=== PATIENT | male | born 1950 | race Caucasian/White ===

== ENCOUNTER 2023-03-29 08:34 | Outpatient (OUT) | payer MEDICARE, SELFPAY ==
--- NOTE | 2023-03-29 08:50 | PM.CN ---
Consult Note: HPI Data of Consult Patient: known to practice within the last 3 years Consult date: 03/29/23 Requesting Physician: KRISTINA DYKES NP Primary Care Provider: ALAINA Bolaños Narrative Narrative: Patient is here for f/u of low back pain and neck neck pain . No new sensorimotor sx or bowel or bladder issues. Medication regimen is controlling pain and assisting patient with ability to perform ADLs. MRI reviewed and questions answered. Pain is bilat lower backk pain and neck pain. We discussed getting neurosurgical consult, he declined. Also discussed ASIYA or RFA procedures. He states these have not helped him in the past and he would like to stay with medication management. He is also doing acupuncture currently. cc:: CC: KRISTINA DYKES NP Review of Systems ROS Status of ROS 10 or more systems reviewed and unremarkable except as noted in history and below Musculoskeletal Reports: back pain and neck pain Exam Constitutional Documenting provider has reviewed patient's vital signs: yes Common normals: no apparent distress, average body habitus, oriented x3, healthy appearing, alert and well nourished Orientation/consciousness: Yes awake, Yes oriented to person, Yes oriented to place and Yes oriented to time [facility] Common normals: normocephalic, external ears normal and moist oral mucous membranes Neck & C-Spine Common normals: no meningeal signs General: normal visual inspection Cervical spine: pain with cervical ROM, paracervical muscle tenderness and paracervical muscle spasm Respiratory Common normals: normal respiratory effort, no retractions and no use of accessory muscles Effort & inspection: able to speak in complete sentences and symmetric chest movement Back & Pelvis Lumbar spine/lower back: normal to inspection, pain with ROM and straight leg raise negative bilaterally Other: positive facet loading bilat muscle strength 5/5 bilat Assessment and Plan Assessment and Plan (1) Lumbar spondylosis: (2) Lumbar stenosis: (3) Muscle spasm: Plan f/u in 3 months
== END 2023-03-29 08:35 | disposition home or self-care (01) ==
PROVIDERS: PCP Family Medicine; Visit Provider Nurse Practitioner
DX: M47.816 Spondylosis without myelopathy or radiculopathy, lumbar region (principal); M48.061 Spinal stenosis, lumbar region without neurogenic claudication; M62.838 Other muscle spasm
CPT/HCPCS: G0463

== ENCOUNTER 2023-06-21 09:27 | Outpatient (OUT) | payer MEDICARE, SELFPAY ==
--- NOTE | 2023-06-21 10:09 | PM.CN ---
Consult Note: HPI Data of Consult Patient: known to practice within the last 3 years Requesting Physician: Kristina Baltazar NP Primary Care Provider: ALAINA ARREOLA Consult Narrative Reason for consult: f/u Narrative: Eh Aguilar a pleasant 72 year old male presents for evaluation of chronic low back and neck pain. Today rating pain 4-5/10 in low back. Patient has been on percocet QHS PRN and is no longer finding this medication beneficial, admits to using a friends medical marijuana recently due to an increase in his pain. Patient expressed numerous times his frustration with our policy against THC use and not prescribing narcotics with THC use, as patient previously quit marijuana and CBD creams/oils to stop percocet. Patient would like to disucss additional medication managament at this time, would like to follow up with a physician at a future appointment higher level of skillset . cc:: CC: Kristina Baltazar NP Review of Systems ROS Status of ROS 10 or more systems reviewed and unremarkable except as noted in history and below Musculoskeletal Reports: back pain, neck pain and joint pain Meds Home Medications and Allergies Home Medications Medication Instructions Recorded Confirmed Type oxycodone-acetaminophen 5 mg-325 1 tab PO BID PRN pain #60 tabs 05/17/23 Rx mg tablet (Percocet) Exam Constitutional Documenting provider has reviewed patient's vital signs: yes Common normals: no apparent distress, oriented x3, healthy appearing, alert and well nourished General appearance: cooperative HENMT Common normals: normocephalic, hearing grossly normal bilaterally and moist oral mucous membranes Head and scalp: normocephalic Eye Common normals: PERRL Pupil: PERRL Neck & C-Spine Common normals: full ROM General: normal visual inspection Cervical spine: pain with cervical ROM Other: intermittent radiculopathy bilateral arms/hands. Patient finds his symptoms are worse at night Chest Common normals: inspection of chest normal Respiratory Common normals: normal respiratory effort, no retractions and no use of accessory muscles Back & Pelvis Lumbar spine/lower back: ROM limited, pain with ROM and straight leg raise negative bilaterally Sacroiliac joints: SI joints normal Other: positive facet loading bilaterally intermittent radiculopathy to LLE no numbness tingling weakness or altered sensation to BLE Extremity Common normals: normal to inspection and full ROM Neuro Common normals: oriented x3, CN's II-XII intact bilaterally, moves all extremities, no focal motor deficits, no sensory deficits noted and deep tendon reflexes 2+ bilaterally Sensorium/orientation: alert Motor exam: strength 5/5 throughout and no movement abnormalities noted Psych Common normals: mental status grossly normal, thought process normal, cooperative, affect normal, speech normal and activity/motor behavior normal Speech: normal speech Thought process: normal thought process Results Additional Findings Additional findings: I have checked an OARRS report on this patient today and there are no aberrancies noted in the prescribing history.?? A drug screen was completed and reviewed within the last year, and if there has not been a drug screen completed we ordered one today to monitor higher risk, state monitored pain medication use. As part of providing excellent, safe, comprehensive care, the following was completed at our patient's visit: 1. A medication reconciliation and review to ensure accurate knowledge of current/active medications, including asking our patients to inform us about any nywk-lxp-amcitec medications or herbal remedies/nutritional supplements/alternative remedies. 2. A review to specifically ensure our patients have had annual screening for: elevated body mass index (BMI), tobacco use, screening for depression, and screening for unhealthy alcohol use. When screening is concerning, patients are provided with education and the specific recommendation to discuss the concerning health issue and treatment options with their primary care provider. Assessment and Plan Assessment and Plan (1) Chronic, continuous use of opioids: Assessment and Plan: stop percocet at this time, recently used a friends medical marijuana because the percocet was not helping will plan on an opioid holiday and random UDS encouraged patient to talk with PCP about medical marijuana referral (2) Lumbar spondylosis: Assessment and Plan: chronic low back pack unresponsive to injection therapy (3) Lumbar stenosis: Assessment and Plan: intermittent left sided radiculopathy (4) Muscle spasm: (5) Cervical radiculopathy: (6) Degenerative disc disease: (7) Marijuana use: Assessment and Plan: reports using a friends medical marijuana one time recently Plan stop marijuana use stop percocet due to marijuana use and it no longer being effective, will not increase dose or strength or rotate opioids due to marijuana use as admitted by patient declined duloxetine, gabapentin/lyrica. declind PT declined topical cream start meloxicam 7.5mg BID update cervical x-rays to further discuss injection therapy as patient has pain and radiculopathy, hx of DDD f/u [address] Mistry as patient would prefer to see a physician
== END 2023-06-21 09:28 | disposition home or self-care (01) ==
PROVIDERS: PCP Family Medicine; Visit Provider Nurse Practitioner
DX: M47.816 Spondylosis without myelopathy or radiculopathy, lumbar region (principal); M62.838 Other muscle spasm; Z79.891 Long term (current) use of opiate analgesic; M48.061 Spinal stenosis, lumbar region without neurogenic claudication; M54.12 Radiculopathy, cervical region
CPT/HCPCS: G0463

== ENCOUNTER 2023-07-17 14:24 | Outpatient (OUT) | payer MEDICARE, SELFPAY ==
--- NOTE | 2023-07-17 | CONS_ITS ---
CONSULTATION DATE: ??07/17/2023 TO:? Dr. Harry CHIEF COMPLAINT:? Includes severe neck pain, worse on the right side. HISTORY:? He was seen today complaining of 3-7/10 pain in his neck, worse on the right side, described as sharp pain, increased with activities such lifting maneuvers, pushing/pulling maneuvers.? He feels most comfortable in the semi- recumbent position.? Denies any change in bowel and bladder habits or new sensorimotor changes in the upper extremities. EXAMINATION:? Notable for patient having no clinical signs consistent with cervical radiculopathy or myelopathy.? Patient did have severe pain with cervical facet loading maneuvers on the right side at C5-6, C6-7 with associated myofascial spasm of the cervical paravertebral muscles.? IMPRESSION:? Patient has chronic pain secondary to cervical spondylosis with facet loading pain clinically on the right sided C5-6, possibly C6-7.? It is possible he may have C4-5 involvement as well.? I have placed a skin marker over the most painful area.? RECOMMENDATIONS:? We will obtain cervical spine films.? We will evaluate the imaging studies and proceed with a diagnostic medial branch block at the corresponding level.? It will be a two level medial branch block procedure.? ?Prior to that, we will have the patient initiate physical therapy.? I have also placed him on baclofen 10 mg pills, half a pill to one pill b.i.d. and we will re-evaluate him in four weeks? time.? If he continues to have similar findings, we will proceed with a diagnostic medial branch block this area.? As part of providing excellent, safe, comprehensive care, the following was completed at our patient's visit: 1. A medication reconciliation and review to ensure accurate knowledge of current/active medications, including asking our patients to inform us about any otyt-epp-crsqkjl medications or herbal remedies/nutritional supplements/alternative remedies. 2. A review to specifically ensure our patients have had annual screening for: elevated body mass index (BMI, see intake chart for exact total), tobacco use, screening for depression, and screening for unhealthy alcohol use.? When screening is concerning, patients are provided with education and the specific recommendation to discuss the concerning health issue and treatment options with their primary care provider. NEERU
== END 2023-07-17 14:25 | disposition home or self-care (01) ==
PROVIDERS: PCP Family Medicine; Visit Provider Anesthesiology Pain Medicine
DX: M47.812 Spondylosis without myelopathy or radiculopathy, cervical region (principal); G89.29 Other chronic pain; M54.2 Cervicalgia
CPT/HCPCS: 72050; G0463

== ENCOUNTER 2023-07-17 15:16 | Outpatient (OUT) | payer MEDICARE, SELFPAY ==
--- NOTE | 2023-07-17 15:22 | XR_ITS ---
The [address] [address] Patient Name: FAITH FLORES MRN: [id number] date: 1950 Sex: M Assigned Patient Location: [facility] Current Patient Location: [facility] Accession/Order Number: [id number] Exam Date: 07/17/2023 15:35 Report Date: 07/17/2023 16:54 At the request of: ELISA BRICENO Procedure: XR cervical spine 5V XR cervical spine 5V, 07/17/2023 3:35 PM EDT, OH001 INDICATION: Neck Pain COMPARISON: MRI of the cervical spine from 03/08/2012. TECHNIQUE: Five images are submitted, including bilateral oblique views. FINDINGS: There is now slight retrolisthesis of C2 on C3 and C4 on C5. There is grade 1 anterolisthesis of C7 on T1 which appears increased compared to prior study. No acute fracture or subluxation is identified. Disc space narrowing is seen from C3 to C4 through C6-C7. The oblique views demonstrate multilevel foraminal narrowing, right greater than left. The visualized soft tissues appear unremarkable. The odontoid appears intact. XR/XR cervical spine 5V IMPRESSION: Degenerative changes. No acute fracture or subluxation is seen. Electronically authenticated by: ADAMARIS HACKETT Date: 07/17/2023 16:54
== END 2023-07-17 15:17 | disposition home or self-care (01) ==
PROVIDERS: PCP Family Medicine; Visit Provider Anesthesiology Pain Medicine
DX: M54.2 Cervicalgia (principal)
CPT/HCPCS: 72050

== ENCOUNTER 2023-08-16 09:40 | Outpatient (OUT) | payer MEDICARE, SELFPAY ==
--- NOTE | 2023-08-16 09:53 | XR_ITS ---
[address] [address] Patient Name: FAITH FLORES MRN: [id number] date: 1950 Sex: M Assigned Patient Location: RAD Current Patient Location: [facility] Accession/Order Number: [id number] Exam Date: 08/16/2023 10:00 Report Date: 08/16/2023 10:10 At the request of: PAULA GARCIA Procedure: XR foreign body eye EXAMINATION: XR foreign body eye HISTORY: Foreign Body Eye COMPARISON: No relevant comparison available. FINDINGS: ORBITS: Negative for a metallic foreign body. OTHER: Opacification of the right maxillary sinus. XR/XR foreign body eye IMPRESSION: No metallic foreign body in the orbits Electronically authenticated by: ALAINA DUTTA Date: 08/16/2023 10:10
--- NOTE | 2023-08-16 09:54 | MR_ITS ---
The [address] [address] Patient Name: FAITH FLORES MRN: [id number] date: 1950 Sex: M Assigned Patient Location: [facility] Current Patient Location: [facility] Accession/Order Number: [id number] Exam Date: 08/16/2023 10:10 Report Date: 08/16/2023 11:35 At the request of: PAULA GARCIA Procedure: MR head/brain wo/w con EXAM: MR head/brain wo/w con CLINICAL INDICATION: Alteration Of [id number] COMPARISON: None TECHNIQUE/PROTOCOL: Standard pre and postcontrast protocol brain MRI performed (Sagittal T1 with axial T1, T2, GRE, FLAIR, and diffusion-weighted imaging). CONTRAST: 18 mL of Dotarem. FINDINGS: No restricted diffusion, extra-axial fluid collection, hydrocephalus, midline shift, or other mass effect. Intracranial flow voids are maintained. Multiple scattered hyperintense T2/FLAIR periventricular and subcortical foci are likely on the basis of chronic microvascular angiopathic changes. Mild symmetric global volume loss without lobar predominance. Mild commensurate ventricular system caliber enlargement. No abnormal parenchymal, leptomeningeal, or dural enhancement. Normal marrow signal. No soft tissue abnormalities. Mild scattered paranasal sinus mucosal thickening with near total opacification of the left maxillary sinus. Mastoid air cells are well-aerated. MR/MR head/brain wo/w con IMPRESSION: No acute intracranial process, recent infarction, or abnormal enhancement. Electronically authenticated by: KATERYNA JAEGER Date: 08/16/2023 11:35
== END 2023-08-16 09:41 | disposition home or self-care (01) ==
LOC: RAD 09:41
PROVIDERS: PCP Family Medicine; Visit Provider Psychiatry & Neurology Neurology
DX: R41.9 Unspecified symptoms and signs involving cognitive functions and awareness (principal); Z86.73 Personal history of transient ischemic attack (TIA), and cerebral infarction without residual deficits
CPT/HCPCS: 70030; 70553; A9575

== ENCOUNTER 2023-08-21 14:09 | Outpatient (OUT) | payer MEDICARE, SELFPAY ==
--- NOTE | 2023-09-20 | CONS_ITS ---
CONSULTATION DATE: 09/20/2023 TO: Sukumar Harry M.D. CHIEF COMPLAINT: Includes neck pain, shoulder pain occurring bilaterally. HISTORY: This patient presents today complaining of 2-3/10 pain involving the above areas, described as sharp pain, which seems to occur with activities such as lifting maneuvers, pushing/pulling maneuvers. Patient feels most comfortable in the semi-recumbent position. Denies any change in bowel and bladder habits or new sensorimotor changes in the upper extremities. CURRENT MEDICATION LIST: Includes baclofen 10 mg pills, half a pill to one pill b.i.d. and he uses THC gummies. He no longer uses opioid medication. EXAMINATION: Notable for patient having no clinical radiculopathy or myelopathy involving the upper extremities. Patient had pain with cervical facet loading maneuvers occurring bilaterally. Again, this is mild to moderate at best, with associated myofascial spasm of the cervical paraspinal muscles. IMPRESSION: Patient appears to have chronic pain secondary to cervical spondylosis and myofascial dysfunction. RECOMMENDATIONS: I have discontinued baclofen secondary to ineffectiveness. Will trial the patient on Zanaflex 4 mg pills, half a pill to one pill at h.s. We will see the patient back in the office in 3-6 months time or sooner if needed. Follow up with us via telephone in one week?s time to update us on response to his change in medication. As part of providing excellent, safe, comprehensive care, the following was completed at our patient's visit: 1. A medication reconciliation and review to ensure accurate knowledge of current/active medications, including asking our patients to inform us about any duyp-vxk-[id number] medications or herbal remedies/nutritional supplements/alternative remedies. 2. A review to specifically ensure our patients have had annual screening for: elevated body mass index (BMI, see intake chart for exact total), tobacco use, screening for depression, and screening for unhealthy alcohol use. When screening is concerning, patients are provided with education and the specific recommendation to discuss the concerning health issue and treatment options with their primary care provider. NEERU
== END 2023-08-21 14:10 | disposition home or self-care (01) ==
PROVIDERS: PCP Family Medicine; Visit Provider Anesthesiology Pain Medicine
DX: M47.812 Spondylosis without myelopathy or radiculopathy, cervical region (principal); G89.29 Other chronic pain
CPT/HCPCS: G0463

== ENCOUNTER 2023-11-28 09:38 | Outpatient (OUT) | payer MEDICARE, SELFPAY ==
--- NOTE | 2023-11-28 09:53 | P.CN_ITS ---
Consult Note: HPI Data of Consult Patient: known to practice within the last 3 years Requesting Physician: Kristina Baltazar NP Primary Care Provider: ALANIA ARREOLA Consult Narrative Reason for consult: f/u Narrative: hE Aguilar a pleasant 72 year old male presents for evaluation of chronic low back and neck pain. Today pain 1/10 in neck and upper back, increases to 8/10 at its worst. Patient continue to have sharp aching pain, no radiculopathy. Pain increased in the evenings and with sleep. Patient continues to utilize marijuana, CBD, and THC gummies. Has not started tizanidine as previously ordered. Patient would like to discuss additional options for treating his chronic pain. cc:: CC: Kristina Baltazar NP Review of Systems ROS Status of ROS 10 or more systems reviewed and unremark able except as noted in history and below Musculoskeletal Reports: back pain and neck pain Meds Home Medications and Allergies Home Medications Medication Instructions Recorded Confirmed Type cholecalciferol (vitamin D3) 10 10 mcg PO DAILY 06/21/23 11/28/23 History mcg (400 unit) capsule (Vitamin D3) magnesium glycinate mg PO 06/21/23 History mecobalamin (vitamin B12) 1,000 1,000 mcg PO DAILY 06/21/23 11/28/23 History mcg chewable tablet (B12 Active) melatonin 10 mg capsule 10 mg PO DAILY 06/21/23 11/28/23 History pramipexole 0.25 mg tablet 0.25 mg PO DAILY 06/21/23 11/28/23 History ([employer]) meloxicam 7.5 mg tablet 7.5 mg PO DAILY 11/28/23 11/28/23 History tizanidine 4 mg capsule 4 mg PO DAILY 11/28/23 11/28/23 History Allergies Allergy/AdvReac Type Severity Reaction Status Date / Time celecoxib [From Celebrex] Allergy Unknown Verified 06/21/23 11:29 adhesive AdvReac Verified 06/21/23 11:29 metoprolol [From Toprol XL] AdvReac Verified 06/21/23 11:29 Exam Constitutional Documenting provider has reviewed patient's vital signs: yes Common normals: no apparent distress, oriented x3, healthy appearing, alert and well nourished General appearance: cooperative HENMT Common normals: normocephalic, hearing grossly normal bilaterally and moist oral mucous membranes Head and scalp: normocephalic Eye Common normals: PERRL Pupil: PERRL Neck & C-Spine Common normals: full ROM General: normal visual inspection Cervical spine: pain with cervical ROM Other: negative spurlings postive facet loading pain increased over bilateral c5/6 6/7, dweyer facet diagram reviewed Chest Common normals: inspection of chest normal Respiratory Common normals: normal respiratory effort, no retractions and no use of accessory muscles Back & Pelvis Lumbar spine/lower back: ROM limited, pain with ROM and straight leg raise negative bilaterally Sacroiliac joints: SI joints normal Extremity Common normals: normal to inspection and full ROM Neuro Common normals: oriented x3, CN's II-XII intact bilaterally, moves all extremities, no focal motor deficits, no sensory deficits noted and deep tendon reflexes 2+ bilaterally Sensorium/orientation: alert Motor exam: strength 5/5 throughout and no movement abnormalities noted Psych Common normals: mental status grossly normal, thought process normal, cooperative, affect normal, speech normal and activity/motor behavior normal Speech: normal speech Thought process: normal thought process Results Additional Findings Additional findings: I have checked an [place]AR[place] report on this patient today and there are no aberrancies noted in the prescribing history.?? A drug screen was completed and reviewed within the last year, and if there has not been a drug screen completed we ordered one today to monitor higher risk, state monitored pain medication use. As part of providing excellent, safe, comprehensive care, the following was completed at our patient's visit: 1. A medication reconciliation and review to ensure accurate knowledge of current/active medications, including asking our patients to inform us about any [id number] medications or herbal remedies/nutritional supplements/alternative remedies. 2. A review to specifically ensure our patients have had annual screening for: elevated body mass index (BMI), tobacco use, screening for depression, and screening for unhealthy alcohol use. When screening is concerning, patients are provided with education and the specific recommendation to discuss the concerning health issue and treatment options with their primary care provider. Assessment and Plan Assessment and Plan (1) Cervical spondylosis: Assessment and Plan: The patient has had over 3 months of moderate to severe neck pain with functional impairment and inadequate response to conservative care including NSAIDS (unless there are contraindication such as concurrent blood thinners), multiple oral or topical pain medications, and home exercise program/physical therapy.? Patient has completed >6 weeks of guided home exercise program and/or formal physical therapy program without relief of their symptoms.? I have reviewed the imaging of the cervical spine and no red flags were identified.? The imaging reveals radiographic findings consistent with cervical spondylosis The Oswestry Disability Index was completed, and the patient scored a 47%.? The patient noted the following:?? moderate pain, pain impacting sleep, pain impacting ADLs We discussed the risks and benefits of the procedure with the patient, and we are NOT planning on using sedation as outlined in the guidelines from Medicare unless there is a documented reason that sedation would be strongly recommended.?? The procedure will be completed with fluoroscopic guidance.? (2) Marijuana use: (3) Degenerative disc disease: Plan restart mobic 7.5mg BID PRN start tizanidine 4mg HS PRN as previously ordered bilateral C5-6 C6-7 mbb x2 working towards RFA, with Dr Arevalo f/u 1 week after injection
--- OUTSIDE RECORDS SUMMARY | 2023-11-28 09:53 | XMS_ITS | CCD ---
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 for pain control.PAIN EVALUATION No data found.Pain Radiation: down the left thigh, below the left knee and to the leftfoot/feet, from the left shoulder(s), left elbow(s), left wrist(s) andleft finger(s)Aggravating Factors: Lying supineAlleviating Factors: Standing, WalkingPain Ratio: Pain in the neck is greater than in the armDERMATOMAL DISTRIBUTION:Left: unknownAMBULATORY STATUS: Impaired Community DistancesPREVIOUS CONSERVATIVE TREATMENTS:OTC NSAIDS for 3 Months or Greater (Ibuprofen)Oral SteroidsPREVIOUS SPINAL SURGERY: NoneThere is no problem list on file for this patient.PAST MEDICAL HISTORYDiagnosis Date- A-fib ([facility])- Asthma- Other specified cardiac dysrhythmias(427.89)- Stroke ([facility])PAST SURGICAL HISTORYProcedure Laterality Date- ABLATION cardiac for AFib- HERNIA REPAIR HX- KNEE ARTHROSCOPY Left- OTHER rigth leg vein stripping- OTHER Left CTR- WRIST SURGERY HXNo family history on file.Social History Marital status: Single Spouse name: Years of education: Number of children:Social History Main Topics Smoking status: Never Smoker Smokeless status: Never UsedALLERGIESAllergen Reactions- Intolerance To Topr*MEDICATIONS:oxyCODONE -acetaminophen (PERCOCET 10) 10-325 mg tabletpolyethylene glycol 3350 (MIRALAX ORAL) Take by mouth.COMPOUNDED PRESCRIPTION PATIENT STOPPED ALL RX OF 03/04CARDIZEM CD 120MG CAP SA Take one(1) capsule daily.NEXIUM 40MG CAPSULE Take one(1) tablet daily.MOTRIN 800MG TABLET as necessaryNEURONTIN 300MG CAPSULE Take one(1) capsule three(3) times daily.COMPOUNDED PRESCRIPTION TYLENOL #3 PRNREVIEW OF SYSTEMS:GENERAL: No weight loss or malaiseMUSCULOSKELETAL: Negative for joint pain, swelling or muscle painNEURO: No history of headaches, syncope, paralysis, seizures or tremorsOBJECTIVE:PHYSICAL EXAMBP 143/69 Pulse (!) 59 Resp 17 Ht 172.7 cm (5' 8 ) Wt 97.1 kg (214lb) BMI 32.54 kg/x6EDSUGEJ APPEARANCE: Well nourished, well developed, and no apparentdistress.NEURO PSYCH: Patient oriented to person, place, and time. Mood pleasant.Benign affect.MUSCULOSKELETAL VISUAL INSPECTION CERVICAL: WNL THORACIC: Scoliosis LUMBAR: ScoliosisMOTOR: 5/5 in all muscle groups.SENSORY: Normal sensory examGAIT: Normal. Unable to tandem walk.Numbness inPositive left HoffmanNEURO TESTS:NoneDATA REVIEWImaging and outside records reviewedMRI lumbar*??Severe convex left scoliosis of the lumbar spine with moderate severitymultilevel degenerative disc disease/spondylosis worse on the concave sideof the scoliotic curve on the right.*??At L1-2 there is mild right neural foraminal narrowing.*??At L2-3 there is mild right neural foraminal narrowing and mild leftneural foraminal narrowing.*??At L3-4 there is moderate left neural foraminal narrowing and moderateright neural foraminal narrowing as well as mild vertebral canal stenosis.*??At L4-5 there is moderate left neural foraminal narrowing and mildright neural foraminal narrowing.??There is an 8 mm synovial cystsuspected anterior to the left posterior facets effacing the left lateralthecal sac mildly compressing nearby nerve roots.??There is moderatelysevere vertebralcanal stenosis.*??At L5-S1 there is moderately severe left neural foraminal narrowing.MRI cervical?*??Moderately severe multilevel degenerative discdisease/spondylosis.?? Overall this is progressive from 03/08/2012.*??The worse level is C3-4 where there is redemonstration of a posteriorright subarticular disc/osteophyte herniation/protrusion with severe rightneural foraminal narrowing, moderately severe vertebral canal stenosiswith narrowing of the right lateral recess.??There is also moderate leftneuralforaminal narrowing.??This was evident on prior study as well and appearssimilar to perhaps slightly worse with regards to the severity of stenosison today's study.*??At C4-5 there is mild vertebral canal stenosis and mild to moderatebilateral neural foraminal narrowing.*??At C5-C6 there is mild bilateral neural foraminal narrowing.*??At C6-7 there is mild bilateral neural foraminal narrowing worse on theright than the left.?ASSESSMENT/PLANIMPRE SSION:(M41.9) Scoliosis of lumbar spine, unspecified scoliosis type (primaryencounter diagnosis)(M54.16) Radiculopathy, lumbar region(M48.02) Spinal stenosis in cervical region(M47.12) Cervical spondylosis with myelopathy(M79.602) Left arm painStepchuyita Flores has 2 issues. Chronic lower back pain and most recentlyleft leg pain. He has significant thoraco-lumbar scoliosis and L4-5 leftforaminal stenosis. At this time, he is not interested in any big lumbarsurgeries and would prefer to do conservative treatment for his lumbarspine. Provided referral to PT. for his cervical spine, he has significant cervical stenosis at C3-4,worse on the right. Recommend patient obtain EMG of the left arm to ruleout ulnar issues vs cervical radiculopathy. He will also obtain cervicalxrays. Will have patient schedule with spine surgeon after EMG is obtainedfor surgical evaluation.I have also advised patient that it is very important for him to see aneurologist for his fogginess, tremor, concentration issues.1. Imaging: Cervical X-Ray and EMG/NCS2. Consults: Physical Therapy3. Follow up: PRNThe majority of the visit was spent counseling and/or coordinating carefor the patient. The patient was counseled regarding imaging results.Total face to face time was 45 minutes.SIGNATURE: Kasey Leigh PA-C PATIENT NAME: Eh FloresDATE: January 21, 2018 : 10:47 PM PAGER: P[facility] CNOVon 01-21-2018 CNOV Office Visit (SPNSMN) RENE FLORES ([id number]) 1950 MDate Time Provider Department01/21/18 11:00 AM KASEY LEIGH (PA) SPNSMN During your visit today, we recorded the following information about you: Pulse Respiration Blood pressure Weight 59/minute 17/minute 143/69 97.1 kg Height 1.727 Shona Leigh PA-C 01/21/2018 11:18 PM SignedSPINE SURGERY NEW PATIENTPCP: ALIZA Villa PROVIDER: selfSUBJECTIVEHISTORY OF PRESENT ILLNESS:Eh Flores is a 67 year old male presenting sister.CHIEF COMPLAINT: neck pain and left arm painPRECIPITATING EVENT: NoneDURATION OF SYMPTOMS: Greater Than 1 YearSpresley Flores reports that he has been having a chronic neck and lower backissue.He has had lower back pain for many years. He also has RLS. In the last month,he noted pain down the lateral left leg to the calf, which is not as bad as thelower back pain. He has not tried any conservative treatment for his lumbarspine. Except for taking Percocet 10/325 mg 1-2 tabs at night.He also reports of chronic neck pain for many years. Pain into the shouldersand pain that goes into the left arm. He feels that sometimes it seems tooriginate in the left elbow and down the forearm and into the hand and allfingers and up the arm. Neck pain is worse laying supine, or sitting. Betterwith standing and walking, but that makes the lower back pain worse.She feels that his balance has been off since his stroke in 2010. Not sure ifit has gotten worse or not. 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 He also reports of fogginess andconcentration issues. His new PCP is working this up, and was discussing aboutsending him to Neurology, as per patient.He has not tried any conservative treatment for his cervical spine, except fortaking Percocet. Patient does use marijuana regularly for pain control.PAIN EVALUATION No data found.Pain Radiation: down the left thigh, below the left knee and to the leftfoot/feet, from the left shoulder(s), left elbow(s), left wrist(s) and leftfinger(s)Aggravating Factors: Lying supineAlleviating Factors: Standing, WalkingPain Ratio: Pain in the neck is greater than in the armDERMATOMAL DISTRIBUTION:Left: unknownAMBULATORY STATUS: Impaired Community DistancesPREVIOUS CONSERVATIVE TREATMENTS:OTC NSAIDS for 3 Months or Greater (Ibuprofen)Oral SteroidsPREVIOUS SPINAL SURGERY: NoneThere is no problem list on file for this patient.PAST MEDICAL HISTORYDiagnosis Date- A-fib ([facility])- Asthma- Other specified cardiac dysrhythmias(427.89)- Stroke ([facility])PAST SURGICAL HISTORYProcedure Laterality Date- ABLATION cardiac for AFib- HERNIA REPAIR HX- KNEE ARTHROSCOPY Left- OTHER rigth leg vein stripping- OTHER Left CTR- WRIST SURGERY HXNo family history on file.Social History Marital status: Single Spouse name: Years of education: Number of children:Social History Main Topics Smoking status: Never Smoker Smokeless status: Never UsedALLERGIESAllergen Reactions- Intolerance To Topr*MEDICATIONS:oxyCODONE -acetaminophen (PERCOCET 10) 10-325 mg tabletpolyethylene glycol 3350 (MIRALAX ORAL) Take by mouth.COMPOUNDED PRESCRIPTION PATIENT STOPPED ALL RX OF 03/04CARDIZEM CD 120MG CAP SA Take one(1) capsule daily.NEXIUM 40MG CAPSULE Take one(1) tablet daily.MOTRIN 800MG TABLET as necessaryNEURONTIN 300MG CAPSULE Take one(1) capsule three(3) times daily.COMPOUNDED PRESCRIPTION TYLENOL #3 PRNREVIEW OF SYSTEMS:GENERAL: No weight loss or malaiseMUSCULOSKELETAL: Negative for joint pain, swelling or muscle painNEURO: No history of headaches, syncope, paralysis, seizures or tremorsOBJECTIVE:PHYSICAL EXAMBP 143/69 Pulse (!) 59 Resp 17 Ht 172.7 cm (5' 8ANDquot;) Wt 97.1 kg (214lb) BMI 32.54 kg/k6FBEYASY APPEARANCE: Well nourished, well developed, and no apparent distress.NEURO PSYCH: Patient oriented to person, place, and time. Mood pleasant. Benignaffect.MUSCULOSKELET AL VISUAL INSPECTION CERVICAL: WNL THORACIC: Scoliosis LUMBAR: ScoliosisMOTOR: 5/5 in all muscle groups.SENSORY: Normal sensory examGAIT: Normal. Unable to tandem walk.Numbness inPositive left HoffmanNEURO TESTS:NoneDATA REVIEWImaging and outside records reviewedMRI lumbar*??Severe convex left scoliosis of the lumbar spine with moderate severitymultilevel degenerative disc disease/spondylosis worse on the concave side ofthe scoliotic curve on the right.*??At L1-2 there is mild right neural foraminal narrowing.*??At L2-3 there is mild right neural foraminal narrowing and mild left neuralforaminal narrowing.*??At L3-4 there is moderate left neural foraminal narrowing and moderate rightneural foraminal narrowing as well as mild vertebral canal stenosis.*??At L4-5 there is moderate left neural foraminal narrowing and mild rightneural foraminal narrowing.??There is an 8 mm synovial cyst suspected anteriorto the left posterior facets effacing the left lateral thecal sac mildlycompressing nearby nerve roots.??There is moderately severe vertebralcanal stenosis.*??At L5-S1 there is moderately severe left neural foraminal narrowing.MRI cervical?*??Moderately severe multilevel degenerative discdisease/spondylosis.?? Overall this is progressive from 03/08/2012.*??The worse level is C3-4 where there is redemonstration of a posterior rightsubarticular disc/osteophyte herniation/protrusion with severe right neuralforaminal narrowing, moderately severe vertebral canal stenosis with narrowingof the right lateral recess.??There is also moderate left neuralforaminal narrowing.??This was evident on prior study as well and appearssimilar to perhaps slightly worse with regards to the severity of stenosis ontoday's study.*??At C4-5 there is mild vertebral canal stenosis and mild to moderatebilateral neural foraminal narrowing.*??At C5-C6 there is mild bilateral neural foraminal narrowing.*??At C6-7 there is mild bilateral neural foraminal narrowing worse on theright than the left.?ASSESSMENT/PLANIMPRE SSION:(M41.9) Scoliosis of lumbar spine, unspecified scoliosis type (primaryencounter diagnosis)(M54.16) Radiculopathy, lumbar region(M48.02) Spinal stenosis in cervical region(M47.12) Cervical spondylosis with myelopathy(M79.602) Left arm painStepchuyita Flores has 2 issues. Chronic lower back pain and most recently leftleg pain. He has significant thoraco-lumbar scoliosis and L4-5 left foraminalstenosis. At this time, he is not interested in any big lumbar surgeries andwould prefer to do conservative treatment for his lumbar spine. Providedreferral to PT. for his cervical spine, he has significant cervical stenosis at C3-4, worseon the right. Recommend patient obtain EMG of the left arm to rule out ulnarissues vs cervical radiculopathy. He will also obtain cervical xrays. Will havepatient schedule with spine surgeon after EMG is obtained for surgicalevaluation.I have also advised patient that it is very important for him to see aneurologist for his fogginess, tremor, concentration issues.1. Imaging: Cervical X-Ray and EMG/NCS2. Consults: Physical Therapy3. Follow up: PRNThe majority of the visit was spent counseling and/or coordinating care for thepatient. The patient was counseled regarding imaging results. Total face toface time was 45 minutes.SIGNATURE: Kasey Leigh PA-C PATIENT NAME: Eh FloresDATE: January 21, 2018 : 10:47 PM PAGER:Referring Provider: SELF [[id number]]Allergies As of Date: 01/21/2018 Noted Allergy ReactionIntolerance To Toprol And Celebre*06/19/2003Date Reviewed: 01/21/2018Reviewed by: Chapo Jose Ma - Fully AssessedReason for Visit: New Patient [172]Primary Visit Diagnosis:Scoliosis of lumbar spine, unspecified scoliosis type [M41.9] Other Visit Diagnoses:Radiculopathy, lumbar region [M54.16] Spinal stenosis in cervical region [M48.02] Cervical spondylosis with myelopathy [M47.12] Left arm pain [M79.602]Order(s):XR CERV OTHER 4V AP/LAT/FLX/EXT [0061607] Order #: [id number] FUTURE EMG(NEURO/NI) [20101230] Order #: [id number]: 1 FUTURE CONSULT TO PHYSICAL THERAPY [9032] Order #: [id number]: 1Prescriptions as of 01/21/2018 Sig: OXYCODONE-ACETAMINOPHEN 10 MG* MIRALAX ORAL Take by mouth. COMPOUNDED PRESCRIPTION PATIENT STOPPED ALL RX OF * Patient not taking: Reported on 01/21/2018 CARDIZEM CD 120 MG CAPSULE,EX* Take one(1) capsule daily. Patient not taking: Reported on 01/21/2018 NEXIUM 40 MG CAPSULE,DELAYED * Take one(1) tablet daily. Patient not taking: Reported on 01/21/2018 MOTRIN 800 MG TABLET as necessary Patient not taking: Reported on 01/21/2018 NEURONTIN 300 MG CAPSULE Take one(1) capsule three(3) * Patient not taking: Reported on 01/21/2018 COMPOUNDED PRESCRIPTION TYLENOL #3 PRN Patient not taking: Reported on 01/21/2018Medication notes this encounter OXYCODONE-ACETAMINOPHEN 10 MG-325 MG TABLET >> Chapo Jose Ma 01/21/2018 11:08 AM >> CHAPO JOSE MA SunJan 21, 2018 11:08 AM Received from: External PharmacyProblem List As Of Date: 01/21/2018(None)Follow-up and Disposition History RecordedEncounter Number: [id number] Status:Closed by KASEY LEIGH on 01/21/18 [facility] PROGRESSon 01-21-2018 PROGRESS HNO ID: [id number] thor: Jodie Biswas (Rt): RadiologyAuthor Type: TechnicianType: Progress NotesFiled: 01/21/2018 1:18 PMNote Text: Radiology Service Progress NotePATIENT NAME: Eh FloresMRN: [id number] OF SERVICE: January 21, 2018TIME: 1:18 PMPATIENT IDENTITY VERIFICATION COMPLETED USING TWO (2) METHODS: Patientconfirmed name verbally and Date of .PATIENT GENDER DATA: MalePATIENT RELEVANT IMPLANT DATA REVIEWED: Not ApplicableRADIOLOGY DEPARTMENT: General X-ray: Exam(s) Completed: Spine X-Ray(s):Cervical AP / LAT / FLEX-EXTPERIPHERAL IV DATA: Not applicableSIGNED BY: Jessica Biswas 2017 1:18 PM Normal [facility] XR CERVICAL 4V AP/LAT/FLX/EX Ton 01-21-2018 XR CERVICAL 4V AP/LAT/FLX/EXT * * *Final Report* * *DATE OF EXAM: Jan 21 2018 12:56PM RANDY [id number] - XR CERVICAL 4V AP/LAT/FLX/EXT / REASON: multiple diagnoses * * * * Physician Interpretation * * * * HISTORY: Scoliosis, unspecified Radiculopathy, lumbar region Spinal stenosis, cervical region Other spondylosis with myelopathy, cervical regionTECHNOLOGIST PROVIDED HISTORY (if applicable): PAIN IN C SPINETECHNIQUE: XR CERVICAL 4V AP/LAT/FLX/EXTRESULT: Cervical spine 4 views. Counting reference: Craniocervical junction.Curvature is preserved. The atlantoaxial interval is normal. Advanced disc space narrowing at C3-4. Similar changes at C4-5 with minimal retrolisthesis. Moderate disc space narrowing and productive change C5-6 and C6-7. Facet arthropathy at the cervicothoracic junction.Nuchal ligament ossification at the C6 level.Between flexion and extension there is no abnormal angulation or translation to suggest instability.IMPRESSION: MULTILEVEL DEGENERATIVE CHANGES WITHOUT RADIOGRAPHIC DEMONSTRATION OF INSTABILITY.Transcriptioni st: PSCB Transcribe Date/Time: Jan 21 2018 4:15PDictated by : EH MICHELLE MDThis examination was interpreted and the report reviewed and electronically signed by: EH MICHELLE MD on Jan 21 2018 4:17PM [id number] Normal [facility] CNCOon 01-10-2018 CNCO Letter TextDear Shimon Flores:How to activate your [facility] [employer] Account 1. Visit the [employer] Signup page at [email or web address] 2. Identify yourself using your one-time use activation code: [email or web address]: 02/09/2018 1:35 PMThis activation code was e-mailed to 3. Follow the on-screen prompts to choose your own secure username andpasswordThe following information will be necessary to access your account for thefirst time:Information needed for sign-up:Your custom activation code used one-time only for the initial accountset-up.Your date of birthThe last 4 digits of your social security numberWhat to do next:Fill in the requested information on the Identify Yourself Form [email or web address] , click Next.Create your login and password, choose a [employer] ID and password that will beeasy for you to use, but impossible for anyone else to guess.Pick a security question that will assist you in the event you forget yourpassword the next time you log-on.If you have difficulty activating your account, please call our [employer] at [phone] or toll free at .We hope you enjoy using [employer]!Kindest Regards,[facility] [employer] Team Normal [facility] MR-MR CERVICAL SPINE WO CONT IMPORTon 01-03-2018 MR-MR CERVICAL SPINE WO CONT IMPORT Images were obtained outside of [facility] [id number] Normal [facility] MR-MR LUMBAR SPINE WO CONT I MPORTon 01-03-2018 MR-MR LUMBAR SPINE WO CONT IMPORT Images were obtained outside of [facility] [id number] Normal [facility] Vital Signs Date Time Vital Sign Value Performing Clinician Lencho kincaid 11-02-2023 11:02-0500 Body mass index (BMI) [Ratio] 31.32 kg/m2 Jaqui Flynn APRN-HOTEL CUSTODIAN Work Phone: [facility] 11-02-2023 11:02-0500 Body weight 93.44 kg Jaqui Flynn APRN-HOTEL CUSTODIAN Work Phone: [facility] 11-02-2023 11:02-0500 Diastolic blood pressure 60 mm[Hg] Jaqui Flynn APRN-HOTEL CUSTODIAN Work Phone: [facility] 11-02-2023 11:02-0500 Heart rate 78 /min Jaqui Flynn APRN-HOTEL CUSTODIAN Work Phone: [facility] 11-02-2023 11:02-0500 Respiratory rate 18 /min [facility] NEWS VIDEOTAPE EDITOR-HOTEL CUSTODIAN Work Phone: [facility] 11-02-2023 11:02-0500 SaO2% (BldA) [Mass fraction] 97 % [facility] NEWS VIDEOTAPE EDITOR-HOTEL CUSTODIAN Work Phone: [facility] 11-02-2023 11:02-0500 Systolic blood pressure 112 mm[Hg] [facility] NEWS VIDEOTAPE EDITOR-HOTEL CUSTODIAN Work Phone: [facility] Encounters Encounter Date Encounter Type Care Provider Facility Start: 11-02-2023 End: 11-02-2023 ambulatory [facility] Start: 11-02-2023 End: 11-02-2023 [facility]OR-HOTEL CUSTODIAN Work Phone: [facility] Comment on above: Seizure-like activit y ([facility]) (Primary Dx); Syncope, unspecified syncope type; Cervical disc disease; Radiculopathy, lumbosacral region Start: 09-14-2023 End: 09-14-2023 amb[facility] Start: 01-09-2023 End: 01-10-2023 ambulatory NARENDRANATH LAKSHMIPATHY . Facility:[facility] Start: 11-30-2022 End: 12-01-2022 ambulatory NARENDRANATH LAKSHMIPATHY . Facility:[facility] Start: 08-31-2022 End: 09-01-2022 ambulatory SID SCHULER . Facility:[facility] Start: 08-08-2022 End: 08-08-[address] KOFI PASCAL . Facility:[facility] Start: 08-04-[address] ALAINA Figueredo ity:[facility] Start: 08-01-2022 End: 08-01-[address] KOFI PASCAL . Facility:[facility] Start: 07-30-2022 Encounter for preprocedural cardiovascular examination DR KOFI PASCAL . [facility] Start: 07-30-2022 Encounter for preprocedural laboratory examination DR KOFI PASCAL . [facility] Start: 07-28-2022 End: 07-29-[address] KOFI PASCAL . Facility:[facility] Start: 07-28-2022 End: 07-29-2022 Encounter for preprocedural cardiovascular examination DR KOFI PASCAL . Facility:[facility] Start: 07-13-2022 End: 07-14-2022 ambulatory SID SCHULER . Facility:[facility] Start: 06-27-2022 End: 06-27-[address] KOFI PASCAL . Facility:[facility] Start: 05-25-2022 End: 05-26-2022 ambulatory SID SCHULER . Facility:[facility] Start: 05-02-2022 End: 05-02-[address] KOFI PASCAL . Facility:[facility] Start: 04-13-2022 End: 04-14-2022 ambulatory SID SCHULER . Facility:[facility] Start: 03-28-2022 End: 03-28-[address] KOFI PASCAL . Facility:[facility] Start: 02-23-2022 End: 02-24-[address] ALAINA ARREOLA Facility:[facility] Start: 03-06-2018 End: 03-08-2018 Ambulatory JO CAMPBELL [facility] Start: 02-12-2018 End: 02-15-2018 Ambulatory ALEJANDRO MONTANEZ [facility] Start: 02-05-2018 End: 02-05-2018 [facility] Start: 02-05-2018 End: 02-06-2018 [facility] Start: 01-21-2018 End: 01-22-2018 Ambulatory KASEY LEIGH (PA) [facility] Procedures Date Procedure Procedure Detail Performing Clinician Start: 11-02-2023 Follow-up visit Follow-up JAQUI FLYNN Start: 06-01-2023 Adult depression scr eening assessment Jaqui Flynn NEWS VIDEOTAPE EDITOR[facility] Work Phone: Start: 09-13-2020 Colonoscopy Jaqui velez NEWS VIDEOTAPE EDITOR[facility] Work Phone: Plan of Treatment Date Care Activity Detail Author Start: 10-08-2031 DTaP,Tdap and Td Vaccines (2 - Td or Tdap) DTaP,Tdap and Td Vaccines (2 - Td or Tdap) [facility] Start: 09-13-2025 Screening for malignant neoplasm of colon Colonoscopy [facility] Start: 11-02-2024 Adult BMI Screening Adult BMI Screening [facility] Start: 09-19-2024 Tobacco Screening Tobacco Screening [facility] Start: 07-25-2024 Adult BMI Follow Up Plan Adult BMI Follow Up Plan [facility] Start: 06-01-2024 Depression Screening Depression Screening [facility] Start: 06-01-2024 Fall Risk Screening Fall Risk Screening [facility] Start: 05-07-2024 End: 05-07-2024 Patient encounter procedure 05/07/2024 11:00 AM EDT Office Visit [facility] [address] [place] [address] Jaqui Flynn NEWS VIDEOTAPE EDITOR-HOTEL CUSTODIAN [address], [place] [id number] [facility] Start: 05-04-2024 Medicare Annual Wellness Visit Medicare Annual Wellness Visit [facility] Start: 06-01-2023 COVID-19 Vaccine ( season) COVID-19 Vaccine ( season) [facility] Start: 06-01-2023 Influenza vaccination Influenza Vaccine [facility] Start: 03-28-2013 Administration of varicella zoster vaccine Zoster (Shingles) Vaccine (2 of 3) [facility] Immunizations Immunization Date Immunization Notes Care Provider Fa cility 10-08-2021 tetanus toxoid, reduced diphtheria toxoid, and acellular pertussis vaccine, adsorbed Jaqui Flynn NEWS VIDEOTAPE EDITOR-HOTEL CUSTODIAN Work Phone: [facility] Work Phone: 12-30-2020 COVID-19, mRNA, LNP- S, PF, 30mcg/0.3mL Dose Jaqui Flynn NEWS VIDEOTAPE EDITOR-HOTEL CUSTODIAN Work Phone: [facility] 07-28-2020 Influenza, injectabl e, Madin Khushboo Canine Kidney, preservative free, quadrivalent Jaqui Flynn NEWS VIDEOTAPE EDITOR-HOTEL CUSTODIAN Work Phone: [facility] 07-28-2020 influenza virus vaccine, unspecified formulation Jaqui Flynn NEWS VIDEOTAPE EDITOR-HOTEL CUSTODIAN [facility] 04-23-2017 pneumococcal conjuga te vaccine, 13 valent Jaqui Flynn NEWS VIDEOTAPE EDITOR-HOTEL CUSTODIAN [facility] 01-31-2013 zoster vaccine, live Jaqui Flynn NEWS VIDEOTAPE EDITOR-HOTEL CUSTODIAN Work Phone: [facility] 01-31-2013 zoster vaccine, unspecified formulation Jaqui Flynn NEWS VIDEOTAPE EDITOR-HOTEL CUSTODIAN [facility] Payers Date Payer Category Payer Medicare ANTHEM MEDICARE ANTHEM MEDICARE ADVANTAGE [id number] 2020-[facility] [phone] [address] [place] [address] [id number] 1959 Unknown [id number] 1950 Unknown [id number] 2..[id number] 1950 Unknown [id number] 2.840.1.288443.3.579.2.593 1950 Unknown [id number] 2..840.1.952293.3.579.2.593 1950 Unknown [id number] 2.16.840.1.833731.3.579.2.593 1950 Unknown [id number] 2.16.840.1.259606.3.579.2.593 1950 Unknown [id number] 2.16.840.1.906919.3.579.2.593 1950 Unknown [id number] 2.16.840.1.874508.3.579.2.593 1950 Unknown [id number] 2.16.840.1.553323.3.579.2.593 1950 Unknown [id number] 2.16.840.1.934051.3.579.2.593 1950 Unknown [id number] 2.16.840.1.732049.3.579.2.593 1950 Unknown [id number] 2.16.840.1.610068.3.579.2.593 1950 Unknown [id number] 2.16.840.1.929838.3.579.2.593 1950 Unknown [id number] 2.16.840.1.477010.3.579.2.593 1950 Unknown [id number] 2.16.840.1.000792.3.579.2.593 1950 Unknown [id number] 2.16.840.1.230954.3.579.2.128 6 1950 Unknown [id number] 2.16.840.1.236279.3.579.2.128 6 1950 Unknown [id number] 2.16.840.1.991589.3.579.2.128 6 1950 Unknown [id number] 2.16.840.1.974464.3.579.2.128 6 Social History Date Type Detail Facility Start: 07-18-2022 Tobacco smoking stat [facility] Never smoked tobacco [facility] Start: 07-18-2022 Tobacco use and exposure Smokeless tobacco non-user [facility] Start: 09-19-2023 Alcohol intake Current drinke r of alcohol (finding) [facility] Start: 11-11-2020 End: 09-19-2023 Alcohol intake [facility] Start: 11-11-2020 End: 09-19-2023 Tobacco use panel [facility] Adolescent depressio n screening assessment 0 [facility] Start: 1950 Sex Assigned At Not on file P [facility] Clinical Notes 02-23-2022 to 11-02-2023 Jaqui Flynn, NEWS VIDEOTAPE EDITOR-HOTEL CUSTODIAN - 11/02/2023 11:00 AM EST Note Date & Type Note Facility 11-02-2023 History of Present illness Narrative Images from the original note were not included. [id number] [facility] [id number] SUBJECTIVE: Patient ID: Eh Flores is a 72 y.o. male. Patient presents to the office for routine check up. He had negative exam by neurology for seizures. Cardiac work up was negative as well. He has not had another episode. He is seeing pain management for neck and back concerns. He has not been sleeping well due to neck pain. Follow-up Associated symptoms include arthralgias and neck pain. Pertinent negatives include no abdominal pain, chest pain, congestion, coughing, fatigue, fever, joint swelling, nausea, numbness, rash, sore throat, vomiting or weakness. The following portions of the patient's history were reviewed and updated as appropriate: allergies, current medications, past family history, past medical history, past social history, past surgical history and problem list. REVIEW OF SYSTEMS: Review of Systems Constitutional: Negative for fatigue, fever and unexpected weight change. HENT: Negative for congestion, ear pain, sinus pressure, sinus pain and sore throat. Eyes: Negative for photophobia, pain, discharge and visual disturbance. Respiratory: Negative for cough and shortness of breath. Cardiovascular: Negative for chest pain, palpitations and leg swelling. Gastrointestinal: Negative for abdominal pain, diarrhea, nausea and vomiting. Endocrine: Negative for polydipsia, polyphagia and polyuria. Genitourinary: Negative for difficulty urinating, frequency, hematuria and urgency. Musculoskeletal: Positive for arthralgias, back pain and neck pain. Negative for gait problem and joint swelling. Skin: Negative for pallor and rash. Neurological: Negative for dizziness, weakness, light-headedness and numbness. Psychiatric/Behavioral: Negative for sleep disturbance. The patient is not nervous/anxious. PHYSICAL EXAMINATION: Vitals: 11/02/23 1102 BP: 112/60 Pulse: 78 Resp: 18 SpO2: 97% Weight: 93.4 kg (206 lb) Physical Exam Constitutional: Appearance: He is well-developed. HENT: Head: Normocephalic and atraumatic. Right Ear: External ear normal. Left Ear: External ear normal. Eyes: Conjunctiva/sclera: Conjunctivae normal. Pupils: Pupils are equal, round, and reactive to light. Cardiovascular: Rate and Rhythm: Normal rate and regular rhythm. Heart sounds: Normal heart sounds. Pulmonary: Effort: Pulmonary effort is normal. Breath sounds: Normal breath sounds. Musculoskeletal: Cervical back: Normal range of motion. Skin: General: Skin is warm and dry. Neurological: Mental Status: He is alert and oriented to person, place, and time. Psychiatric: Mood and Affect: Mood normal. ASSESSMENT/PLAN: Christiano was seen today for follow-up. Diagnoses and all orders for this visit: Seizure-like activity (CMS-HCC) Syncope, unspecified syncope type Cervical disc disease Radiculopathy, lumbosacral region Follow-up: He is thinking about doing cupping on neck Declines any issues today. Follow up for routine wellness or as needed Patient noted to have elevated BMI and the following intervention(s) were applied: encouragement to exercise. SANDRINE Hernandez 11/02/23 1112 documented in this encounter [facility] 01-09-2023 Note CONSULTATION CONSULTATION DATE: 01/09/2023 TO: Alaina Arreola M.D. CHIEF COMPLAINT: Includes severe bilateral lower back pain, leg pain. HISTORY: He reports having 5-7/10 pain, sharp in character, increased with activities such as standing, walking and performing transitioning maneuvers. Denies any change in bowel and bladder habits or new sensorimotor changes in the lower extremities. EXAM: Notable for patient having no clinical radiculopathy or myelopathy involving his lower extremities. Patient did have signs consistent with peripheral neuropathy. He has had hypoesthesia approximately from the ankles on down distally bilaterally. He did have a fair amount of myofascial spasm over the lumbar paravertebral muscles, point tenderness overlying the L4-5 interspace with increasing pain symptoms with lumbar axial loading maneuvers and myofascial dysfunction involving the lumbar paravertebral muscle as stated above, which appear to be most severe at the L4 level bilaterally. He had nothing to suggest facet joint related pain clinically. IMPRESSION: 1. Patient has chronic pain secondary to lumbago, secondary to discogenic pain. 2. Peripheral neuropathy. 3. Myofascial dysfunction of the lumbar paravertebral muscles. RECOMMENDATIONS: Will obtain urine toxicology screen at today's visit. Patient will have lumbosacral spine films, flexion/extension views, as well as lumbosacral MRI without contrast. I have placed the patient on baclofen 10 mg pills, half a pill to one pill t.i.d. as tolerated. We will see him back in the office in approximately four weeks' time. As part of providing excellent, safe, comprehensive care, the following was completed at our patient's visit: 1. A medication reconciliation and review to ensure accurate knowledge of current/active medications, including asking our patients to inform us about any [id number] medications or herbal remedies/nutritional supplements/alternative remedies. 2. A review to specifically ensure our patients have had annual screening for: elevated body mass index (BMI, see intake chart for exact total), tobacco use, screening for depression, and screening for unhealthy alcohol use. When screening is concerning, patients are provided with education and the specific recommendation to discuss the concerning health issue and treatment options with their primary care provider. [facility] 11-30-2022 Note CONSULTATION CONSULTATION DATE: 11/30/2022 HISTORY: This is a 72-year-old man who returns to the clinic for a three month follow up for his chronic lower back pain. The patient had lumbar radiofrequency ablations in August of 2022 and most recently had lumbar trigger point injections at his last appointment on 08/31/2022. He was experiencing some spasms and he did get relief from those trigger point injections for two weeks. He is having episodic radiating pain down the posterior aspect of his right leg with occasionally radiating to his foot. It is mostly while in the sitting position. He rates his pain 1/10 today at rest. It will increase to 4-5/10 with activity. Housework, lifting, bending, and pushing and pulling aggravate his pain. Current medications include Percocet 5/325 b.i.d., Mirapex 0.75 mg daily. Patient's REVIEW OF SYSTEMS / PAST MEDICAL HISTORY / ALLERGIES and IMAGES have been reviewed and noted on the chart. PHYSICAL EXAM: VITAL SIGNS: Blood pressure is 168/72. Heart rate is 64. Temperature is 96.8. He is 5'8 and weighs 94 kg. GENERAL IMPRESSION: Pleasant, appropriate, in no acute distress. FOCUSED EXAM - BACK: Range of motion is functional in lateral rotation and flexion/extension. Paravertebral muscles are taut but non-spasmodic. No reproduction of spinal axial pain to compression along his lower facets. Maurice's point non-tender bilaterally. Negative FABERs and compression test. MUSCULOSKELETAL: Motor is intact, 4/5 bilaterally. Patient walks unassisted. Musculature of the lower extremities with slight atrophy bilaterally. No vasomotor weakness noted. NEUROLOGICALLY: Patchy hypoesthesia noted along the S1 distribution to the right buttock, down below his knee to the right lower extremity. +1 bilateral patellar reflexes. DIAGNOSIS: Lumbar radiculitis, chronic lower back pain, lumbar spondylosis. PLAN: We will discontinue the Mirapex and start the patient on Lyrica 50 mg b.i.d. We will continue with his Percocet 5/325 b.i.d. He will be brought back to the clinic in six weeks' time for re-evaluation of the efficacy of the Lyrica and to meet the new physician. Patient agrees with this plan and all questions answered. [facility] 08-31-2022 Note CONSULTATION CONSULTATION DATE: 08/31/2022 This is a 71-year-old gent returning to the clinic status post bilateral RFAs of L2, L3 and L4, L5, last completed on 08/08/2022. At this point the patient feels approximately 30% relief. He does have lumbar scoliosis and he feels he is having some muscle tightness in his upper lumbar area. It is aggravated by any movement activity including bending and lifting. He does work daily in his woodworking shop. He currently does not use heat or ice. Occasionally he will use a Velcro back support which feels is beneficial. Medications include Mirapex 0.75 mg q. day per his PCP for restless legs and Percocet 5/325 b.i.d. from our clinic. He does have bilateral peripheral neuropathy to his lower extremities REVIEW OF SYSTEMS, PAST MEDICAL HISTORY, ALLERGIES AND IMAGES: Have been reviewed and noted in the chart. PHYSICAL EXAM: VITAL SIGNS: Blood pressure 152/80, heart rate is 64, temperature is 97.5. Height is 5'8 , weighs 93.4 kg. GENERAL APPEARANCE: Pleasant and appropriate, no acute distress. FOCUSED EXAM: BACK: Range of motion is functional in lateral rotation, flexion and extension. The patient does have scoliotic curve to the lumbar and thoracic spine. Paravertebral muscles are taut but spasmodic to bilateral lumbar trigger points along L3, L4 region. Compression of these areas create a jump response indicative of the patient's pain symptomatology. There is no spinoaxial pain reproduction along the lumbar facets, indicative of successful RFA. Maurice's point nontender bilaterally. MUSCULOSKELETAL: Motor is intact 4 out of 5 bilaterally. The patient walks steadily and unassisted. Muscle tone is good. NEUROLOGICAL: Diffuse neuropathy bilateral lower extremities to the feet and toes. The patient is cognitively intact, bilateral patella are +1. DIAGNOSIS: Bilateral lumbar erector spinae spasms, lumbar spondylosis, lumbar degenerative disk disease, lumbar neuritis and lumbar scoliosis. PLAN: The patient will receive bilateral trigger point injections in the office today, which he does consent to. Education was given regarding recovery period from these RFAs and I feel he will continue to improve over the next 3-4 weeks. He is to continue with stretches and I recommended heat, which he currently does not use. The patient is in agreement with this and will return to the clinic in three months' time unless otherwise indicated. [facility] 08-31-2022 Note CONSULTATION PROCEDURE DATE: 08/31/2022 PRE AND POSTOPERATIVE DIAGNOSIS: Bilateral lumbar paravertebral spasms. PROCEDURE: Bilateral lumbar spinal erector trigger point injections. Subsequent to obtaining informed consent, the patient was placed in the upright forward flexion position. Alcohol prep was used to sterilize the skin. 25-gauge needle with 0.125% Marcaine and 40 mg of Kenalog was divided into two locations. The needle came to rest inside the trigger zone, negative heme. Medication was injected in each location in a fan-like pattern and the patient tolerated the procedure well. The patient tolerated the procedure well and will be followed up in the clinic. [facility] 07-13-2022 Note CONSULTATION CONSULTATION DATE: 07/13/2022 HISTORY OF PRESENT ILLNESS: This is a 71-year-old gentleman returning to the clinic status post #2 bilateral MBB of L2, L3 and L4, L5 completed on 06/27/2022. The patient stated it afforded him 90% relief for one day. The following day, the pain returned near his baseline. During the time of most relief, he was able to do woodworking in his wood shop and be more active outside. He does have patchy hypoesthesia to right lower extremity to the posterior aspect of his legs that will, on occasion, radiate to his feet. Activities such as twisting, pushing, pulling, standing, walking, evening hours and lifting aggravate his pain. He currently does not use heat or ice. Medications include Percocet 5/325 b.i.d., Mirapex 0.75 mg q.h.s., multivitamin. The patient does CBD vapes. Patient's REVIEW OF SYSTEMS / PAST MEDICAL HISTORY / ALLERGIES and IMAGES have been reviewed and they are noted on the chart. PHYSICAL EXAM: VITAL SIGNS: Blood pressure 117/70, heart rate is 59. Temperature is 97.1. He is 5'8 and weighs 92.4 kg. GENERAL IMPRESSION: Pleasant, appropriate, no acute distress. FOCUSED EXAM - BACK: Range of motion is guarded in lateral rotation and flexion/extension. Paravertebral muscles are taut but non-spasmodic. Reproduction of patient's spinal axial pain noted to direct compression along the lower aspects of the lumbar facets of L2, L3 and L4, L5 bilaterally. Fullness palpated at the facets indicative of facet arthropathy, lumbar spondylosis. Maurice's point mildly tender to the left. Negative FABERs and compression test. MUSCULOSKELETAL: Motor is intact, 4/5 bilaterally. Slight muscle atrophy noted to anterior tibialis. NEUROLOGICAL: Patchy hypoesthesia noted along S1-L5 dermatome to the right and on occasion will go below the knee. +1 bilateral patellar reflexes. DIAGNOSIS: Lumbar spondylosis, lumbar degenerative disc disease, lumbar neuritis and spinal axial lower back pain. PLAN: We will proceed to authorize for radiofrequency ablation starting on the right and subsequently move to the left of L2, L3 and L4, L5. A U-Tox performed in the clinic today. I encouraged the patient to start magnesium glycinate 400 mg daily as well. Patient agrees to move forward with the procedure and be followed up in the clinic thereafter. [facility] 05-25-2022 Note CONSULTATION CONSULTATION DATE: 05/25/2022 HISTORY OF PRESENT ILLNESS: This is a 71-year-old gentleman returning to the clinic status post #1 bilateral MBB of T11, T12 and L1, L2. This was completed on 05/02/2022, which afforded him 25% relief during that day only. This was the second level that was done. Patient reported significant relief with the first levels of L2, L3 and L4, L5. That level of medial branch blocks afforded him 90% relief for one day. The patient has inquired about returning to that level to complete the rhizotomy series. Today, his pain is 1/10 at rest. The pain goes up to a 6/10 with physical activity, walking, bending, twisting, turning and lifting. He does have radiating pain to the posterior aspects of his right lower extremity that does not go below the knee. Medications include Percocet 5/325 b.i.d., Mirapex 0.75 mg daily and ibuprofen p.r.n. He denies any new vasomotor changes. Patient's REVIEW OF SYSTEMS / PAST MEDICAL HISTORY / ALLERGIES and IMAGES have been reviewed and they are noted on the chart. PHYSICAL EXAM: VITAL SIGNS: Blood pressure is 140/71. Heart rate is 68. Temperature is 98. He is 5'8 and weighs 94.8 kg. GENERAL APPEARANCE: Pleasant, appropriate, no acute distress but uncomfortable sitting quiet in the chair. FOCUSED EXAM - BACK: Range of motion is guarded in lateral rotation and flexion/extension. Reproduction of spinal axial pain upon compression of the posterior elements of the lumbar facets. Fullness palpated along L2, L3 and L4, L5, indicative of facet arthropathy, lumbar spondylosis. Right is greater than left. Paravertebral muscles are taut but non-spasmodic. Maurice's point negative bilaterally with negative FABERs. MUSCULOSKELETAL: Motor is intact to bilateral lower extremities, 4/5. Patient does not use an assistive device to ambulate. Muscle tone is good. NEUROLOGICAL: Radicular sensory is intact. Patchy hypoesthesia noted along S1 to the right lower extremity to the level of his knee. +1 bilateral patellar and Achilles reflexes. IMPRESSION: Lumbar degenerative disc disease, lumbar spondylosis, spinal axial lower back pain and lumbar neuritis. PLAN: We will go back to the original levels for a #2 bilateral MBB of L2, L3 and L4, L5. A refill for his Percocet 5/325 b.i.d. will be sent to the pharmacy today. Stretches for his right piriformis were discussed and demonstrated in the office today. Vitamin importance and encouragement to use heat daily were discussed. Patient will follow up in the office and agrees to this plan of care. [facility] 05-02-2022 Note CONSULTATION CONSULTATION DATE: 05/02/2022 ADDENDUM TO PREOPERATIVE DIAGNOSIS: The patient also has lumbar spondylosis. [facility] 04-13-2022 Note CONSULTATION CONSULTATION DATE: 04/13/2022 This is a 71-year-old very active gentleman returning to the clinic status post #1 bilateral MBB of L2, L3 and L4, L5 completed on 03/28/2022. The patient states he received 90% relief for one day. He is actively working on a house addition and with activities like prolonged standing, housework, sitting and physical activity his pain will go above a 6. He does have significant left mid-back spasming which the patient has noticed since his increased activity. He does participate in acupuncture which he feels to be somewhat beneficial. Medications include Mirapex 0.75 and Percocet5/325 b.i.d. in addition to a multivitamin. He denies any new radicular pain. He has chronic hypesthesia to bilateral toes and feet. REVIEW OF SYSTEMS, PAST MEDICAL HISTORY, ALLERGIES AND IMAGES: Have been reviewed and noted in the chart. PHYSICAL EXAM: VITAL SIGNS: Blood pressure 130/60, heart rate is 82, temperature is 97.3. Height is 5'8 , weighs 95/1 kg. GENERAL APPEARANCE: Pleasant and appropriate, no acute distress. FOCUSED EXAM: BACK: Range of motion is guarded in lateral rotation and flexion/extension. Paravertebral muscles are spasmodic to the left anterior lumbar region. Compression of those muscles reproduces some of the patient's pain symptomatology. Reproduction of spinoaxial pain noted to direct compression along the lower facets of T11, T12 and L1, L2 with radiation to lateral aspects of the buttocks. MUSCULOSKELETAL: Motor is intact, 4 out of 5 bilaterally. The patient does not an assistive device. He does walk with a steady gait NEUROLOGICAL: Patchy hypesthesia noted along L4, L5 dermatome bilaterally to the dorsum of the foot. Plus 1 bilateral patellar reflexes. DIAGNOSIS: Lumbar degenerative disk disease, lumbar spondylosis, lumbar scoliosis and left lumbar spasm. PLAN: Per recommendation of Dr. Pascal we will move levels of the spine and re-start with the #1 bilateral MBB to T11, T12 and L1, L2. The patient is in agreement with this. The patient is to increase his magnesium from 250 mg a day to 400 to 800 mg q. day. I did discuss decreasing his Percocet to 2 a day p.r.n. which the patient will attempt. The patient agrees with the plan of care. Would like to move ahead and we will follow-up in the clinic post procedure. [facility] Signed and Approved by: SID SCHULER . 04/21/2022 14:14:00 [facility] 02-23-2022 Note CONSULTATION CONSULTATION DATE: 02/23/2022 HISTORY OF PRESENT ILLNESS: This is a 71-year-old gentleman returned to the clinic for a three month appointment for chronic low back pain. He had radiofrequency ablations of his lower lumbar facets in summer. His back pain has been chronic and ongoing. He had a lumbar medial branch block in August of 2021 which he reported no relief. Today, he states his pain is 1/10, but it is increasing as he is doing some home remodeling. He has anterior right lower extremity thigh burning sensation. His past imaging reveals he has lumbar degenerative disc and facet arthropathy. Activities such as standing, walking, housework, evening hours, ADLs and activity aggravate his pain. Lying down and sleeping decreases his pain. He currently does acupuncture through a chiropractor. Current medications include Percocet 5/325 b.i.d., multivitamin, magnesium and Mirapex 0.75 mg daily. Patient self-increased his magnesium to 3000 mg a day and he was re-directed to decrease that dose. He denies any radicular pain or vasomotor changes. He does have diffuse neuropathy to bilateral feet including all toes. He is not a diabetic. Patient's REVIEW OF SYSTEMS / PAST MEDICAL HISTORY / ALLERGIES and IMAGES have been reviewed and they are noted on the chart. PHYSICAL EXAM: VITALS: Blood pressure 141/73, heart rate is 63. Temperature is 97.8. He is 5'8 and weighs 98.7 kg. GENERAL APPEARANCE: Flat affect, no acute distress, appropriate. FOCUSED EXAM - BACK: Paravertebral muscles are non-spasmodic. Range of motion slightly guarded in lateral rotation and flexion/extension. Direct palpation to the posterior elements of the facets reproduces spinal axial pain to L2, L3 and L4, L5 bilaterally. Pain is reproduced to the lateral and posterior aspect of his right lower extremity. Maurice's point is non-tender. MUSCULOSKELETAL: Motor is intact, 4/5 bilaterally. Patient ambulates without an assistive device and with good muscle tone. NEUROLOGICALLY: Patchy hypoesthesia noted along the right lower extremity to L5, S1 that does not extend below the knee. IMPRESSION: Lumbar neuritis, lumbar spondylosis, lumbar degenerative disc, spinal axial lower back pain. PLAN: We will gain authorization to restart the rhizotomy series with a #1 bilateral MBB to L2, L3 and L4, L5. Patient is encouraged and instructed to decrease his magnesium from 3000 mg a day to 800-1000 mg a day. Patient will be followed up in the clinic post procedure and agrees to move forward. [facility] Signed and Approved by: SID SCHULER . 03/02/2022 16:01:00 [facility] Evaluation note Diagnosis Seizure-like activity ([facility] Primary Syncope, unspecified syncope type Cervical disc disease Radiculopathy, lumbosacral region Thoracic or lumbosacral neuritis or radiculitis, unspecified [facility] encounter [facility] Attachments The following attachments cannot be sent through Care Everywhere. * Cervical Myelopathy ([place]) [facility] Summary Purpose Family History No Family History Records FoundNo Family History Records FoundNo Family History Records FoundNo Family History Records Found Advance Directives No Advanced Directives Records FoundNo Advanced Directives Records FoundNo Advanced Directives Records FoundNo Advanced Directives Records Found Additional Source Comments (unrecognized sect ion and content) No Status Records FoundNo Status Records FoundNo Status Records FoundNo Status Records Found INFORMATION SOURCE (unrecogn ized section and content) DATE CREATED AUTHOR 03/19/2018 [facility] DATE CREATED AUTHOR AUTHOR'S ORGANIZ ATION 01/10/2023 [facility] DATE CREATED AUTHOR AUTHOR'S ORGANIZ ATION 09/30/2023 [facility] DATE CREATED AUTHOR AUTHOR'S ORGANIZ ATION [facility] Reason for Visit (unrecogniz ed section and content) Reason Comments Follow-up Care Teams (unrecognized sec tion and content) Statement Processor Relationship Specialty Start Date End Date Jaqui Flynn APRN-RAUL [address] [place] [address] PCP - General Family Medicine 07/24/23 FOR RECORDS PERTAINING TO PATIENTS WHO ARE OR HAVE BEEN ENROLLED IN A CHEMICAL DEPENDENCY/SUBSTANCEABUSE PROGRAM, SOME INFORMATION MAY BE OMITTED. This clinical summary was aggregated from multiple sources. Caution should be exercised in using it in the provision of clinical care. This summary normalizes information from multiple sources, and as a consequence, information in this document may materially change the coding, format and clinical context of patient data. In addition, data may be omitted in some cases. CLINICAL DECISIONS SHOULD BE BASED ON THE PRIMARY CLINICAL RECORDS. [employer] provides no warranty or guarantee of the accuracy or completeness of information in this document.
== END 2023-11-28 09:39 | disposition home or self-care (01) ==
LOC: PM 09:38
PROVIDERS: PCP Family Medicine; Visit Provider Nurse Practitioner
DX: M47.812 Spondylosis without myelopathy or radiculopathy, cervical region (principal); Z79.899 Other long term (current) drug therapy; M51.36 Other intervertebral disc degeneration, lumbar region
CPT/HCPCS: G0463

== ENCOUNTER 2023-12-17 10:09 | Day surgery (SDC) | payer MEDICARE, SELFPAY ==
--- OUTSIDE RECORDS SUMMARY | 2023-12-17 10:17 | XMS_ITS | CCD ---
Author Name Unknown Address [address] [place] [address] Organization [facility] Care Team Providers Care Residence Director Name Role Phone TUDICO, KASEY (PA) Unavailable Unavailable TUDICO, KASEY (PA) Unavailable Unavailable TUDICO, KASEY (PA) Unavailable Unavailable BENZEL EDWARD C Unavailable Unavailable TUDICO, KASEY (PA) Unavailable Unavailable BENZEL, EDWARD C Unavailable Unavailable ALEJANDRO MONTANEZ Unavailable Unavailable BENZEARL EDWARD C Unavailable Unavailable JO CAMPBELL (QUALITY ANALYST/TECHNICAL WRITER) Unavailable Unavailabl e GREGORIO VELAZQUEZWARD C Unavailable Unavailable TYRANCE, DR FOLEY Primary Care Unavailable [...] Unavailable TYRANCE, DR FOLEY Primary Care Unavailable PASACL ., DR KOFI Agrawal Attending Unavailable PASCAL ., DR KOFI Agrawal Admitting Unavailable GANGA .SID Consulting Unavailable DEFRANCE, DR FOLEY Primary Care Unavailable PASCAL ., DR KOFI Agrawal Attending Unavailable PASCAL ., DR KOFI Agrawal Admitting Unavailable PASCAL ., DR KOFI Agrawal Consulting Unavailable TYRANCE, DR FOLEY Primary Care Unavailable PASCAL ., DR KOFI Agrawal Attending Unavailable PASCAL ., DR OKFI Agrawal Admitting Unavailable BRYAN VILLEDA Consulting Unava ilable SCHULER ., SID Consulting Unavailable TYRANCE, DR FOLEY [...] DR FOLEY Primary Care Unavailable SCHULER ., SDI Consulting Unavailable DEFRANCE, DR FOLEY Primary Care Unavailable PASCAL ., DR KOFI Agrawal Attending Unavailable PASCAL ., DR KOFI Agrawal Admitting Unavailable ADUSUMILLI, NESS K Attending Unavailable ADUSUMILLI, NESS K Referring Unavailable [facility] CAR[facility], JAQUI Primary Care Unavailable ADUSUMILLI, NESS K Attending Unavailable ADUSUMILLI, NESS K Referring Unavailable SCHIACHTER, JAQUI Primary Care Unavailable ADUSUMILLI, NESS K Attending Unavailable ADUSUMILLI, NESS K Referring Unavailable [facility], JAQUI Primary Care Unavailable [facility] Provide r JAQUI FLYNN Attending Unavailable JAQUI FLYNN Referring Unavailable [facility] Primary Care Unavailable Allergies Allergy Classification Reported Allergen(s) Allergy Type Date of Onset Reaction(s) Facility (1 source) OTHER; Translations: [OTHER] Propensity to adverse reactions (disorder) 3 [facility] Repository (1 source) Adhesive bandage Drug allergy (disorder) [facility] Repository (1 source) celecoxib Drug Allergy [facility] Repository (1 source) Pyridoxal Drug Allergy [facility] Repository (3 sources) Adhesive agent; Translations: [ADHESIVE] [...] Drug Class(es) Dates Sig (Normalized) Sig (Original) [id number] 200 actuat albuterol 0.09 mg/actuat metered dose [...] in the morning. 0 Active magnesium oxide/magnesium (VN-QZJU-WHZEAKZ ORAL) (1 source) take 1 tablet by mouth once daily magnesium oxide/magnesium (TJ-IGHQ-MFHMHTZ ORAL) Magnesium (oxide/AA chelate) takes 1 tablet [...] spec) Not detected Normal NOT DETECTED [facility] Comment on above: Result Comment: This test is not yet sidra roved or cleared by the [place] FDA. When there are no FDA-approved or cleared tests available, and other criteria are met, FDA can make tests available under an emergency access mechanism called an Emergency Use Authorization (EUA). The EUA for this test is supported by the [place] [employer] of Health and Human Service's (HHS's) declaration [...] consistent with SARS-CoV-2. Performed By: #### C [facility] #### [facility] [address] [place] [address] Dr. 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 Jesus Velazquez and Dr. Montanez. Thisconsultation was shared with the referral source via the [facility] medical record.The patients understanding of the the [...] intervention for the low back and left [id number]. Finally will ask him to see Jo [...] thinking of having this done closer to [place]. He is otherwisescheduled for CPRP in 03/2018.02/05/18 [...] on SSI. Friend is working some from [facility].REVIEW OF SYSTEMS:PAIN ASSESSMENT: See HPI.GENERAL: Denies fever, [...] reared 1st of 4 by both parents [place], [place]. Nurture was poor. Mother would never [...] had a relationship sincethe 70's. 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 He was providedwith brochure and number to the admission coordinator.Substance use interview is indicated. Chemical education program is indicated.Patient is aware of the following policies and guidelines set forth by [facility]:1. no illicit substance use (including marijuana, medical or otherwise) ispermitted and any patient with a positive urine drug screen on day one will bedischarged though invited to return after substance use evaluations and anegative repeat urine drug screen can be demonstrated.2. All opioids and benzodiazepines will be collected and destroyed on day oneof [facility], and the patient will be weaned [...] policies/guidelines.Goals for treatment include pain reduction, functional denominational, moodnormalization and improved coping.Prognosis is fair.90 minutes total visit with preponderance of time spent on counseling,medication management, education and review. All patients questions regardingabove conditions and coordination of care were addressed.Jo Campbell CNPReferring Provider: JESUS VELAZQUEZ [[id number]]Allergies As of Date: 03/06/2018 Noted Allergy ReactionADHESIVE [...] to improve.Follow-up and Disposition History RecordedEncounter Number: [id number] Status:Closed by JO CAMPBELL CNP on 03/06/18 Normal [facility] PROGRESSon 03-06-2018 PROGRESS HNO ID: [id number] thor: Jo (Raul) PattersonService: (none)Author Type: Nurse PractitionerType: Progress NotesFiled: 03/06/2018 2:36 PMNote Text:THE [facility] Pain Rehabilitation EvaluationJune 2017Shimonchuyita Flores [facility] number: [id number] 67 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 Jesus Velazquez and Dr. Montanez. Thisconsultation was shared with the referral source via the [facility] medical record.The patients understanding of the the [...] thinking of having this done closer to [place].He is otherwise scheduled for CPRP in 03/2018.02/05/18 [...] 1st of 4 by both parents [place], [place]. Nurture was poor. Mother would never stop [...] had a relationship since the 70s. 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 He wasprovided with brochure and number to the admission coordinator.Substance use interview is indicated. Chemical education program isindicated.Patient is aware of the following policies and guidelines set forth by [facility]:1. no illicit [...] policies/guidelines.Goals for treatment include pain reduction, functional denominational, moodnormalization and improved coping.Prognosis is fair.90 minutes total visit with preponderance of time spent on counseling,medication management, education and review. All patients questionsregarding above conditions and coordination of care were addressed.Jo Campbell CNP Normal [facility] CNOVon 02-12-2018 CNOV Office Visit (PAMPOLLO) RENE FLORES ([id number]) 1950 MDate Time Provider Department02/12/18 9:10 AM [...] left elbow andradiates upward and downward arm.Losing field mechanic/site lead in fingersRLS since he was a 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 Configuration Analyst: NoPassive conservative therapy lasting 6 weeks in [...] for left arm pain (Rx FMD in [place])uses THC - eases pain but afterwards he feels he has concentration issues brain fog also:- neg Cancer ( other than Hx basal cell)- ETOH - scotch nightly- THC smoking qd- no Hx of DM- Hx of CVAPLAN:Above findings and options discussed..He can have a TFESI @ LEFT L 5-S1 on diagnostic / therapeutic basis.He is thinking of having this done closer to [place].He is otherwise scheduled for CPRP in 03/2018.We can see him prn.Alejandro Montanez, MDReferring Provider: JESUS VLEAZQUEZ [[id number]]Allergies As of Date: 02/12/2018 Noted Allergy ReactionIntolerance [...] INVALID FOR*Follow-up and Disposition History RecordedEncounter Number: [id number] Status:Closed by ALEJANDRO MONTANEZ MD on 02/14/18 [facility] PROGRESSon 02-12-2018 PROGRESS HNO ID: [id number] thor: Alejandro Ellisice: (none)Author Type: PhysicianType: Progress [...] elbow and radiates upward and downward arm.Losing field mechanic/site lead in fingersRLS since he was a 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 Configuration Analyst: NoPassive conservative therapy lasting 6 weeks in [...] for left arm pain (Rx FMD in [place])uses THC - eases pain but afterwards he feels he has concentration issues brain fog also:- neg Cancer ( other than Hx basal cell)- ETOH - scotch nightly- THC smoking qd- no Hx of DM- Hx of CVAPLAN:Above findings and options discussed..He can have a TFESI @ LEFT L 5-S1 on diagnostic / therapeutic basis.He is thinking of having this done closer to [place].He is otherwise scheduled for CPRP in 03/2018.We can see him prn.Alejandro Montanez MD [facility] CNOVon 02-05-2018 CNOV Office Visit (SPNSMN) RENE FLORES ([id number]) 1950 MDate Time Provider Department02/05/18 3:20 PM JESUS VELAZQUEZ SPNSMN During your visit today, we recorded the following information about you: Pulse Respiration Blood pressure Weight 56/minute 18/minute 142/66 97.1 kg Height 1.727 Jesus Quick 02/05/2018 4:07 PM SignedSPBANNER G[facility]WAY [facility] SURGERY ESTABLISHEDDATE OF SERVICE: 02/05/2018DATE OF LAST [...] history of back pain.1. Follow up: Not requiredOjedaspringfield Medicine FellowPGY-5SIGNATURE: Jesus Velazquez MD PATIENT NAME: [...] read. WIll pursue with xrays andmedical spine ysoajcmqgzp61/7 pain, non-restorative sleep, MUSC, fatigue - CPSWill have seen by Jo Campbell.I will see on an as needed basis. No indication for surgery in my opinionCounseled extensivelyShould Mr. Flores or referring or consulting physicians have any questionsor concerns, they should feel free to contact my office.Mr. Flores has been instructed to followup as documentedEdetelvina Velazquez, [facility]: PMDDr HerringReferring Provider: KASEY LEIGH (BALBINA) [[id number]]Allergies As of Date: 02/05/2018 Noted Allergy ReactionIntolerance To Toprol And Celebre*06/19/2003Date Reviewed: 02/05/2018Reviewed by: Edson Sheppard (Ritesh) - Fully AssessedReason for Visit: Established Patient [175]Primary Visit Diagnosis:Other idiopathic scoliosis, lumbar region [M41.26] Other Visit Diagnosis:Cervical spondylosis without myelopathy [M47.812]Order(s):CONSULT TO SPINE CENTER [430083] Order #: [id number]: 1 XR SCOLIOSIS PA STAND/LAT 2V [[id number]] Order #: [id number] FUTURE XR LUMBAR LIMITED 2V FLEX/EXT [[id number]] Order #: [id number] FUTURE CONSULT TO CHRONIC PAIN REHABILITATION (NON-PAIN ANESTHESIA) [[id number]] Order #: [id number]: 1Prescriptions as of 02/05/2018 Sig: OXYCODONE-ACETAMINOPHEN 10 [...] by JESUS VELAZQUEZ MD on 02/05/18 [facility] PROGRESSon 02-05-2018 PROGRESS HNO ID: [id number] thor: Jesus Velazquez CService: (none)Author Type: PhysicianType: [...] of backpain.1. Follow up: Not requiredEdson Sheppard [facility] Medicine FellowPGY-5SIGNATURE: Jesus Velazquez MD PATIENT NAME: [...] read. WIll pursue with xraysand medical spine xhhztgpsner21/7 pain, non-restorative sleep, MUSC, fatigue - CPSWill have seen by Jo Campbell.I will see on an as needed basis. No indication for surgery in my opinionCounseled extensivelyShould Mr. Flores or referring or consulting physicians have anyquestions or concerns, they should feel free to contact my office.Mr. Flores has been instructed to followup as documentedJesus Velazquez, [facility]: PMDDr Russo Normal [facility] XR LUMBAR 2V FLEX/EXTon XR [...] abnormal motion flexion or extension.IMPRESSION:Multi level degenerative changes.Behavioral Scientist: АННА Transcribe Date/Time: Feb 05 2018 5:13PDictated by : BETH MULLEN MDThis examination was interpreted and the report reviewed and electronically signed by: BETH MULLEN MD on Feb 05 2018 5:15PM [id number] Normal [facility] XR SCOLIOSIS 2V PA STAND/LAT [...] maintained.IMPRESSION:Mode rate to severe scoliosis and degenerative changes.Behavioral Scientist: PSCB Transcribe Date/Time: Feb 05 2018 5:10PDictated by : BETH MULLEN MDThis examination was interpreted and the report reviewed and electronically signed by: BETH MULLEN MD on Feb 05 2018 5:12PM [id number] Normal [facility] PROGRESSon 01-22-2018 PROGRESS HNO ID: [id number] thor: Kasey (Balbina) Breanna: (none)Author Type: Physician [...] for this patient.PAST MEDICAL HISTORYDiagnosis Date- A-fib ([facility])- Asthma- Other specified cardiac dysrhythmias(427.89)- Stroke ([facility])PAST SURGICAL HISTORYProcedure Laterality Date- ABLATION cardiac for [...] ) Wt 97.1 kg (214lb) BMI 32.54 kg/l2FYQEXVT APPEARANCE: Well nourished, well developed, and no [...] 21, 2018 : 10:47 PM PAGER: Ping [facility] CNOVon 01-21-2018 CNOV Office Visit (SPNSMN) RENE FLORES ([id number]) 1950 MDate Time Provider Department01/21/18 11:00 AM [...] 8ANDquot;) Wt 97.1 kg (214lb) BMI 32.54 kg/p4PVVDEHM APPEARANCE: Well nourished, well developed, and no [...] arm pain [M79.602]Order(s):XR CERV OTHER 4V AP/LAT/FLX/EXT [[id number]] Order #: [id number] FUTURE EMG(NEURO/NI) [[id number]] Order #: [id number]: 1 FUTURE CONSULT TO PHYSICAL THERAPY [9032] Order #: [id number]: 1Prescriptions as of 01/21/2018 Sig: OXYCODONE-ACETAMINOPHEN 10 [...] Date: 01/21/2018(None)Follow-up and Disposition History RecordedEncounter Number: [id number] Status:Closed by KASEY LEIGH on 01/21/18 [facility] PROGRESSon 01-21-2018 PROGRESS HNO ID: [id number] thor: Jodie Biswas (Rt): RadiologyAuthor Type: TechnicianType: Progress NotesFiled: 01/21/2018 1:18 PMNote Text: Radiology Service Progress NotePATIENT NAME: Eh FloresMRN: [id number] OF SERVICE: January 21, 2018TIME: 1:18 PMPATIENT IDENTITY VERIFICATION COMPLETED USING TWO (2) METHODS: Patientconfirmed name verbally and Date of .PATIENT GENDER DATA: MalePATIENT RELEVANT IMPLANT DATA REVIEWED: Not ApplicableRADIOLOGY DEPARTMENT: General X-ray: Exam(s) Completed: Spine X-Ray(s):Cervical AP / LAT / FLEX-EXTPERIPHERAL IV DATA: Not applicableSIGNED BY: Jessica Biswas 2017 1:18 PM Normal [facility] XR CERVICAL 4V AP/LAT/FLX/EX Ton [...] MICHELLE MD on Jan 21 2018 4:17PM [id number] Normal [facility] CNCOon 01-10-2018 CNCO Letter TextDear Shimon Flores:How to activate your [facility] [employer]On Account 1. Visit the ThriveOn Signup page at [email or web address] 2. Identify yourself using your one-time use activation code: [email or web address]: 02/09/2018 1:35 PMThis activation code was e-mailed to [email or web address] 3. Follow the on-screen prompts to choose your own secure username andpasswordThe following information will be necessary to access your account for thefirst time:Information needed for sign-up:Your custom activation code used one-time only for the initial accountset-up.Your date of birthThe last 4 digits of your social security numberWhat to do next:Fill in the requested information on the Identify Yourself Form [email or web address] , click Next.Create your login and password, choose a ThriveOn ID and password that will beeasy for you to use, but impossible for anyone else to guess.Pick a security question that will assist you in the event you forget yourpassword the next time you log-on.If you have difficulty activating your account, please call our MarkMonitor at [phone] or toll free at .We hope you enjoy using [employer]On!Kindest Regards,[facility] [employer]On Team Normal [facility] MR-MR CERVICAL SPINE WO CONT IMPORTon 01-03-2018 MR-MR CERVICAL SPINE WO CONT IMPORT Images were obtained outside of [facility] [id number] Normal [facility] MR-MR LUMBAR SPINE WO CONT I MPORTon 01-03-2018 MR-MR LUMBAR SPINE WO CONT IMPORT Images were obtained outside of [facility] [id number] Normal [facility] Vital Signs Date Time Vital Sign Value Performing Clinician Lencho kincaid 11-02-2023 11:02-0500 Body mass index (BMI) [Ratio] 31.32 kg/m2 Jaqui Flynn APRN-QUALITY ANALYST/TECHNICAL WRITER Work Phone: [facility] 11-02-2023 11:02-0500 Body weight 93.44 kg Jaqui Flynn APRN-QUALITY ANALYST/TECHNICAL WRITER Work Phone: [facility] 11-02-2023 11:02-0500 Diastolic blood pressure 60 mm[Hg] Jaqui Flynn APRN-QUALITY ANALYST/TECHNICAL WRITER Work Phone: [facility] 11-02-2023 11:02-0500 Heart rate 78 /min Jaqui Flynn APRN-QUALITY ANALYST/TECHNICAL WRITER Work Phone: [facility] 11-02-2023 11:02-0500 Respiratory rate 18 /min [facility] CRITICAL CARE TRANSPORT NURSE-QUALITY ANALYST/TECHNICAL WRITER Work Phone: [facility] 11-02-2023 11:02-0500 SaO2% (BldA) [Mass fraction] 97 % [facility] CRITICAL CARE TRANSPORT NURSE-QUALITY ANALYST/TECHNICAL WRITER Work Phone: [facility] 11-02-2023 11:02-0500 Systolic blood pressure 112 mm[Hg] [facility] CRITICAL CARE TRANSPORT NURSE-QUALITY ANALYST/TECHNICAL WRITER Work Phone: [facility] Encounters Encounter Date Encounter Type Care Provider Facility Start: 11-02-2023 End: 11-02-2023 ambulatory [facility] Start: 11-02-2023 End: 11-02-2023 Office outpatient [facility]IT[facility] CARE TRANSPORT NURSE-QUALITY ANALYST/TECHNICAL WRITER Work Phone: [facility] Comment on above: Seizure-like activit y ([facility]) (Primary Dx); Syncope, unspecified syncope type; Cervical disc disease; Radiculopathy, lumbosacral region Start: 09-14-2023 End: 09-14-2023 [facility] Start: 01-09-2023 End: 01-10-2023 ambulatory NARENDRANATH [...] cardiovascular examination DR KOFI PASCAL . [facility] Start: 07-30-2022 Encounter for preprocedural laboratory examination DR KOFI PASCAL . [facility] Start: 07-28-2022 End: 07-29-[address] KOFI [...] Start: 03-06-2018 End: 03-08-2018 Ambulatory JO CAMPBELL [facility] Start: 02-12-2018 End: 02-15-2018 Ambulatory ALEJANDRO MONTANEZ [facility] Start: 02-05-2018 End: 02-05-2018 Ambulatory JESUS Perez [facility] [place] Start: 02-05-2018 End: 02-06-2018 Ambulatory JESUS Perez [facility] [place] [facility] Start: 01-21-2018 End: 01-22-2018 Ambulatory KASEY LEIGH (PA) [facility] Procedures Date Procedure Procedure Detail Performing Clinician Start: 11-02-2023 Follow-up visit Follow-up JAQUI FLYNN Start: 06-01-2023 Adult depression scr eening assessment Jaqui Flynn CRITICAL CARE TRANSPORT NURSE-[facility] Work Phone: Start: 09-13-2020 Colonoscopy Jaqui velez CRITICAL CARE TRANSPORT NURSE-[facility] Work Phone: Plan of Treatment Date Care Activity Detail Author Start: 10-08-2031 DTaP,Tdap and Td Vaccines (2 - Td or Tdap) DTaP,Tdap and Td Vaccines (2 - Td or Tdap) [facility] Start: 09-13-2025 Screening for malignant neoplasm of colon Colonoscopy [facility] Start: 11-02-2024 Adult BMI Screening Adult BMI Screening [facility] Start: 09-19-2024 Tobacco Screening Tobacco Screening [facility] Start: 07-25-2024 Adult BMI Follow Up Plan Adult BMI Follow Up Plan [facility] Start: 06-01-2024 Depression Screening Depression Screening [facility] Start: 06-01-2024 Fall Risk Screening Fall Risk Screening [facility] Start: 05-07-2024 End: 05-07-2024 Patient encounter procedure 05/07/2024 11:00 AM EDT Office Visit [facility] [address] [place] [address] Jaqui Flynn CRITICAL CARE TRANSPORT NURSE-QUALITY ANALYST/TECHNICAL WRITER [address], [place] [id number] [facility] Start: 05-04-2024 Medicare Annual Wellness Visit Medicare Annual Wellness Visit [facility] Start: 06-01-2023 COVID-19 Vaccine ( season) COVID-19 Vaccine ( season) [facility] Start: 06-01-2023 Influenza vaccination Influenza Vaccine [facility] Start: 03-28-2013 Administration of varicella zoster vaccine Zoster (Shingles) Vaccine (2 of 3) [facility] Immunizations Immunization Date Immunization Notes Care Provider Fa cility 10-08-2021 tetanus toxoid, reduced diphtheria toxoid, and acellular pertussis vaccine, adsorbed Jaqui Flynn CRITICAL CARE TRANSPORT NURSE-QUALITY ANALYST/TECHNICAL WRITER Work Phone: [facility] Work Phone: 12-30-2020 COVID-19, mRNA, LNP- S, PF, 30mcg/0.3mL Dose Jaqui Flynn CRITICAL CARE TRANSPORT NURSE-QUALITY ANALYST/TECHNICAL WRITER Work Phone: [facility] 07-28-2020 Influenza, injectabl e, Madin Khushboo Canine Kidney, preservative free, quadrivalent Jaqui Flynn CRITICAL CARE TRANSPORT NURSE-QUALITY ANALYST/TECHNICAL WRITER Work Phone: [facility] 07-28-2020 influenza virus vaccine, unspecified formulation Jaqui Flynn CRITICAL CARE TRANSPORT NURSE-QUALITY ANALYST/TECHNICAL WRITER [facility]: [facility] 04-23-2017 pneumococcal conjuga te vaccine, 13 valent Jaqui Flynn CRITICAL CARE TRANSPORT NURSE-QUALITY ANALYST/TECHNICAL WRITER Work Phone: [facility] 01-31-2013 zoster vaccine, live Jaqui Flynn CRITICAL CARE TRANSPORT NURSE-QUALITY ANALYST/TECHNICAL WRITER Work Phone: [facility]u 01-31-2013 zoster vaccine, unspecified formulation Jaqui Flynn CRITICAL CARE TRANSPORT NURSE-QUALITY ANALYST/TECHNICAL WRITER Work Phone: [facility] Payers Date Payer Category Payer Medicare ANTHEM MEDICARE ANTHEM MEDICARE ADVANTAGE [id number] 2020-[facility] [phone] [address] [place] [address] [id number] 1959 Unknown [id number] 1950 Unknown [id number] 2..840.1.993926.3.579.2.593 1950 Unknown [id number] 2.840.1.777011.3.579.2.593 1950 Unknown [id number] 2..840.1.782597.3.579.2.593 1950 Unknown [id number] 2.16.840.1.716875.3.579.2.593 1950 Unknown [id number] 2.16.840.1.427886.3.579.2.593 1950 Unknown [id number] 2.16.840.1.082039.3.579.2.593 1950 Unknown [id number] 2.16.840.1.713378.3.579.2.593 1950 Unknown [id number] 2.16.840.1.400636.3.579.2.593 1950 Unknown [id number] 2.16.840.1.710628.3.579.2.593 1950 Unknown [id number] 2.16.840.1.032805.3.579.2.593 1950 Unknown [id number] 2.16.840.1.104762.3.579.2.593 1950 Unknown [id number] 2.16.840.1.364732.3.579.2.593 1950 Unknown [id number] 2.16.840.1.172712.3.579.2.593 1950 Unknown [id number] 2.16.840.1.579942.3.579.2.593 1950 Unknown [id number] 2.16.840.1.654582.3.579.2.128 6 1950 Unknown [id number] 2.16.840.1.262878.3.579.2.128 6 1950 Unknown [id number] 2.16.840.1.403587.3.579.2.128 6 1950 Unknown [id number] 2.16.840.1.655190.3.579.2.128 6 Social History Date Type Detail Facility Start: 07-18-2022 Tobacco smoking stat [facility] Never smoked tobacco [facility] Start: 07-18-2022 Tobacco use and exposure Smokeless tobacco non-user [facility] Start: 09-19-2023 Alcohol intake Current drinke r of alcohol (finding) [facility] Start: 11-11-2020 End: 09-19-2023 Alcohol intake [facility] Start: 11-11-2020 End: 09-19-2023 Tobacco use panel [facility] Adolescent depressio n screening assessment 0 [facility] Start: 1950 Sex Assigned At Not on file P [facility] Clinical Notes 02-23-2022 to 11-02-2023 Jaqui Flynn, CRITICAL CARE TRANSPORT NURSE-QUALITY ANALYST/TECHNICAL WRITER - 11/02/2023 11:00 AM EST Note Date & Type Note Facility 11-02-2023 History of Present illness Narrative Images from the original note were not included. [address] [facility] [address] SUBJECTIVE: Patient ID: Eh Flores [...] Hernandez 11/02/23 1112 documented in this encounter [facility] [employer] [facility] 01-09-2023 Note CONSULTATION CONSULTATION DATE: 01/09/2023 [...] our patients to inform us about any zqno-tak-xlcecbk medications or herbal remedies/nutritional supplements/alternative remedies. 2. [...] options with their primary care provider. [facility] 11-30-2022 Note CONSULTATION CONSULTATION DATE: 11/30/2022 HISTORY: [...] this plan and all questions answered. [facility] 08-31-2022 Note CONSULTATION CONSULTATION DATE: 08/31/2022 This [...] three months' time unless otherwise indicated. [facility] 08-31-2022 Note CONSULTATION PROCEDURE DATE: 08/31/2022 PRE [...] be followed up in the clinic. [facility] 07-13-2022 Note CONSULTATION CONSULTATION DATE: 07/13/2022 HISTORY [...] followed up in the clinic thereafter. [facility] 05-25-2022 Note CONSULTATION CONSULTATION DATE: 05/25/2022 HISTORY [...] agrees to this plan of care. [facility] 05-02-2022 Note CONSULTATION CONSULTATION DATE: 05/02/2022 ADDENDUM TO PREOPERATIVE DIAGNOSIS: The patient also has lumbar spondylosis. [facility] 04-13-2022 Note CONSULTATION CONSULTATION DATE: 04/13/2022 This [...] will follow-up in the clinic post procedure. [facility] Signed and Approved by: SID SCHULER . 04/21/2022 14:14:00 [facility] 02-23-2022 Note CONSULTATION CONSULTATION DATE: 02/23/2022 HISTORY [...] post procedure and agrees to move forward. [facility] Signed and Approved by: SID SCHULER . 03/02/2022 16:01:00 [facility] Evaluation note Diagnosis Seizure-like activity ([facility])- Primary Syncope, unspecified syncope type Cervical disc disease Radiculopathy, lumbosacral region Thoracic or lumbosacral neuritis or radiculitis, unspecified [facility] Attachments The following attachments cannot be sent through Care Everywhere. * Cervical Myelopathy ([place]) [facility] Purpose Family History No [...] section and content) DATE CREATED AUTHOR 03/19/2018 [facility] DATE CREATED AUTHOR AUTHOR'S ORGANIZ ATION 01/10/[address] [facility] DATE CREATED AUTHOR AUTHOR'S ORGANIZ ATION 09/30/2023 [facility] DATE CREATED AUTHOR AUTHOR'S ORGANIZ ATION [facility]04[facility]20[facility] Reason for Visit (unrecogniz ed section and content) Reason Comments Follow-up Care Teams (unrecognized sec tion and content) Residence Director Relationship Specialty Start Date End Date Jaqui Flynn APRN-RAUL [address] [place] [address] PCP - General Family Medicine 07/24/23 FOR [...] BE BASED ON THE PRIMARY CLINICAL RECORDS. [employer] provides no warranty or guarantee of the accuracy or completeness of information in this document.
[2023-12-17 11:06] VITALS: BP 139/65; PULSE 54; RESP 16; TEMP 36.3; O2SAT 95
[2023-12-17 11:26] VITALS: BP 124/68; PULSE 54; RESP 18; O2SAT 97
[2023-12-17 11:29] VITALS: BP 117/75; PULSE 49; RESP 18; O2SAT 96
[2023-12-17] MEDS: BUPIVACAINE HCL 0.25% PF 25 MG/10 ML VIAL 7 ML INJ (11:31)
[2023-12-17] MEDS: LIDOCAINE HCL 2% PF 100 MG/5 ML VIAL 2 ML INJ (11:31)
--- NOTE | 2023-12-17 11:32 | W.PM.PROCNOT ---
Date of procedure: 12/17/23 Pre-op diagnosis: Cervical spondylosis Post-op diagnosis: same as pre-op Procedure: Procedure: Bilateral C5-6, 6-7 medial branch block Medications: Bupivacaine 0.25% 6cc The patient was seen and examined in the preoperative holding area.? The informed consent was obtained and placed on the chart.? The patient was brought to the medical procedure unit and placed in the prone position.? A timeout was completed verifying correct patient, procedure site, positioning, plan, and special equipment.? Using aseptic technique, the needle was placed at left C5.? Under direct fluoroscopic visualization, a Quincke tip needle was advanced to the midpoint of the waist of the articular pillar at the respective medial branch segment. The above-mentioned injectate was placed in a 1 mL aliquot proceeded by negative aspiration.? The needle was removed.? The procedure was completed at all left C6, 7. The same procedure, at the same levels, was then completed on the right side. Insertion site was covered.? Patient was taken to the postprocedural recovery area and monitored for an appropriate length of time before found suitable for discharge in the accompaniment of a responsible adult. Surgeon: Pedro Arevalo Pathology: none sent Condition: stable Disposition: no change
== END 2023-12-17 11:33 | disposition home or self-care (01) ==
PROVIDERS: PCP Family Medicine; Visit Provider Anesthesiology
DX: M47.812 Spondylosis without myelopathy or radiculopathy, cervical region (principal)
CPT/HCPCS: 64490; 64491

== ENCOUNTER 2023-12-26 10:51 | Outpatient (OUT) | payer MEDICARE, SELFPAY ==
--- NOTE | 2023-12-26 11:06 | PM.CN ---
Consult Note: HPI Data of Consult Patient: known to practice within the last 3 years Requesting Physician: Kristina Baltazar NP Primary Care Provider: ALAINA ARREOLA Consult Narrative Reason for consult: f/u Narrative: Eh Aguilar a pleasant 72 year old male presents for evaluation of chronic low back and neck pain. Today pain 1/10 in neck and upper back, increases to 8/10 at its worst. Patient continue to have sharp aching pain, no radiculopathy. Pain increased in the evenings and with sleep. Patient continues to utilize marijuana, CBD, and THC gummiess, tizanidine mild benefit. did not start mobic with potential side effects. Pt recently underwent Bilateral C5-6, 6-7 medial branch block #1 with 100% improvement in pain and symptoms for a few hours following the procedure. cc:: CC: Kristina Baltazar NP Review of Systems ROS Status of ROS 10 or more systems reviewed and unremarkable except as noted in history and below Musculoskeletal Reports: back pain and neck pain [facility] Medical History (Updated 12/06/23 @ 14:29 by Caroline Rich) Hiatal hernia ?K44.9 - Diaphragmatic hernia without obstruction or gangrene (ICD-10) Low back pain ?M54.50 - Low back pain, unspecified (ICD-10) Asthma ?J45.909 - Unspecified asthma, uncomplicated (ICD-10) Sleep apnea ?G47.30 - Sleep apnea, unspecified (ICD-10) Irregular heartbeat ?I49.9 - Cardiac arrhythmia, unspecified (ICD-10) Surgical History H/O carpal tunnel repair ?Z98.890 - Other specified postprocedural states (ICD-10) History of left knee surgery ?Z98.890 - Other specified postprocedural states (ICD-10) H/O cardiac radiofrequency ablation ?Z98.890 - Other specified postprocedural states (ICD-10) H/O vein stripping ?Z98.890 - Other specified postprocedural states (ICD-10) Hx of tonsillectomy ?Z90.89 - Acquired absence of other organs (ICD-10) Meds Home Medications and Allergies Home Medications ?Medication ?Instructions ?Recorded ?Confirmed ?Type cholecalciferol (vitamin D3) 10 10 mcg PO DAILY 09/21/23 03/18/24 History mcg (400 unit) capsule (Vitamin D3) magnesium glycinate mg PO 06/21/23 History mecobalamin (vitamin B12) 1,000 1,000 mcg PO DAILY 06/21/23 12/17/23 History mcg chewable tablet (B12 Active) melatonin 10 mg capsule 10 mg PO DAILY 06/21/23 12/17/23 History pramipexole 0.25 mg tablet 0.25 mg PO DAILY 06/21/23 12/17/23 History (Mirape[employer]) meloxicam 7.5 mg tablet 7.5 mg PO DAILY 11/28/23 12/17/23 History tizanidine 4 mg capsule 4 mg PO DAILY 11/28/23 12/17/23 History Allergies Allergy/AdvReac Type Severity Reaction Status Date / Time celecoxib [From Celebrex] Allergy Unknown Verified 12/17/23 11:04 adhesive AdvReac Verified 12/17/23 11:04 metoprolol [From Toprol XL] AdvReac Verified 12/17/23 11:04 Exam Constitutional Documenting provider has reviewed patient's vital signs: yes Common normals: no apparent distress, oriented x3, healthy appearing, alert and well nourished General appearance: cooperative HENMT Common normals: normocephalic, hearing grossly normal bilaterally and moist oral mucous membranes Head and scalp: normocephalic Eye Common normals: PERRL Pupil: PERRL Neck & C-Spine Common normals: full ROM General: normal visual inspection Cervical spine: pain with cervical ROM Other: negative spurlings postive facet loading pain increased over bilateral c5/6 6/7, dweyer facet diagram reviewed Chest Common normals: inspection of chest normal Respiratory Common normals: normal respiratory effort, no retractions and no use of accessory muscles Back & Pelvis Lumbar spine/lower back: ROM limited, pain with ROM and straight leg raise negative bilaterally Sacroiliac joints: SI joints normal Extremity Common normals: normal to inspection and full ROM Neuro Common normals: oriented x3, CN's II-XII intact bilaterally, moves all extremities, no focal motor deficits, no sensory deficits noted and deep tendon reflexes 2+ bilaterally Sensorium/orientation: alert Motor exam: strength 5/5 throughout and no movement abnormalities noted Psych Common normals: mental status grossly normal, thought process normal, cooperative, affect normal, speech normal and activity/motor behavior normal Speech: normal speech Thought process: normal thought process Results Additional Findings Additional findings: If on a controlled substance or opioids, I have checked an [place] report on this patient and there are no aberrancies noted in the prescribing history.??If on a controlled substance or opioid a drug screen was completed and reviewed within the last year, and if there has not been a drug screen completed we ordered one today to monitor higher risk, state monitored pain medication use. As part of providing excellent, safe, comprehensive care, the following was completed at our patient's visit: 1. A medication reconciliation and review to ensure accurate knowledge of current/active medications, including asking our patients to inform us about any [id number] medications or herbal remedies/nutritional supplements/alternative remedies. 2. A review to specifically ensure our patients have had annual screening for screening for depression, screening for tobacco use, and screening for unhealthy alcohol use. For concerning screenings had a discussion with the patient, provided patient education, and recommended follow-up with primary care provider when appropriate. If patient noted with a risk of falling, they received education on strength, gait, and balance training to prevent future risk of falling. Assessment and Plan Assessment and Plan (1) Cervical spondylosis: Assessment and Plan: The patient has had over 3 months of moderate to severe neck pain with functional impairment and inadequate response to conservative care including NSAIDS (unless there are contraindication such as concurrent blood thinners), multiple oral or topical pain medications, and home exercise program/physical therapy.? Patient has completed >6 weeks of guided home exercise program and/or formal physical therapy program without relief of their symptoms.? I have reviewed the imaging of the cervical spine and no red flags were identified.? The imaging reveals radiographic findings consistent with cervical spondylosis The Oswestry Disability Index was completed, and the patient scored a 47%.? The patient noted the following:?? moderate pain, pain impacting sleep, pain impacting ADLs We discussed the risks and benefits of the procedure with the patient, and we are NOT planning on using sedation as outlined in the guidelines from Medicare unless there is a documented reason that sedation would be strongly recommended.?? The procedure will be completed with fluoroscopic guidance.? (2) Marijuana use: (3) Degenerative disc disease: Plan bilateral C4-5 C5-6 facet medial branch block #2 working towards RFA continue tizanidine 4mg daily bilateral C5-6 C6-7 mbb x2 working towards RFA, with Dr Arevalo f/u 1 week after injection
--- OUTSIDE RECORDS SUMMARY | 2023-12-26 11:11 | XMS_ITS | CCD ---
Author Organization [facility] Care Team Providers Care Foley Artist Name Role Phone TUDICO, KASEY (PA) Unavailable Unavailable TUDICO, KASEY (PA) Unavailable Unavailable TUDICO, KASEY (PA) Unavailable Unavailable BENZEL, EDWARD C Unavailable Unavailable TUDICO, KASEY (PA) Unavailable Unavailable BENZEL, EDWARD C Unavailable Unavailable ALEJANDRO MONTANEZ Unavailable Unavailable BENZEL, EDWARD C Unavailable Unavailable JO CAMPBELL (SANDWICH HAND) Unavailable Unavailabl e MARCUS EDWARD C Unavailable Unavailable TYRANCE, DR FOLEY Primary [...] ., DR KOFI Agrawal Admitting Unavailable SCHULER .SID Consulting Unavailable DEFRANCE, DR FOLEY Primary Care Unavailable PASCAL ., DR KOFI Agrawal Attending Unavailable PASCAL ., DR KOFI Agrawal Admitting Unavailable PASCAL ., DR KOFI Agrawal Consulting Unavailable DEFRANCE, DR FOLEY Primary Care Unavailable PASCAL ., DR KOFI Agrawal Attending Unavailable PASCAL ., DR KOFI Agrawal Admitting Unavailable BRYAN VILLEDA Consulting Unava ilable GANGA ., SID Consulting [...] SCHULER ., SID Consulting Unavailable LAKSHMIPATHY ., NARJOLEEN Consulting Rosemary vailable DEFRANCE, DR FOLEY Primary Care Unavailable LAKSHMIPATHY ., NARENDRANATH Attending Rosemary vailable LAKSHMIPATHY ., NARENDRANATH Admitting Rosemary vailable LAKSHMIPATHY ., NARENDRANATH Attending Rosemary vailable LAKSHMIPATHY ., NARENDRANATH Admitting Rosemary vailable SCHULER ., SID Consulting Unavailable DEFRANCE, DR FOLEY Primary Care Unavailable SCHULER ., SID Consulting Unavailable DEFRANCE, DR FOLEY Primary Care Unavailable PASCAL ., DR KOFI Agrawal Attending Unavailable PASCAL ., DR KOFI Agrawal Admitting Unavailable ADUSUMILLI, NESS K Attending Unavailable ADUSERLINDA, NESS K Referring Unavailable [facility], JAQUI Primary Care Unavailable ADUSUMILLI, NESS K Attending Unavailable ADUSUMILLI, NESS K Referring Unavailable [facility], JAQUI Primary Care Unavailable ADUSUMILLI, NESS K Attending Unavailable ADUSUMILLI, NESS K Referring Unavailable [facility], [facility] Primary Care Unavailable Schlachter LONG DISTANCE OPERATOR-[facility], [facility] Provide r JAQUI FLYNN Attending Unavailable JAQUI FLYNN Referring Unavailable [facility] Primary Care Unavailable Pedro Arevalo MD Attending Unavailable Allergies Allergy Classification Reported Allergen(s) Allergy Type Date of Onset Reaction(s) Facility (1 source) OTHER; Translations: [OTHER] Propensity to adverse reactions (disorder) 3 [facility] Repository (1 source) Adhesive bandage Drug allergy (disorder) [facility] Repository (1 source) celecoxib Drug Allergy [facility] Repository (1 source) Pyridoxal Drug Allergy [facility] Repository (3 sources) Adhesive agent; Translations: [ADHESIVE] [...] Drug Class(es) Dates Sig (Normalized) Sig (Original) [id number] 200 actuat albuterol 0.09 mg/actuat metered dose [...] in the morning. 0 Active magnesium oxide/magnesium (XZ-LCAL-BGHNHYC ORAL) (1 source) take 1 tablet by mouth once daily magnesium oxide/magnesium (LH-ONUE-ZIKEVYA ORAL) Magnesium (oxide/AA chelate) takes 1 tablet [...] spec) Not detected Normal NOT DETECTED [facility] Comment on above: Result Comment: This test is not yet sidra roved or cleared by the [place] FDA. When there are no FDA-approved or cleared tests available, and other criteria are met, FDA can make tests available under an emergency access mechanism called an Emergency Use Authorization (EUA). The EUA for this test is supported by the Pupil Personnel Worker of Health and Human Service's (HHS's) declaration [...] consistent with SARS-CoV-2. Performed By: #### [facility] #### [facility] [address] [place] [address] Dr. 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 Jesus Velazquez and Dr. Montanez. Thisconsultation was shared with the referral source via the [facility] medical record.The patients understanding of the [...] intervention for the low back and left [id number]. Finally will ask him to see Jo [...] concerns, [facility] feel [facility]02/12/18 Dr. Montanez noted - IMPRESSION: (M54.10) Radicular [...] thinking of having this done closer to [place]. He is otherwisescheduled for CPRP in 03/2018.02/05/18 [...] on SSI. Friend is working some from [facility].REVIEW OF SYSTEMS:PAIN ASSESSMENT: See HPI.GENERAL: Denies [...] and off and on as an adult. Cassidy reports that he was diagnosed in his [...] reared 1st of 4 by both parents [place], [place]. Nurture was poor. Mother would never [...] had a relationship sincethe 70's. 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 He was providedwith brochure and number to the admission coordinator.Substance use interview is indicated. Chemical education program is indicated.Patient is aware of the following policies and guidelines set forth [facility]:1. no illicit substance use (including marijuana, medical or otherwise) ispermitted and any patient with a positive urine drug screen on day one will bedischarged though invited to return after substance use evaluations and anegative repeat urine drug screen can be demonstrated.2. All opioids and benzodiazepines will be collected and destroyed on day oneof [facility], and the patient will be weaned [...] policies/guidelines.Goals for treatment include pain reduction, functional episcopal, moodnormalization and improved coping.Prognosis is fair.90 minutes total visit with preponderance of time spent on counseling,medication management, education and review. All patients questions regardingabove conditions and coordination of care were addressed.Jo Campbell CNPReferring Provider: JESUS VELAZQUEZ [[id number]]Allergies As of Date: 03/06/2018 Noted Allergy ReactionADHESIVE TAPE (ROSINS) 03/06/2018 2 - Rash 14 - Other: See Comments Comments: BlisteringIntolerance To Toprol And Celebre*06/19/2003Date Reviewed: 03/06/2018Reviewed by: Jo (Assistant Prosecuting Attorney) Karson - Fully AssessedReason for Visit: New [...] to improve.Follow-up and Disposition History RecordedEncounter Number: [id number] Status:Closed by JO CAMPBELL CNP on 03/06/18 [facility] PROGRESSon 03-06-2018 PROGRESS HNO ID: [id number] thor: Jo (Raul) PattersonService: (none)Author Type: Nurse PractitionerType: Progress NotesFiled: 03/06/2018 2:36 PMNote Text:THE [facility] Pain Rehabilitation EvaluationJune 2017Shimonchuyita Rickettsadam [facility] number: [id number] 67 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 Jesus Velazquez and Dr. Montanez. Thisconsultation was shared with the referral source via the [facility] medical record.The patients understanding of the [...] thinking of having this done closer to [place].He is otherwise scheduled for CPRP in 03/2018.02/05/18 [...] 1st of 4 by both parents [place], [place]. Nurture was poor. Mother would never stop [...] has not had a relationship since the 70's. 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 He wasprovided with brochure and number to the admission coordinator.Substance use interview is indicated. Chemical education program isindicated.Patient is aware of the following policies and guidelines set forth by [facility]:1. no illicit substance [...] policies/guidelines.Goals for treatment include pain reduction, functional episcopal, moodnormalization and improved coping.Prognosis is fair.90 minutes total visit with preponderance of time spent on counseling,medication management, education and review. All patients questionsregarding above conditions and coordination of care were addressed.Jo Campbell CNP [facility] CNOVon 02-12-2018 CNOV Office Visit (PAMAVN) RENE FLORES ([id number]) 1950 MDate Time Provider Department02/12/18 9:10 AM ALEJANDRO MONTANEZ During your visit today, we recorded the following information about you: Pulse Blood pressure Weight Height 60/minute 129/70 97.1 kg 1.727 mPhilitri Montanez MD 02/14/2018 11:25 AM SignedSUBJECTIVE:Mr. 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 It Sales Representative: NoPassive conservative therapy lasting 6 weeks in [...] for left arm pain (Rx FMD in [place])uses THC - eases pain but afterwards he feels he has concentration issues brain fog also:- neg Cancer ( other than Hx basal cell)- ETOH - scotch nightly- THC smoking qd- no Hx of DM- Hx of CVAPLAN:Above findings and options discussed..He can have a TFESI @ LEFT L 5-S1 on diagnostic / therapeutic basis.He is thinking of having this done closer to [place].He is otherwise scheduled for CPRP in 03/2018.We can see him prn.Alejandro Montanez, MDReferring Provider: JESUS VELAZQUEZ [[id number]]Allergies As of Date: 02/12/2018 Noted Allergy ReactionIntolerance [...] INVALID FOR*Follow-up and Disposition History RecordedEncounter Number: [id number] Status:Closed by ALEJANDRO MONTANEZ MD on 02/14/18 [facility] PROGRESSon 02-12-2018 PROGRESS HNO ID: [id number] thor: Alejandro Makervice: (none)Author Type: PhysicianType: Progress NotesFiled: 02/14/2018 11:25 [...] elbow and radiates upward and downward arm.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 It Sales Representative: NoPassive conservative therapy lasting 6 weeks in [...] for left arm pain (Rx FMD in [place])uses THC - eases pain but afterwards he feels he has concentration issues brain fog also:- neg Cancer ( other than Hx basal cell)- ETOH - scotch nightly- THC smoking qd- no Hx of DM- Hx of CVAPLAN:Above findings and options discussed..He can have a TFESI @ LEFT L 5-S1 on diagnostic / therapeutic basis.He is thinking of having this done closer to [place].He is otherwise scheduled for CPRP in 03/2018.We can see him prn.Alejandro Montanez MD [facility] CNOVon 02-05-2018 CNOV Office Visit (SPNSMN) RENE FLORES ([id number]) 1950 MDate Time Provider Department02/05/18 3:20 PM JESUS VELAZQUEZ NSMN During your visit today, we recorded the following information about you: Pulse Respiration Blood pressure Weight 56/minute 18/minute 142/66 97.1 kg Height 1.727 Jesus Quick 02/05/2018 4:07 PM SignedSPHAVASU [facility] SURGERY ESTABLISHEDDATE OF SERVICE: 02/05/2018DATE [...] history of back pain.1. Follow up: Not requiredEdson Sheppard [facility] Medicine FellowPGY-5SIGNATURE: Jesus Velazquez MD PATIENT NAME: [...] read. WIll pursue with xrays andmedical spine ibaqitrfrqm77/7 pain, non-restorative sleep, MUSC, fatigue - CPSWill have seen by Jo Campbell.I will see on an as needed basis. No indication for surgery in my opinionCounseled extensivelyShould Mr. Flores or referring or consulting physicians have any questionsor concerns, they should feel free to contact my office.Mr. Flores has been instructed to followup as documentedEdward Apollo Velazquez, [facility]: PMDDr HerringReferring Provider: KASEY LEIGH) [[id number]]Allergies As of Date: 02/05/2018 Noted Allergy ReactionIntolerance To Toprol And Celebre*06/19/2003Date Reviewed: 02/05/2018Reviewed by: Edson Sheppard (Ritesh) - Fully AssessedReason for Visit: Established Patient [175]Primary Visit Diagnosis:Other idiopathic scoliosis, lumbar region [M41.26] Other Visit Diagnosis:Cervical spondylosis without myelopathy [M47.812]Order(s):CONSULT TO SPINE CENTER [[id number]] Order #: [id number]: 1 XR SCOLIOSIS PA STAND/LAT 2V [[id number]] Order #: [id number] FUTURE XR LUMBAR LIMITED 2V FLEX/EXT [[id number]] Order #: [id number] FUTURE CONSULT TO CHRONIC PAIN REHABILITATION (NON-PAIN ANESTHESIA) [[id number]] Order #: [id number]: 1Prescriptions as of 02/05/2018 Sig: OXYCODONE-ACETAMINOPHEN 10 [...] by JESUS VELAZQUEZ MD on 02/05/18 [facility] PROGR[facility]on 02-05-2018 PROGRESS HNO ID: [id number] thor: Jesus Velazquez CService: (none)Author Type: PhysicianType: [...] of backpain.1. Follow up: Not requiredEdson Sheppard [facility] Medicine FellowPGY-5SIGNATURE: Jesus Velazquez MD PATIENT NAME: [...] read. WIll pursue with xraysand medical spine totvxppawbw35/7 pain, non-restorative sleep, MUSC, fatigue - CPSWill have seen by Jo Campbell.I will see on an as needed basis. No indication for surgery in my opinionCounseled extensivelyShould Mr. Flores or referring or consulting physicians have anyquestions or concerns, they should feel free to contact my office.Mr. Flores has been instructed to followup as documentedJesus Velazquez, [facility]: PMDDr Karan [facility] XR LUMBAR 2V FLEX/EXTon XR LUMBAR 2V [...] abnormal motion flexion or extension.IMPRESSION:Multi level degenerative changes.Senior Research Engineer: АННА Transcribe Date/Time: Feb 05 2018 5:13PDictated by : BETH MULLEN MDThitesha examination was interpreted and the report reviewed and electronically signed by: BETH MULLEN MD on Feb 05 2018 5:15PM [id number] [facility] XR SCOLIOSIS 2V PA STAND/LAT on 02-05-2018 [...] maintained.IMPRESSION:Mode rate to severe scoliosis and degenerative changes.Senior Research Engineer: PSCB Transcribe Date/Time: Feb 05 2018 5:10PDictated by : BETH MULLEN MDThis examination was interpreted and the report reviewed and electronically signed by: BETH MULLEN MD on Feb 05 2018 5:12PM [id number] [facility] PROGRESSon 01-22-2018 PROGRESS HNO ID: [id number] thor: Kasey (Syed) Breanna: (none)Author Type: Physician AssistantType: Progress NotesFiled: 01/21/2018 11:18 PMNote Text:SPINE SURGERY NEW PATIENTPCP: ALIZA Villa PROVIDER: selfSUBJECTIVEHISTORY OF PRESENT ILLNESS:Eh Flores is a 67 year old male presenting sister.CHIEF COMPLAINT: neck pain and left arm painPRECIPITATING EVENT: NoneDURATION OF SYMPTOMS: Greater Than 1 YearStepchuyita Flores reports that he has been having [...] (HCC)- Asthma- Other specified cardiac dysrhythmias(427.89)- Stroke ([facility])PAST SURGICAL HISTORYProcedure Laterality Date- ABLATION cardiac for [...] ) Wt 97.1 kg (214lb) BMI 32.54 kg/q6KWMXKXR APPEARANCE: Well nourished, well developed, and no [...] 21, 2018 : 10:47 PM PAGER: Ping [facility] CNOVon 01-21-2018 CNOV Office Visit (SPNSMN) RENE FLORES ([id number]) 1950 MDate Time Provider Department01/21/18 11:00 AM [...] (HCC)- Asthma- Other specified cardiac dysrhythmias(427.89)- Stroke ([facility])PAST SURGICAL HISTORYProcedure Laterality Date- ABLATION cardiac for [...] 8ANDquot;) Wt 97.1 kg (214lb) BMI 32.54 kg/m8XJJKEMO APPEARANCE: Well nourished, well developed, and no [...] arm pain [M79.602]Order(s):XR CERV OTHER 4V AP/LAT/FLX/EXT [[id number]] Order #: [id number] FUTURE EMG(NEURO/NI) [[id number]] Order #: [id number]: 1 FUTURE CONSULT TO PHYSICAL THERAPY [9032] Order #: [id number]: 1Prescriptions as of 01/21/2018 Sig: OXYCODONE-ACETAMINOPHEN 10 [...] Date: 01/21/2018(None)Follow-up and Disposition History RecordedEncounter Number: [id number] Status:Closed by KASEY LEIGH on 01/21/18 [facility] PROGRESSon 01-21-2018 PROGRESS HNO ID: [id number] thor: Majo Biswas (Rt)e: RadiologyAuthor Type: TechnicianType: Progress NotesFiled: 01/21/2018 1:18 PMNote Text: Radiology Service Progress NotePATIENT NAME: Eh FloresMRN: [id number] OF SERVICE: January 21, 2018TIME: 1:18 PMPATIENT IDENTITY VERIFICATION COMPLETED USING TWO (2) METHODS: Patientconfirmed name verbally and Date of .PATIENT GENDER DATA: MalePATIENT RELEVANT IMPLANT DATA REVIEWED: Not ApplicableRADIOLOGY DEPARTMENT: General X-ray: Exam(s) Completed: Spine X-Ray(s):Cervical AP / LAT / FLEX-EXTPERIPHERAL IV DATA: Not applicableSIGNED BY: Jessica Biswas 2017 1:18 PM [facility] XR CERVICAL 4V AP/LAT/FLX/EX Ton 01-21-2018 XR [...] MICHELLE MD on Jan 21 2018 4:17PM [id number] [facility] CNCOon 01-10-2018 CNCO Letter TextDear Shimon Flores:How to activate your [facility] [employer] Account 1. Visit the [employer] Signup page at [email or web address] 2. Identify yourself using your one-time use activation code: [email or web address]: 02/09/2018 1:35 PMThis activation code was e-mailed to [email or web address] 3. Follow the on-screen prompts to choose your own secure username andpasswordThe following information will be necessary to access your account for thefirst time:Information needed for sign-up:Your custom activation code used one-time only for the initial accountset-up.Your date of birthThe last 4 digits of your social security numberWhat to do next:Fill in the requested information on the Identify Yourself Form [email or web address] , click Next.Create your login and password, choose a [employer] ID and password that will beeasy for you to use, but impossible for anyone else to guess.Pick a security question that will assist you in the event you forget yourpassword the next time you log-on.If you have difficulty activating your account, please call our [employer] at [phone] or toll free at .We hope you enjoy using [employer]!Kindest Regards,[facility] [employer] Team [facility] MR-MR CERVICAL SPINE WO CONT IMPORTon 01-03-2018 MR-MR CERVICAL SPINE WO CONT IMPORT Images were obtained outside of [facility] [id number] [facility] MR-MR LUMBAR SPINE WO CONT I MPORTon 01-03-2018 MR-MR LUMBAR SPINE WO CONT IMPORT Images were obtained outside of [facility] [id number] [facility] Vital Signs Date Time Vital Sign Value Performing Clinician Lencho kincaid 11-02-2023 11:02-0500 Body mass index (BMI) [Ratio] 31.32 kg/m2 Jaqui Flynn APRN-SANDWICH HAND [facility] Phone: [facility] 11-02-2023 11:02-0500 Body weight 93.44 kg Jaqui Flynn APRN-SANDWICH HAND Work Phone: [facility] 11-02-2023 11:02-0500 Diastolic blood pressure 60 mm[Hg] Jaqui Flynn APRN-SANDWICH HAND Work Phone: [facility] 11-02-2023 11:02-0500 Heart rate 78 /min Jaqui Flynn APRN-SANDWICH HAND Work Phone: [facility] 11-02-2023 11:02-0500 Respiratory rate 18 /min Jaqui Flynn APRN-SANDWICH HAND Work Phone: [facility] 11-02-2023 11:02-0500 SaO2% (BldA) [Mass fraction] 97 % Jaqui Flynn APRN-SANDWICH HAND Work Phone: [facility] 11-02-2023 11:02-0500 Systolic blood pressure 112 mm[Hg] [facility] LONG DISTANCE OPERATOR-SANDWICH HAND Work Phone: [facility] Encounters Encounter Date Encounter Type Care Provider Facility Start: 12-17-2023 End: 12-18-2023 ambulatory Pedro Arevalo MD Facility:[facility] Start: 11-02-2023 End: 11-02-2023 ambulatory [facility] Start: 11-02-2023 End: 11-02-2023 Office outpatient visit 15 minutes [facility] LONG DISTANCE OPERATOR-SANDWICH HAND Work Phone: [facility] Comment on above: Seizure-like activit y (CMS-HCC) (Primary Dx); Syncope, unspecified syncope type; Cervical disc disease; Radiculopathy, lumbosacral region Start: 09-14-2023 End: 09-14-2023 ambulatory [facility] Start: 01-09-2023 End: 01-10-2023 ambulatory NARENDRANATH [...] cardiovascular examination DR KOFI PASCAL . [facility] Start: 07-30-2022 Encounter for preprocedural laboratory examination DR KOFI PASCAL . [facility] Start: 07-28-2022 End: 07-29-[address] KOFI [...] Start: 03-06-2018 End: 03-08-2018 Ambulatory JO CAMPBELL [facility] Start: 02-12-2018 End: 02-15-2018 Ambulatory ALEJANDRO MONTANEZ [facility] Start: 02-05-2018 End: 02-05-2018 Ambulatory JESUS VELAZQUEZ [facility] Start: 02-05-2018 End: 02-06-2018 Ambulatory JESUS VELAZQUEZ [facility] Start: 01-21-2018 End: 01-22-2018 Ambulatory KASEY BARRAGAN) LU [facility] Procedures Date Procedure Procedure Detail Performing Clinician Start: 11-02-2023 Follow-up visit Follow-up JAQUI FLYNN Start: 06-01-2023 Adult depression scr eening assessment Jaqui Flynn LONG DISTANCE OPERATOR-SANDWICH HAND Work Phone: Start: 09-13-2020 Colonoscopy Jaqui delarosa LONG DISTANCE OPERATOR-SANDWICH HAND Work Phone: Plan of Treatment Date Care Activity Detail Author Start: 10-08-2031 DTaP,Tdap and Td Vaccines (2 - Td or Tdap) DTaP,Tdap and Td Vaccines (2 - Td or Tdap) [facility] Start: 09-13-2025 Screening for malignant neoplasm of colon Colonoscopy [facility] Start: 11-02-2024 Adult BMI Screening Adult BMI Screening [facility] Start: 09-19-2024 Tobacco Screening Tobacco Screening [facility] Start: 07-25-2024 Adult BMI Follow Up Plan Adult BMI Follow Up Plan [facility] Start: 06-01-2024 Depression Screening Depression Screening [facility] Start: 06-01-2024 Fall Risk Screening Fall Risk Screening [facility] Start: 05-07-2024 End: 05-07-2024 Patient encounter procedure 05/07/2024 11:00 AM EDT Office Visit [facility] [address] [place] [id number] Jaqui Flynn, LONG DISTANCE OPERATOR-SANDWICH HAND [address] [place], [place] [id number] [facility] Start: 05-04-2024 Medicare Annual Wellness Visit Medicare Annual Wellness Visit [facility] Start: 06-01-2023 COVID-19 Vaccine ( season) COVID-19 Vaccine ( season) [facility] Start: 06-01-2023 Influenza vaccination Influenza Vaccine [facility] Start: 03-28-2013 Administration of varicella zoster vaccine Zoster (Shingles) Vaccine (2 of 3) [facility] Immunizations Immunization Date Immunization Notes Care Provider Fa cility 10-08-2021 tetanus toxoid, reduced diphtheria toxoid, and acellular pertussis vaccine, adsorbed Jaqui Flynn LONG DISTANCE OPERATOR-SANDWICH HAND Work Phone: [facility] Work Phone: 12-30-2020 COVID-19, mRNA, LNP- S, PF, 30mcg/0.3mL Dose Jaqui Flynn LONG DISTANCE OPERATOR-SANDWICH HAND Work Phone: [facility] 07-28-2020 Influenza, injectabl e, [place] Canine Kidney, preservative free, quadrivalent Jaqui Gee LONG DISTANCE OPERATOR-SANDWICH HAND Work Phone: [facility] 07-28-2020 influenza virus vaccine, unspecified formulation Jaqui Manniechter LONG DISTANCE OPERATOR-SANDWICH HAND [facility] 04-23-2017 pneumococcal conjuga te vaccine, 13 valent Jaqui Schlachter LONG DISTANCE OPERATOR-SANDWICH HAND Work Phone: [facility] [employer] [facility] 01-31-2013 zoster vaccine, live Jaqui Gee LONG DISTANCE OPERATOR-SANDWICH HAND Work Phone[facility] 01-31-2013 zoster vaccine, unspecified formulation Jaqui Gee LONG DISTANCE OPERATOR-SANDWICH HAND Work Phone: [facility] [employer] [facility] Payers Date Payer Category Payer Unknown 2020 Medicare ANTHEM MEDICARE ANTHEM MEDICARE ADVANTAGE [id number] 2020-Present [phone] [address] [place] [address] [id number] 1959 Unknown [id number] 1950 Unknown [id number] 2..840.1.972387.3.579.2.593 1950 Unknown [id number] ..840.1.696448.3.579.2.593 1950 Unknown [id number] 2.16.840.1.059093.3.579.2.593 1950 Unknown [id number] 2.16.840.1.988089.3.579.2.593 1950 Unknown [id number] 2.16.840.1.536677.3.579.2.593 1950 Unknown [id number] 2.16.840.1.191853.3.579.2.593 1950 Unknown [id number] 2.16.840.1.673708.3.579.2.593 1950 Unknown [id number] 2.16.840.1.530388.3.579.2.593 1950 Unknown [id number] 2.16.840.1.234026.3.579.2.593 1950 Unknown [id number] 2.16.840.1.326988.3.579.2.593 1950 Unknown [id number] 2.16.840.1.111010.3.579.2.593 1950 Unknown [id number] 2.16.840.1.209272.3.579.2.593 1950 Unknown [id number] 2.16.840.1.475727.3.579.2.593 1950 Unknown [id number] 2.16.840.1.470004.3.579.2.593 1950 Unknown [id number] 2.16.840.1.070078.3.579.2.128 6 1950 Unknown [id number] 2.16.840.1.594581.3.579.2.128 6 1950 Unknown [id number] 2.16.840.1.152917.3.579.2.128 6 1950 Unknown [id number] 2.16.840.1.246626.3.579.2.128 6 1950 Unknown [id number] 2.16.840.1.472460.3.579.2.196 Social History Date Type Detail Facility Start: 07-18-2022 Tobacco smoking stat [facility] Never smoked tobacco [facility] Start: 07-18-2022 Tobacco use and exposure Smokeless tobacco non-user [facility] Start: 09-19-2023 Alcohol intake Current drinke r of alcohol (finding) [facility] Start: 11-11-2020 End: 09-19-2023 Alcohol intake [facility] Start: 11-11-2020 End: 09-19-2023 Tobacco use panel [facility] Adolescent depressio n screening assessment 0 [facility] Start: 1950 Sex Assigned At Not on file P [facility] Clinical Notes 02-23-2022 to 11-02-2023 Jaqui Flynn, LONG DISTANCE OPERATOR-SANDWICH HAND - 11/02/2023 11:00 AM EST Note Date & Type Note Facility 11-02-2023 History of Present illness Narrative Images from the original note were not included. [id number] [facility] [id number] SUBJECTIVE: Patient ID: [id number] [...] all orders for this visit: Seizure-like activity ([facility]) Syncope, unspecified syncope type Cervical disc disease Radiculopathy, lumbosacral region Follow-up: He is thinking about doing cupping on neck Declines any issues today. Follow up for routine wellness or as needed Patient noted to have elevated BMI and the following intervention(s) were applied: encouragement to exercise. SANDRINE Hernandez 11/02/23 1112 documented in this encounter [facility] 01-09-2023 Note CONSULTATION CONSULTATION DATE: 01/09/2023 TO: [...] our patients to inform us about any [id number]-[id number] medications or herbal remedies/nutritional supplements/alternative remedies. 2. [...] options with their primary care provider. [facility] 11-30-2022 Note CONSULTATION CONSULTATION DATE: 11/30/2022 HISTORY: [...] this plan and all questions answered. [facility] 08-31-2022 Note CONSULTATION CONSULTATION DATE: 08/31/2022 This [...] three months' time unless otherwise indicated. [facility] 08-31-2022 Note CONSULTATION PROCEDURE DATE: 08/31/2022 PRE [...] be followed up in the clinic. [facility] 07-13-2022 Note CONSULTATION CONSULTATION DATE: 07/13/2022 HISTORY [...] followed up in the clinic thereafter. [facility] 05-25-2022 Note CONSULTATION CONSULTATION DATE: 05/25/2022 HISTORY [...] agrees to this plan of care. [facility] 05-02-2022 Note CONSULTATION CONSULTATION DATE: 05/02/2022 ADDENDUM TO PREOPERATIVE DIAGNOSIS: The patient also has lumbar spondylosis. [facility] 04-13-2022 Note CONSULTATION CONSULTATION DATE: 04/13/2022 This [...] will follow-up in the clinic post procedure. [facility] Signed and Approved by: SID SCHULER . 04/21/2022 14:14:[address] [facility] 02-23-2022 Note CONSULTATION CONSULTATION DATE: 02/23/2022 [...] post procedure and agrees to move forward. [facility] Signed and Approved by: SID SCHULER . 03/02/2022 16:01:[address] [facility] Evaluation note Diagnosis Seizure-like activity ([facility])- Primary Syncope, unspecified syncope type Cervical disc disease Radiculopathy, lumbosacral region Thoracic or lumbosacral neuritis or radiculitis, unspecified documented in this encounter [facility] SystemInstructions* Attachments The following attachments cannot be sent through Care Everywhere. * Cervical Myelopathy (Malagasy) [facility] Summary Purpose Family History No [...] section and content) DATE CREATED AUTHOR 03/19/2018 [facility] DATE CREATED AUTHOR AUTHOR'S ORGANIZ ATION [facility]2023 [facility] DATE CREATED AUTHOR AUTHOR'S ORGANIZ ATION 09/30/2023 [facility] DATE CREATED AUTHOR AUTHOR'S ORGANIZ ATION 11/04/2023 [facility] DATE CREATED AUTHOR AUTHOR'S ORGANIZ ATION 12/22/2023 [facility] Reason for Visit (unrecogniz ed section and content) Reason Comments Follow-up Care Teams (unrecognized sec tion and content) 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 [employer] [facility]. provides no warranty or guarantee of the accuracy or completeness of information in this document.
== END 2023-12-26 10:52 | disposition home or self-care (01) ==
LOC: PM 10:51
PROVIDERS: PCP Family Medicine; Visit Provider Nurse Practitioner
DX: M47.812 Spondylosis without myelopathy or radiculopathy, cervical region (principal); Z79.899 Other long term (current) drug therapy; M50.30 Other cervical disc degeneration, unspecified cervical region
CPT/HCPCS: G0463

== ENCOUNTER 2024-01-15 06:41 | Day surgery (SDC) | payer MEDICARE, SELFPAY ==
--- OUTSIDE RECORDS SUMMARY | 2024-01-15 06:44 | XMS_ITS | CCD ---
Author Organization [facility] Care Team Providers Care Cloth Measurer Name Role Phone TUDICO, KASEY (PA) Unavailable Unavailable TUDICO, KASEY (PA) Unavailable Unavailable TUDICO, KASEY (PA) Unavailable Unavailable BENZEL EDWARD C Unavailable Unavailable TUDICO, KASEY (PA) Unavailable Unavailable BENZEARL EDWARD C Unavailable Unavailable ALEJANDRO MONTANEZ Unavailable Unavailable BENZEL EDWARD C Unavailable Unavailable JO CAMPBELL (HELP DESK ANALYST) Unavailable Unavailabl e JESUS VELAZQUEZ C Unavailable Unavailable TYRANCE, DR FOLEY Primary [...] Attending Unavailable ADUSERLINDA, NESS K Referring Unavailable [facility] Primary Care Unavailable ADUSUMILLI, NSES K Attending Unavailable ADUSUMILLI, NESS K Referring Unavailable SCHLACHTER, JAQUI Primary Care Unavailable ADUSUMILLI, NESS K Attending Unavailable ADUSUMILLI, NESS K Referring Unavailable [facility], JAQUI Primary Care Unavailable [facility], [facility] Provide r JAQUI FLYNN Attending Unavailable JAQUI FLYNN Referring Unavailable [facility] JAQU[facility] Primary Care Unavailable Mickey NANCE, Pedro Marquez Attending Unavailable Allergies Allergy Classification Reported Allergen(s) Allergy Type Date of Onset Reaction(s) Facility (1 source) OTHER; Translations: [OTHER] Propensity to adverse reactions (disorder) 3 [facility] Repository (1 source) Adhesive bandage Drug allergy (disorder) [facility] Repository (1 source) celecoxib Drug Allergy [facility] Repository (1 source) Pyridoxal Drug Allergy [facility] Repository (3 sources) Adhesive agent; Translations: [ADHESIVE] [...] Drug Class(es) Dates Sig (Normalized) Sig (Original) [id number] 200 actuat albuterol 0.09 mg/actuat metered dose [...] in the morning. 0 Active magnesium oxide/magnesium (RX-ALTN-LHDGUOU ORAL) (1 source) take 1 tablet by mouth once daily magnesium oxide/magnesium (YK-WNIZ-WUFEQMO ORAL) Magnesium (oxide/AA chelate) takes 1 tablet [...] spec) Not detected Normal NOT DETECTED [facility] Comment on above: Result Comment: This test is not yet sidra roved or cleared by the [place] FDA. When there are no FDA-approved or cleared tests available, and other criteria are met, FDA can make tests available under an emergency access mechanism called an Emergency Use Authorization (EUA). The EUA for this test is supported by the Television Agent of Health and Human Service's (HHS's) declaration [...] consistent with SARS-CoV-2. Performed By: #### [facility] #### [facility] [address] [place] [address] Dr. 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 Jesus Velazquez and Dr. Montanez. Thisconsultation was shared with the referral source via the [facility] medical record.The patients understanding of the the [...] intervention for the low back and left U5knyopkvk. Finally will ask him to see Jo [...] concerns, they should feel free to contact [facility]02/12/18 Dr. Montanez noted - IMPRESSION: (M54.10) Radicular [...] thinking of having this done closer to [place]. He is otherwisescheduled for CPRP in 03/2018.02/05/18 [...] on SSI. Friend is working some from [employer].REVIEW OF SYSTEMS:PAIN ASSESSMENT: See HPI.GENERAL: Denies fever, [...] reared 1st of 4 by both parents [place], [place]. Nurture was poor. Mother would never [...] had a relationship sincethe 70's. 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 He was providedwith brochure and number to the admission coordinator.Substance use interview is indicated. Chemical education program is indicated.Patient is aware of the following policies and guidelines [facility]:1. no illicit substance use (including marijuana, medical or otherwise) ispermitted and any patient with a positive urine drug screen on day one will bedischarged though invited to return after substance use evaluations and anegative repeat urine drug screen can be demonstrated.2. All opioids and benzodiazepines will be collected and destroyed on day oneof CPRP treatment, and the patient will be [...] policies/guidelines.Goals for treatment include pain reduction, functional caodaism, moodnormalization and improved coping.Prognosis is fair.90 minutes total visit with preponderance of time spent on counseling,medication management, education and review. All patients questions regardingabove conditions and coordination of care were addressed.Jo Campbell CNPReferring Provider: JESUS VELAZQUEZ [[id number]]Allergies As of Date: 03/06/2018 Noted Allergy ReactionADHESIVE TAPE (ROSINS) 03/06/2018 2 - Rash 14 - Other: See Comments Comments: BlisteringIntolerance To Toprol And Celebre*06/19/2003Date Reviewed: 03/06/2018Reviewed by: Jo ([facility]) Karson - Fully AssessedReason for Visit: New [...] to improve.Follow-up and Disposition History RecordedEncounter Number: [id number] Status:Closed by JO CAMPBELL CNP on 03/06/18 Normal [facility] PROGRESSon 03-06-2018 PROGRESS HNO ID: [id number] thor: Jo (Raul) PattersonService: (none)Author Type: Nurse PractitionerType: Progress NotesFiled: 03/06/2018 2:36 PMNote Text:THE [facility] Pain Rehabilitation EvaluationJune 2017Shimonchuyita Flores [facility] number: [id number] 67 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 Jesus Velazquez and Dr. Montanez. Thisconsultation was shared with the referral source via the [facility] medical record.The patients understanding of the the [...] thinking of having this done closer to [place].He is otherwise scheduled for CPRP in 03/2018.02/05/18 [...] reared 1st of 4 by both parents [place], [place]. Nurture was poor. Mother would never [...] had a relationship since the 70's. Work history:[employer] and retired from this job.Mental status:The patient [...] upper and lower extremities.DTR were 1+ and symmetric.Impressions:Saute Chef xander pain syndromeSevere lumbar scoliosisCervicalgia - cervical DDDHistory of depressionHistory of alcohol abuseTHC abuseDisposition:Offered treatment in the Chronic Pain Rehabilitation Program. He wasprovided with brochure and number to the admission coordinator.Substance use interview is indicated. Chemical education program isindicated.Patient is aware of the following policies and guidelines set [facility]:1. no illicit substance use [...] policies/guidelines.Goals for treatment include pain reduction, functional caodaism, moodnormalization and improved coping.Prognosis is fair.90 minutes total visit with preponderance of time spent on counseling,medication management, education and review. All patients questionsregarding above conditions and coordination of care were addressed.Jo Campbell CNP Normal [facility] CNOVon 02-12-2018 CNOV Office Visit (PAMAVN) RENE FLORES ([id number]) 1950 MDate Time Provider Department5/15/18 9:10 AM ALEJANDRO MONTANEZ During your visit [...] left elbow andradiates upward and downward arm.Losing typer in fingersRLS since he was a 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 Unit Operator: NoPassive conservative therapy lasting 6 weeks in [...] for left arm pain (Rx FMD in [place])uses THC - eases pain but afterwards he feels he has concentration issues brain fog also:- neg Cancer ( other than Hx basal cell)- ETOH - scotch nightly- THC smoking qd- no Hx of DM- Hx of CVAPLAN:Above findings and options discussed..He can have a TFESI @ LEFT L 5-S1 on diagnostic / therapeutic basis.He is thinking of having this done closer to [place].He is otherwise scheduled for CPRP in 03/2018.We can see him prn.Alejandro Montanez, MDReferring Provider: JESUS VELAZQUEZ [[id number]]Allergies As of Date: 02/12/2018 Noted Allergy ReactionIntolerance [...] INVALID FOR*Follow-up and Disposition History RecordedEncounter Number: [id number] Status:Closed by ALEJANDRO MONTANEZ MD on 02/14/18 Normal [facility] PROGRESSon 02-12-2018 PROGRESS HNO ID: [id number] thor: Alejandro Makervice: (none)Author Type: PhysicianType: Progress [...] elbow and radiates upward and downward arm.Losing typer in fingersRLS since he was a 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 Unit Operator: NoPassive conservative therapy lasting 6 weeks in [...] polyuria, polydipsia andgoiterPAST MEDICAL HISTORYDiagnosis Date- A-fib ([facility])- Asthma- Other specified cardiac dysrhythmias(427.89)- Stroke (HCC)PAST [...] for left arm pain (Rx FMD in [place])uses THC - eases pain but afterwards he feels he has concentration issues brain fog also:- neg Cancer ( other than Hx basal cell)- ETOH - scotch nightly- THC smoking qd- no Hx of DM- Hx of CVAPLAN:Above findings and options discussed..He can have a TFESI @ LEFT L 5-S1 on diagnostic / therapeutic basis.He is thinking of having this done closer to [place].He is otherwise scheduled for CPRP in 03/2018.We can see him prn.Alejandro Montanez MD [facility] CNOVon 02-05-2018 CNOV Office Visit (SPNSMN) RENE FLORES ([id number]) 1950 MDate Time Provider Department02/05/18 3:20 PM JESUS VELAZQUEZ SPNSMN During your visit today, we recorded the following information about you: Pulse Respiration Blood pressure Weight 56/minute 18/minute 142/66 97.1 kg Height 1.727 Jesus Quick 02/05/2018 4:07 PM SignedSPYU[facility] SURGERY ESTABLISHEDDATE OF SERVICE: [...] back pain.1. Follow up: Not requiredEdson Sheppard [facility] Medicine FellowPGY-5SIGNATURE: Jesus Velazquez MD PATIENT [...] read. WIll pursue with xrays andmedical spine xgtetwaydjx08/7 pain, non-restorative sleep, MUSC, fatigue - CPSWill have seen by Jo Campbell.I will see on an as needed basis. No indication for surgery in my opinionCounseled extensivelyShould Mr. Flores or referring or consulting physicians have any questionsor concerns, they should feel free to contact my office.Mr. Flores has been instructed to followup as documentedEdward Apollo Velazquez, [facility]: PMDDr HerringReferring Provider: KASEY LEIGH) [[id number]]Allergies As of Date: 02/05/2018 Noted Allergy ReactionIntolerance To Toprol And Celebre*06/19/2003Date Reviewed: 02/05/2018Reviewed by: Edson Sheppard (Ritesh) - Fully AssessedReason for Visit: Established Patient [175]Primary Visit Diagnosis:Other idiopathic scoliosis, lumbar region [M41.26] Other Visit Diagnosis:Cervical spondylosis without myelopathy [M47.812]Order(s):CONSULT TO SPINE CENTER [553904] Order #: [id number]: 1 XR SCOLIOSIS PA STAND/LAT 2V [[id number]] Order #: [id number] FUTURE XR LUMBAR LIMITED 2V FLEX/EXT [[id number]] Order #: [id number] FUTURE CONSULT TO CHRONIC PAIN REHABILITATION (NON-PAIN ANESTHESIA) [[id number]] Order #: [id number]: 1Prescriptions as of 02/05/2018 Sig: OXYCODONE-ACETAMINOPHEN 10 [...] by JESUS VELAZQUEZ MD on 02/05/18 [facility] PROGRESSon 02-05-2018 PROGRESS HNO ID: [id number] thor: Jesus Velazquez CService: (none)Author Type: PhysicianType: [...] of backpain.1. Follow up: Not requiredEdson Sheppard [facility] Medicine FellowPGY-5SIGNATURE: Jesus Velazquez MD PATIENT [...] read. WIll pursue with xraysand medical spine eqlqyfkkggc96/7 pain, non-restorative sleep, MUSC, fatigue - CPSWill have seen by Jo Campbell.I will see on an as needed basis. No indication for surgery in my opinionCounseled extensivelyShould Mr. Flores or referring or consulting physicians have anyquestions or concerns, they should feel free to contact my office.Mr. Flores has been instructed to followup as documentedJesus Velazquez, [facility]: PMDDr Karan Normal [facility] XR LUMBAR 2V FLEX/EXTon XR [...] abnormal motion flexion or extension.IMPRESSION:Multi level degenerative changes.Practice Coordinator: АННА Transcribe Date/Time: Feb 05 2018 5:13PDictated by : BETH MULLEN MDThis examination was interpreted and the report reviewed and electronically signed by: BETH MULLEN MD on Feb 05 2018 5:15PM [id number] Normal [facility] XR SCOLIOSIS 2V PA STAND/LAT [...] maintained.IMPRESSION:Mode rate to severe scoliosis and degenerative changes.Practice Coordinator: PSCB Transcribe Date/Time: Feb 05 2018 5:10PDictated by : BETH MULLEN MDThitesha examination was interpreted and the report reviewed and electronically signed by: BETH MULLEN MD on Feb 05 2018 5:12PM [id number] Normal [facility] PROGRESSon 01-22-2018 PROGRESS HNO ID: [id number] thor: Kasey (Syed) Breanna: (none)Author Type: Physician [...] (HCC)- Asthma- Other specified cardiac dysrhythmias(427.89)- Stroke ([facility])PAST SURGICAL HISTORYProcedure Laterality Date- ABLATION cardiac for [...] ) Wt 97.1 kg (214lb) BMI 32.54 kg/a5YZBPXTV APPEARANCE: Well nourished, well developed, and no [...] 21, 2018 : 10:47 PM PAGER: Ping [facility] CNOVon 01-21-2018 CNOV Office Visit (SPNSMN) RENE FLORES ([id number]) 1950 MDate Time Provider Department01/21/18 11:00 AM [...] 8ANDquot;) Wt 97.1 kg (214lb) BMI 32.54 kg/d0VBXXJWV APPEARANCE: Well nourished, well developed, and no [...] arm pain [M79.602]Order(s):XR CERV OTHER 4V AP/LAT/FLX/EXT [[id number]] Order #: [id number] FUTURE EMG(NEURO/NI) [[id number]] Order #: [id number]: 1 FUTURE CONSULT TO PHYSICAL THERAPY [9032] Order #: [id number]: 1Prescriptions as of 01/21/2018 Sig: OXYCODONE-ACETAMINOPHEN 10 [...] Date: 01/21/2018(None)Follow-up and Disposition History RecordedEncounter Number: [id number] Status:Closed by KASEY LEIGH on 01/21/18 [facility] PROGRESSon 01-21-2018 PROGRESS HNO ID: [id number] thor: Kavita Biswas (Rt)vice: RadiologyAuthor Type: TechnicianType: Progress NotesFiled: 01/21/2018 1:18 PMNote Text: Radiology Service Progress NotePATIENT NAME: Eh FloresMRN: [id number] OF SERVICE: January 21, 2018TIME: 1:18 PMPATIENT IDENTITY VERIFICATION COMPLETED USING TWO (2) METHODS: Patientconfirmed name verbally and Date of .PATIENT GENDER DATA: MalePATIENT RELEVANT IMPLANT DATA REVIEWED: Not ApplicableRADIOLOGY DEPARTMENT: General X-ray: Exam(s) Completed: Spine X-Ray(s):Cervical AP / LAT / FLEX-EXTPERIPHERAL IV DATA: Not applicableSIGNED BY: Jessica Biswas 2017 1:18 PM Normal [facility] XR CERVICAL 4V AP/LAT/FLX/EX Ton [...] MICHELLE MD on Jan 21 2018 4:17PM [id number] Normal [facility] CNCOon 01-10-2018 CNCO Letter TextDear Shimon Flores:How to activate your [facility] Picodeon Account 1. Visit the [employer] Signup page at [email or web address] 2. Identify yourself using your one-time use activation code: [email or web address]: 02/09/2018 1:35 PMThis activation code was e-mailed to [email or web address] 3. Follow the on-screen prompts to choose your own secure username andpasswordThe following information will be necessary to access your account for thefirst time:Information needed for sign-up:Your custom activation code used one-time only for the initial accountset-up.Your date of birthThe last 4 digits of your social security numberWhat to do next:Fill in the requested information on the Identify Yourself Form [email or web address] , click Next.Create your login and password, choose a Picodeon ID and password that will beeasy for you to use, but impossible for anyone else to guess.Pick a security question that will assist you in the event you forget yourpassword the next time you log-on.If you have difficulty activating your account, please call our [employer] at [phone] or toll free at .We hope you enjoy using [employer]!Kindest Regards,[facility] Picodeon Team Normal [facility] MR-MR CERVICAL SPINE WO CONT IMPORTon 01-03-2018 MR-MR CERVICAL SPINE WO CONT IMPORT Images were obtained outside of [facility] [id number] Normal [facility] MR-MR LUMBAR SPINE WO CONT I MPORTon 01-03-2018 MR-MR LUMBAR SPINE WO CONT IMPORT Images were obtained outside of [facility] [id number] Normal [facility] Vital Signs Date Time Vital Sign Value Performing Clinician Lencho kincaid 11-02-2023 11:02-0500 Body mass index (BMI) [Ratio] 31.32 kg/m2 Jaqui Flynn APRN-HELP DESK ANALYST [facility] 11-02-2023 11:02-0500 Body weight 93.44 kg Jaqui Flynn APRN-HELP DESK ANALYST [facility] 11-02-2023 11:02-0500 Diastolic blood pressure 60 mm[Hg] Jaqui Flynn APRN-HELP DESK ANALYST [facility] 11-02-2023 11:02-0500 Heart rate 78 /min Jaqui Flynn APRN-HELP DESK ANALYST [facility] 11-02-2023 11:02-0500 Respiratory rate 18 /min Jaqui Flynn APRN-HELP DESK ANALYST Work Phone: [facility] 11-02-2023 11:02-0500 SaO2% (BldA) [Mass fraction] 97 % Jaqui Flynn APRN-HELP DESK ANALYST Work Phone: [facility] 11-02-2023 11:02-0500 Systolic blood pressure 112 mm[Hg] JaquiFormerly named [facility] FILM PRINTER-HELP DESK ANALYST Work Phone: [facility] Encounters Encounter Date Encounter Type Care Provider Facility Start: 12-17-2023 End: 12-18-2023 ambulatory Pedro Arevalo MD Facility:[facility] Start: 11-02-2023 End: 11-02-2023 ambulatory [facility] Start: 11-02-2023 End: 11-02-2023 Office outpatient visit 15 minutes Ja[facility] FILM PRINTER-HELP DESK ANALYST Work Phone: [facility] Comment on above: Seizure-like activit y ([facility]) (Primary Dx); Syncope, unspecified syncope type; Cervical disc disease; Radiculopathy, lumbosacral region Start: 09-14-2023 End: 09-14-2023 ambulatory NESS [facility]ST[facility] Start: 01-09-2023 End: 01-10-2023 ambulatory NARENDRANATH LAKSHMIPATHY [...] cardiovascular examination DR KOFI PASCAL . [facility] Start: 07-30-2022 Encounter for preprocedural laboratory examination DR KOFI PASCAL . [facility] Start: 07-28-2022 End: 07-29-[address] KOFI [...] Start: 03-06-2018 End: 03-08-2018 Ambulatory JO CAMPBELL [facility] Start: 02-12-2018 End: 02-15-2018 Ambulatory ALEJANDRO MONTANEZ [facility] Start: 02-05-2018 End: 02-05-2018 Ambulatory JESUS VELAZQUEZ [facility] Start: 02-05-2018 End: 02-06-2018 Ambulatory JESUS VELAZQUEZ [facility] Start: 01-21-2018 End: 01-22-2018 Ambulatory KASEY BARRAGAN) LU [facility] Procedures Date Procedure Procedure Detail Performing Clinician Start: 11-02-2023 Follow-up visit Follow-up JAQUI FLYNN Start: 06-01-2023 Adult depression scr eening assessment Jaqui Flynn FILM PRINTER-HELP DESK ANALYST Work Phone: Start: 09-13-2020 Colonoscopy Jaqui delarosa FILM PRINTER-HELP DESK ANALYST Work Phone: Plan of Treatment Date Care Activity Detail Author Start: 10-08-2031 DTaP,Tdap and Td Vaccines (2 - Td or Tdap) DTaP,Tdap and Td Vaccines (2 - Td or Tdap) [facility] Start: 09-13-2025 Screening for malignant neoplasm of colon Colonoscopy [facility] Start: 11-02-2024 Adult BMI Screening Adult BMI Screening [facility] Start: 09-19-2024 Tobacco Screening Tobacco Screening [facility] Start: 07-25-2024 Adult BMI Follow Up Plan Adult BMI Follow Up Plan [facility] Start: 06-01-2024 Depression Screening Depression Screening [facility] Start: 06-01-2024 Fall Risk Screening Fall Risk Screening [facility] Start: 05-07-2024 End: 05-07-2024 Patient encounter procedure 05/07/2024 11:00 AM EDT Office Visit [facility] [address] [place] [id number] Jaqui Flynn, FILM PRINTER-HELP DESK ANALYST [address] [place], [place] [id number] [facility] Start: 05-04-2024 Medicare Annual Wellness Visit Medicare Annual Wellness Visit [facility] Start: 06-01-2023 COVID-19 Vaccine ( season) COVID-19 Vaccine ( season) [facility] Start: 06-01-2023 Influenza vaccination Influenza Vaccine [facility] Start: 03-28-2013 Administration of varicella zoster vaccine Zoster (Shingles) Vaccine (2 of 3) [facility] Immunizations Immunization Date Immunization Notes Care Provider Fa cility 10-08-2021 tetanus toxoid, reduced diphtheria toxoid, and acellular pertussis vaccine, adsorbed Jaqui Flynn FILM PRINTER-HELP DESK ANALYST Work Phone: [facility] Work Phone: 12-30-2020 COVID-19, mRNA, LNP- S, PF, 30mcg/0.3mL Dose Jaqui Flynn FILM PRINTER-HELP DESK ANALYST Work Phone: [facility] 07-28-2020 Influenza, injectabl e, Madin Sterling Canine Kidney, preservative free, quadrivalent Jaqui Gee FILM PRINTER-HELP DESK ANALYST Work Phone: [facility] 07-28-2020 influenza virus vaccine, unspecified formulation Jaqui Chandchter FILM PRINTER-HELP DESK ANALYST Work Phone: [employer] 04-23-2017 pneumococcal conjuga te vaccine, 13 valent Jaqui Asiyalachter FILM PRINTER-HELP DESK ANALYST [facility] 01-31-2013 zoster vaccine, live Jaqui Gee FILM PRINTER-HELP DESK ANALYST Work Phone: [employer] 01-31-2013 zoster vaccine, unspecified formulation Jaqui Flynn FILM PRINTER-HELP DESK ANALYST Work Phone: [employer] Payers Date Payer Category Payer Unknown 2020 Medicare ANTHEM MEDICARE ANTHEM MEDICARE ADVANTAGE [id number] 2020[facility] [phone] [address] [place] [address] [id number] 1959 Unknown [id number] 1950 Unknown [id number] 2..[id number] 1950 Unknown [id number] .[id number] 1950 Unknown [id number] 2.16.840.1.790838.3.579.2.593 1950 Unknown [id number] 2.16.840.1.600926.3.579.2.593 1950 Unknown [id number] 2.16.840.1.981196.3.579.2.593 1950 Unknown [id number] 2.16.840.1.855889.3.579.2.593 1950 Unknown [id number] 2.16.840.1.585655.3.579.2.593 1950 Unknown [id number] 2.16.840.1.633876.3.579.2.593 1950 Unknown [id number] 2.16.840.1.893934.3.579.2.593 1950 Unknown [id number] 2.16.840.1.638398.3.579.2.593 1950 Unknown [id number] 2.16.840.1.964072.3.579.2.593 1950 Unknown [id number] 2.16.840.1.660706.3.579.2.593 1950 Unknown [id number] 1950 Unknown [id number] 1950 Unknown [id number] 6 1950 Unknown [id number] 6 1950 Unknown [id number] 6 1950 Unknown [id number] 6 1950 Unknown [id number] Social History Date Type Detail Facility Start: 07-18-2022 Tobacco smoking stat [facility] Never smoked tobacco [facility] Start: 07-18-2022 Tobacco use and exposure Smokeless tobacco non-user [facility] Start: 09-19-2023 Alcohol intake Current drinke r of alcohol (finding) [facility] Start: 11-11-2020 End: 09-19-2023 Alcohol intake [facility] Start: 11-11-2020 End: 09-19-2023 Tobacco use panel [facility] Adolescent depressio n screening assessment 0 [facility] Start: 1950 Sex Assigned At Not on file [facility] Clinical Notes 02-23-2022 to 11-02-2023 Jaqui Flynn, FILM PRINTER-HELP DESK ANALYST - 11/02/2023 11:00 AM EST Note Date & Type Note Facility 11-02-2023 History of Present illness Narrative Images from the original note were not included. [address] [facility] [id number] SUBJECTIVE: Patient ID: Eh Flores is [...] all orders for this visit: Seizure-like activity ([facility]) Syncope, unspecified syncope type Cervical disc disease Radiculopathy, lumbosacral region Follow-up: He is thinking about doing cupping on neck Declines any issues today. Follow up for routine wellness or as needed Patient noted to have elevated BMI and the following intervention(s) were applied: encouragement to exercise. SANDRINE Hernandez 11/02/23 1112 documented in this encounter [facility] 01-09-2023 Note CONSULTATION CONSULTATION DATE: 01/09/2023 TO: [...] our patients to inform us about any nqya-ydj-nvlfncp medications or herbal remedies/nutritional supplements/alternative remedies. 2. [...] options with their primary care provider. [facility] 11-30-2022 Note CONSULTATION CONSULTATION DATE: 11/30/2022 HISTORY: [...] this plan and all questions answered. [facility] 08-31-2022 Note CONSULTATION CONSULTATION DATE: 08/31/2022 This [...] three months' time unless otherwise indicated. [facility] 08-31-2022 Note CONSULTATION PROCEDURE DATE: 08/31/2022 PRE [...] be followed up in the clinic. [facility] 07-13-2022 Note CONSULTATION CONSULTATION DATE: 07/13/2022 HISTORY [...] followed up in the clinic thereafter. [facility] 05-25-2022 Note CONSULTATION CONSULTATION DATE: 05/25/2022 HISTORY [...] agrees to this plan of care. [facility] 05-02-2022 Note CONSULTATION CONSULTATION DATE: 05/02/2022 ADDENDUM TO PREOPERATIVE DIAGNOSIS: The patient also has lumbar spondylosis. [facility] 04-13-2022 Note CONSULTATION CONSULTATION DATE: 04/13/2022 This [...] will follow-up in the clinic post procedure. [facility] Signed and Approved by: SID SCHULER . 04/21/2022 14:14:00 [facility] 02-23-2022 Note CONSULTATION CONSULTATION DATE: 02/23/2022 HISTORY [...] post procedure and agrees to move forward. [facility] Signed and Approved by: SID SCHULER . 03/02/2022 16:01:00 [facility] Evaluation note Diagnosis Seizure-like activity ([facility])- Primary Syncope, unspecified syncope type Cervical disc disease Radiculopathy, lumbosacral region Thoracic or lumbosacral neuritis or radiculitis, unspecified documented [facility] this encounter [facility] Attachments The following attachments cannot be sent through Care Everywhere. * Cervical Myelopathy ([place]) [facility] Purpose Family History No Family [...] AUTHOR AUTHOR'S ORGANIZ ATION 01/10/2023 [facility] DATE CREATED AUTHOR AUTHOR'S ORGANIZ ATION 09/30/2023 [facility] DATE CREATED AUTHOR AUTHOR'S ORGANIZ ATION 11/04/2023 [facility] DATE CREATED AUTHOR AUTHOR'S ORGANIZ ATION 12/22/2023 [facility] Reason for Visit (unrecogniz ed section and content) Reason Comments Follow-up Care Teams (unrecognized sec tion and content) Cloth Measurer Relationship Specialty Start Date End Date Jaqui Flynn APRN-HELP DESK ANALYST [address] [place] [address] PCP - General Family Medicine 07/24/23 FOR [...] BE BASED ON THE PRIMARY CLINICAL RECORDS. [employer] provides no warranty or guarantee of the accuracy or completeness of information in this document.
[2024-01-15 07:03] VITALS: BP 136/75; PULSE 54; TEMP 36.5; O2SAT 97
[2024-01-15 07:36] VITALS: BP 139/67; BP 148/72; PULSE 52; PULSE 54; O2SAT 99
[2024-01-15] MEDS: BUPIVACAINE HCL 0.25% PF 25 MG/10 ML VIAL 8 ML INJ (07:37)
--- NOTE | 2024-01-15 08:26 | W.PM.PROCNOT ---
Date of procedure: 01/15/24 Pre-op diagnosis: Cervical spondylosis Post-op diagnosis: same as pre-op Procedure: Bilateral Cervical 5/6, 6/7 medial branch block Under fluoroscopic guidance Solution injected: 2millilitersMarcaine 0.25% Anesthesia :none Immediate complications none Time out process compliant After informed consent obtained from the patient placed in the Prone proposition . area was prepped and draped in a sterile fashion using Cloraprep .25 gauge spinal needle inserted over each of the above mentioned target areas . Whiting were directed towards the target under fluoroscopic guidance . after encountering each of the targets , no indication of intravascular intraneuronal or intrathecal needle tip placement. Then 0 .5 to 1 Milliliter was injected at each level. Whiting removed postoperatively. patient transferred to recovery in stable condition to be discharged home after meeting criteria Anesthesia: Local Surgeon: Eduarda Mistry Condition: stable
== END 2024-01-15 07:43 | disposition home or self-care (01) ==
PROVIDERS: PCP Family Medicine; Visit Provider Anesthesiology Pain Medicine
DX: M47.812 Spondylosis without myelopathy or radiculopathy, cervical region (principal)
CPT/HCPCS: 64490; 64491

== ENCOUNTER 2024-01-23 10:50 | Outpatient (OUT) | payer MEDICARE, SELFPAY ==
--- NOTE | 2024-01-23 11:12 | P.CN_ITS ---
Consult Note: HPI Data of Consult Patient: known to practice within the last 3 years Requesting Physician: Kristina Baltazar NP Primary Care Provider: ALAINA ARREOLA Consult Narrative Reason for consult: f/u Narrative: Eh Aguilar a pleasant 72 year old male presents for evaluation of chronic low back and neck pain. Today pain 1/10 in neck and upper back, increases to 8/10 at its worst. Patient continue to have sharp aching pain, no radiculopathy. Pain increased in the evenings and with sleep. Patient continues to utilize marijuana, CBD, and THC gummies, tizanidine mild benefit. did not start mobic with potential side effects. Pt recently underwent Bilateral C5-6, 6-7 medial branch block #1 and #2 with 100% improvement in pain and symptoms for a few hours following the procedure. cc:: CC: Kristina Baltazar NP Review of Systems ROS Status of ROS 10 or more systems reviewed and unremark able except as noted in history and below Musculoskeletal Reports: neck pain PFSH PFSH Medical History (Updated 12/06/23 @ 14:29 by Caroline Rich) Hiatal hernia ?K44.9 - Diaphragmatic hernia without obstruction or gangrene (ICD-10) Low back pain ?M54.50 - Low back pain, unspecified (ICD-10) Asthma ?J45.909 - Unspecified asthma, uncomplicated (ICD-10) Sleep apnea ?G47.30 - Sleep apnea, unspecified (ICD-10) Irregular heartbeat ?I49.9 - Cardiac arrhythmia, unspecified (ICD-10) Surgical History H/O carpal tunnel repair ?Z98.890 - Other specified postprocedural states (ICD-10) History of left knee surgery ?Z98.890 - Other specified postprocedural states (ICD-10) H/O cardiac radiofrequency ablation ?Z98.890 - Other specified postprocedural states (ICD-10) H/O vein stripping ?Z98.890 - Other specified postprocedural states (ICD-10) Hx of tonsillectomy ?Z90.89 - Acquired absence of other organs (ICD-10) Meds Home Medications and Allergies Home Medications ?Medication ?Instructions ?Recorded ?Confirmed ?Type cholecalciferol (vitamin D3) 10 10 mcg PO DAILY 06/21/23 01/15/24 History mcg (400 unit) capsule (Vitamin D3) magnesium glycinate mg PO 06/21/23 History mecobalamin (vitamin B12) 1,000 1,000 mcg PO DAILY 06/21/23 01/15/24 History mcg chewable tablet (B12 Active) melatonin 10 mg capsule 10 mg PO DAILY 06/21/23 01/15/24 History pramipexole 0.25 mg tablet 0.25 mg PO DAILY 06/21/23 01/15/24 History (Mirapex) tizanidine 4 mg capsule 4 mg PO DAILY 11/28/23 01/15/24 History aspirin 81 mg capsule 81 mg PO DAILY 01/15/24 01/15/24 History potassium 75 mg tablet mg PO 01/15/24 History Allergies Allergy/AdvReac Type Severity Reaction Status Date / Time celecoxib [From Celebrex] Allergy Unknown Verified 01/15/24 07:06 adhesive AdvReac Verified 01/15/24 07:06 metoprolol [From Toprol XL] AdvReac Verified 01/15/24 07:06 Exam Constitutional Documenting provider has reviewed patient's vital signs: yes Common normals: no apparent distress, oriented x3, healthy appearing, alert and well nourished General appearance: cooperative HENMT Common normals: normocephalic, hearing grossly normal bilaterally and moist oral mucous membranes Head and scalp: normocephalic Eye Common normals: PERRL Pupil: PERRL Neck & C-Spine Common normals: full ROM General: normal visual inspection Cervical spine: pain with cervical ROM Other: negative spurlings postive facet loading pain increased over bilateral c5/6 6/7, dweyer facet diagram reviewed Chest Common normals: inspection of chest normal Respiratory Common normals: normal respiratory effort, no retractions and no use of accessory muscles Back & Pelvis Lumbar spine/lower back: ROM limited, pain with ROM and straight leg raise negative bilaterally Sacroiliac joints: SI joints normal Extremity Common normals: normal to inspection and full ROM Neuro Common normals: oriented x3, CN's II-XII intact bilaterally, moves all extremities, no focal motor deficits, no sensory deficits noted and deep tendon reflexes 2+ bilaterally Sensorium/orientation: alert Motor exam: strength 5/5 throughout and no movement abnormalities noted Psych Common normals: mental status grossly normal, thought process normal, cooperative, affect normal, speech normal and activity/motor behavior normal Speech: normal speech Thought process: normal thought process Results Additional Findings Additional findings: If on a controlled substance or opioids, I have checked an [place] report on this patient and there are no aberrancies noted in the prescribing history.??If on a controlled substance or opioid a drug screen was completed and reviewed within the last year, and if there has not been a drug screen completed we ordered one today to monitor higher risk, state monitored pain medication use. As part of providing excellent, safe, comprehensive care, the following was completed at our patient's visit: 1. A medication reconciliation and review to ensure accurate knowledge of current/active medications, including asking our patients to inform us about any usjf-kyw-fucwyew medications or herbal remedies/nutritional supplements/alternative remedies. 2. A review to specifically ensure our patients have had annual screening for s creening for depression, screening for tobacco use, and screening for unhealthy alcohol use. For concerning screenings had a discussion with the patient, provided patient education, and recommended follow-up with primary care provider when appropriate. If patient noted with a risk of falling, they received education on strength, gait, and balance training to prevent future risk of falling. Assessment and Plan Assessment and Plan (1) Cervical spondylosis: Assessment and Plan: The patient has had over 3 months of moderate to severe neck pain with functional impairment and inadequate response to conservative care including NSAIDS (unless there are contraindication such as concurrent blood thinners), multiple oral or topical pain medications, and home exercise program/physical therapy.? Patient has completed >6 weeks of guided home exercise program and/or formal physical therapy program without relief of their symptoms.? I have reviewed the imaging of the cervical spine and no red flags were identified.? The imaging reveals radiographic findings consistent with cervical spondylosis The Oswestry Disability Index was completed, and the patient scored a 47%.? The patient noted the following:?? moderate pain, pain impacting sleep, pain impacting ADLs We discussed the risks and benefits of the procedure with the patient, and we are NOT planning on using sedation as outlined in the guidelines from Medicare unless there is a documented reason that sedation would be strongly recommended.?? The procedure will be completed with fluoroscopic guidance.? (2) Marijuana use: (3) Degenerative disc disease: (4) Muscle spasm: Plan right and left C4-5 C5-6 facet medial branch RFA continue tizanidine 4mg daily f/u 1 month after procedure
== END 2024-01-23 10:51 | disposition home or self-care (01) ==
LOC: PM 10:50
PROVIDERS: PCP Family Medicine; Visit Provider Nurse Practitioner
DX: M47.812 Spondylosis without myelopathy or radiculopathy, cervical region (principal); Z79.899 Other long term (current) drug therapy; M51.36 Other intervertebral disc degeneration, lumbar region; M62.838 Other muscle spasm
CPT/HCPCS: G0463

== ENCOUNTER 2024-02-19 07:03 | Day surgery (SDC) | payer MEDICARE, SELFPAY ==
--- OUTSIDE RECORDS SUMMARY | 2024-02-19 07:06 | XMS_ITS | CCD ---
Author Organization [facility] Care Team Providers Care Attic Blower Name Role Phone TUDICO, KASEY (PA) Unavailable Unavailable TUDICO, KASEY (PA) Unavailable Unavailable TUDICO, KASEY (PA) Unavailable Unavailable BENZEL, EDWARD C Unavailable Unavailable TUDICO, KASEY (PA) Unavailable Unavailable BENZEL, EDWARD C Unavailable Unavailable ALEJANDRO MONTANEZ Unavailable Unavailable BENZEL, EDWARD C Unavailable Unavailable JO CAMPBELL (NURSE INFECTION CONTROL) Unavailable Unavailabl e BENZEL, EDWARD C Unavailable Unavailable TYRANCE, DR FOLEY [...] FOLEY Primary Care Unavailable PASCAL ., DR KFOI Agrawal Attending Unavailable PASCAL ., DR KOFI Agrawal Admitting Unavailable PASCAL ., DR KOFI Agrawal Consulting Unavailable DEFRANCE, DR FOLEY Primary Care Unavailable PASCAL ., DR KOFI Agrawal Attending Unavailable PASCAL ., DR KOFI Agrawal Admitting Unavailable BRYAN VILLEDA Consulting Unava ilable SCHULER ., SID Consulting Unavailable DEFRANCE, DR [...] SCHULER ., SID Consulting Unavailable LAKSHMIPATHY ., NARENDRANATH Consulting Rosemary vailable DEFRANCE, DR FOLEY Primary [...] Attending Unavailable ADUSUMILLI, NESS K Referring Unavailable [facility] Care Unavailable ADUSUMILLI, NESS K Attending Unavailable ADUSUMILLI, NESS K Referring Unavailable [facility], [facility] Primary Care Unavailable ADUSUMILLI, NESS K Attending Unavailable ADUSUMILLI, NESS K Referring Unavailable [facility], [facility] Primary Care Unavailable [facility] Provide r JAQUI FLYNN Attending Unavailable JAQUI FLYNN Referring Unavailable [facility] Primary Care Unavailable Pedro Arevalo MD Attending Unavailable DAVID SAXENA Attending Unavailable Allergies Allergy Classification Reported Allergen(s) Allergy Type Date of Onset Reaction(s) Facility (1 source) OTHER; Translations: [OTHER] Propensity to adverse reactions (disorder) 3 [facility] Repository (1 source) Adhesive bandage Drug allergy (disorder) The [facility] Repository (1 source) celecoxib Drug Allergy The [facility] Repository (1 source) Pyridoxal Drug Allergy The [facility] Repository (3 sources) Adhesive agent; [...] Drug Class(es) Dates Sig (Normalized) Sig (Original) [id number] 200 actuat albuterol 0.09 mg/actuat metered dose [...] in the morning. 0 Active magnesium oxide/magnesium (QT-LPVZ-CHTSXCW ORAL) (1 source) take 1 tablet by mouth once daily magnesium oxide/magnesium (YF-JIAC-AZGTIXE ORAL) Magnesium (oxide/AA chelate) takes 1 tablet [...] spec) Not detected Normal NOT DETECTED The [facility] Comment on above: Result Comment: This test is not yet sidra roved or cleared by the [place] FDA. When there are no FDA-approved or cleared tests available, and other criteria are met, FDA can make tests available under an emergency access mechanism called an Emergency Use Authorization (EUA). The EUA for this test is supported by the [employer] Worker of Health and Human Service's (HHS's) [...] SARS-CoV-2. Performed By: #### C [facility] #### [facility] Laboratory [address] [place] [address] Dr. 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 Jesus Velazquez and Dr. Montanez. Thisconsultation was shared with the referral source via the [facility] medical record.The patients understanding of the [...] by a prior posterior circulation CVA in 2011. Heunderwent an EMG of the LUE today [...] intervention for the low back and left L1yozjtqqn. Finally will ask him to see Jo [...] concerns, they should feel free to contact myoperiice.?02/12/18 Dr. Montanez noted - IMPRESSION: (M54.10) Radicular [...] thinking of having this done closer to [place]. He is otherwisescheduled for CPRP in 03/2018.02/05/18 [...] on SSI. Friend is working some from [facility].REVIEW OF SYSTEMS:PAIN ASSESSMENT: See HPI.GENERAL: Denies [...] and off and on as an adult. [facility] reports that he was diagnosed in his [...] reared 1st of 4 by both parents [place], [place]. Nurture was poor. Mother would never [...] had a relationship sincethe 70's. 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 He was providedwith brochure and number to the admission coordinator.Substance use interview is indicated. Chemical education program is indicated.Patient is aware of the following policies and guidelines [facility] forth [facility]:1. no illicit substance use [...] policies/guidelines.Goals for treatment include pain reduction, functional mu-ism, moodnormalization and improved coping.Prognosis is fair.90 minutes total visit with preponderance of time spent on counseling,medication management, education and review. All patients questions regardingabove conditions and coordination of care were addressed.Jo Campbell CNPReferring Provider: JESUS VELAZQUEZ [[id number]]Allergies As of Date: 03/06/2018 Noted Allergy ReactionADHESIVE TAPE (ROSINS) 03/06/2018 2 - Rash 14 - Other: See Comments Comments: BlisteringIntolerance To Toprol And Celebre*06/19/2003Date Reviewed: 03/06/2018Reviewed by: Jo (Fiberglass Grinder) Karson - Fully AssessedReason for Visit: New [...] to improve.Follow-up and Disposition History RecordedEncounter Number: [id number] Status:Closed by JO CAMPBELL CNP on 03/06/[address] 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 Jesus Velazquez and Dr. Montanez. Thisconsultation was shared with the referral source via the [facility] medical record.The patients understanding of the [...] thinking of having this done closer to [place].He is otherwise scheduled for CPRP in 03/2018.02/05/18 [...] but has had significant SI with intent. Jaycob in ~10 years.Substance use:The patient has not [...] [place] N[place] was poor. Mother would never [...] had a relationship since the 70s. Work history:[employer] and retired from this job.Mental status:The patient [...] upper and lower extremities.DTR were 1+ and symmetric.Impressions:Compass Operator xander pain syndromeSevere lumbar scoliosisCervicalgia - cervical DDDHistory of depressionHistory of alcohol abuseTHC abuseDisposition:Offered treatment in the Chronic Pain Rehabilitation Program. He wasprovided with brochure and number to the admission coordinator.Substance use interview is indicated. Chemical education program isindicated.Patient is aware of the following policies and guidelines set forth by [facility]:1. no illicit substance use (including marijuana, medical or otherwise) ispermitted and any patient with a positive urine drug screen on day onewill be discharged though invited to return after substance useevaluations and a negative repeat urine drug screen can be demonstrated.2. All opioids and benzodiazepines will be collected and destroyed on dayone of [facility] treatment, and the patient will be weaned [...] policies/guidelines.Goals for treatment include pain reduction, functional mu-ism, moodnormalization and improved coping.Prognosis is fair.90 minutes total visit with preponderance of time spent on counseling,medication management, education and review. All patients questionsregarding above conditions and coordination of care were addressed.Jo Campbell CNP Normal [facility] CNOVon 02-12-2018 CNOV Office Visit (SANIA) RENE FLORES ([id number]) 1950 MDate Time Provider Department02/12/18 9:10 AM [...] left elbow andradiates upward and downward arm.Losing striker off in fingersRLS since he was a 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 Research Engineer Marine Equipment: NoPassive conservative therapy lasting 6 weeks in [...] for left arm pain (Rx FMD in [place])uses THC - eases pain but afterwards he feels he has concentration issues brain fog also:- neg Cancer ( other than Hx basal cell)- ETOH - scotch nightly- THC smoking qd- no Hx of DM- Hx of CVAPLAN:Above findings and options discussed..He can have a TFESI @ LEFT L 5-S1 on diagnostic / therapeutic basis.He is thinking of having this done closer to [place].He is otherwise scheduled for CPRP in 03/2018.We can see him prn.Alejandro Montanez, MDReferring Provider: JESUS VELAZQUEZ [[id number]]Allergies As of Date: 02/12/2018 Noted Allergy ReactionIntolerance [...] INVALID FOR*Follow-up and Disposition History RecordedEncounter Number: [id number] Status:Closed by ALEJANDRO MONTANEZ MD on 02/14/[address] [facility] PROGRESSon 02-12-2018 PROGRESS HNO ID: [id number] thor: Alejandro MeyerengerService: (none)Author Type: PhysicianType: Progress NotesFiled: 02/14/2018 11:25 [...] elbow and radiates upward and downward arm.Losing striker off in fingersRLS since he was a 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 Research Engineer Marine Equipment: NoPassive conservative therapy lasting 6 weeks in [...] for left arm pain (Rx FMD in [place])uses THC - eases pain but afterwards he feels he has concentration issues brain fog also:- neg Cancer ( other than Hx basal cell)- ETOH - scotch nightly- THC smoking qd- no Hx of DM- Hx of CVAPLAN:Above findings and options discussed..He can have a TFESI @ LEFT L 5-S1 on diagnostic / therapeutic basis.He is thinking of having this done closer to [place].He is otherwise scheduled for CPRP in 03/2018.We can see him prn.[facility] Visit (SPNSMN) RENE FLORES ([id number]) 1950 MDate Time Provider Department02/05/18 3:20 PM JESUS VELAZQUEZ SPNSMN During your visit today, we recorded the following information about you: Pulse Respiration Blood pressure Weight 56/minute 18/minute 142/66 97.1 kg Height 1.727 Jesus Quick 02/05/2018 4:07 PM SignedSPINE SURGERY ESTABLISHEDDATE OF SERVICE: 02/05/2018DATE OF LAST [...] Follow up: Not requiredEdson Sheppard [facility] Medicine FellowPGY-5SIGNATURE: Jesus Velazquez MD [...] read. WIll pursue with xrays andmedical spine uuraddxsryv44/7 pain, non-restorative sleep, MUSC, fatigue - CPSWill have seen by Jo Campbell.I will see on an as needed basis. No indication for surgery in my opinionCounseled extensivelyShould Mr. Flores or referring or consulting physicians have any questionsor concerns, they should feel free to contact my office.Mr. Flores has been instructed to followup as documentedEdetelvina Velazquez, [facility]: PMDDr HerringReferring Provider: KASEY LEIGH (SYED) [[id number]]Allergies As of Date: 02/05/2018 Noted Allergy ReactionIntolerance To Toprol And Celebre*06/19/2003Date Reviewed: 02/05/2018Reviewed by: Edson Sheppard (Ritesh) - Fully AssessedReason for Visit: Established Patient [175]Primary Visit Diagnosis:Other idiopathic scoliosis, lumbar region [M41.26] Other Visit Diagnosis:Cervical spondylosis without myelopathy [M47.812]Order(s):CONSULT TO SPINE CENTER [[id number]] Order #: [id number]: 1 XR SCOLIOSIS PA STAND/LAT 2V [[id number]] Order #: [id number] FUTURE XR LUMBAR LIMITED 2V FLEX/EXT [5076089] Order #: [id number] FUTURE CONSULT TO CHRONIC PAIN REHABILITATION (NON-PAIN ANESTHESIA) [[id number]] Order #: [id number]: 1Prescriptions as of 02/05/2018 Sig: OXYCODONE-ACETAMINOPHEN 10 [...] by JESUS VELAZQUEZ MD on 02/05/[address] [facility] PROGRESSon 02-05-2018 PROGRESS HNO ID: [id number] thor: Jesus Velazquez CService: (none)Author Type: PhysicianType: [...] Follow up: Not requiredEdson Sheppard [facility] Medicine FellowPGY-5SIGNATURE: Jesus Velazquez MD [...] read. WIll pursue with xraysand medical spine /7 pain, non-restorative sleep, MUSC, fatigue - CPSWill have seen by Jo Campbell.I will see on an as needed basis. No indication for surgery in my opinionCounseled extensivelyShould Mr. Flores or referring or consulting physicians have anyquestions or concerns, they should feel free to contact my office.Mr. Flores has been instructed to followup as documentedEdetelvina Velazquez, [facility]: PMDDr Russo [facility] XR LUMBAR 2V FLEX/EXTon XR LUMBAR [...] abnormal motion flexion or extension.IMPRESSION:Multi level degenerative changes.Team Assembler: АННА Transcribe Date/Time: Feb 05 2018 5:13PDictated by : BETH MULLEN MDThis examination was interpreted and the report reviewed and electronically signed by: BETH MULLEN MD on Feb 05 2018 5:15PM [id number] [facility] XR SCOLIOSIS 2V PA STAND/LAT on [...] maintained.IMPRESSION:Mode rate to severe scoliosis and degenerative changes.Team Assembler: АННА Transcribe Date/Time: Feb 05 2018 5:10PDictated by : BETH MULLEN MDThitesha examination was interpreted and the report reviewed and electronically signed by: BETH MULLEN MD on Feb 05 2018 5:12PM [id number] [facility] PROGRESSon 01-22-2018 PROGRESS HNO ID: [id number] thor: Kasey (Syed) Breanna: (none)Author Type: Physician [...] for this patient.PAST MEDICAL HISTORYDiagnosis Date- A-fib ([facility])- Asthma- Other specified cardiac dysrhythmias(427.89)- Stroke ([facility])PAST SURGICAL HISTORYProcedure Laterality Date- ABLATION cardiac for [...] ) Wt 97.1 kg (214lb) BMI 32.54 kg/b3XIEARYW APPEARANCE: Well nourished, well developed, and no [...] 21, 2018 : 10:47 PM PAGER: Ping [facility] CNOVon 01-21-2018 CNOV Office Visit (SPNSMN) RENE FLORES ([id number]) 1950 MDate Time Provider Department01/21/18 11:00 AM [...] 8ANDquot;) Wt 97.1 kg (214lb) BMI 32.54 kg/z0ZFFOQTA APPEARANCE: Well nourished, well developed, and no [...] region(M47.12) Cervical spondylosis with myelopathy(M79.602) Left arm painStjuan jose Flores has 2 issues. Chronic lower back [...] To Toprol And Celebre*06/19/2003Date Reviewed: 01/21/2018Reviewed by: Betzaida Jose Ma - Fully AssessedReason for Visit: New Patient [172]Primary Visit Diagnosis:Scoliosis of lumbar spine, unspecified scoliosis type [M41.9] Other Visit Diagnoses:Radiculopathy, lumbar region [M54.16] Spinal stenosis in cervical region [M48.02] Cervical spondylosis with myelopathy [M47.12] Left arm pain [M79.602]Order(s):XR CERV OTHER 4V AP/LAT/FLX/EXT [[id number]] Order #: [id number] FUTURE EMG(NEURO/NI) [[id number]] Order #: [id number]: 1 FUTURE CONSULT TO PHYSICAL THERAPY [9032] Order #: [id number]: 1Prescriptions as of 01/21/2018 Sig: OXYCODONE-ACETAMINOPHEN 10 [...] encounter OXYCODONE-ACETAMINOPHEN 10 MG-325 MG TABLET >> Betzaida Jose Ma 01/21/2018 11:08 AM >> BETZAIDA JOSE MA SunJan 21, 2018 11:08 AM Received from: External PharmacyProblem List As Of Date: 01/21/2018(None)Follow-up and Disposition History RecordedEncounter Number: [id number] Status:Closed by KASEY LEIGH on 01/21/18 [facility] PROGRESSon 01-21-2018 PROGRESS HNO ID: [id number] thor: Lindsey Vo (RtJodie Lemos: RadiologyAuthor Type: TechnicianType: Progress NotesFiled: 01/21/2018 1:18 PMNote Text: Radiology Service Progress NotePATIENT NAME: Eh FloresMRN: [id number] OF SERVICE: January 21, 2018TIME: 1:18 PMPATIENT IDENTITY VERIFICATION COMPLETED USING TWO (2) METHODS: Patientconfirmed name verbally and Date of .PATIENT GENDER DATA: MalePATIENT RELEVANT IMPLANT DATA REVIEWED: Not ApplicableRADIOLOGY DEPARTMENT: General X-ray: Exam(s) Completed: Spine X-Ray(s):Cervical AP / LAT / FLEX-EXTPERIPHERAL IV DATA: Not applicableSIGNED BY: Jessica Biswas 2017 1:[address] [facility] XR CERVICAL 4V AP/LAT/FLX/EX Ton 01-21-2018 XR CERVICAL 4V AP/LAT/FLX/EXT * * *Final Report* * *DATE OF EXAM: Jan 21 2018 12:56PM [id number] - XR CERVICAL 4V AP/LAT/FLX/EXT / [...] 21 2018 4:15PDictated by : EH MICHELLE MDThitesha examination was interpreted and the report reviewed and electronically signed by: EH MICHELLE MD on Jan 21 2018 4:17PM [id number] [facility] CNCOon 01-10-2018 CNCO Letter TextDear Shimon Flores:How to activate your [facility] [employer] Account 1. Visit the [employer] Signup page at [email or web address] 2. Identify yourself using your one-time use activation code: [email or web address]: 02/09/2018 1:35 PMThis activation code was e-mailed to [email or web address] 3. Follow the on-screen prompts to choose your own secure username andpasswordThe following information will be necessary to access your account for thefirst time:Information needed for sign-up:Your custom activation code used one-time only for the initial accountset-up.Your date of birthThe last 4 digits of your social security numberWhat to do next:Fill in the requested information on the Identify Yourself Form [email or web address] , click Next.Create your login and password, choose a [employer] ID and password that will beeasy for you to use, but impossible for anyone else to guess.Pick a security question that will assist you in the event you forget yourpassword the next time you log-on.If you have difficulty activating your account, please call our [employer] at [phone] or toll free at .We hope you enjoy using [employer]!Kindest Regards,[facility] [employer] Team [facility] MR-MR CERVICAL SPINE WO CONT IMPORTon 01-03-2018 MR-MR CERVICAL SPINE WO CONT IMPORT Images were obtained outside of [facility] [id number] [facility] MR-MR LUMBAR SPINE WO CONT I MPORTon 01-03-2018 MR-MR LUMBAR SPINE WO CONT IMPORT Images were obtained outside of [facility] [id number] Normal [facility] Vital Signs Date Time Vital Sign Value Performing Clinician Lencho kincaid 11-02-2023 11:02-0500 Body mass index (BMI) [Ratio] 31.32 kg/m2 Jaqui Flynn APRN-NURSE INFECTION CONTROL Work Phone: [employer] 11-02-2023 11:02-0500 Body weight 93.44 kg Jaqui Flynn APRN-NURSE INFECTION CONTROL Work Phone: [employer] 11-02-2023 11:02-0500 Diastolic blood pressure 60 mm[Hg] Jaqui Flynn APRN-NURSE INFECTION CONTROL Work Phone: [employer] 11-02-2023 11:02-0500 Heart rate 78 /min Jaqui Flynn APRN-NURSE INFECTION CONTROL Work Phone: [employer] 11-02-2023 11:02-0500 Respiratory rate 18 /min [facility] STUDIO SALES ASSOCIATE-NURSE INFECTION CONTROL Work Phone: [facility] 11-02-2023 11:02-0500 SaO2% (BldA) [Mass fraction] 97 % [facility] STUDIO SALES ASSOCIATE-NURSE INFECTION CONTROL Work Phone: [facility] 11-02-2023 11:02-0500 Systolic blood pressure 112 mm[Hg] [facility] STUDIO SALES ASSOCIATE-NURSE INFECTION CONTROL Work Phone: [facility] Encounters Encounter Date Encounter Type Care Provider Facility Start: 01-21-2024 End: 01-21-2024 ambulatory DAVID SAXENA Not Available Start: 12-17-2023 End: 12-18-2023 ambulatory Pedro Aervalo MD Facility:[facility] Start: 11-02-2023 End: 11-02-2023 ambulatory [facility] Start: 11-02-2023 End: 11-02-2023 Office outpatient visit 15 minutes [facility] STUDIO SALES ASSOCIATE-NURSE INFECTION CONTROL Work Phone: [facility] Comment on above: Seizure-like activit y (CMS-HCC) (Primary Dx); Syncope, unspecified syncope type; Cervical disc disease; Radiculopathy, lumbosacral region Start: 09-14-2023 End: 09-14-2023 ambulatory NESS CHRISTINE [facility] Start: 01-09-2023 End: 01-10-2023 ambulatory NARENDRANATH [...] cardiovascular examination DR KOFI PASCAL . The [facility] Start: 07-30-2022 Encounter for preprocedural laboratory examination DR KOFI PASCAL . The [facility] Start: 07-28-2022 End: 07-29-2022 ambulatory [...] . Facility:[facility] Start: 04-13-2022 End: 04-14-2022 ambulatory ISD SCHULER . Facility:[facility] Start: 03-28-2022 End: 03-28-[address] KOFI PASCAL . Facility:[facility] Start: 02-23-2022 End: 02-24-[address] ALAINA ARREOLA Facility:[facility] Start: 03-06-2018 End: 03-08-2018 Ambulatory JO CAMPBELL [facility] Start: 02-12-2018 End: 02-15-2018 Ambulatory ALEJANDRO MONTANEZ [facility] Start: 02-05-2018 End: 02-05-2018 Ambulatory JESUS VELAZQUEZ [facility] Start: 02-05-2018 End: 02-06-2018 Ambulatory JESUS VELAZQUEZ [facility] Start: 01-21-2018 End: 01-22-2018 Ambulatory KASEY LEIGH (PA) [facility] Procedures Date Procedure Procedure Detail Performing Clinician Start: 11-02-2023 Follow-up visit Follow-up JAQUI FLYNN Start: 06-01-2023 Adult depression scr eening assessment Jaqui Flynn STUDIO SALES ASSOCIATE-NURSE INFECTION CONTROL Work Phone: Start: 09-13-2020 Colonoscopy Jaqui delarosa STUDIO SALES ASSOCIATE-NURSE INFECTION CONTROL Work Phone: Plan of Treatment Date Care Activity Detail Author Start: 10-08-2031 DTaP,Tdap and Td Vaccines (2 - Td or Tdap) DTaP,Tdap and Td Vaccines (2 - Td or Tdap) [facility] Start: 09-13-2025 Screening for malignant neoplasm of colon Colonoscopy [facility] Start: 11-02-2024 Adult BMI Screening Adult BMI Screening [facility] Start: 09-19-2024 Tobacco Screening Tobacco Screening [facility] Start: 07-25-2024 Adult BMI Follow Up Plan Adult BMI Follow Up Plan [facility] Start: 06-01-2024 Depression Screening Depression Screening [facility] Start: 06-01-2024 Fall Risk Screening Fall Risk Screening [facility] Start: 05-07-2024 End: 05-07-2024 Patient encounter procedure 05/07/2024 11:00 AM EDT Office Visit [facility] [address] [place] [id number] Jaqui Flynn, STUDIO SALES ASSOCIATE-NURSE INFECTION CONTROL [address] [place] [address] [facility] Start: 05-04-2024 Medicare Annual Wellness Visit Medicare Annual Wellness Visit [facility] Start: 06-01-2023 COVID-19 Vaccine ( season) COVID-19 Vaccine ( season) [facility] Start: 06-01-2023 Influenza vaccination Influenza Vaccine [facility] Start: 03-28-2013 Administration of varicella zoster vaccine Zoster (Shingles) Vaccine (2 of 3) [facility] Immunizations Immunization Date Immunization Notes Care Provider Fa cility 10-08-2021 tetanus toxoid, reduced diphtheria toxoid, and acellular pertussis vaccine, adsorbed Jaqui Flynn [employer]UDIO SALES ASSOCIATE-NURSE INFECTION CONTROL Work Phone: [facility] Work Phone: 12-30-2020 COVID-19, mRNA, LNP- S, PF, 30mcg/0.3mL Dose Jaqui Gee STUDIO SALES ASSOCIATE-NURSE INFECTION CONTROL [facility] 07-28-2020 Influenza, injectabl e, Madin Khushboo Canine Kidney, preservative free, quadrivalent Jaqui Schlachter STUDIO SALES ASSOCIATE-NURSE INFECTION CONTROL [facility]2020 influenza virus vaccine, unspecified formulation Jaqui Schlachter STUDIO SALES ASSOCIATE-NURSE INFECTION CONTROL [facility] 04-23-2017 pneumococcal conjuga te vaccine, 13 valent Jaqui Schlachter STUDIO SALES ASSOCIATE-NURSE INFECTION CONTROL [facility] 01[facility]31-2013 zoster vaccine, live Jaqui Gee STUDIO SALES ASSOCIATE-NURSE INFECTION CONTROL Work Phone: [employer] 01-31-2013 zoster vaccine, unspecified formulation Jaqui Asiyalachter STUDIO SALES ASSOCIATE-NURSE INFECTION CONTROL Work Phone: [facility] Payers Date Payer Category Payer Unknown 2020 Medicare ANTH MEDICARE ANTH MEDICARE ADVANTAGE [id number] 2020-[facility] [phone] [address] [place] [address] [id number] 1959 Unknown [id number] 1950 Unknown [id number] ..840.1.868458.3.579.2.593 1950 Unknown [id number] ..840.1.532096.3.579.2.593 1950 Unknown [id number] ..840.1.998722.3.579.2.593 1950 Unknown [id number] 2.16.840.1.315551.3.579.2.593 1950 Unknown [id number] 2.16.840.1.275296.3.579.2.593 1950 Unknown [id number] 2.16.840.1.846656.3.579.2.593 1950 Unknown [id number] 2.16.840.1.301022.3.579.2.593 1950 Unknown [id number] 2.16.840.1.251010.3.579.2.593 1950 Unknown [id number] 2.16.840.1.927496.3.579.2.593 1950 Unknown [id number] 2.16.840.1.868626.3.579.2.593 1950 Unknown [id number] 2.16.840.1.018717.3.579.2.593 1950 Unknown [id number] 2.16.840.1.068675.3.579.2.593 1950 Unknown [id number] 2.16.840.1.849701.3.579.2.593 1950 Unknown [id number] 2.16.840.1.108958.3.579.2.593 1950 Unknown [id number] 2.16.840.1.173285.3.579.2.128 6 1950 Unknown [id number] 2.16.840.1.322176.3.579.2.128 6 1950 Unknown [id number] 2.16.840.1.527073.3.579.2.128 6 1950 Unknown [id number] 2.16.840.1.541889.3.579.2.128 6 1950 Unknown [id number] 2.16.840.1.719695.3.579.2.196 1950 Unknown [id number] 2.16.840.1.957043.3.579.2.125 9 Social History Date Type Detail Facility Start: 07-18-2022 Tobacco smoking stat [facility] Never smoked tobacco [facility] Start: 07-18-2022 Tobacco use and exposure Smokeless tobacco non-user [facility] Start: 09-19-2023 Alcohol intake Current drinke r of alcohol (finding) [facility] Start: 11-11-2020 End: 09-19-2023 Alcohol intake [facility] Start: 11-11-2020 End: 09-19-2023 Tobacco use panel [facility] Adolescent depressio n screening assessment 0 [facility] Start: 1950 Sex Assigned At Not on file P [facility] Clinical Notes 02-23-2022 to 11-02-2023 Jaqui Flynn, SDAA-NURSE INFECTION CONTROL - 11/02/2023 11:00 AM EST Note Date & Type Note Facility 11-02-2023 History of Present illness Narrative Images from the original note were not included. [id number] [place] [id number] SUBJECTIVE: Patient ID: Eh Flores is [...] all orders for this visit: Seizure-like activity ([facility]) Syncope, unspecified syncope type Cervical disc disease Radiculopathy, lumbosacral region Follow-up: He is thinking about doing cupping on neck Declines any issues today. Follow up for routine wellness or as needed Patient noted to have elevated BMI and the following intervention(s) were applied: encouragement to exercise. SANDRINE Hernandez 11/02/23 1112 documented in this encounter [facility] 01-09-2023 Note CONSULTATION CONSULTATION DATE: 01/09/2023 TO: [...] our patients to inform us about any [id number] medications or herbal remedies/nutritional supplements/alternative remedies. 2. [...] options with their primary care provider. [facility] 11-30-2022 Note CONSULTATION CONSULTATION DATE: [...] this plan and all questions answered. [facility] 08-31-2022 Note CONSULTATION CONSULTATION DATE: [...] three months' time unless otherwise indicated. [facility] 08-31-2022 Note CONSULTATION PROCEDURE DATE: [...] be followed up in the clinic. [facility] 07-13-2022 Note CONSULTATION CONSULTATION DATE: [...] followed up in the clinic thereafter. [facility] 05-25-2022 Note CONSULTATION CONSULTATION DATE: [...] agrees to this plan of care. [facility] 05-02-2022 Note CONSULTATION CONSULTATION DATE: 05/02/2022 ADDENDUM TO PREOPERATIVE DIAGNOSIS: The patient also has lumbar spondylosis. [facility] 04-13-2022 Note CONSULTATION CONSULTATION DATE: [...] will follow-up in the clinic post procedure. [facility] Signed and Approved by: SID SCHULER . 04/21/2022 14:14:00 [facility] 02-23-2022 Note CONSULTATION CONSULTATION DATE: [...] post procedure and agrees to move forward. [facility] Signed and Approved by: SID SCHULER . 03/02/2022 16:01:00 [facility] Evaluation note Diagnosis Seizure-like activity ([facility])- Primary Syncope, unspecified syncope type Cervical disc disease Radiculopathy, lumbosacral region Thoracic or lumbosacral neuritis or radiculitis, unspecified [facility] Attachments The following attachments cannot be sent through Care Everywhere. * Cervical Myelopathy (Thai) [facility] Purpose Family History No Family [...] section and content) DATE CREATED AUTHOR 03/19/[address] [facility] DATE CREATED AUTHOR AUTHOR'S ORGANIZ ATION 01/10/2023 [facility] DATE CREATED AUTHOR AUTHOR'S ORGANIZ ATION 09/30/2023 [facility] DATE CREATED AUTHOR AUTHOR'S ORGANIZ ATION 11/04/2023 [facility] DATE CREATED AUTHOR AUTHOR'S ORGANIZ ATION 12/22/2023 [facility] DATE CREATED AUTHOR AUTHOR'S ORGANIZ ATION 01/21/2024 [facility] EPIC Reason for Visit (unrecogniz ed section and content) Reason Comments Follow-up Care Teams (unrecognized sec tion and content) Attic Blower Relationship Specialty Start Date End Date Jaqui Flynn, SADA-NURSE INFECTION CONTROL [address] [place] [address] PCP - General Family Medicine 07/24/23 FOR [...] BE BASED ON THE PRIMARY CLINICAL RECORDS. [employer] [facility]. provides no warranty or guarantee of the accuracy or completeness of information in this document.
[2024-02-19 07:23] VITALS: BP 121/65; PULSE 56; TEMP 36.4; O2SAT 98
[2024-02-19] MEDS: 0.9 % SODIUM CHLORIDE 500 ML IV (07:27)
[2024-02-19 08:34] VITALS: BP 118/62; PULSE 54; TEMP 36.9; O2SAT 94
[2024-02-19] MEDS: DEXAMETHASONE SOD PHOS 4 MG/ML VIAL INJ (08:34)
[2024-02-19] MEDS: BUPIVACAINE HCL 0.25% PF 25 MG/10 ML VIAL 4 ML INJ (08:35)
[2024-02-19] MEDS: LIDOCAINE HCL 2% 400 MG/20 ML MDV 5 ML INJ (08:35)
[2024-02-19 08:39] VITALS: BP 118/63; PULSE 52; O2SAT 94
--- NOTE | 2024-02-19 09:08 | W.PM.PROCNOT ---
Date of procedure: 02/19/24 Pre-op diagnosis: Cervical spondylosis Post-op diagnosis: same as pre-op Procedure: Right Cervical 5/6, 6/7 Radiofrequency ablation Under fluoroscopic guidance Rhizotomy was created using radio frequency ablation at 80?C for 90 seconds 1 to 2 lesions created at each site. Post lesioning injection of 2 mL each of 0.25% Marcaine and 2% lidocaine with Dexomethasone 4mg, 0.5 to 1 mL injected at each site IV in place yes If Intravenous fluids: NS at KVO Anesthesia local 2% lidocaine for Anesthesia Other: MAC Timeout process compliant After informed consent obtained.Patient brought to the procedure room placed in the prone position skin overlying the area was prepped and draped in a sterile fashion using betadine. 25 gauge needle was used to create a skin wheal over each of the targeted areas utilizing 2% lidocaine. A rhizotomy needle with a 10 mm active tip was inserted over each of the anesthetized areas and directed towards each of the medial branches accomplished under fluoroscopic guidance. after encountering the same we had positive sensory stimulation, negative motor stimulation was noted. lesions were then created. Post lesioning, steroid solution was injected needles removed. Patient was transferred to recovery room in stable condition to be discharged home after meeting criteria. Anesthesia: MAC Surgeon: Eduarda Mistry Condition: stable
== END 2024-02-19 09:00 | disposition home or self-care (01) ==
PROVIDERS: PCP Family Medicine; Visit Provider Anesthesiology Pain Medicine
DX: M47.812 Spondylosis without myelopathy or radiculopathy, cervical region (principal)
CPT/HCPCS: 64633; 64634; J1094; J2704

== ENCOUNTER 2024-03-04 07:57 | Day surgery (SDC) | payer MEDICARE, SELFPAY ==
[2024-03-04 08:04] VITALS: BP 144/73; PULSE 61; TEMP 36.5; O2SAT 98
--- OUTSIDE RECORDS SUMMARY | 2024-03-04 08:06 | XMS_ITS ---
Patient Summarization (C-CDA 2.1 CCD) Created on: March 04, 2024 EH FLORES : 1950 Sex: Male Author Organization Sample organization Care Team Providers Care [place] Utility Worker Name Role Phone TUDICO, KASEY (PA) Unavailable Unavailable TUDICO, KASEY (PA) Unavailable Unavailable TUDICO, KASEY (PA) Unavailable Unavailable BENZEL, EDWARD C Unavailable Unavailable TUDICO, KASEY (PA) Unavailable Unavailable BENZEL, EDWARD C Unavailable Unavailable ALEJANDRO MONTANEZ Unavailable Unavailable BENZEL, EDWARD C Unavailable Unavailable JO CAMPBELL (COMMUNITY MARKETING MANAGER) Unavailable Unavailabl e GREGORIO VELAZQUEZWARD C Unavailable [...] Attending Unavailable ADUSERLINDA, NESS K Referring Unavailable [facility] JAQUI Primary Care Unavailable ADUSUMILLI, NESS K Attending Unavailable ADUSUMILLI, NESS K Referring Unavailable [facility], JAQUI Primary Care Unavailable ADUSUMILLI, NESS K Attending Unavailable ADUSUMILLI, NESS K Referring Unavailable [facility], [facility] Primary Care Unavailable Schlachter ANIMAL TRAINER-[facility], [facility] Primary [facility] Provide r JAQUI FLYNN Attending Unavailable JAQUI FLYNN [facility] Care Unavailable Pedro Arevalo MD Attending Unavailable DAVID SAXENA Attending Unavailable Allergies Allergy Classification Reported Allergen(s) Allergy Type Date of Onset Reaction(s) Facility (1 source) OTHER; Translations: [OTHER] Propensity to adverse reactions (disorder) 3 [facility] Repository (1 source) Adhesive bandage Drug allergy (disorder) [facility] Repository (1 source) celecoxib Drug Allergy [facility] Repository (1 source) Pyridoxal Drug Allergy [facility] Repository (3 sources) Adhesive agent; Translations: [ADHESIVE] Propensity to adverse reactions to drug (disorder) 8 [facility] Repository (3 sources) celecoxib; Translations: [CELECOXIB] Drug Allergy 8 Palpitations [facility] Repository (3 sources) Metoprolol; Translations: [METOPROLOL SUCCINATE] Drug Allergy 8 Palpitations [facility] Repository (3 sources) Terazosin; Translations: [TERAZOSIN] Drug Allergy 4 Other (See Comments) [facility] Repository Encounters Encounter Date Encounter Type Care Provider Facility Start: 01-21-2024 End: 01-21-2024 ambulatory DAVID ODESSA Not Available Start: 12-17-2023 End: 12-18-2023 ambulatory Pedro Arevalo MD Facility:[facility] Start: 11-02-2023 End: 11-02-2023 ambulatory [facility] Start: 11-02-2023 End: 11-02-2023 Office outpatient visit 15 minutes [facility] SADA-COMMUNITY MARKETING MANAGER Work Phone: [facility] Comment on above: Seizure-like activit y (CMS-HCC) (Primary Dx); Syncope, unspecified syncope type; Cervical disc disease; Radiculopathy, lumbosacral region Start: 09-14-2023 End: 09-14-2023 ambulatory NESS CHRISTINE [facility] Start: 01-09-2023 End: 01-10-2023 ambulatory NARENDRANATH LAKSHMIPATHY . Facility: Start: 11-30-2022 End: 12-01-2022 ambulatory NARENDRANATH LAKSHMIPATHY . Facility: Start: 08-31-2022 End: 09-01-2022 ambulatory SID SCHULER . Facility:[facility] Start: 08-08-2022 End: 08-08-[address] KOFI PASCAL . Facility:[facility] Start: 08-04-[address] ALAINA ARREOLA Facil ity:[facility]1 Start: 08-01-2022 End: 08-01-[address] KOFI PASCAL . Facility:[facility] Start: 07-30-2022 Encounter for preprocedural cardiovascular examination DR KOFI PASCAL . [facility] Start: 07-30-2022 Encounter for preprocedural laboratory examination DR KOFI PASCAL . [facility] Start: 07-28-2022 End: 07-29-[address] KOFI PASCAL . Facility:[facility] Start: 07-28-2022 End: 07-29-2022 Encounter for preprocedural cardiovascular examination DR KOFI PASCAL . Facility:[facility] Start: 07-13-2022 End: 07-14-2022 ambulatory SID SCHULRE . Facility:[facility] Start: 06-27-2022 End: 06-27-2022 ambulatory [...] Facility:[facility] Start: 03-06-2018 End: 03-08-2018 Ambulatory JO RAUL CAMPBELL [facility] Start: 02-12-2018 End: 02-15-2018 Ambulatory ALEJANDRO MONTANEZ [facility] Start: 02-05-2018 End: 02-05-2018 Ambulatory JESUS VELAZQUEZ [facility] Start: 02-05-2018 End: 02-06-2018 Ambulatory JESUS VELAZQUEZ [facility] Start: 01-21-2018 End: 01-22-2018 Ambulatory KASEY LEIGH (PA) [facility] Immunizations Immunization Date Immunization Notes Care Provider [facility] 10-08-2021 tetanus toxoid, reduced diphtheria toxoid, and acellular pertussis vaccine, adsorbed Jaqui Schlachter ANIMAL TRAINER-COMMUNITY MARKETING MANAGER Work Phone: [facility] [employer] Work Phone: 12-30-2020 COVID-19, mRNA, LNP- S, PF, 30mcg/0.3mL Dose Jaqui Schlachter ANIMAL TRAINER-COMMUNITY MARKETING MANAGER Work Phone: [facility] 07-28-2020 Influenza, injectabl e, Madin [place] Canine Kidney, preservative free, quadrivalent Jaqui Schlachter ANIMAL TRAINER-COMMUNITY MARKETING MANAGER Work Phone: [facility] [employer] 07-28-2020 influenza virus vaccine, unspecified formulation Jaqui Schlachter ANIMAL TRAINER-COMMUNITY MARKETING MANAGER Work Phone: [facility] 04-23-2017 pneumococcal conjuga te vaccine, 13 valent Jaqui Asiyalachter ANIMAL TRAINER-COMMUNITY MARKETING MANAGER Work Phone: [facility] 01-31-2013 zoster vaccine, live Jaqui Asiyalaprice ANIMAL TRAINER-COMMUNITY MARKETING MANAGER Work Phone: [facility] 01-31-2013 zoster vaccine, unspecified formulation Jaqui Schla[employer].deer ANIMAL TRAINER-COMMUNITY MARKETING MANAGER Work Phone: [facility] Medications Current Medications Medication Drug Class(es) Dates Sig (Normalized) Sig (Original) [id number] 200 actuat albuterol 0.09 mg/actuat metered dose [...] in the morning. 0 Active magnesium oxide/magnesium (XC-BRLJ-DOVLUAV ORAL) (1 source) take 1 tablet by mouth once daily magnesium oxide/magnesium (GQ-JAAD-KPBWZRZ ORAL) Magnesium (oxide/AA chelate) takes 1 tablet [...] by mouth in the morning. 0 Active Payers Date Payer Category Payer Unknown 2020 Medicare ANTH MEDICARE ANTH MEDICARE ADVANTAGE [id number] 2020-Present [phone] [address] [place] [address] [id number] 1959 Unknown [id number] 1950 Unknown [id number] 2.16.840.1.738258.3.579.2.593 1950 Unknown [id number] 2.16.840.1.575173.3.579.2.593 1950 Unknown [id number] 2.16.840.1.854891.3.579.2.593 1950 Unknown [id number] 2.16.840.1.257913.3.579.2.593 1950 Unknown [id number] 2.16.840.1.180491.3.579.2.593 1950 Unknown [id number] 2.16.840.1.797938.3.579.2.593 1950 Unknown [id number] 2.16.840.1.883172.3.579.2.593 1950 Unknown [id number] 2.16.840.1.847618.3.579.2.593 1950 Unknown [id number] 2.16.840.1.223087.3.579.2.593 1950 Unknown [id number] 2.16.840.1.607373.3.579.2.593 1950 Unknown [id number] 2.16.840.1.339472.3.579.2.593 1950 Unknown [id number] 2.16.840.1.878615.3.579.2.593 1950 Unknown [id number] 2.16.840.1.344572.3.579.2.593 1950 Unknown [id number] 2.16.840.1.337773.3.579.2.593 1950 Unknown [id number] 2.16.840.1.241508.3.579.2.128 6 1950 Unknown [id number] 2.16.840.1.648561.3.579.2.128 6 1950 Unknown [id number] 2.16.840.1.116256.3.579.2.128 6 1950 Unknown [id number] 2.16.840.1.264453.3.579.2.128 6 1950 Unknown [id number] 2.16.840.1.293056.3.579.2.196 1950 Unknown [id number] 2.16.840.1.629748.3.579.2.125 9 Plan of Treatment Date Care Activity Detail Author Start: 10-08-2031 DTaP,Tdap and Td Vaccines (2 - Td or Tdap) DTaP,Tdap and Td Vaccines (2 - Td or Tdap) [facility] Start: 09-13-2025 Screening for malignant neoplasm of colon Colonoscopy [facility] Start: 11-02-2024 Adult BMI Screening Adult BMI Screening [facility] Start: 09-19-2024 Tobacco Screening Tobacco Screening [facility] Start: 07-25-2024 Adult BMI Follow Up Plan Adult BMI Follow Up Plan [facility] Start: 06-01-2024 Depression Screening Depression Screening [facility] Start: 06-01-2024 Fall Risk Screening Fall Risk Screening [facility] Start: 05-07-2024 End: 05-07-2024 Patient encounter procedure 05/07/2024 11:00 AM EDT Office Visit [facility] [address] [place] [address] Jaqui Flynn, ANIMAL TRAINER-[facility] [address] [place] [address] [facility] Start: 05-04-2024 Medicare Annual Wellness Visit Medicare Annual Wellness Visit [facility] Start: 06-01-2023 COVID-19 Vaccine ( season) COVID-19 Vaccine ( season) [facility] Start: 06-01-2023 Influenza vaccination Influenza Vaccine [facility] Start: 03-28-2013 Administration of varicella zoster vaccine Zoster (Shingles) Vaccine (2 of 3) [facility] Problems Active Problems Problem Classification Problem Date [...] bilateral lower extremities] Onset: 05-03-2021 05-03-2021 Episodic Procedures Date Procedure Procedure Detail Performing Clinician Start: 11-02-2023 Follow-up visit Follow-up JAQUI FLYNN Start: 06-01-2023 Adult depression scr eening assessment Jaqui Flynn ANIMAL TRAINER-[facility] Work Phone: Start: 09-13-2020 Colonoscopy Jaqui delarosa ANIMAL TRAINER-[facility] Work Phone: Results Test Name Value Interpretation Reference Range Facility Covid-19 PCR (CVDTBH)on 07-02 SARS-CoV-2 (COVID-19) RNA LADI+probe Ql (Unsp spec) Not detected Normal NOT DETECTED [facility] Comment on above: Result Comment: This test is not yet sidra roved or cleared by the [place] FDA. When there are no FDA-approved or cleared tests available, and other criteria are met, FDA can make tests available under an emergency access mechanism called an Emergency Use Authorization (EUA). The EUA for this test is supported by the Cath Laboratory Technician of Health and Human Service's (HHS's) [...] consistent with SARS-CoV-2. Performed By: #### [facility] #### [facility] [address] [place] [address] Dr. 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 Jesus Velazquez and Dr. Montanez. Thisconsultation was shared with the referral source via the [facility] medical record.The patients understanding of the [...] intervention for the low back and left T8elizkxdl. Finally will ask him to see Jo [...] concerns, they should feel free to contact [facility].?02/12/18 Dr. Montanez noted - IMPRESSION: (M54.10) Radicular [...] thinking of having this done closer to [place]. He is otherwisescheduled for CPRP in 03/2018.02/05/18 [...] on SSI. Friend is working some from [facility].REVIEW OF SYSTEMS:PAIN ASSESSMENT: See HPI.GENERAL: Denies fever, [...] and off and on as an adult. [facility] reports that he was diagnosed in his [...] tobacco abuseDevelopmental History: The patient was reared by both parents ROWDY Wilkerson. Nurture was poor. Mother would never stop [...] had a relationship sincethe 70's. 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 He was providedwith brochure and number to the admission coordinator.Substance use interview is indicated. Chemical education program is indicated.Patient is aware of the following policies and guidelines set forth [facility]:1. no illicit substance [...] policies/guidelines.Goals for treatment include pain reduction, functional advent, moodnormalization and improved coping.Prognosis is fair.90 minutes total visit with preponderance of time spent on counseling,medication management, education and review. All patients questions regardingabove conditions and coordination of care were addressed.Jo Campbell CNPReferring Provider: JESUS VELAZQUEZ [[id number]]Allergies As of Date: 03/06/2018 Noted Allergy ReactionADHESIVE TAPE (ROSINS) 03/06/2018 2 - Rash 14 - Other: See Comments Comments: BlisteringIntolerance To Toprol And Celebre*06/19/2003Date Reviewed: 03/06/2018Reviewed by: Jo Campbell - Fully AssessedReason for Visit: New Patient [...] to improve.Follow-up and Disposition History RecordedEncounter Number: [id number] Status:Closed by JO CAMPBELL CNP on 03/06/18 Normal [facility] PROGRESSon 03-06-2018 PROGRESS HNO ID: [id number] thor: Jo (Raul) PattersonService: (none)Author Type: Nurse PractitionerType: Progress NotesFiled: 03/06/2018 2:36 PMNote Text:THE [facility] Pain Rehabilitation EvaluationJune 2017Eh Flores [facility] number: [id number] 67 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 Jesus Velazquez and Dr. Montanez. Thisconsultation was shared with the referral source via the [facility] medical record.The patients understanding of the [...] thinking of having this done closer to [place].He is otherwise scheduled for CPRP in 03/2018.02/05/18 [...] reared 1st of 4 by both parents [place], [place]. Nurture was poor. Mother would never [...] had a relationship since the 70's. 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 He wasprovided with brochure and number to the admission coordinator.Substance use interview is indicated. Chemical education program isindicated.Patient is aware of the following policies and guidelines [facility]:1. no illicit substance use [...] policies/guidelines.Goals for treatment include pain reduction, functional advent, moodnormalization and improved coping.Prognosis is fair.90 minutes total visit with preponderance of time spent on counseling,medication management, education and review. All patients questionsregarding above conditions and coordination of care were addressed.Jo Campbell CNP [facility] CNOVon 02-12-2018 CNOV Office Visit (SANIA) RENE FLORES Keshav ([id number]) 1950 [facility] Time Provider Department02/12/18 9:10 AM ALEJANDRO MONTANEZ [...] left elbow andradiates upward and downward arm.Losing zigzag stitcher in fingersRLS since he was a 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 Lab Rn: NoPassive conservative therapy lasting 6 weeks in [...] for left arm pain (Rx FMD in [place])uses THC - eases pain but afterwards he feels he has concentration issues brain fog also:- neg Cancer ( other than Hx basal cell)- ETOH - scotch nightly- THC smoking qd- no Hx of DM- Hx of CVAPLAN:Above findings and options discussed..He can have a TFESI @ LEFT L 5-S1 on diagnostic / therapeutic basis.He is thinking of having this done closer to [place].He is otherwise scheduled for CPRP in 03/2018.We can see him prn.Alejandro Montanez, MDReferring Provider: JESUS VELAZQUEZ [[id number]]Allergies As of Date: 02/12/2018 Noted Allergy ReactionIntolerance [...] INVALID FOR*Follow-up and Disposition History RecordedEncounter Number: [id number] Status:Closed by ALEJANDRO MONTANEZ MD on 02/14/18 [facility] PROGRESSon 02-12-2018 PROGRESS HNO ID: [id number] thor: Alejandro Makervice: (none)Author Type: PhysicianType: Progress [...] elbow and radiates upward and downward arm.Losing zigzag stitcher in fingersRLS since he was a 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 Lab Rn: NoPassive conservative therapy lasting 6 weeks in [...] polyuria, polydipsia andgoiterPAST MEDICAL HISTORYDiagnosis Date- A-fib ([facility])- Asthma- Other specified cardiac dysrhythmias(427.89)- Stroke (HCC)PAST [...] for left arm pain (Rx FMD in [place])uses THC - eases pain but afterwards he feels he has concentration issues brain fog also:- neg Cancer ( other than Hx basal cell)- ETOH - scotch nightly- THC smoking qd- no Hx of DM- Hx of CVAPLAN:Above findings and options discussed..He can have a TFESI @ LEFT L 5-S1 on diagnostic / therapeutic basis.He is thinking of having this done closer to [place].He is otherwise scheduled for CPRP in 03/2018.We can see him prn.Alejandro Montanez MD [facility] CNOVon 02-05-2018 CNOV Office Visit (SPNSMN) RENE FLORES ([id number]) 1950 MDate Time Provider Department02/05/18 3:20 PM JESUS VELAZQUEZ SPNSMN During your visit today, we recorded the following information about you: Pulse Respiration Blood pressure Weight 56/minute 18/minute 142/66 97.1 kg Height 1.727 Jesus Quick 02/05/2018 4:07 PM SignedSPDIAMOND CHIL[facility] SURGERY ESTABLISHEDDATE OF SERVICE: 02/05/2018DATE [...] Campbell given 10+ year history of back pain.1. Follow up: Not requiredEdson Sheppard [facility] Medicine FellowPGY-5SIGNATURE: Jesus Velazquez MD PATIENT [...] read. WIll pursue with xrays andmedical spine wdpygzhyqem75/7 pain, non-restorative sleep, MUSC, fatigue - CPSWill have seen by Jo Campbell.I will see on an as needed basis. No indication for surgery in my opinionCounseled extensivelyShould Mr. Flores or referring or consulting physicians have any questionsor concerns, they should feel free to contact my office.Mr. Flores has been instructed to followup as documentedJesus Velazquez, [facility]: PMDDr HerringReferring Provider: KASEY LEIGH) [[id number]]Allergies As of Date: 02/05/2018 Noted Allergy ReactionIntolerance To Toprol And Celebre*06/19/2003Date Reviewed: 02/05/2018Reviewed by: Edson Sheppard (Ritesh) - Fully AssessedReason for Visit: Established Patient [175]Primary Visit Diagnosis:Other idiopathic scoliosis, lumbar region [M41.26] Other Visit Diagnosis:Cervical spondylosis without myelopathy [M47.812]Order(s):CONSULT TO SPINE CENTER [192781] Order #: [id number]: 1 XR SCOLIOSIS PA STAND/LAT 2V [[id number]] Order #: [id number] FUTURE XR LUMBAR LIMITED 2V FLEX/EXT [[id number]] Order #: [id number] FUTURE CONSULT TO CHRONIC PAIN REHABILITATION (NON-PAIN ANESTHESIA) [[id number]] Order #: [id number]: 1Prescriptions as of 02/05/2018 Sig: OXYCODONE-ACETAMINOPHEN 10 [...] by JESUS VELAZQUEZ MD on 02/05/18 Normal [facility] PROGRESSon 02-05-2018 PROGRESS HNO ID: [id number] thor: Jesus Velazquez CService: (none)Author Type: PhysicianType: [...] region (primary encounterdiagnosis)(M47.81 2) Cervical spondylosis without myelopathyEh Flores is not a candidate for surgery [...] of backpain.1. Follow up: Not requiredEdson Sheppard [facility] Medicine FellowPGY-5SIGNATURE: Jesus Velazquez MD PATIENT [...] read. WIll pursue with xraysand medical spine gdvcvodcpjr80/7 pain, non-restorative sleep, MUSC, fatigue - CPSWill have seen by Jo Campbell.I will see on an as needed basis. No indication for surgery in my opinionCounseled extensivelyShould Mr. Flores or referring or consulting physicians have anyquestions or concerns, they should feel free to contact my office.Mr. Flores has been instructed to followup as documentedEdetelvina Velazquez, [facility]: PMDDr Russo Normal [facility] XR LUMBAR 2V FLEX/EXTon XR LUMBAR [...] motion flexion or extension.IMPRESSION:Multi level degenerative changes.Senior Stack Engineer: АННА Transcribe Date/Time: Feb 05 2018 5:13PDictated by : BETH MULLEN MDThis examination was interpreted and the report reviewed and electronically signed by: BETH MULLEN MD on Feb 05 2018 5:15PM [id number] Normal [facility] XR SCOLIOSIS 2V PA STAND/LAT on [...] rate to severe scoliosis and degenerative changes.Senior Stack Engineer: АННА Transcribe Date/Time: Feb 05 2018 5:10PDictated by : BETH MULLEN MDThis examination was interpreted and the report reviewed and electronically signed by: BETH MULLEN MD on Feb 05 2018 5:12PM [id number] Normal [facility] PROGRESSon 01-22-2018 PROGRESS HNO ID: [id number] thor: Kasey (Syed) Breanna: (none)Author Type: Physician [...] ) Wt 97.1 kg (214lb) BMI 32.54 kg/o4LJOXFXW APPEARANCE: Well nourished, well developed, and no [...] 21, 2018 : 10:47 PM PAGER: Ping [facility] CNRichard 01-21-2018 CNOV Office Visit (SPNSMN) [facility]ERE[facility] ([id number]) 1950 [facility]01/21/18 11:00 AM KASEY LEIGH) DEREK During your visit today, we recorded the [...] file for this patient.PAST MEDICAL HISTORYDiagnosis Date- A- ([facility] Asthma- Other specified cardiac dysrhythmias(427.89)- Stroke (HCC)PAST [...] 8ANDquot;) Wt 97.1 kg (214lb) BMI 32.54 kg/t0WBBPQTO APPEARANCE: Well nourished, well developed, and no [...] arm pain [M79.602]Order(s):XR CERV OTHER 4V AP/LAT/FLX/EXT [[id number]] Order #: [id number] FUTURE EMG(NEURO/NI) [[id number]] Order #: [id number]: 1 FUTURE CONSULT TO PHYSICAL THERAPY [9032] Order #: [id number]: 1Prescriptions as of 01/21/2018 Sig: OXYCODONE-ACETAMINOPHEN 10 [...] 01/21/2018 11:08 AM >> CHAPO JOSE MA Jan 21, 2018 11:08 AM Received from: External PharmacyProblem List As Of Date: 01/21/2018(None)Follow-up and Disposition History RecordedEncounter Number: [id number] Status:Closed by KASEY LEIGH on 01/21/18 [facility] PROGRESSon 01-21-2018 PROGRESS HNO ID: [id number] thor: Lindsey Vo (Rt) Tangela QureshiService: RadiologyAuthor Type: TechnicianType: Progress NotesFiled: 01/21/2018 1:18 PMNote Text: Radiology Service Progress NotePATIENT NAME: Eh FloresMRN: [id number] OF SERVICE: January 21, 2018TIME: 1:18 PMPATIENT IDENTITY VERIFICATION COMPLETED USING TWO (2) METHODS: Patientconfirmed name verbally and Date of .PATIENT GENDER DATA: MalePATIENT RELEVANT IMPLANT DATA REVIEWED: Not ApplicableRADIOLOGY DEPARTMENT: General X-ray: Exam(s) Completed: Spine X-Ray(s):Cervical AP / LAT / FLEX-EXTPERIPHERAL IV DATA: Not applicableSIGNED BY: Jessica Biswas 2017 1:18 PM Normal [facility] XR CERVICAL 4V AP/LAT/FLX/EX Ton 01-21-2018 [...] MICHELLE MD on Jan 21 2018 4:17PM [id number] Normal [facility] CNCOon 01-10-2018 CNCO Letter TextDear Shimon Flores:How to activate your [facility] Wireless Generation Account 1. Visit the [employer] Generation Signup page at [email or web address] 2. Identify yourself using your one-time use activation code: [email or web address]: 02/09/2018 1:35 PMThis activation code was e-mailed to [email or web address] 3. Follow the on-screen prompts to choose your own secure username andpasswordThe following information will be necessary to access your account for thefirst time:Information needed for sign-up:Your custom activation code used one-time only for the initial accountset-up.Your date of birthThe last 4 digits of your social security numberWhat to do next:Fill in the requested information on the Identify Yourself Form [email or web address] , click Next.Create your login and password, choose a [employer] ID and password that will beeasy for you to use, but impossible for anyone else to guess.Pick a security question that will assist you in the event you forget yourpassword the next time you log-on.If you have difficulty activating your account, please call our Context appline at [phone] or toll free at .We hope you enjoy using [employer]!Kindest Regards,[facility] MyChart Team Normal [facility] MR-MR CERVICAL SPINE WO CONT IMPORTon 01-03-2018 MR-MR CERVICAL SPINE WO CONT IMPORT Images were obtained outside of [facility] [id number] Normal [facility] MR-MR LUMBAR SPINE WO CONT I MPORTon 01-03-2018 MR-MR LUMBAR SPINE WO CONT IMPORT Images were obtained outside of [facility] [id number] Normal [facility] Social History Date Type Detail Facility Start: 09-19-2023 Alcohol intake Current drinke r of alcohol (finding) [facility] Start: 11-11-2020 End: 09-19-2023 Alcohol intake [facility] Start: 11-11-2020 End: 09-19-2023 Tobacco use panel [facility] Start: 07-18-2022 Tobacco smoking stat [facility] Never smoked tobacco [facility] Start: 07-18-2022 Tobacco use and exposure Smokeless tobacco non-user [facility] Start: 1950 Sex Assigned At Not on file P [facility] Adolescent depressio n screening assessment 0 [facility] Vital Signs Date Time Vital Sign Value Performing Clinician Faci lity 11-02-2023 11:02-0500 Body mass index (BMI) [Ratio] 31.32 kg/m2 Jaqui Flynn APRN-COMMUNITY MARKETING MANAGER Work Phone: [facility] 11-02-2023 11:02-0500 Body weight 93.44 kg Jaqui Flynn APRN-COMMUNITY MARKETING MANAGER Work Phone: [facility] 11-02-2023 11:02-0500 Diastolic blood pressure 60 mm[Hg] Jaqui Flynn APRN-COMMUNITY MARKETING MANAGER Work Phone: [facility] 11-02-2023 11:02-0500 Heart rate 78 /min Jaqui Flynn APRN-COMMUNITY MARKETING MANAGER Work Phone: [facility] 11-02-2023 11:02-0500 Respiratory rate 18 /min Jaqui ALEXANDERCOMMUNITY MARKETING MANAGER Work Phone: [facility] 11-02-2023 11:02-0500 SaO2% (BldA) [Mass fraction] 97 % Jaqui Flynn APRNSavvifyCOMMUNITY MARKETING MANAGER Work Phone: [facility] 11-02-2023 11:02-0500 Systolic blood pressure 112 mm[Hg] Jaqui Flynn ANIMAL TRAINERSavvifyCOMMUNITY MARKETING MANAGER Work Phone: [facility] Clinical Notes 02-23-2022 to 11-02-2023 SANDRINE Hernandez - 11/02/2023 11:00 AM EST Note Date & Type Note Facility 11-02-2023 History of Present illness Narrative Images from the original note were not included. [id number] [facility] [id number] SUBJECTIVE: Patient ID: Eh [...] all orders for this visit: Seizure-like activity ([facility]) Syncope, unspecified syncope type Cervical disc disease Radiculopathy, lumbosacral region Follow-up: He is thinking about doing cupping on neck Declines any issues today. Follow up for routine wellness or as needed Patient noted to have elevated BMI and the following intervention(s) were applied: encouragement to exercise. SANDRINE Hernandez 11/02/23 1112 documented in this encounter [facility] 01-09-2023 Note CONSULTATION CONSULTATION DATE: 01/09/2023 TO: [...] our patients to inform us about any [id number] medications or herbal remedies/nutritional supplements/alternative remedies. 2. [...] options with their primary care provider. [facility] 11-30-2022 Note CONSULTATION CONSULTATION DATE: 11/30/2022 [...] this plan and all questions answered. [facility] 08-31-2022 Note CONSULTATION CONSULTATION DATE: 08/31/2022 [...] three months' time unless otherwise indicated. [facility] 08-31-2022 Note CONSULTATION PROCEDURE DATE: 08/31/2022 [...] be followed up in the clinic. [facility] 07-13-2022 Note CONSULTATION CONSULTATION DATE: 07/13/2022 [...] followed up in the clinic thereafter. [facility] 05-25-2022 Note CONSULTATION CONSULTATION DATE: 05/25/2022 [...] agrees to this plan of care. [facility] 05-02-2022 Note CONSULTATION CONSULTATION DATE: 05/02/2022 ADDENDUM TO PREOPERATIVE DIAGNOSIS: The patient also has lumbar spondylosis. [facility] 04-13-2022 Note CONSULTATION CONSULTATION DATE: 04/13/2022 [...] will follow-up in the clinic post procedure. [facility] Signed and Approved by: SID SCHULER . 04/21/2022 14:14:00 [facility] 02-23-2022 Note CONSULTATION CONSULTATION DATE: 02/23/2022 [...] post procedure and agrees to move forward. [facility] Signed and Approved by: SID SCHULER . 03/02/2022 16:01:00 [facility] Evaluation note Diagnosis Seizure-like activity ([facility])- Primary Syncope, unspecified syncope type Cervical disc disease Radiculopathy, lumbosacral region Thoracic or lumbosacral neuritis or radiculitis, unspecified [facility] this encounter [facility] Attachments The following attachments cannot be sent through Care Everywhere. * Cervical Myelopathy (Serbian) [facility] Summary Purpose Family History No [...] section and content) DATE CREATED AUTHOR 03/19/2018 [facility] DATE CREATED AUTHOR AUTHOR'S ORGANIZ ATION 01/10/2023 [facility] DATE CREATED AUTHOR AUTHOR'S ORGANIZ ATION 09/30/2023 [facility] DATE CREATED AUTHOR AUTHOR'S ORGANIZ ATION 11/04/2023 [facility] DATE CREATED AUTHOR AUTHOR'S ORGANIZ ATION 12/22/2023 [facility] DATE CREATED AUTHOR AUTHOR'S ORGANIZ ATION 01/21/2024 [facility] d[facility] Specialists EPIC Reason for Visit (unrecogniz ed section and content) Reason Comments Follow-up Care Teams (unrecognized sec tion and content) [employer] Utility Worker Relationship Specialty Start Date End Date Jaqui Flynn APRN-RAUL [address] [place] [address] PCP - General Family Medicine 07/24/23 FOR [...] BE BASED ON THE PRIMARY CLINICAL RECORDS. [employer] [facility]. provides no warranty or guarantee of the accuracy or completeness of information in this document.
[2024-03-04] MEDS: 0.9 % SODIUM CHLORIDE 500 ML IV (08:15)
[2024-03-04] MEDS: BUPIVACAINE HCL 0.25% PF 25 MG/10 ML VIAL 3 ML INJ (09:00)
[2024-03-04] MEDS: METHYLPREDNISOLONE ACETATE 40 MG/ML VIAL INJ (09:01)
[2024-03-04] MEDS: LIDOCAINE HCL 2% 400 MG/20 ML MDV 6 ML INJ (09:01)
[2024-03-04 09:12] VITALS: BP 120/55; PULSE 52; TEMP 36.7; O2SAT 98
[2024-03-04 09:16] VITALS: BP 137/67; PULSE 55; TEMP 36.7; O2SAT 94
--- NOTE | 2024-03-04 09:54 | W.PM.PROCNOT ---
Date of procedure: 03/04/24 Pre-op diagnosis: cervical spondylosis Post-op diagnosis: same as pre-op Procedure: Left cervical 5/6, 6/7 Radiofrequency ablation Under fluoroscopic guidance Rhizotomy was created using radio frequency ablation at 80?C for 90 seconds 1 to 2 lesions created at each site. Post lesioning injection of 2 mL each of 0.25% Marcaine and 2% lidocaine with Depo-Medrol 40mg. 0.5 to 1 mL injected at each site IV in place yes If Intravenous fluids: NS at KVO Anesthesia local 2% lidocaine for Anesthesia Other: MAC Timeout process compliant After informed consent obtained.Patient brought to the procedure room placed in the prone position skin overlying the area was prepped and draped in a sterile fashion using betadine. 25 gauge needle was used to create a skin wheal over each of the targeted areas utilizing 2% lidocaine. A rhizotomy needle with a 10 mm active tip was inserted over each of the anesthetized areas and directed towards each of the medial branches accomplished under fluoroscopic guidance. after encountering the same we had positive sensory stimulation, negative motor stimulation was noted. lesions were then created. Post lesioning, steroid solution was injected needles removed. Patient was transferred to recovery room in stable condition to be discharged home after meeting criteria. Anesthesia: MAC Surgeon: Eduarda Mistry Condition: stable Disposition: PACU
== END 2024-03-04 09:36 | disposition home or self-care (01) ==
PROVIDERS: PCP Family Medicine; Visit Provider Anesthesiology Pain Medicine
DX: M47.812 Spondylosis without myelopathy or radiculopathy, cervical region (principal)
CPT/HCPCS: 64633; 64634; J1010; J2704

== ENCOUNTER 2024-04-02 09:54 | Outpatient (OUT) | payer MEDICARE, SELFPAY ==
--- NOTE | 2024-04-02 11:04 | P.CN_ITS ---
Consult Note: HPI Data of Consult Patient: known to practice within the last 3 years Requesting Physician: Kristina Baltazar NP Primary Care Provider: ALAINA ARREOLA Consult Narrative Reason for consult: f/u Narrative: Eh Aguilar a pleasant 72 year old male presents for evaluation of chronic low back and neck pain. Today pain 1/10 in neck and upper back, increases to 8/10 at its worst. Patient continue to have sharp aching pain, no radiculopathy. Pain increased in the evenings and with sleep. Patient continues to utilize marijuana, CBD, and THC gummies, tizanidine mild benefit. did not start mobic with potential side effects. Pt recently underwent left and right C5-6, 6-7 facet RFA with moderate relief for 2-3 weeks, no significant ongoing improvement per pt. Continues to have moderate to severe pain at night and cannot sleep on right side. cc:: CC: Kristina Baltazar NP Review of Systems 2 ROS0 Status of ROS 10 or more systems reviewed and unremark able except as noted in history and below Musculoskeletal Reports: neck pain and extremity pain PFSH PFS Medical History (Updated 04/02/24 @ 12:31 by Kristina Baltazar NP) Hiatal hernia ?K44.9 - Diaphragmatic hernia without obstruction or gangrene (ICD-10) Low back pain ?M54.50 - Low back pain, unspecified (ICD-10) Asthma ?J45.909 - Unspecified asthma, uncomplicated (ICD-10) Sleep apnea ?G47.30 - Sleep apnea, unspecified (ICD-10) Irregular heartbeat ?I49.9 - Cardiac arrhythmia, unspecified (ICD-10) Surgical History H/O carpal tunnel repair ?Z98.890 - Other specified postprocedural states (ICD-10) History of left knee surgery ?Z98.890 - Other specified postprocedural states (ICD-10) H/O cardiac radiofrequency ablation ?Z98.890 - Other specified postprocedural states (ICD-10) H/O vein stripping ?Z98.890 - Other specified postprocedural states (ICD-10) Hx of tonsillectomy ?Z90.89 - Acquired absence of other organs (ICD-10) Meds Home Medications and Allergies Home Medications ?Medication ?Instructions ?Recorded ?Confirmed ?Type cholecalciferol (vitamin D3) 10 10 mcg PO DAILY 06/21/23 03/04/24 History mcg (400 unit) capsule (Vitamin D3) magnesium glycinate mg PO 06/21/23 History melatonin 10 mg capsule 10 mg PO DAILY 06/21/23 03/04/24 History pramipexole 0.25 mg tablet 0.25 mg PO DAILY 06/21/23 03/04/24 History (Mirapex) tizanidine 4 mg capsule 4 mg PO DAILY 11/28/23 03/04/24 History aspirin 81 mg capsule 81 mg PO DAILY 01/15/24 03/04/24 History potassium 75 mg tablet mg PO 01/15/24 History Allergies Allergy/AdvReac Type Severity Reaction Status Date / Time celecoxib [From Celebrex] Allergy Unknown Verified 03/04/24 08:08 adhesive AdvReac Verified 03/04/24 08:08 metoprolol [From Toprol XL] AdvReac Verified 03/04/24 08:08 Exam Constitutional Documenting provider has reviewed patient's vital signs: yes Common normals: no apparent distress, oriented x3, healthy appearing, alert and well nourished General appearance: cooperative HENOR Common normals: normocephalic, hearing grossly normal bilaterally and moist oral mucous membranes Head and scalp: normocephalic Eye Common normals: PERRL Pupil: PERRL Neck & C-Spine Common normals: full ROM General: normal visual inspection Cervical spine: pain with cervical ROM Other: negative spurlings negative facet loading no pain over cervical facets on exam Chest Common normals: inspection of chest normal Respiratory Common normals: normal respiratory effort, no retractions and no use of accessory muscles Back & Pelvis Lumbar spine/lower back: ROM limited, pain with ROM and straight leg raise negative bilaterally Sacroiliac joints: SI joints normal Extremity Common normals: normal to inspection and full ROM Right upper extremity: shoulder joint Left upper extremity: shoulder joint Other: bilateral shoulders increased pain with overhead movements right side increased pain and sensitivity over right suprascapular nerve, increased pain with palption. bilateral empty can test positive, posterior liftoff positive, crossbody adduction positive ROM intact but painful myofascial pain as noted below Extremity image (back): 2 1. Neuro Common normals: oriented x3, CN's II-XII intact bilaterally, moves all extremities, no focal motor deficits, no sensory deficits noted and deep tendon reflexes 2+ bilaterally Sensorium/orientation: alert Motor exam: strength 5/5 throughout and no movement abnormalities noted Psych Common normals: mental status grossly normal, thought process normal, cooperative, affect normal, speech normal and activity/motor behavior normal Speech: normal speech Thought process: normal thought process Results Additional Findings Additional findings: If on a controlled substance or opioids, I have checked an [place] report on this patient and there are no aberrancies noted in the prescribing history.??If on a controlled substance or opioid a drug screen was completed and reviewed within the last year, and if there has not been a drug screen completed we ordered one today to monitor higher risk, state monitored pain medication use. As part of providing excellent, safe, comprehensive care, the following was completed at our patient's visit: 1. A medication reconciliation and review to ensure accurate knowledge of current/active medications, including asking our patients to inform us about any kubf-giu-gscdcdi medications or herbal remedies/nutritional supplements/alternative remedies. 2. A review to specifically ensure our patients have had annual screening for screening for depression, screening for tobacco use, and screening for unhealthy alcohol use. For concerning screenings had a discussion with the patient, provided patient education, and recommended follow-up with primary care provider when appropriate. If patient noted with a risk of falling, they received education on strength, gait, and balance training to prevent future risk of falling. Assessment and Plan Assessment and Plan (1) Bilateral shoulder pain: (2) Cervical spondylosis: (3) Marijuana use: (4) Muscle spasm: (5) Trapezius muscle strain: Plan update bilateral shoulder xray PT for bilateral shoulder pain, right greater than left, hx of right shoulder injury without workup continue current medications f/u 1 month to assess imaging, response to PT, and effectiveness of cervical RFAs although negative facet pain on exam
== END 2024-04-02 09:55 | disposition home or self-care (01) ==
LOC: PM 09:54
PROVIDERS: PCP Family Medicine; Visit Provider Nurse Practitioner
DX: M25.512 Pain in left shoulder (principal); M25.511 Pain in right shoulder; M47.812 Spondylosis without myelopathy or radiculopathy, cervical region; Z79.899 Other long term (current) drug therapy; M62.838 Other muscle spasm; S46.811A Strain of other muscles, fascia and tendons at shoulder and upper arm level, right arm, initial encounter
CPT/HCPCS: 73030; G0463

== ENCOUNTER 2024-04-02 11:25 | Outpatient (OUT) | payer MEDICARE, SELFPAY ==
--- NOTE | 2024-04-02 11:31 | XR_ITS ---
The [address] [address] Patient Name: FAITH FLORES MRN: [id number] date: 1950 Sex: M Assigned Patient Location: [facility] Current Patient Location: Accession/Order Number: [id number] Exam Date: 04/02/2024 11:35 Report Date: 04/04/2024 09:48 At the request of: CHARLIE STEINBERG Procedure: XR shoulder ROBINA min 2V EXAMINATION: XR shoulder ROBINA min 2V HISTORY: Bilateral Shoulder Pain COMPARISON: No relevant comparison available. FINDINGS: RIGHT FINDINGS: BONES: No significant arthropathy or acute abnormality. SOFT TISSUES: No visible soft tissue swelling. OTHER: Negative. LEFT FINDINGS: BONES: No significant arthropathy or acute abnormality. SOFT TISSUES: No visible soft tissue swelling. OTHER: Negative. XR/XR shoulder ROBINA min 2V IMPRESSION: RIGHT CONCLUSION: No acute abnormality or significant degenerative joint disease. LEFT CONCLUSION: No acute abnormality or significant degenerative joint disease. Electronically authenticated by: SAIDA LEMA Date: 04/04/2024 09:48
--- OUTSIDE RECORDS SUMMARY | 2024-04-02 11:34 | XMS_ITS | CCD ---
Author Organization [facility] Care Team Providers Care Fitness/Wellness Director Name Role Phone TUDICO, KASEY (PA) Unavailable Unavailable TUDICO, KASEY (PA) Unavailable Unavailable TUDICO, KASEY (PA) Unavailable Unavailable BENZEL, EDWARD C Unavailable Unavailable TUDICO, KASEY (PA) Unavailable Unavailable BENZEL, EDWARD C Unavailable Unavailable ALEJANDRO MONTANEZ Unavailable Unavailable BENZEL, EDWARD C Unavailable Unavailable JO CAMPBELL (UNIVERSITY ADMINISTRATIVE ASSISTANT) Unavailable Unavailabl e BENZEL, EDWARD C Unavailable [...] Unavailable DEFRANCE, DR FOLEY Primary Care Unavailable PSACAL ., DR KOFI Agrawal Attending Unavailable PASCAL [...] Attending Unavailable ADUSUMILLI, NESS K Referring Unavailable [facility] Unavailable ADUSUMILLI, NESS K Attending Unavailable ADUSUMILLI, NESS K Referring Unavailable [facility] Primary Care Unavailable ADUSUMILLI, NESS K Attending Unavailable ADUSUMILLI, NESS K Referring Unavailable [facility] Primary Care Unavailable Schlachter MECHANICAL INTEGRITY SPECIAL[facility] Provide r JAQUI FLYNN Attending Unavailable JAQUI FLYNN Referring Unavailable [facility] Primary Care Unavailable Pedro Arevalo MD Attending Unavailable DAVID SAXENA Attending Unavailable Allergies Allergy Classification Reported Allergen(s) Allergy Type Date of Onset Reaction(s) Facility (1 source) OTHER; Translations: [OTHER] Propensity to adverse reactions (disorder) 3 [facility] Repository (1 source) Adhesive bandage Drug allergy (disorder) [facility] Repository (1 source) celecoxib Drug Allergy [facility] Repository (1 source) Pyridoxal Drug Allergy [facility] Repository (3 sources) Adhesive agent; Translations: [ADHESIVE] [...] Drug Class(es) Dates Sig (Normalized) Sig (Original) [id number] 200 actuat albuterol 0.09 mg/actuat metered dose [...] in the morning. 0 Active magnesium oxide/magnesium (VZ-IYKI-NUAMILC ORAL) (1 source) take 1 tablet by mouth once daily magnesium oxide/magnesium (YU-DXGV-WSENESJ ORAL) Magnesium (oxide/AA chelate) takes 1 tablet [...] spec) Not detected Normal NOT DETECTED [facility] Comment on above: Result Comment: This test is not yet sidra roved or cleared by the [place] FDA. When there are no FDA-approved or cleared tests available, and other criteria are met, FDA can make tests available under an emergency access mechanism called an Emergency Use Authorization (EUA). The EUA for this test is supported by the Artist'S Model of Health and Human Service's (HHS's) declaration [...] consistent with SARS-CoV-2. Performed By: #### C [facility] #### [facility] [address] [place] [address] Dr. Wan Meeks 03-06-2018 CNOV Office Visit (NEPMS70) GOYO FLORES ([id number]) 1950 MDate Time Provider Department03/06/18 12:40 PM JO CAMPBELL (SUDEEP) 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 Jesus Velazquez and Dr. Montanez. Thisconsultation was shared with the referral source via the [facility] medical record.The patients understanding of the the [...] intervention for the low back and left C0lqdtyabv. Finally will ask him to see Jo [...] thinking of having this done closer to [place]. He is otherwisescheduled for CPRP in 03/2018.02/05/18 [...] on SSI. Friend is working some from [facility].REVIEW OF SYSTEMS:PAIN ASSESSMENT: See HPI.GENERAL: Denies [...] and off and on as an adult. [facility] reports that he was diagnosed in his [...] reared 1st of 4 by both parents [place], [place]. Nurture was poor. Mother would never [...] had a relationship sincethe 70's. 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 He was providedwith brochure and number to the admission coordinator.Substance use interview is indicated. Chemical education program is indicated.Patient is aware of the following policies and guidelines [facility]:1. no illicit substance [...] policies/guidelines.Goals for treatment include pain reduction, functional alevism, moodnormalization and improved coping.Prognosis is fair.90 minutes total visit with preponderance of time spent on counseling,medication management, education and review. All patients questions regardingabove conditions and coordination of care were addressed.Jo Campbell CNPReferring Provider: JESUS VELAZQUEZ [[id number]]Allergies As of Date: 03/06/2018 Noted Allergy ReactionADHESIVE TAPE (ROSINS) 03/06/2018 2 - Rash 14 - Other: See Comments Comments: BlisteringIntolerance To Toprol And Celebre*06/19/2003Date Reviewed: 03/06/2018Reviewed by: Jo (Search Lead) Karson - Fully AssessedReason for Visit: New [...] to improve.Follow-up and Disposition History RecordedEncounter Number: [id number] Status:Closed by JO CAMPBELL CNP on 03/06/18 [facility] PROGRESSon 03-06-2018 PROGRESS HNO ID: [id number] thor: Jo (Sudeep) PattersonService: (none)Author Type: Nurse PractitionerType: Progress NotesFiled: 03/06/2018 2:36 PMNote Text:THE [facility] Pain Rehabilitation EvaluationJune 2017Eh Flores [facility] number: [id number] 67 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 Jesus Velazquez and Dr. Montanez. Thisconsultation was shared with the referral source via the [facility] medical record.The patients understanding of the the [...] thinking of having this done closer to Sun.He is otherwise scheduled for CPRP in 03/2018.02/05/18 [...] re[place] 1st [place] 4 [place] N[place] was poor. Mother would never [...] had a relationship since the 70s. 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 He wasprovided with brochure and number to the admission coordinator.Substance use interview is indicated. Chemical education program isindicated.Patient is aware of the following policies and guidelines set [facility]:1. no illicit substance use (including marijuana, medical or otherwise) ispermitted and any patient with a positive urine drug screen on day onewill be discharged though invited to return after substance useevaluations and a negative repeat urine drug screen can be demonstrated.2. All opioids and benzodiazepines will be collected and destroyed on dayone of [facility] treatment, and the patient will be weaned [...] policies/guidelines.Goals for treatment include pain reduction, functional alevism, moodnormalization and improved coping.Prognosis is fair.90 minutes total visit with preponderance of time spent on counseling,medication management, education and review. All patients questionsregarding above conditions and coordination of care were addressed.Jo Campbell CNP [facility] CNOVon 02-12-2018 CNOV Office Visit (SANIA) RENE FLORES ([id number]) 1950 MDate Time Provider Department02/12/18 9:10 AM [...] left elbow andradiates upward and downward arm.Losing dictionary editor in fingersRLS since he was a 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 Die Operator: NoPassive conservative therapy lasting 6 weeks [...] for left arm pain (Rx FMD in Sun)uses THC - eases pain but afterwards he feels he has concentration issues brain fog also:- neg Cancer ( other than Hx basal cell)- ETOH - scotch nightly- THC smoking qd- no Hx of DM- Hx of CVAPLAN:Above findings and options discussed..He can have a TFESI @ LEFT L 5-S1 on diagnostic / therapeutic basis.He is thinking of having this done closer to Sun.He is otherwise scheduled for CPRP in 03/2018.We can see him prn.Alejandro Montanez, MDReferring Provider: JESUS VELAZQUEZ [[id number]]Allergies As of Date: 02/12/2018 Noted Allergy ReactionIntolerance [...] INVALID FOR*Follow-up and Disposition History RecordedEncounter Number: [id number] Status:Closed by ALEJANDRO MONTANEZ MD on 02/14/18 [facility] PROGRESSon 02-12-2018 PROGRESS HNO ID: [id number] thor: Alejandro MeyerengerService: (none)Author Type: PhysicianType: Progress [...] elbow and radiates upward and downward arm.Losing dictionary editor in fingersRLS since he was a 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 Die Operator: NoPassive conservative therapy lasting 6 weeks [...] for left arm pain (Rx FMD in Sun)uses THC - eases pain but afterwards he feels he has concentration issues brain fog also:- neg Cancer ( other than Hx basal cell)- ETOH - scotch nightly- THC smoking qd- no Hx of DM- Hx of CVAPLAN:Above findings and options discussed..He can have a TFESI @ LEFT L 5-S1 on diagnostic / therapeutic basis.He is thinking of having this done closer to Sun.He is otherwise scheduled for CPRP in 03/2018.We can see him prn.Alejandro Montanez [facility] Office Visit (SPNSMN) RENE FLORES ([id number]) 1950 MDate Time Provider Department02/05/18 3:20 PM [...] back pain.1. Follow up: Not requiredEdson Sheppard [facility] FellowPGY-5SIGNATURE: Jesus Velazquez MD PATIENT NAME: [...] read. WIll pursue with xrays andmedical spine bsybhfkxctj93/7 pain, non-restorative sleep, MUSC, fatigue - CPSWill have seen by Jo Campbell.I will see on an as needed basis. No indication for surgery in my opinionCounseled extensivelyShould Mr. Flores or referring or consulting physicians have any questionsor concerns, they should feel free to contact my office.Mr. Flores has been instructed to followup as documentedEdetelvina Velazquez, [facility]: PMDDr HerringReferring Provider: KASEY LEIGH (SYED) [[id number]]Allergies As of Date: 02/05/2018 Noted Allergy ReactionIntolerance To Toprol And Celebre*06/19/2003Date Reviewed: 02/05/2018Reviewed by: Edson Sheppard (Ritesh) - Fully AssessedReason for Visit: Established Patient [175]Primary Visit Diagnosis:Other idiopathic scoliosis, lumbar region [M41.26] Other Visit Diagnosis:Cervical spondylosis without myelopathy [M47.812]Order(s):CONSULT TO SPINE CENTER [361629] Order #: [id number]: 1 XR SCOLIOSIS PA STAND/LAT 2V [[id number]] Order #: [id number] FUTURE XR LUMBAR LIMITED 2V FLEX/EXT [[id number]] Order #: [id number] FUTURE CONSULT TO CHRONIC PAIN REHABILITATION (NON-PAIN ANESTHESIA) [6469609] Order #: [id number]: 1Prescriptions as of 02/05/2018 Sig: OXYCODONE-ACETAMINOPHEN 10 [...] by JESUS VELAZQUEZ MD on 02/05/18 [facility] PROGRESSon 02-05-2018 PROGRESS HNO ID: [id number] thor: Jesus Velazquez CService: (none)Author Type: PhysicianType: [...] of backpain.1. Follow up: Not requiredEdson Sheppard [facility] FellowPGY-5SIGNATURE: Jesus Velazquez MD PATIENT NAME: [...] read. WIll pursue with xraysand medical spine rcrpmjyamgv76/7 pain, non-restorative sleep, MUSC, fatigue - CPSWill have seen by Jo Campbell.I will see on an as needed basis. No indication for surgery in my opinionCounseled extensivelyShould Mr. Flores or referring or consulting physicians have anyquestions or concerns, they should feel free to contact my office.Mr. Flores has been instructed to followup as documentedEdetelvina Velazquez, [facility]: PMDDr Russo [facility] XR LUMBAR 2V FLEX/EXTon XR LUMBAR 2V [...] abnormal motion flexion or extension.IMPRESSION:Multi level degenerative changes.Misdraw Hand: АННА Transcribe Date/Time: Feb 05 2018 5:13PDictated by : BETH MULLEN MDThis examination was interpreted and the report reviewed and electronically signed by: BETH MULLEN MD on Feb 05 2018 5:15PM [id number] [facility] XR SCOLIOSIS 2V PA STAND/LAT on 02-05-2018 [...] maintained.IMPRESSION:Mode rate to severe scoliosis and degenerative changes.Misdraw Hand: АННА Transcribe Date/Time: Feb 05 2018 5:10PDictated by : BETH MULLEN MDThitesha examination was interpreted and the report reviewed and electronically signed by: BETH MULLEN MD on Feb 05 2018 5:12PM [id number] [facility] PROGRESSon 01-22-2018 PROGRESS HNO ID: [id number] thor: Kasey (Syed) Breanna: (none)Author Type: Physician [...] for this patient.PAST MEDICAL HISTORYDiagnosis Date- A-fib ([facility])- Asthma- Other specified cardiac dysrhythmias(427.89)- Stroke ([facility])PAST SURGICAL HISTORYProcedure Laterality Date- ABLATION [...] ) Wt 97.1 kg (214lb) BMI 32.54 kg/q0IOFTUXG APPEARANCE: Well nourished, well developed, and no [...] 21, 2018 : 10:47 PM PAGER: Ping [facility] CNOVon 01-21-2018 CNOV Office Visit (SPNSMN) RENE FLORES ([id number]) 1950 MDate Time Provider Department01/21/18 11:00 AM [...] 8ANDquot;) Wt 97.1 kg (214lb) BMI 32.54 kg/h9ZLSKLCI APPEARANCE: Well nourished, well developed, and no [...] arm pain [M79.602]Order(s):XR CERV OTHER 4V AP/LAT/FLX/EXT [[id number]] Order #: [id number] FUTURE EMG(NEURO/NI) [[id number]] Order #: [id number]: 1 FUTURE CONSULT TO PHYSICAL THERAPY [9032] Order #: [id number]: 1Prescriptions as of 01/21/2018 Sig: OXYCODONE-ACETAMINOPHEN 10 [...] Date: 01/21/2018(None)Follow-up and Disposition History RecordedEncounter Number: [id number] Status:Closed by KASEY LEIGH on 01/21/18 [facility] PROGRESSon 01-21-2018 PROGRESS HNO ID: [id number] thor: Lindsey Vo (RtJodie Lemos: RadiologyAuthor Type: TechnicianType: Progress NotesFiled: 01/21/2018 1:18 PMNote Text: Radiology Service Progress NotePATIENT NAME: Eh FloresMRN: [id number] OF SERVICE: January 21, 2018TIME: 1:18 PMPATIENT IDENTITY VERIFICATION COMPLETED USING TWO (2) METHODS: Patientconfirmed name verbally and Date of .PATIENT GENDER DATA: MalePATIENT RELEVANT IMPLANT DATA REVIEWED: Not ApplicableRADIOLOGY DEPARTMENT: General X-ray: Exam(s) Completed: Spine X-Ray(s):Cervical AP / LAT / FLEX-EXTPERIPHERAL IV DATA: Not applicableSIGNED BY: Jessica Biswas 2017 1:18 PM [facility] XR CERVICAL 4V AP/LAT/FLX/EX Ton 01-21-2018 XR [...] MICHELLE MD on Jan 21 2018 4:17PM [id number] [facility] CNCOon 01-10-2018 CNCO Letter TextDear Shimon Flores:How to activate your [facility] MyActivityPal Account 1. Visit the MyActivityPal Signup page at [email or web address] 2. Identify yourself using your one-time use activation code: [email or web address]: 02/09/2018 1:35 PMThis activation code was e-mailed to [email or web address] 3. Follow the on-screen prompts to choose [...] Next.Create your login and password, choose a MyActivityPal ID and password that will beeasy for you to use, but impossible for anyone else to guess.Pick a security question that will assist you in the event you forget yourpassword the next time you log-on.If you have difficulty activating your account, please call our [employer] at [phone] or toll free at .We hope you enjoy using MyActivityPal!Kindest Regards,[facility] MyActivityPal Team [facility] MR-MR CERVICAL SPINE WO CONT IMPORTon 01-03-2018 MR-MR CERVICAL SPINE WO CONT IMPORT Images were obtained outside of [facility] [id number] [facility] MR-MR LUMBAR SPINE WO CONT I MPORTon 01-03-2018 MR-MR LUMBAR SPINE WO CONT IMPORT Images were obtained outside of [facility] [id number] [facility] Vital Signs Date Time Vital Sign Value Performing Clinician Lencho kincaid 11-02-2023 11:02-0500 Body mass index (BMI) [Ratio] 31.32 kg/m2 Jaqui Flynn APRN-UNIVERSITY ADMINISTRATIVE ASSISTANT Work Phone: [employer] 11-02-2023 11:02-0500 Body weight 93.44 kg Jaqui Flynn APRN-UNIVERSITY ADMINISTRATIVE ASSISTANT Work Phone: [employer] 11-02-2023 11:02-0500 Diastolic blood pressure 60 mm[Hg] Jaqui Flynn APRN-UNIVERSITY ADMINISTRATIVE ASSISTANT Work Phone: [employer] 11-02-2023 11:02-0500 Heart rate 78 /min Jaqui Flynn APRN-UNIVERSITY ADMINISTRATIVE ASSISTANT Work Phone: [employer] 11-02-2023 11:02-0500 Respiratory rate 18 /min [facility] MECHANICAL INTEGRITY SPECIALIST-UNIVERSITY ADMINISTRATIVE ASSISTANT Work Phone: [facility] 11-02-2023 11:02-0500 SaO2% (BldA) [Mass fraction] 97 % [facility] MECHANICAL INTEGRITY SPECIALIST-UNIVERSITY ADMINISTRATIVE ASSISTANT Work Phone: [facility] 11-02-2023 11:02-0500 Systolic blood pressure 112 mm[Hg] [facility] MECHANICAL INTEGRITY SPECIALIST-UNIVERSITY ADMINISTRATIVE ASSISTANT Work Phone: [facility] Encounters Encounter Date Encounter Type Care Provider Facility Start: 01-21-2024 End: 01-21-2024 ambulatory DAVID SAXENA Not Available Start: 12-17-2023 End: 12-18-2023 ambulatory Pedro Arevalo MD Facility:[facility] Start: 11-02-2023 End: 11-02-2023 ambulatory [facility] Start: 11-02-2023 End: 11-02-2023 Office outpatient visit 15 minutes [facility] MECHANICAL INTEGRITY SPECIALIST-UNIVERSITY ADMINISTRATIVE ASSISTANT Work Phone: [facility] Comment on above: Seizure-like activit y (CMS-HCC) (Primary Dx); Syncope, unspecified syncope type; Cervical disc disease; Radiculopathy, lumbosacral region Start: 09-14-2023 End: 09-14-2023 ambulatory [facility] Start: 01-09-2023 End: 01-10-2023 ambulatory NARENDRANATH [...] cardiovascular examination DR KOFI PASCAL . [facility] Start: 07-30-2022 Encounter for preprocedural laboratory examination DR KOFI PASCAL . [facility] Start: 07-28-2022 End: 07-29-[address] KOFI [...] Start: 03-06-2018 End: 03-08-2018 Ambulatory JO CAMPBELL [facility] Start: 02-12-2018 End: 02-15-2018 Ambulatory ALEJANDRO MONTANEZ [facility] Start: 02-05-2018 End: 02-05-2018 Ambulatory JESUS VELAZQUEZ [facility] Start: 02-05-2018 End: 02-06-2018 Ambulatory JESUS VELAZQUEZ [facility] Start: 01-21-2018 End: 01-22-2018 Ambulatory KASEY LEIGH (PA) [facility] Procedures Date Procedure Procedure Detail Performing Clinician Start: 11-02-2023 Follow-up visit Follow-up JAQUI FLYNN Start: 06-01-2023 Adult depression scr eening assessment Jaqui Flynn MECHANICAL INTEGRITY SPECIALIST-UNIVERSITY ADMINISTRATIVE ASSISTANT Work Phone: Start: 09-13-2020 Colonoscopy Jaqui delarosa MECHANICAL INTEGRITY SPECIALIST-UNIVERSITY ADMINISTRATIVE ASSISTANT Work Phone: Plan of Treatment Date Care Activity Detail Author Start: 10-08-2031 DTaP,Tdap and Td Vaccines (2 - Td or Tdap) DTaP,Tdap and Td Vaccines (2 - Td or Tdap) [facility] Start: 09-13-2025 Screening for malignant neoplasm of colon Colonoscopy [facility] Start: 11-02-2024 Adult BMI Screening Adult BMI Screening [facility] Start: 09-19-2024 Tobacco Screening Tobacco Screening [facility] Start: 07-25-2024 Adult BMI Follow Up Plan Adult BMI Follow Up Plan [facility] Start: 06-01-2024 Depression Screening Depression Screening [facility] Start: 06-01-2024 Fall Risk Screening Fall Risk Screening [facility] Start: 05-07-2024 End: 05-07-2024 Patient encounter procedure 05/07/2024 11:00 AM EDT Office Visit [facility] [address] [place] [id number] Jaqui Flynn, MECHANICAL INTEGRITY SPECIALIST-UNIVERSITY ADMINISTRATIVE ASSISTANT [address] [place] [address] [facility] Start: 05-04-2024 Medicare Annual Wellness Visit Medicare Annual Wellness Visit [facility] Start: 06-01-2023 COVID-19 Vaccine ( season) COVID-19 Vaccine ( season) [facility] Start: 06-01-2023 Influenza vaccination Influenza Vaccine [facility] Start: 03-28-2013 Administration of varicella zoster vaccine Zoster (Shingles) Vaccine (2 of 3) [facility] Immunizations Immunization Date Immunization Notes Care Provider Fa cility 10-08-2021 tetanus toxoid, reduced diphtheria toxoid, and acellular pertussis vaccine, adsorbed Jaqui Flynn MECHANICAL INTEGRITY SPECIALIST-UNIVERSITY ADMINISTRATIVE ASSISTANT Work Phone: [facility] Work Phone: 12-30-2020 COVID-19, mRNA, LNP- S, PF, 30mcg/0.3mL Dose Jaqui Gee MECHANICAL INTEGRITY SPECIALIST-UNIVERSITY ADMINISTRATIVE ASSISTANT Work Phone: [email or web address] 07-28-2020 Influenza, injectabl e, Madin Campobello Canine Kidney, preservative free, quadrivalent Jaqui Schlachter MECHANICAL INTEGRITY SPECIALIST-UNIVERSITY ADMINISTRATIVE ASSISTANT Work Phone: [email or web address] 07-28-2020 influenza virus vaccine, unspecified formulation Jaqui Schlachter MECHANICAL INTEGRITY SPECIALIST-UNIVERSITY ADMINISTRATIVE ASSISTANT Work Phone: [email or web address] 04-23-2017 pneumococcal conjuga te vaccine, 13 valent Jaqui Schlachter MECHANICAL INTEGRITY SPECIALIST-UNIVERSITY ADMINISTRATIVE ASSISTANT Work Phone: [email or web address] 01-31-2013 zoster vaccine, live Jaqui Gee MECHANICAL INTEGRITY SPECIALIST-UNIVERSITY ADMINISTRATIVE ASSISTANT Work Phone: [employer] 01-31-2013 zoster vaccine, unspecified formulation Jaqui Asiyalachter MECHANICAL INTEGRITY SPECIALIST-UNIVERSITY ADMINISTRATIVE ASSISTANT Work Phone: [facility] Payers Date Payer Category Payer Unknown 2020 Medicare ANTH MEDICARE ANTH MEDICARE ADVANTAGE [id number] 2020-[facility] [phone] [address] [place] [address] [id number] 1959 Unknown [id number] 1950 Unknown [id number] 1950 Unknown [id number] 1950 Unknown [id number] 1950 Unknown [id number] 1950 Unknown [id number] 1950 Unknown [id number] 1950 Unknown [id number] 2.16.840.1.983697.3.579.2.593 1950 Unknown [id number] 2.16.840.1.240731.3.579.2.593 1950 Unknown [id number] 2.16.840.1.433852.3.579.2.593 1950 Unknown [id number] 2.16.840.1.301485.3.579.2.593 1950 Unknown [id number] 2.16.840.1.677988.3.579.2.593 1950 Unknown [id number] 2.16.840.1.558575.3.579.2.593 1950 Unknown [id number] 2.16.840.1.132707.3.579.2.593 1950 Unknown [id number] 2.16.840.1.530361.3.579.2.593 1950 Unknown [id number] 2.16.840.1.958372.3.579.2.128 6 1950 Unknown [id number] 2.16.840.1.501948.3.579.2.128 6 1950 Unknown [id number] 2.16.840.1.197907.3.579.2.128 6 1950 Unknown [id number] 2.16.840.1.533988.3.579.2.128 6 1950 Unknown [id number] 2.16.840.1.600111.3.579.2.196 1950 Unknown [id number] 2.16.840.1.547173.3.579.2.125 9 Social History Date Type Detail Facility Start: 07-18-2022 Tobacco smoking stat [facility] Never smoked tobacco [facility] Start: 07-18-2022 Tobacco use and exposure Smokeless tobacco non-user [facility] Start: 09-19-2023 Alcohol intake Current drinke r of alcohol (finding) [facility] Start: 11-11-2020 End: 09-19-2023 Alcohol intake [facility] Start: 11-11-2020 End: 09-19-2023 Tobacco use panel [facility] Adolescent depressio n screening assessment 0 [facility] Start: 1950 Sex Assigned At Not on file [facility] Clinical Notes 02-23-2022 to 11-02-2023 Jaqui Flynn, S[employer]IVERSITY ADMINISTRATIVE ASSISTANT - 11/02/2023 11:00 AM EST Note Date & Type Note Facility 11-02-2023 History of Present illness Narrative Images from the original note were not included. [id number] [facility] [id number] SUBJECTIVE: Patient ID: Eh [...] all orders for this visit: Seizure-like activity ([facility]) Syncope, unspecified syncope type Cervical disc disease Radiculopathy, lumbosacral region Follow-up: He is thinking about doing cupping on neck Declines any issues today. Follow up for routine wellness or as needed Patient noted to have elevated BMI and the following intervention(s) were applied: encouragement to exercise. SANDRINE Hernandez 11/02/23 1112 documented in this encounter [email or web address] 01-[facility]2023 Note CONSULTATION CONSULTATION DATE: 01/09/2023 TO: lAaina Arreola M.D. CHIEF COMPLAINT: Includes severe bilateral [...] our patients to inform us about any [id number] medications or herbal remedies/nutritional supplements/alternative remedies. 2. [...] options with their primary care provider. [facility] 11-30-2022 Note CONSULTATION CONSULTATION DATE: 11/30/2022 HISTORY: [...] this plan and all questions answered. [facility] 08-31-2022 Note CONSULTATION CONSULTATION DATE: 08/31/2022 This [...] three months' time unless otherwise indicated. [facility] 08-31-2022 Note CONSULTATION PROCEDURE DATE: 08/31/2022 PRE [...] be followed up in the clinic. [facility] 07-13-2022 Note CONSULTATION CONSULTATION DATE: 07/13/2022 HISTORY [...] followed up in the clinic thereafter. [facility] 05-25-2022 Note CONSULTATION CONSULTATION DATE: 05/25/2022 HISTORY [...] agrees to this plan of care. [facility] 05-02-2022 Note CONSULTATION CONSULTATION DATE: 05/02/2022 ADDENDUM TO PREOPERATIVE DIAGNOSIS: The patient also has lumbar spondylosis. [facility] 04-13-2022 Note CONSULTATION CONSULTATION DATE: 04/13/2022 This [...] will follow-up in the clinic post procedure. [facility] Signed and Approved by: SID SCHULER . 04/21/2022 14:14:00 [facility] 02-23-2022 Note CONSULTATION CONSULTATION DATE: 02/23/2022 HISTORY [...] post procedure and agrees to move forward. [facility] Signed and Approved by: SID SCHULER . 03/02/2022 16:01:00 [facility] Evaluation note Diagnosis Seizure-like activity ([facility])- Primary Syncope, unspecified syncope type Cervical disc [...] section and content) DATE CREATED AUTHOR 03/19/2018 [facility] DATE CREATED AUTHOR AUTHOR'S ORGANIZ ATION 01/10/2023 [facility] DATE CREATED AUTHOR AUTHOR'S ORGANIZ ATION 09/30/2023 [facility] DATE CREATED AUTHOR AUTHOR'S ORGANIZ ATION 11/04/2023 [facility] DATE CREATED AUTHOR AUTHOR'S ORGANIZ ATION 12/22/2023 [facility] DATE CREATED AUTHOR AUTHOR'S ORGANIZ ATION 01/21/2024 [facility] Reason for Visit (unrecogniz ed section and content) Reason Comments Follow-up Care Teams (unrecognized sec tion and content) Fitness/Wellness Director Relationship Specialty Start Date End Date Jaqui Flynn, [employer]IVERSITY ADMINISTRATIVE ASSISTANT [address] [place] [address] PCP - General Family Medicine 07/24/23 FOR [...] BE BASED ON THE PRIMARY CLINICAL RECORDS. [facility]. provides no warranty or guarantee of the accuracy or completeness of information in this document.
== END 2024-04-02 11:26 | disposition home or self-care (01) ==
LOC: RAD 11:27
PROVIDERS: PCP Family Medicine; Visit Provider Nurse Practitioner
DX: M25.512 Pain in left shoulder (principal); M25.511 Pain in right shoulder
CPT/HCPCS: 73030

== ENCOUNTER 2024-05-01 13:08 | Outpatient (OUT) | payer MEDICARE, SELFPAY ==
--- OUTSIDE RECORDS SUMMARY | 2024-05-01 13:11 | XMS_ITS | CCD ---
Author Organization [facility] Care Team Providers Care Print Production Associate Name Role Phone TUDICO, KASEY (PA) Unavailable Unavailable TUDICO, KASEY (PA) Unavailable Unavailable TUDICO, KASEY (PA) Unavailable Unavailable BENZEL, EDWARD C Unavailable Unavailable TUDICO, KASEY (PA) Unavailable Unavailable BENZEL, EDWARD C Unavailable Unavailable ALEJANDRO MONTANEZ Unavailable Unavailable BENZEL, EDWARD C Unavailable Unavailable JO CAMPBELL (INDUSTRIAL TRUCK OPERATOR) Unavailable Unavailabl e BENZEL, EDWARD C Unavailable [...] Attending Unavailable ADUSUMILLI, NESS K Referring Unavailable [facility], [facility] Care Unavailable ADUSUMILLI, NESS K Attending Unavailable ADUSUMILLI, NESS K Referring Unavailable [facility], [facility] Primary Care Unavailable ADUSUMILLI, NESS K Attending Unavailable ADUSUMILLI, NESS K Referring Unavailable [facility] Primary Care Unavailable [facility], [facility] Provide r JAQUI FLYNN Attending Unavailable JAQUI FLYNN Referring Unavailable [facility], [facility] Primary Care Unavailable Pedro Arevalo MD Attending Unavailable DAVID SAXENA Attending Unavailable Allergies Allergy Classification Reported Allergen(s) Allergy Type Date of Onset Reaction(s) Facility (1 source) OTHER; Translations: [OTHER] Propensity to adverse reactions (disorder) 3 [facility] Repository (1 source) Adhesive bandage Drug allergy (disorder) [facility] Repository (1 source) celecoxib Drug Allergy [facility] Repository (1 source) Pyridoxal Drug Allergy [facility] Repository (3 sources) Adhesive agent; [...] Drug Class(es) Dates Sig (Normalized) Sig (Original) [id number] 200 actuat albuterol 0.09 mg/actuat metered dose [...] in the morning. 0 Active magnesium oxide/magnesium (LY-OYYT-ZDREKNO ORAL) (1 source) take 1 tablet by mouth once daily magnesium oxide/magnesium (FQ-QWTB-MNNAZYF ORAL) Magnesium (oxide/AA chelate) takes 1 tablet [...] spec) Not detected Normal NOT DETECTED [facility] Comment on above: Result Comment: This test is not yet sidra roved or cleared by the [place] FDA. When there are no FDA-approved or cleared tests available, and other criteria are met, FDA can make tests available under an emergency access mechanism called an Emergency Use Authorization (EUA). The EUA for this test is supported by the [place] of Health and Human Service's (HHS's) declaration [...] consistent with SARS-CoV-2. Performed By: #### [facility] #### [facility] [address] [place] [address] Dr. 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 Jesus [...] intervention for the low back and left Y5cqakwwfz. Finally will ask him to see Jo [...] thinking of having this done closer to [place]. He is otherwisescheduled for CPRP in 03/2018.02/05/18 [...] on SSI. Friend is working some from [employer].REVIEW OF SYSTEMS:PAIN ASSESSMENT: See HPI.GENERAL: Denies fever, [...] and off and on as an adult. [facility] reports that he was diagnosed [...] reared 1st of 4 by both parents [place], [place]. Nurture was poor. Mother would never [...] had a relationship sincethe 70's. 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 He was providedwith brochure and number to the admission coordinator.Substance use interview is indicated. Chemical education program is indicated.Patient is aware of the following policies and [facility]:1. no illicit substance [...] policies/guidelines.Goals for treatment include pain reduction, functional yazidism, moodnormalization and improved coping.Prognosis is fair.90 minutes total visit with preponderance of time spent on counseling,medication management, education and review. All patients questions regardingabove conditions and coordination of care were addressed.Jo Campbell CNPReferring Provider: JESUS VELAZQUEZ [[id number]]Allergies As of Date: 03/06/2018 Noted Allergy ReactionADHESIVE TAPE (ROSINS) 03/06/2018 2 - Rash 14 - Other: See Comments Comments: BlisteringIntolerance To Toprol And Celebre*06/19/2003Date Reviewed: 03/06/2018Reviewed by: Jo (Inventory Clerk) Karson - Fully AssessedReason for Visit: New [...] to improve.Follow-up and Disposition History RecordedEncounter Number: [id number] Status:Closed by JO CAMPBELL CNP on 03/06/18 Normal [facility] PROGRESSon 03-06-2018 PROGRESS HNO ID: [id number] thor: Jo (Sudeep) PattersonService: (none)Author Type: Nurse PractitionerType: Progress NotesFiled: 03/06/2018 2:36 PMNote Text:THE [facility] EvaluationJune 2017Eh Flores [facility] number: [id number] 67 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 Jesus [...] thinking of having this done closer to [place].He is otherwise scheduled for CPRP in 03/2018.02/05/18 [...] reared 1st of 4 [place] [facility] [place] [facility] [place] Nurt[place] was poor. Mother would never [...] had a relationship since the 70s. 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 He wasprovided with brochure and number to the admission coordinator.Substance use interview is indicated. Chemical education program isindicated.Patient is aware of the following policies and guidelines set [facility]:1. no illicit substance use (including marijuana, medical or otherwise) ispermitted and any patient with a positive urine drug screen on day onewill be discharged though invited to return after substance useevaluations and a negative repeat urine drug screen can be demonstrated.2. All opioids and benzodiazepines will be collected and destroyed on dayone of [facility] treatment, and the patient will be [...] policies/guidelines.Goals for treatment include pain reduction, functional yazidism, moodnormalization and improved coping.Prognosis is fair.90 minutes total visit with preponderance of time spent on counseling,medication management, education and review. All patients questionsregarding above conditions and coordination of care were addressed.Jo Campbell CNP Normal [facility] CNOVon 02-12-2018 CNOV Office Visit (SANIA) RENE FLORES ([id number]) 1950 MDate Time Provider Department02/12/18 9:10 AM [...] left elbow andradiates upward and downward arm.Losing felt cementer in fingersRLS since he was a 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 Machine Marker: NoPassive conservative therapy lasting 6 weeks in [...] for left arm pain (Rx FMD in [place])uses THC - eases pain but afterwards he feels he has concentration issues brain fog also:- neg Cancer ( other than Hx basal cell)- ETOH - scotch nightly- THC smoking qd- no Hx of DM- Hx of CVAPLAN:Above findings and options discussed..He can have a TFESI @ LEFT L 5-S1 on diagnostic / therapeutic basis.He is thinking of having this done closer to [place].He is otherwise scheduled for CPRP in 03/2018.We can see him prn.Alejandro Montanez, MDReferring Provider: JESUS VELAZQUEZ [[id number]]Allergies As of Date: 02/12/2018 Noted Allergy ReactionIntolerance [...] INVALID FOR*Follow-up and Disposition History RecordedEncounter Number: [id number] Status:Closed by ALEJANDRO MONTANEZ MD on 02/14/18 Normal [facility] PROGRESSon 02-12-2018 PROGRESS HNO ID: [id number] thor: Alejandro MeyerengerService: (none)Author Type: PhysicianType: Progress [...] elbow and radiates upward and downward arm.Losing felt cementer in fingersRLS since he was a 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 Machine Marker: NoPassive conservative therapy lasting 6 weeks in [...] for left arm pain (Rx FMD in [place])uses THC - eases pain but afterwards he feels he has concentration issues brain fog also:- neg Cancer ( other than Hx basal cell)- ETOH - scotch nightly- THC smoking qd- no Hx of DM- Hx of CVAPLAN:Above findings and options discussed..He can have a TFESI @ LEFT L 5-S1 on diagnostic / therapeutic basis.He is thinking of having this done closer to [place].He is otherwise scheduled for CPRP in 03/2018.We can see him prn.Alejandro Montanez [facility] (SPNSMN) RENE FLORES ([id number]) 1950 MDate Time Provider Department02/05/18 3:20 PM JESUS VELAZQUEZ SPNSMN During your visit today, we recorded the following information about you: Pulse Respiration Blood pressure Weight 56/minute 18/minute 142/66 97.1 kg Height 1.727 Jesus Quick 02/05/2018 4:07 PM SignedSPINE SURGERY ESTABLISHEDDATE OF SERVICE: 02/05/2018DATE OF LAST VISIT: 01/21/2018SUBJECTIVE:HPI:St ujan jose Flores is a 67 year old [...] back pain.1. Follow up: Not requiredEdson Sheppard [facility] FellowPGY-5SIGNATURE: Jesus Velazquez MD PATIENT NAME: [...] read. WIll pursue with xrays andmedical spine mrkbahggeox85/7 pain, non-restorative sleep, MUSC, fatigue - CPSWill have seen by Jo Campbell.I will see on an as needed basis. No indication for surgery in my opinionCounseled extensivelyShould Mr. Flores or referring or consulting physicians have any questionsor concerns, they should feel free to contact my office.Mr. Flores has been instructed to followup as documentedEdetelvina Velazquez, [facility]: PMDDr HerringReferring Provider: KASEY LEIGH (SYED) [[id number]]Allergies As of Date: 02/05/2018 Noted Allergy ReactionIntolerance To Toprol And Celebre*06/19/2003Date Reviewed: 02/05/2018Reviewed by: Edson Sheppard (Ritesh) - Fully AssessedReason for Visit: Established Patient [175]Primary Visit Diagnosis:Other idiopathic scoliosis, lumbar region [M41.26] Other Visit Diagnosis:Cervical spondylosis without myelopathy [M47.812]Order(s):CONSULT TO SPINE CENTER [760579] Order #: [id number]: 1 XR SCOLIOSIS PA STAND/LAT 2V [[id number]] Order #: [id number] FUTURE XR LUMBAR LIMITED 2V FLEX/EXT [[id number]] Order #: [id number] FUTURE CONSULT TO CHRONIC PAIN REHABILITATION (NON-PAIN ANESTHESIA) [[id number]] Order #: [id number]: 1Prescriptions as of 02/05/2018 Sig: OXYCODONE-ACETAMINOPHEN 10 [...] by JESUS VELAZQUEZ MD on 02/05/18 Normal [facility] PROGRESSon 02-05-2018 PROGRESS HNO ID: [id number] thor: Jesus Velazquez CService: (none)Author Type: PhysicianType: [...] of backpain.1. Follow up: Not requiredEdson Sheppard [facility] FellowPGY-5SIGNATURE: Jesus Velazquez MD PATIENT NAME: [...] read. WIll pursue with xraysand medical spine ppkhigyxlpf42/7 pain, non-restorative sleep, MUSC, fatigue - CPSWill have seen by Jo Campbell.I will see on an as needed basis. No indication for surgery in my opinionCounseled extensivelyShould Mr. Flores or referring or consulting physicians have anyquestions or concerns, they should feel free to contact my office.Mr. Flores has been instructed to followup as documentedEdetelvina Velazquez, [facility]: PMDDr Russo Normal [facility] XR LUMBAR 2V FLEX/EXTon XR [...] abnormal motion flexion or extension.IMPRESSION:Multi level degenerative changes.Platform Software Engineer: АННА Transcribe Date/Time: Feb 05 2018 5:13PDictated by : BETH MULLEN MDThis examination was interpreted and the report reviewed and electronically signed by: BETH MULLEN MD on Feb 05 2018 5:15PM [id number] Normal [facility] XR SCOLIOSIS 2V PA STAND/LAT [...] maintained.IMPRESSION:Mode rate to severe scoliosis and degenerative changes.Platform Software Engineer: АННА Transcribe Date/Time: Feb 05 2018 5:10PDictated by : BETH MULLEN MDThitesha examination was interpreted and the report reviewed and electronically signed by: BETH MULLEN MD on Feb 05 2018 5:12PM [id number] Normal [facility] PROGRESSon 01-22-2018 PROGRESS HNO ID: [id number] thor: Kasey (Syed) Breanna: (none)Author Type: Physician [...] for this patient.PAST MEDICAL HISTORYDiagnosis Date- A-fib ([facility])- Asthma- Other specified cardiac dysrhythmias(427.89)- Stroke ([facility])PAST SURGICAL HISTORYProcedure Laterality Date- ABLATION cardiac [...] ) Wt 97.1 kg (214lb) BMI 32.54 kg/r4QNJIPGS APPEARANCE: Well nourished, well developed, and no [...] 21, 2018 : 10:47 PM PAGER: Ping [facility] CNOVon 01-21-2018 CNOV Office Visit (SPNSMN) RENE FLORES ([id number]) 1950 MDate Time Provider Department01/21/18 11:00 AM [...] 8ANDquot;) Wt 97.1 kg (214lb) BMI 32.54 kg/y6NEIQGPU APPEARANCE: Well nourished, well developed, and no [...] arm pain [M79.602]Order(s):XR CERV OTHER 4V AP/LAT/FLX/EXT [[id number]] Order #: [id number] FUTURE EMG(NEURO/NI) [[id number]] Order #: [id number]: 1 FUTURE CONSULT TO PHYSICAL THERAPY [9032] Order #: [id number]: 1Prescriptions as of 01/21/2018 Sig: OXYCODONE-ACETAMINOPHEN 10 [...] Date: 01/21/2018(None)Follow-up and Disposition History RecordedEncounter Number: [id number] Status:Closed by KASEY LEIGH on 01/21/18 [facility] PROGRESSon 01-21-2018 PROGRESS HNO ID: [id number] thor: Lindsey Vo (RtJodie Lemos: RadiologyAuthor Type: TechnicianType: Progress NotesFiled: 01/21/2018 1:18 PMNote Text: Radiology Service Progress NotePATIENT NAME: Eh FloresMRN: [id number] OF SERVICE: January 21, 2018TIME: 1:18 PMPATIENT IDENTITY VERIFICATION COMPLETED USING TWO (2) METHODS: Patientconfirmed name verbally and Date of .PATIENT GENDER DATA: MalePATIENT RELEVANT IMPLANT DATA REVIEWED: Not ApplicableRADIOLOGY DEPARTMENT: General X-ray: Exam(s) Completed: Spine X-Ray(s):Cervical AP / LAT / FLEX-EXTPERIPHERAL IV DATA: Not applicableSIGNED BY: Jessica Biswas 2017 1:18 PM Normal [facility] XR CERVICAL 4V AP/LAT/FLX/EX Ton [...] MICHELLE MD on Jan 21 2018 4:17PM [id number] Normal [facility] CNCOon 01-10-2018 CNCO Letter TextDear Shimon Flores:How to activate your [facility] [employer] Account 1. Visit the [email or web address] Signup page at [email or web address] 2. Identify yourself using your one-time use activation code: [email or web address]: 02/09/2018 1:35 PMThis activation code was e-mailed to [email or web address] 3. Follow the on-screen prompts to choose [...] Next.Create your login and password, choose a [employer] ID and password that will beeasy for you to use, but impossible for anyone else to guess.Pick a security question that will assist you in the event you forget yourpassword the next time you log-on.If you have difficulty activating your account, please call our [employer] at [phone] or toll free at .We hope you enjoy using [employer]!Kindest Regards,[facility] [employer] Team Normal [facility] MR-MR CERVICAL SPINE WO CONT IMPORTon 01-03-2018 MR-MR CERVICAL SPINE WO CONT IMPORT Images were obtained outside of [facility] [id number] Normal [facility] MR-MR LUMBAR SPINE WO CONT I MPORTon 01-03-2018 MR-MR LUMBAR SPINE WO CONT IMPORT Images were obtained outside of [facility] [id number] Normal [facility] Vital Signs Date Time Vital Sign Value Performing Clinician Lencho kincaid 11-02-2023 11:02-0500 Body mass index (BMI) [Ratio] 31.32 kg/m2 Jaqui Flynn APRN-INDUSTRIAL TRUCK OPERATOR Work Phone: [employer] 11-02-2023 11:02-0500 Body weight 93.44 kg Jaqui Flynn APRN-INDUSTRIAL TRUCK OPERATOR Work Phone: [employer] 11-02-2023 11:02-0500 Diastolic blood pressure 60 mm[Hg] Jaqui Flynn APRN-INDUSTRIAL TRUCK OPERATOR Work Phone: [employer] 11-02-2023 11:02-0500 Heart rate 78 /min Jaqui Flynn APRN-INDUSTRIAL TRUCK OPERATOR Work Phone: [employer] 11-02-2023 11:02-0500 Respiratory rate 18 /min [facility] OPERATIONS SYSTEMS SPECIALIST-INDUSTRIAL TRUCK OPERATOR Work Phone: [facility] 11-02-2023 11:02-0500 SaO2% (BldA) [Mass fraction] 97 % [facility] OPERATIONS SYSTEMS SPECIALIST-INDUSTRIAL TRUCK OPERATOR Work Phone: [facility] 11-02-2023 11:02-0500 Systolic blood pressure 112 mm[Hg] [facility] OPERATIONS SYSTEMS SPECIALIST-INDUSTRIAL TRUCK OPERATOR Work Phone: [facility] Encounters Encounter Date Encounter Type Care Provider Facility Start: 01-21-2024 End: 01-21-2024 ambulatory DAVID SAXENA Not Available Start: 12-17-2023 End: 12-18-2023 ambulatory Pedro Arevalo MD Facility:[facility] Start: 11-02-2023 End: 11-02-2023 ambulatory [facility] Start: 11-02-2023 End: 11-02-2023 Office outpatient visit 15 minutes [facility] OPERATIONS SYSTEMS SPECIALIST-INDUSTRIAL TRUCK OPERATOR Work Phone: [facility] Comment on above: Seizure-like activit y (CMS-HCC) (Primary Dx); Syncope, unspecified syncope type; Cervical disc disease; Radiculopathy, lumbosacral region Start: 09-14-2023 End: 09-14-2023 ambulatory NESS CHRISTINE [facility] Start: 01-09-2023 End: 01-10-2023 ambulatory [...] cardiovascular examination DR KOFI PASCAL . [facility] Start: 07-30-2022 Encounter for preprocedural laboratory examination DR KOFI PASCAL . [facility] Start: 07-28-2022 End: 07-29-[address] KOFI PASCAL . Facility:[facility] Start: 07-28-2022 End: 07-29-2022 Encounter for preprocedural cardiovascular examination DR KOFI PASCAL . Facility:[facility] Start: 07-13-2022 End: 07-14-2022 ambulatory ISD SCHULER . Facility:[facility] Start: 06-27-2022 End: 06-27-2022 [...] Start: 03-06-2018 End: 03-08-2018 Ambulatory JO CAMPBELL [facility] Start: 02-12-2018 End: 02-15-2018 Ambulatory ALEJANDRO MONTANEZ [facility] Start: 02-05-2018 End: 02-05-2018 Ambulatory JESUS VELAZQUEZ [facility] Start: 02-05-2018 End: 02-06-2018 Ambulatory JESUS VELAZQUEZ [facility] Start: 01-21-2018 End: 01-22-2018 Ambulatory KASEY LEIGH (PA) [facility] Procedures Date Procedure Procedure Detail Performing Clinician Start: 11-02-2023 Follow-up visit Follow-up JAQUI FLYNN Start: 06-01-2023 Adult depression scr eening assessment Jaqui Flynn OPERATIONS SYSTEMS SPECIALIST-INDUSTRIAL TRUCK OPERATOR Work Phone: Start: 09-13-2020 Colonoscopy Jaqui delarosa OPERATIONS SYSTEMS SPECIALIST-INDUSTRIAL TRUCK OPERATOR Work Phone: Plan of Treatment Date Care Activity Detail Author Start: 10-08-2031 DTaP,Tdap and Td Vaccines (2 - Td or Tdap) DTaP,Tdap and Td Vaccines (2 - Td or Tdap) [facility] Start: 09-13-2025 Screening for malignant neoplasm of colon Colonoscopy [facility] Start: 11-02-2024 Adult BMI Screening Adult BMI Screening [facility] Start: 09-19-2024 Tobacco Screening Tobacco Screening [facility] Start: 07-25-2024 Adult BMI Follow Up Plan Adult BMI Follow Up Plan [facility] Start: 06-01-2024 Depression Screening Depression Screening [facility] Start: 06-01-2024 Fall Risk Screening Fall Risk Screening [facility] Start: 05-07-2024 End: 05-07-2024 Patient encounter procedure 05/07/2024 11:00 AM EDT Office Visit [facility] [address] [place] [id number] Jaqui Flynn, OPERATIONS SYSTEMS SPECIALIST-INDUSTRIAL TRUCK OPERATOR [address] [place] [address] [facility] Start: 05-04-2024 Medicare Annual Wellness Visit Medicare Annual Wellness Visit [facility] Start: 06-01-2023 COVID-19 Vaccine ( season) COVID-19 Vaccine ( season) [facility] Start: 06-01-2023 Influenza vaccination Influenza Vaccine [facility] Start: 03-28-2013 Administration of varicella zoster vaccine Zoster (Shingles) Vaccine (2 of 3) [facility] Immunizations Immunization Date Immunization Notes Care Provider Fa cility 10-08-2021 tetanus toxoid, reduced diphtheria toxoid, and acellular pertussis vaccine, adsorbed Jaqui Flynn OPERATIONS SYSTEMS SPECIALIST-INDUSTRIAL TRUCK OPERATOR Work Phone: [facility] Work Phone: 12-30-2020 COVID-19, mRNA, LNP- S, PF, 30mcg/0.3mL Dose Jaqui Gee OPERATIONS SYSTEMS SPECIALIST-INDUSTRIAL TRUCK OPERATOR Work Phone: [facility] 07-28-2020 Influenza, injectabl e, Madin Khushboo Canine Kidney, preservative free, quadrivalent Jaqui Schlachter OPERATIONS SYSTEMS SPECIALIST-INDUSTRIAL TRUCK OPERATOR Work Phone: [facility] 07-28-2020 influenza virus vaccine, unspecified formulation Jaqui Schlachter OPERATIONS SYSTEMS SPECIALIST-INDUSTRIAL TRUCK OPERATOR Work Phone: [facility] 04-23-2017 pneumococcal conjuga te vaccine, 13 valent Jaqui Schlachter OPERATIONS SYSTEMS SPECIALIST-INDUSTRIAL TRUCK OPERATOR Work Phone: [facility] 01-31-2013 zoster vaccine, live Jaqui Gee OPERATIONS SYSTEMS SPECIALIST-INDUSTRIAL TRUCK OPERATOR Work Phone: [employer] 01-31-2013 zoster vaccine, unspecified formulation Jaqui Asiyalachter OPERATIONS SYSTEMS SPECIALIST-INDUSTRIAL TRUCK OPERATOR Work Phone: [facility] Payers Date Payer Category Payer Unknown 2020 Medicare ANTH MEDICARE ANTH MEDICARE ADVANTAGE [id number] 2020-[facility] [phone] [address] [place] [address] [id number] 1959 Unknown [id number] 1950 Unknown [id number] ..840.1.532737.3.579.2.593 1950 Unknown [id number] ..840.1.771159.3.579.2.593 1950 Unknown [id number] ..840.1.275199.3.579.2.593 1950 Unknown [id number] 2.16.840.1.634528.3.579.2.593 1950 Unknown [id number] 2.16.840.1.881887.3.579.2.593 1950 Unknown [id number] 2.16.840.1.553612.3.579.2.593 1950 Unknown [id number] 2.16.840.1.048184.3.579.2.593 1950 Unknown [id number] 2.16.840.1.103933.3.579.2.593 1950 Unknown [id number] 2.16.840.1.530160.3.579.2.593 1950 Unknown [id number] 2.16.840.1.797351.3.579.2.593 1950 Unknown [id number] 2.16.840.1.565984.3.579.2.593 1950 Unknown [id number] 2.16.840.1.571556.3.579.2.593 1950 Unknown [id number] 2.16.840.1.566726.3.579.2.593 1950 Unknown [id number] 2.16.840.1.504832.3.579.2.593 1950 Unknown [id number] 2.16.840.1.227713.3.579.2.128 6 1950 Unknown [id number] 2.16.840.1.663347.3.579.2.128 6 1950 Unknown [id number] 2.16.840.1.124776.3.579.2.128 6 1950 Unknown [id number] 2.16.840.1.817686.3.579.2.128 6 1950 Unknown [id number] 2.16.840.1.607891.3.579.2.196 1950 Unknown [id number] Social History Date Type Detail Facility Start: 07-18-2022 Tobacco smoking stat [facility] Never smoked tobacco [facility] Start: 07-18-2022 Tobacco use and exposure Smokeless tobacco non-user [facility] Start: 09-19-2023 Alcohol intake Current drinke r of alcohol (finding) [facility] Start: 11-11-2020 End: 09-19-2023 Alcohol intake [facility] Start: 11-11-2020 End: 09-19-2023 Tobacco use panel [facility] Adolescent depressio n screening assessment 0 [facility] Start: 1950 Sex Assigned At Not on file P [facility] Clinical Notes 02-23-2022 to 11-02-2023 Jaqui Flynn, SADA-INDUSTRIAL TRUCK OPERATOR - 11/02/2023 11:00 AM EST Note Date & Type Note Facility 11-02-2023 History of Present illness Narrative Images from the original note were not included. [address] [facility] [id number] SUBJECTIVE: Patient ID: [...] all orders for this visit: Seizure-like activity ([facility]) Syncope, unspecified syncope type Cervical disc disease Radiculopathy, lumbosacral region Follow-up: He is thinking about doing cupping on neck Declines any issues today. Follow up for routine wellness or as needed Patient noted to have elevated BMI and the following intervention(s) were applied: encouragement to exercise. SANDRINE Hernandez 11/02/23 1112 [facility] this [facility] Note CONSULTATION CONSULTATION DATE: 01/09/2023 TO: [...] our patients to inform us about any ewsz-hnu-dwsnlzl medications or herbal remedies/nutritional supplements/alternative remedies. 2. [...] options with their primary care provider. [facility] 11-30-2022 Note CONSULTATION CONSULTATION DATE: [...] this plan and all questions answered. [facility] 08-31-2022 Note CONSULTATION CONSULTATION DATE: [...] three months' time unless otherwise indicated. [facility] 08-31-2022 Note CONSULTATION PROCEDURE DATE: [...] be followed up in the clinic. [facility] 07-13-2022 Note CONSULTATION CONSULTATION DATE: [...] followed up in the clinic thereafter. [facility] 05-25-2022 Note CONSULTATION CONSULTATION DATE: [...] agrees to this plan of care. [facility] 05-02-2022 Note CONSULTATION CONSULTATION DATE: 05/02/2022 ADDENDUM TO PREOPERATIVE DIAGNOSIS: The patient also has lumbar spondylosis. [facility] 04-13-2022 Note CONSULTATION CONSULTATION DATE: [...] will follow-up in the clinic post procedure. [facility] Signed and Approved by: SID SCHULER . 04/21/2022 14:14:00 [facility] 02-23-2022 Note CONSULTATION CONSULTATION DATE: [...] post procedure and agrees to move forward. [facility] Signed and Approved by: SID SCHULER . 03/02/2022 16:01:00 [facility] Evaluation note Diagnosis Seizure-like activity ([facility])- Primary Syncope, unspecified syncope type [...] section and content) DATE CREATED AUTHOR 03/19/2018 [facility] DATE CREATED AUTHOR AUTHOR'S ORGANIZ ATION 01/10/2023 [facility] DATE CREATED AUTHOR AUTHOR'S ORGANIZ ATION 09/30/2023 [facility] DATE CREATED AUTHOR AUTHOR'S ORGANIZ ATION 11/04/2023 [facility] DATE CREATED AUTHOR AUTHOR'S ORGANIZ ATION 12/22/2023 [facility] DATE CREATED AUTHOR AUTHOR'S ORGANIZ ATION 01/21/2024 [facility] EPIC Reason for Visit (unrecogniz ed section and content) Reason Comments Follow-up Care Teams (unrecognized sec tion and content) 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 [employer] [facility]. provides no warranty or guarantee of the accuracy or completeness of information in this document.
--- NOTE | 2024-05-01 13:56 | P.CN_ITS ---
Consult Note: HPI Data of Consult Patient: known to practice within the last 3 years Requesting Physician: Kristina Baltazar NP Primary Care Provider: ALAINA ARREOLA Consult Narrative Reason for consult: f/u Narrative: Eh Aguilar a pleasant 72 year old male presents for evaluation of chronic low back and neck pain. Today pain 1/10 in neck and upper back, increases to 8/10 at its worst. Patient continue to have sharp aching pain, no radiculopathy. Pain increased in the evenings and with sleep. Patient continues to utilize marijuana, CBD, and THC gummies, tizanidine mild benefit. did not start mobic with potential side effects. Pt recently underwent left and right C5-6, 6-7 facet RFA with moderate relief for 2-3 weeks, no significant ongoing improvement per pt. Continues to have moderate to severe pain at night and cannot sleep on right side. engages in accupuncture with mild relief. increase in right hand OA pain and bilateral elbow pain. recent bilateral should xray negative for OA. cc:: CC: Kristina Baltazar NP Review of Systems 2 ROS0 Status of ROS 10 or more systems reviewed and unremark able except as noted in history and below Musculoskeletal Reports: neck pain and joint pain PFSH PFSH Medical History (Updated 04/02/24 @ 12:31 by Kristina Baltazar NP) Hiatal hernia ?K44.9 - Diaphragmatic hernia without obstruction or gangrene (ICD-10) Low back pain ?M54.50 - Low back pain, unspecified (ICD-10) Asthma ?J45.909 - Unspecified asthma, uncomplicated (ICD-10) Sleep apnea ?G47.30 - Sleep apnea, unspecified (ICD-10) Irregular heartbeat ?I49.9 - Cardiac arrhythmia, unspecified (ICD-10) Surgical History H/O carpal tunnel repair ?Z98.890 - Other specified postprocedural states (ICD-10) History of left knee surgery ?Z98.890 - Other specified postprocedural states (ICD-10) H/O cardiac radiofrequency ablation ?Z98.890 - Other specified postprocedural states (ICD-10) H/O vein stripping ?Z98.890 - Other specified postprocedural states (ICD-10) Hx of tonsillectomy ?Z90.89 - Acquired absence of other organs (ICD-10) Meds Home Medications and Allergies Home Medications ?Medication ?Instructions ?Recorded ?Confirmed ?Type cholecalciferol (vitamin D3) 10 10 mcg PO DAILY 06/21/23 03/04/24 History mcg (400 unit) capsule (Vitamin D3) magnesium glycinate mg PO 06/21/23 History melatonin 10 mg capsule 10 mg PO DAILY 06/21/23 03/04/24 History pramipexole 0.25 mg tablet 0.25 mg PO DAILY 06/21/23 03/04/24 History (Mirapex) tizanidine 4 mg capsule 4 mg PO DAILY 11/28/23 03/04/24 History aspirin 81 mg capsule 81 mg PO DAILY 01/15/24 03/04/24 History potassium 75 mg tablet mg PO 01/15/24 History Allergies Allergy/AdvReac Type Severity Reaction Status Date / Time celecoxib [From Celebrex] Allergy Unknown Verified 03/04/24 08:08 adhesive AdvReac Verified 03/04/24 08:08 metoprolol [From Toprol XL] AdvReac Verified 03/04/24 08:08 Exam Constitutional Documenting provider has reviewed patient's vital signs: yes Common normals: no apparent distress, oriented x3, healthy appearing, alert and well nourished General appearance: cooperative HENMT Common normals: normocephalic, hearing grossly normal bilaterally and moist oral mucous membranes Head and scalp: normocephalic Eye Common normals: PERRL Pupil: PERRL Neck & C-Spine Common normals: full ROM General: normal visual inspection Cervical spine: pain with cervical ROM Other: negative spurlings negative facet loading no pain over cervical facets on exam Chest Common normals: inspection of chest normal Respiratory Common normals: normal respiratory effort, no retractions and no use of accessory muscles Back & Pelvis Lumbar spine/lower back: ROM limited, pain with ROM and straight leg raise negative bilaterally Sacroiliac joints: SI joints normal Extremity Common normals: normal to inspection and full ROM Right upper extremity: shoulder joint Left upper extremity: shoulder joint Other: bilateral shoulders increased pain with overhead movements right side increased pain and sensitivity over right suprascapular nerve, increased pain with palption. bilateral empty can test positive, posterior liftoff positive, crossbody adduction positive ROM intact but painful myofascial pain as noted below Extremity image (back): 2 1. 2. 3. 4. 5. 6. Neuro Common normals: oriented x3, CN's II-XII intact bilaterally, moves all extremities, no focal motor deficits, no sensory deficits noted and deep tendon reflexes 2+ bilaterally Sensorium/orientation: alert Motor exam: strength 5/5 throughout and no movement abnormalities noted Psych Common normals: mental status grossly normal, thought process normal, cooperative, affect normal, speech normal and activity/motor behavior normal Speech: normal speech Thought process: normal thought process Results Additional Findings Additional findings: If on a controlled substance or opioids, I have checked an OARRS report on this patient and there are no aberrancies noted in the prescribing history.??If on a controlled substance or opioid a drug screen was completed and reviewed within the last year, and if there has not been a drug screen completed we ordered one today to monitor higher risk, state monitored pain medication use. As part of providing excellent, safe, comprehensive care, the following was completed at our patient's visit: 1. A medication reconciliation and review to ensure accurate knowledge of current/active medications, including asking our patients to inform us about any dqhu-cyn-vdngajy medications or herbal remedies/nutritional supplements/alternative remedies. 2. A review to specifically ensure our patients have had annual screening for screening for depression, screening for tobacco use, and screening for unhealthy alcohol use. For concerning screenings had a discussion with the patient, provided patient education, and recommended follow-up with primary care provider when appropriate. If patient noted with a risk of falling, they received education on strength, gait, and balance training to prevent future risk of falling. Assessment and Plan Assessment and Plan (1) Muscle spasm: (2) Trapezius muscle strain: (3) Bilateral shoulder pain: (4) Cervical spondylosis: (5) Marijuana use: Plan f/u with Dr Mistry for assessment. at this time i would not recommend further workup for cervical pathology, likely myofascial or related to suprascapular nerves. Recommending bilateral trapezius and suprascapular TPI
== END 2024-05-01 13:09 | disposition home or self-care (01) ==
LOC: PM 13:09
PROVIDERS: PCP Family Medicine; Visit Provider Nurse Practitioner
DX: M62.838 Other muscle spasm (principal); S46.819A Strain of other muscles, fascia and tendons at shoulder and upper arm level, unspecified arm, initial encounter; M25.511 Pain in right shoulder; M25.512 Pain in left shoulder; M47.892 Other spondylosis, cervical region
CPT/HCPCS: G0463

== ENCOUNTER 2024-05-06 13:56 | Outpatient (OUT) | payer MEDICARE, SELFPAY ==
--- NOTE | 2024-05-06 | CONS_ITS ---
PROCEDURE DATE: 05/06/2024 PROCEDURE: Trigger point injection bilateral levator scapulae, bilateral trapezius. PREOPERATIVE DIAGNOSIS: Pain secondary to myalgia and spasm of the levator scapulae and trapezius bilaterally, as well as cervical spondylosis. POSTOPERATIVE DIAGNOSIS: Pain secondary to myalgia and spasm of the levator scapulae and trapezius bilaterally, as well as cervical spondylosis. SOLUTION USED FOR INJECTION: 2 mL of 2% lidocaine, 2 mL of 0.25% Marcaine and 22 mg of Kenalog, total of 5 mL, and 1 mL used for the injection at the site. IMMEDIATE COMPLICATIONS: None. PROCEDURE: After informed consent was obtained from the patient, placed in the sitting, kyphotic position. Skin overlying the area was prepped with alcohol. A 25 gauge, 1 ?? needle inserted into the right levator scapulae. Needle tip advanced there was a mild twitch response. No indication of intravascular or intraneural or intrapleural needle tip placement. 1 mL of solution was injection. No indication of intravascular or intraneural or intrapleural injection was noted. This was repeated in a similar fashion on the contralateral side, as well as in the trapezius bilaterally as well. Post procedure, needle was removed. Patient tolerated the procedure well, without complications. Reported marked reduction in pain symptoms. NEERU
== END 2024-05-06 13:57 | disposition home or self-care (01) ==
LOC: PM 13:56
PROVIDERS: PCP Family Medicine; Visit Provider Anesthesiology Pain Medicine
DX: M47.812 Spondylosis without myelopathy or radiculopathy, cervical region (principal); M79.18 Myalgia, other site; M62.838 Other muscle spasm
CPT/HCPCS: 20553; J0665; J3301

== ENCOUNTER 2024-05-20 11:40 | Outpatient (OUT) | payer MEDICARE, SELFPAY ==
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
== END 2024-05-20 11:41 | disposition home or self-care (01) ==
LOC: PM 11:40
PROVIDERS: PCP Family Medicine; Visit Provider Anesthesiology Pain Medicine
DX: M25.552 Pain in left hip (principal); M62.838 Other muscle spasm
CPT/HCPCS: G0463

== ENCOUNTER 2024-08-06 11:17 | Outpatient (OUT) | payer MEDICARE, SELFPAY ==
--- NOTE | 2024-08-06 12:22 | PM.CN ---
Consult Note: HPI Data of Consult Patient: known to practice within the last 3 years Requesting Physician: Kristina Baltazar NP Primary Care Provider: ALAINA ARREOLA Consult Narrative Reason for consult: f/u Narrative: Eh Aguilar a pleasant 73 year old male presents for evaluation of chronic low back and neck pain. Today pain 0/10 in neck and upper back, increases to 8/10 at its worst. Patient continue to have sharp aching pain, no radiculopathy. Pain increased in the evenings and with sleep. Patient continues to utilize marijuana, CBD, and THC gummies, tizanidine mild benefit. Continues to have moderate to severe pain at night and cannot sleep on right side. engages in accupuncture with mild relief. increase in right hand OA pain and bilateral elbow pain. recent bilateral should xray negative for OA. cc:: CC: Kristina Baltazar NP Review of Systems ROS Status of ROS 10 or more systems reviewed and unremarkable except as noted in history and below Musculoskeletal Reports: neck pain PFSH PFSH Medical History (Updated 08/06/24 @ 12:23 by Kristina Baltazar NP) Hiatal hernia ?K44.9 - Diaphragmatic hernia without obstruction or gangrene (ICD-10) Low back pain ?M54.50 - Low back pain, unspecified (ICD-10) Asthma ?J45.909 - Unspecified asthma, uncomplicated (ICD-10) Sleep apnea ?G47.30 - Sleep apnea, unspecified (ICD-10) Irregular heartbeat ?I49.9 - Cardiac arrhythmia, unspecified (ICD-10) Surgical History H/O carpal tunnel repair ?Z98.890 - Other specified postprocedural states (ICD-10) History of left knee surgery ?Z98.890 - Other specified postprocedural states (ICD-10) H/O cardiac radiofrequency ablation ?Z98.890 - Other specified postprocedural states (ICD-10) H/O vein stripping ?Z98.890 - Other specified postprocedural states (ICD-10) Hx of tonsillectomy ?Z90.89 - Acquired absence of other organs (ICD-10) Meds Home Medications and Allergies Home Medications ?Medication ?Instructions ?Recorded ?Confirmed ?Type cholecalciferol (vitamin D3) 10 10 mcg PO DAILY 06/21/23 03/04/24 History mcg (400 unit) capsule (Vitamin D3) magnesium glycinate mg PO 06/21/23 History melatonin 10 mg capsule 10 mg PO DAILY 06/21/23 03/04/24 History pramipexole 0.25 mg tablet 0.25 mg PO DAILY 06/21/23 03/04/24 History (Mirapex) tizanidine 4 mg capsule 4 mg PO DAILY 11/28/23 03/04/24 History aspirin 81 mg capsule 81 mg PO DAILY 01/15/24 03/04/24 History potassium 75 mg tablet mg PO 01/15/24 History Allergies Allergy/AdvReac Type Severity Reaction Status Date / Time celecoxib (From Celebrex) Allergy Unknown Verified 03/04/24 08:08 adhesive AdvReac Verified 03/04/24 08:08 metoprolol (From Toprol XL) AdvReac Verified 03/04/24 08:08 Exam Constitutional Documenting provider has reviewed patient's vital signs: yes Common normals: no apparent distress, oriented x3, healthy appearing, alert and well nourished General appearance: cooperative [facility] Common normals: normocephalic, hearing grossly normal bilaterally and moist oral mucous membranes Head and scalp: normocephalic Eye Common normals: PERRL Pupil: PERRL Neck & C-Spine Common normals: full ROM General: normal visual inspection Cervical spine: pain with cervical ROM, paracervical muscle tenderness and paracervical muscle spasm Other: negative spurlings negative facet loading no pain over cervical facets on exam Chest Common normals: inspection of chest normal Respiratory Common normals: normal respiratory effort, no retractions and no use of accessory muscles Back & Pelvis Lumbar spine/lower back: ROM limited, pain with ROM and straight leg raise negative bilaterally Sacroiliac joints: SI joints normal Extremity Common normals: normal to inspection and full ROM Right upper extremity: shoulder joint Left upper extremity: shoulder joint Other: bilateral shoulders increased pain with overhead movements right side increased pain and sensitivity over right suprascapular nerve, increased pain with palption. bilateral empty can test positive, posterior liftoff positive, crossbody adduction positive ROM intact but painful myofascial pain as noted below Neuro Common normals: oriented x3, CN's II-XII intact bilaterally, moves all extremities, no focal motor deficits, no sensory deficits noted and deep tendon reflexes 2+ bilaterally Sensorium/orientation: alert Motor exam: strength 5/5 throughout and no movement abnormalities noted Psych Common normals: mental status grossly normal, thought process normal, cooperative, affect normal, speech normal and activity/motor behavior normal Speech: normal speech Thought process: normal thought process Results Additional Findings Additional findings: If on a controlled substance or opioids, I have checked an OARRS report on this patient and there are no aberrancies noted in the prescribing history.??If on a controlled substance or opioid a drug screen was completed and reviewed within the last year, and if there has not been a drug screen completed we ordered one today to monitor higher risk, state monitored pain medication use. As part of providing excellent, safe, comprehensive care, the following was completed at our patient's visit: 1. A medication reconciliation and review to ensure accurate knowledge of current/active medications, including asking our patients to inform us about any xiub-tkg-ryfgxyb medications or herbal remedies/nutritional supplements/alternative remedies. 2. A review to specifically ensure our patients have had annual screening for screening for depression, screening for tobacco use, and screening for unhealthy alcohol use. For concerning screenings had a discussion with the patient, provided patient education, and recommended follow-up with primary care provider when appropriate. If patient noted with a risk of falling, they received education on strength, gait, and balance training to prevent future risk of falling. Assessment and Plan Assessment and Plan (1) Myofascial pain: (2) Cervical spondylosis: Plan encouraged PT/HEP 2-3x/week with resistance bands encouraged regular use of topical creams for pain, BID-TID increase tizanidine 4-8mg HS PRN, if fails to benefit start robaxin 500-1000mg HS PRN pain/spasms utilizes THC/CBD encouraged TENS f/u 3 months, sooner if needed
== END 2024-08-06 11:18 | disposition home or self-care (01) ==
LOC: PM 11:18
PROVIDERS: PCP Family Medicine; Visit Provider Nurse Practitioner
DX: M79.18 Myalgia, other site (principal); M47.812 Spondylosis without myelopathy or radiculopathy, cervical region
CPT/HCPCS: G0463

== ENCOUNTER 2024-11-05 12:50 | Outpatient (OUT) | payer MEDICARE, SELFPAY ==
--- OUTSIDE RECORDS SUMMARY | 2024-11-05 13:04 | XMS_ITS | CCD ---
Author Organization [facility] Care Team Providers Care Recreational Director Name Role Phone TUDICO, KASEY (PA) Unavailable Unavailable TUDICO, KASEY (PA) Unavailable Unavailable TUDICO, KASEY (PA) Unavailable Unavailable BENZEL, EDWARD C Unavailable Unavailable TUDICO, KASEY (PA) Unavailable Unavailable BENZEL, EDWARD C Unavailable Unavailable ALEJANDRO MONTANEZ Unavailable Unavailable BENZEL, EDWARD C Unavailable Unavailable JO CAMPBELL (TRAUMA THERAPIST) Unavailable Unavailabl e BENZEL, EDWARD C Unavailable Unavailable DEFRANCE, DR FOLEY Primary Care Unavailable [...] PASCAL ., DR KOFI Agrawal Admitting Unavailable RONALBRYAN HAMILTON Consulting Unava ilable SCHULER ., SID Consulting [...] FOLEY Primary Care Unavailable PASCAL ., DR OKFI Agrwaal Attending Unavailable PASCAL ., DR KOFI Agrawal [...] PASCAL ., DR KOFI Agrawal Admitting Unavailable Schlachter CLAIM TECHNICIAN-TRAUMA THERAPIST, [facility] Primary Care Provide r Pedro Arevalo MD Attending Unavailable DAVID SAXENA Attending Unavailable Schlachter CLAIM TECHNICIAN-TRAUMA THERAPIST, [facility] Primary Care Provide r JAQUI FLYNN Attending Unavailable SCHLACHTER, JAQUI Referring Unavailable SCHLACHTER, JAQUI Primary Care Unavailable SCHLACHTERJAQUI Attending Unavailable SCHLACHTER, JAQUI Referring Unavailable SCHLACHTER, JAQUI Primary Care Unavailable SCHLACHTER, JAQUI Attending Unavailable SCHLACHTER, JAQUI Referring Unavailable SCHLACHTER, JAQUI Primary Care Unavailable SCHLACHTER, JAQUI Primary Care Unavailable CHARLIE STEINBERG Referring Unavailable SCHLACHTER, JAQUI Referring Unavailable SCHLACHTER, JAQUI Primary Care Unavailable CHARLIE STEINBERG Referring Unavailable SCHLACHTER, JAQUI Primary Care Unavailable SCHLACHTER, AJQUI Primary Care Unavailable MARTIN KUMAR Attending Unavailable SCHSANDRINECHTER, JAQUI Referring Unavailable SCHLACHTER, JAQUI Primary Care Unavailable SCHLACHTER, JAQUI Referring Unavailable SCHLACHTER, JAQUI Primary Care Unavailable BRITNEY PRICE Attending Unavailable SCHLACHTER, JAQUI Referring Unavailable SCHLACHTER, JAQUI Primary Care Unavailable SCHLACHTER, JAQUI Referring Unavailable SCHLACHTER, JAQUI Primary Care Unavailable BRITNEY PRICE Referring Unavailable SCHLACHTER, JAQUI Primary Care Unavailable Allergies Allergy Classification Reported Allergen(s) Allergy Type Date of Onset Reaction(s) Facility (1 source) OTHER; Translations: [OTHER] Propensity to adverse reactions (disorder) 3 [facility] Repository (1 source) Adhesive bandage Drug allergy (disorder) [facility] (1 source) celecoxib Drug Allergy [facility] (1 source) Pyridoxal Drug Allergy [facility] (10 sources) Adhesive agent; Translations: [ADHESIVE] Propensity to adverse reactions to drug 8 [facility] (10 sources) celecoxib; Translations: [CELECOXIB] Drug Allergy 8 Palpitations [facility] (10 sources) Metoprolol; Translations: [METOPROLOL SUCCINATE] Drug Allergy 8 Palpitations [facility] (10 sources) Terazosin; Translations: [TERAZOSIN] Drug Allergy 4 Other (See Comments) [facility] Medications Current Medications Medication Drug Class(es) Dates Sig (Normalized) Sig (Original) [id number] 200 actuat albuterol 0.09 mg/actuat metered dose inhaler (7 sources) beta2-Adrenergic Agonist Start: 05-04-2023 take 2 puff(s) by inhalation every six hours as needed for wheezing albuterol (PROVENTIL HFA;VENTOLIN HFA) 90 mcg/actuation inhaler Indications: Intermittent asthma without complication, unspecified asthma severity Inhale 2 puffs every 6 (six) hours as needed for wheezing. 18 g 5 05/04/2023 Active aspirin 81 mg delayed release oral tablet (7 sources) Platelet Aggregation Inhibitor, Nonsteroidal Anti-inflammatory Drug Start: 09-19-2023 take 1 tablet by mouth in the morning aspirin 81 mg Indications: Abnormal nuclear stress test Take 1 tablet (81 mg total) by mouth in the morning. 09/19/2023 Active cholecalciferol 0.05 mg oral capsule (7 sources) Vitamin D take 1 capsule by mouth in the morning cholecalciferol, vitamin D3, 2,000 units capsule Take 1 capsule (2,000 Units total) by mouth in the morning. Active magnesium oxide/magnesium (BL-SDGF-QIDRWAR ORAL) (7 sources) take 1 tablet by mouth once daily magnesium oxide/magnesium (DO-NBIX-PZHKDSI ORAL) Magnesium (oxide/AA chelate) takes 1 tablet daily at night Active take 1 tablet by mouth once kobi y magnesium oxide/magnesium (FM-ATBC-QLLOVYA ORAL) Magnesium (oxide/AA chelate) takes 1 tablet daily at night 0 Active potassium gluconate 2.5 meq oral tablet (7 sources) potassium glucon ate 2.5 mEq tablet Take by mouth daily. Active pramipexole dihydrochloride 0.75 mg oral tablet (9 sources) Nonergot Dopamine Agonist Start: take 1 tablet by mouth once daily in the morning pramipexole (MIRAPEX) 0.75 MG tablet TAKE 1 TABLET BY MOUTH EVERY MORNING 90 tablet 1 11/04/2024 Active Start: 05-07-2024 End: 11-04-2024 take 1 tablet by mouth in the morning pramipexole (MIRAPEX) 0.75 MG tablet Take 1 tablet (0.75 mg total) by mouth in the morning for 180 days. 90 tablet 1 05/07/2024 11/04/2024 Discontinued Start: 08-14-2023 End: 04-30-2024 take 1 tablet by mouth in the morning pramipexole (MIRAPEX) 0.75 MG tablet Take 1 tablet (0.75 mg total) by mouth in the morning for 180 days. 90 tablet 1 11/02/2023 04/30/2024 Active tiZANidine 4 mg oral tablet (7 sources) Central alpha-2 Adrenergic Agonist Start: 08-22-2023 take 1 tablet by mouth every six hours as needed tiZANidine (ZANAFLEX) 4 mg tablet Take 1 tablet (4 mg total) by mouth every 6 (six) hours as needed. 08/22/2023 Active vitamin b12 0.05 mg oral tablet (7 sources) Vitamin B12 take 1 tablet by mouth in the morning cyanocobalamin (vitamin B-12) 50 mcg tablet Take 1 tablet (50 mcg total) by mouth in the morning. Active Problems Active Problems Problem Classification Problem Date Documented Da te Episodic/Chronic Cardiac dysrhythmias (16 sources) Multiple premature ventricular complexes; Translations: [Ventricular premature depolarization] Onset: 09-19-2023 09-19-2023 Chronic Cardiac dysrhythmias (4 sources) Bradycardia; Translations: [Bradycardia, unspecified] Onset: 08-18-2024 08-18-2024 Episodic Conduction disorders (7 sources) Right bundle branch block AND left anterior fascicular block; Translations: [Bifascicular block] Onset: 08-28-2023 08-28-2023 Chronic Disorders of lipid metabolism (2 sources) Hyperlipidemia, unspecified; Translations: [Hyperlipidemia, unspecified] Onset: 05-07-2024 Chronic Hyperplasia of prostate (7 sources) Urinary frequency due to benign prostatic hypertrophy; Translations: [Benign prostatic hyperplasia with lower urinary tract symptoms] Onset: 01-07-2021 01-07-2021 Chronic Nutritional deficiencies (2 sources) Vitamin D deficiency, unspecified; Translations: [Vitamin D deficiency, unspecified] Onset: 05-07-2024 Chronic Other acquired deformities (1 source) Scoliosis, unspecified; Translations: [Scoliosis, unspecified] Onset: 01-21-2018 Chronic Other acquired deformities (1 source) Other forms of scoliosis, lumbar region; Translations: [OTHER FORMS SCOLIOSIS LUMBAR REGION] Onset: 09-05-2022 Chronic Other circulatory disease (6 sources) Elevated blood-pressure reading without diagnosis of hypertension; Translations: [Elevated blood-pressure reading, without diagnosis of hypertension] Onset: 10-03-2024 10-03-2024 Episodic Other circulatory disease (1 source) Elevated blood-pressure reading, without diagnosis of hypertension; Translations: [Elevated blood-pressure reading, without diagnosis of hypertension] Onset: 10-03-2024 Episodic Other connective tissue disease (1 source) Pain in left arm; Translations: [Pain in left arm] Onset: 01-21-2018 Episodic Other hereditary and degenerative nervous system conditions (1 source) Restless legs syndrome; Translations: [Restless legs syndrome] Onset: 05-07-2024 Chronic Other nervous system disorders (1 source) Other chronic pain; Translations: [OTHER CHRONIC PAIN] Onset: 08-09-2022 Chronic Other nervous system disorders (1 source) Polyneuropathy, unspecified; Translations: [Polyneuropathy, unspecified] Onset: 05-07-2024 Chronic Spondylosis; intervertebral disc disorders; other back problems (20 sources) Other spondylosis with myelopathy, cervical region; Translations: [Other spondylosis with radiculopathy, lumbar region] Onset: 01-21-2018 Chronic Spondylosis; intervertebral disc disorders; other back problems (16 sources) Radiculopathy, lumbar region; Translations: [Spinal stenosis, cervical region] Onset: 01-21-2018 Episodic Syncope (6 sources) Syncope; Translations: [Syncope and collapse] Onset: 08-18-2024 11-02-2023 Episodic Unclassified (1 source) LOW BACK PAIN, UNSPECIFIED; Translations: [LOW BACK PAIN, UNSPECIFIED] Onset: 12-04-2022 Unclassified (1 source) CONTACT W/AND (SUSP) EXPOS COVID-19; Translations: [CONTACT W/AND (SUSP) EXPOS COVID-19] Onset: 07-30-2022 Unclassified (1 source) Annual Exam Onset: 05-07-2024 Unclassified (1 source) Weakness - Generalized Onset: 06-17-2024 Past or Other Problems Problem Classification Problem Date Documented Date Episodic/Chronic Diabetes mellitus without complication (2 sources) Impaired fasting glucose; Translations: [Impaired fasting glucose] Onset: 05-07-2024 Episodic Epilepsy; convulsions (2 sources) Neurological finding; Translations: [Unspecified convulsions] Onset: 05-07-2024 11-02-2023 Episodic Malaise and fatigue (2 sources) Other fatigue; Translations: [Asthenia] Onset: 06-17-2024 Episodic Mood disorders (7 sources) Mood disorders Onset: 06-01-2023 Resolved: 05-07-2024 06-01-2023 Other connective tissue disease (1 source) Other muscle spasm; Translations: [OTHER MUSCLE SPASM] Onset: 04-17-2022 Episodic Other non-traumatic joint disorders (1 source) Pain in right shoulder; Translations: [Pain in right shoulder] Onset: 04-29-2024 Episodic Other non-traumatic joint disorders (1 source) Pain in left shoulder; Translations: [Pain in left shoulder] Onset: 04-29-2024 Episodic Other screening for suspected conditions (not mental disorders or infectious disease) (20 sources) Electrocardiogram abnormal; Translations: [Abnormal electrocardiogram [ECG] [EKG]] Onset: 01-07-2021 Resolved: 08-28-2023 08-28-2023 Episodic Residual codes; unclassified (15 sources) History of syncope; Translations: [Personal history of other specified conditions] Onset: 08-28-2023 Resolved: 09-19-2023 08-28-2023 Episodic Residual codes; unclassified (7 sources) History of radiofrequency ablation operation for arrhythmia; Translations: [Other specified postprocedural states] Onset: 08-28-2023 08-28-2023 Episodic Residual codes; unclassified (1 source) Personal history of other specified conditions; Translations: [Personal history of other specified conditions] Onset: 08-28-2023 Episodic Unclassified (7 sources) Onset: 11-02-2023 Resolved: 05-07-2024 11-02-2023 Varicose veins of lower extremity (7 sources) Varicose veins of bilateral lower limbs; Translations: [Asymptomatic varicose veins of bilateral lower extremities] Onset: 05-03-2021 05-03-2021 Episodic Results Test Name Value Interpretation Reference Range Facility CT CTA COR ARTERIES W OR WO SCORINGon 10-22-2024 CT CTA COR ARTERIES W OR WO SCORING CT CTA COR ARTERIES W OR WO SCORING CLINICAL INFORMATION: CAD monitoring, abnormal stress imaging. TECHNIQUE: Computed tomography (CT) of the heart was obtained using electrocardiography (ECG) triggering. 100 mL of Omni 350 contrast was administered intravenously. In preparation for the examination, the patient received 0.8 mg sublingual nitroglycerin tablet for coronary vasodilation. There were no complications 3-D volume rendered maximum intensity projection images were generated and reviewed under concurrent physician supervision on an independent workstation.. No FFR performed. All CT scans at this facility use dose modulation, iterative reconstruction, and/or weight based dosing when appropriate to reduce radiation dose to as low as reasonably achievable. COMPARISON: Nuclear stress Lexiscan 09/14/2023 EXTRACARDIAC FINDINGS: Visualized lungs and mediastinum appear unremarkable. Tiny hypoattenuating left hepatic lesion statistically likely to reflect hepatic hemangioma in the absence of history of malignancy. Moderate-sized hiatal hernia. The pulmonary arteries are normal. The visualized thoracic aorta is normal. CARDIAC MORPHOLOGY: The right atrium is normal. The right ventricle is normal. The left atrium is normal. The left ventricle is normal. Mild tricuspid valve leaflet/annular calcification. The pericardium is normal CALCIUM SCORE: Agatston Score: The total (aggregate) calcium score using the AJ-130 method is 2336.3. Total volume score is 1921.9. 93% of similar patients have less coronary artery calcium {this is reported using the interactive ALONZO form found at [email or web address].alonzo-nhlbi.org} Individual major vessel AJ-130 scores are: LM = 0 LAD = 427.0 LCX = 0.4 RCA/PDA = 1908.9 Other = [address] Angiogram: The overall quality of the CT angiographic examination is good. It is limited by patient motion. Coronary Artery Angiogram Findings: Stenoses are reported as maximum percentage diameter stenosis. Stenosis grading is reported using the following scheme: Normal: no stenosis Mild: 1-49% stenosis Moderate: 50-70% stenosis Severe: >70% stenosis Occluded The coronary artery system is right dominant with normal origins. The LM has no stenosis with no plaque. Moderate stenosis of the proximal LAD secondary to mixed plaque. Moderate stenosis proximal D1 branch secondary to noncalcified plaque. Small branch arising from the D1 branch also has proximal moderate stenosis secondary to noncalcified plaque. Mild luminal irregularity of the left circumflex artery secondary to primarily noncalcified plaque. No high-grade stenosis. Obtuse marginal branches appear patent without significant plaque. Diffuse mild to moderate stenosis of the RCA secondary to calcification, with multiple areas of suspected focal moderate narrowing in the proximal (series 1193 image 38) and distal (series 1193 image 41) segments. Acute marginal branches appear patent without significant plaque. Distal RPLB and RPDA branches appear patent with minimal mixed plaque. IMPRESSION: Moderate stenosis of the proximal LAD, moderate stenosis of proximal/ostial D1 branch. Diffuse mild to moderate stenosis of the RCA with multiple areas of disease No FFR performed. Total calcium score of 2336.3; 93% of similar patients have less coronary artery calcium. Moderate-sized hiatal hernia. The coronary arteries and cardiac structures were co-interpreted by Dr. Roberts and Resident: Mathew Jung MD of the department of radiology and Dr. Mckeon of department of cardiology. The extracardiac structures including the lungs were solely interpreted by Dr. Roberts and Resident: Mathew Jung MD of the department of radiology. Calcium Score interpretation and guidelines for asymptomatic individuals, 45 - 75 years of age are as follows: Estimated Risk of a Total Score Relative Risk Coronary Event Each Year 0 very low risk 2 per 1000 1-10 low risk 5 per 1000 11-100 intermediate risk 5 to 20 per 1000 101-400 moderately high risk more than 2 per 100 over 400 high risk between 2 and 5 per 100; approximately 15% chance of significant blockages; consideration should be given to obtaining stress echo or stress nuclear testing. Approved by Resident: Mathew Jung MD on 10/22/2024 3:22 PM I, Janis Roberts MD have personally reviewed the image(s) and agree with and/or edited the report Finalized by Janis Roberts MD on 10/22/2024 3:42 PM Normal [facility] CBC AND AUTO DIFFon 10-03-19 25 ABSOLUTE BASOPHIL 0.1 X10E9/L Normal 0.0-0.2 [facility] Comment on above: Performed By: #### C BCA, CMP #### [facility] ([id number]) [address], [address] [place] [address] ABSOLUTE NEUTROPHIL 2.9 X10E9/L Normal 1.5-6.6 [facility] Comment on above: Performed By: #### C BCA, CMP #### [facility] ([id number]) [address], [address] [place] [address] Basophils/100 WBC (Bld) 2.5 % Normal [facility] Comment on above: Performed By: #### C BCA, CMP #### [facility] ([id number]) [address], [address] [place] [address] Eosinophils (Bld) [#/Vol] 0.1 10*3/uL Normal 0.0-0.4 [facility] Comment on above: Performed By: #### C BCA, CMP #### [facility] ([id number]) [address], [address] [place] [address] Eosinophils/100 WBC (Bld) 2.8 % Normal [facility] Comment on above: Performed By: #### C BCA, CMP #### [facility] ([id number]) [address], [address] [place] [address] Erythrocyte distribution width (RBC) [Ratio] 12.4 % Normal 11.5-15.0 [facility] Comment on above: Performed By: #### C BCA, CMP #### [facility] ([id number]) [address], [address] [place] [address] Hematocrit (Bld) [Volume fraction] 41.0 % Normal 39-49 [facility] Comment on above: Performed By: #### C BCA, CMP #### [facility] ([id number]) [address], [address] [place] [address] Hemoglobin (Bld) [Mass/Vol] 14.1 g/dL Normal 13.0-17.0 [facility] Comment on above: Performed By: #### C BCA, CMP #### [facility] ([id number]) [address], [address] [place] [address] Lymphocytes (Bld) [#/Vol] 1.4 10*3/uL Normal 1.0-3.5 [facility] Comment on above: Performed By: #### C BCA, CMP #### [facility] ([id number]) [address], [address] [place] [address] Lymphocytes/100 WBC (Bld) 27.2 % Normal [facility] Comment on above: Performed By: #### C BCA, CMP #### [facility] ([id number]) [address] [place] [address] MCH (RBC) [Entitic mass] 31.3 pg Normal 27-34 [facility] Comment on above: Performed By: #### C BCA, CMP #### [facility] ([id number]) [address] [place] [address] MCHC (RBC) [Mass/Vol] 34.3 g/dL Normal 32-36 [facility] Comment on above: Performed By: #### C JENN, CMP #### [facility] ([id number]) [address], [address] [place] [address] MCV (RBC) [Entitic vol] 91 fL Normal 80-100 [facility] Comment on above: Performed By: #### C BCA, CMP #### [facility] ([id number]) [address], [address] [place] [address] Monocytes (Bld) [#/Vol] 0.5 10*3/uL Normal 0-0.9 [facility] Comment on above: Performed By: #### C BCA, CMP #### [facility] ([id number]) [address], [address] [place] [address] Monocytes/100 WBC (Bld) 9.9 % Normal [facility] Comment on above: Performed By: #### C BCA, CMP #### [facility] ([id number]) [address], [address] [place] [address] Neutrophils/100 WBC (Bld) 57.6 % Normal [facility] Comment on above: Performed By: #### C BCA, CMP #### [facility] ([id number]) [address], [address] [place] [address] Platelet mean volume (Bld) [Entitic vol] 8.4 fL Normal 7-12 [facility] Comment on above: Performed By: #### C BCA, CMP #### [facility] ([id number]) [address], [address] [place] [address] Platelets (Bld) [#/Vol] 220 10*3/uL Normal 150-450 [facility] Comment on above: Performed By: #### C BCA, CMP #### [facility] ([id number]) [address], [address] [place] [address] RBC COUNT 4.50 X10E12/L Normal 4.10-5.70 [facility] Comment on above: Performed By: #### C BCA, CMP #### [facility] ([id number]) [address], [address] [place] [address] WBC (Bld) [#/Vol] 5.1 10*3/uL Normal 4.0-11.0 [facility] Comment on above: Performed By: #### C BCA, CMP #### [facility] ([id number]) [address], [address] [place] [address] COMPREHENSIVE METABOLIC PANE Khoi 10-03-2024 Albumin [Mass/Vol] 4.0 g/dL Normal 3.2-5.3 [facility] Comment on above: Performed By: #### C BCA, 2857-1, THYR, CMP, HA1C, 75216-0 #### [facility] ([id number]) [address], [address] [place] [address] ALP [Catalytic activity/Vol] 78 U/L Normal 39-130 [facility] Comment on above: Performed By: #### C BCA, 2857-1, THYR, CMP, HA1C, 09173-5 #### [facility] ([id number]) [address], [address] [place] [address] ALT [Catalytic activity/Vol] 21 U/L Normal 0-40 [facility] Comment on above: Performed By: #### C BCA, 2857-1, THYR, CMP, HA1C, 51798-4 #### [facility] ([id number]) [address], [address] [place] [address] Anion gap [Moles/Vol] 8 mmol/L Normal 5-15 [facility] Comment on above: Performed By: #### C BCA, 2857-1, THYR, CMP, HA1C, 93606-9 #### [facility] ([id number]) [address], [address] [place] [address] AST [Catalytic activity/Vol] 24 U/L Normal 0-41 [facility] Comment on above: Performed By: #### C BCA, 2857-1, THYR, CMP, HA1C, 67446-6 #### [facility] ([id number]) [address], [address] [place] [address] Bilirubin [Mass/Vol] 0.5 mg/dL Normal 0.3-1.2 [facility] Comment on above: Performed By: #### C BCA, 2857-1, THYR, CMP, HA1C, 41014-8 #### [facility] ([id number]) [address], [address] [place] [address] Calcium [Mass/Vol] 9.1 mg/dL Normal 8.5-10.5 [facility] Comment on above: Performed By: #### C BCA, 2857-1, THYR, CMP, HA1C, 15864-9 #### [facility] ([id number]) [address], [address] [place] [address] Chloride [Moles/Vol] 107 mmol/L Normal 98-109 [facility] Comment on above: Performed By: #### C BCA, 2857-1, THYR, CMP, HA1C, 03062-5 #### [facility] ([id number]) [address], [address] [place] [address] CO2 [Moles/Vol] 25 mmol/L Normal 22-32 [facility] Comment on above: Performed By: #### C BCA, 2857-1, THYR, CMP, HA1C, 55808-7 #### [facility] ([id number]) [address], [address] [place] [address] Creatinine [Mass/Vol] 1.00 mg/dL Normal 0.60-1.30 [facility] Comment on above: Result Comment: METH OD TRACEABLE TO IDMS STANDARD Performed By: #### C BCA, 2857-1, THYR, CMP, HA1C, 32667-7 #### [facility] ([id number]) [address], [address] [place] [address] GFR/1.73 sq M.predicted among non-blacks MDRD (S/P/Bld) [Vol rate/Area] 79 mL/min/{1.73_m2} Normal >59 [facility] Comment on above: Result Comment: Reported eGFR is based on the CKD-EPI 2020 equation that does not use a race coefficient. Performed By: #### C BCA, 2857-1, THYR, CMP, HA1C, 46842-3 #### [facility] ([id number]) [address], [address] [place] [address] Glucose [Mass/Vol] 106 mg/dL High 65-99 [facility] Comment on above: Performed By: #### C BCA, 2857-1, THYR, CMP, HA1C, 68271-0 #### [facility] ([id number]) [address], [address] [place] [address] Potassium [Moles/Vol] 4.4 mmol/L Normal 3.5-5.0 [facility] Comment on above: Performed By: #### C BCA, 2857-1, THYR, CMP, HA1C, 88724-2 #### [facility] ([id number]) [address], [address] [place] [address] Protein [Mass/Vol] 6.7 g/dL Normal 6.0-8.0 [facility] Comment on above: Performed By: #### C BCA, 2857-1, THYR, CMP, HA1C, 27213-3 #### [facility] ([id number]) [address], [address] [place] [address] Sodium [Moles/Vol] 140 mmol/L Normal 134-146 [facility] Comment on above: Performed By: #### C BCA, 2857-1, THYR, CMP, HA1C, 32834-9 #### [facility] ([id number]) [address], [facility] [address] [place] [address] Urea nitrogen [Mass/Vol] 22 mg/dL Normal 5-27 [facility] Comment on above: Performed By: #### C BCA, 2857-1, THYR, CMP, HA1C, 05891-8 #### [facility] ([id number]) [address] [address] [place] [address] CBC AND AUTO DIFFon 06-17- 24 ABSOLUTE BASOPHIL 0.0 X10E9/L Normal 0.0-0.2 [facility] Comment on above: Performed By: #### C BCA, CMP #### [facility] ([id number]) [address] [place] [address], [place] [address] ABSOLUTE NEUTROPHIL 7.2 X10E9/L High 1.5-6.6 [facility] Comment on above: Performed By: #### C JENN, CMP #### [facility] ([id number]) [address] [place] [address] 04936 Basophils/100 WBC (Bld) 0.5 % Normal [facility] Comment on above: Performed By: #### C JENN, CMP #### [facility] ([id number]) [address] [place] [address] 18670 Eosinophils (Bld) [#/Vol] 0.1 10*3/uL Normal 0.0-0.4 [facility] Comment on above: Performed By: #### C JENN, CMP #### [facility] ([id number]) [address] [place] [address] 16747 Eosinophils/100 WBC (Bld) 1.4 % Normal [facility] Comment on above: Performed By: #### C JENN, CMP #### [facility] ([id number]) [address] [place] [address] 78641 Erythrocyte distribution width (RBC) [Ratio] 12.6 % Normal 11.5-15.0 [facility] Comment on above: Performed By: #### C JENN, CMP #### [facility] ([id number]) [address] [place] [address] 83228 Hematocrit (Bld) [Volume fraction] 38.5 % Low 39-49 [facility] Comment on above: Performed By: #### C JENN, CMP #### [facility] ([id number]) [address] [place] [address] 66441 Hemoglobin (Bld) [Mass/Vol] 13.1 g/dL Normal 13.0-17.0 [facility] Comment on above: Performed By: #### C JENN, CMP #### [facility] ([id number]) [address] [place] [address] 91323 Lymphocytes (Bld) [#/Vol] 1.2 10*3/uL Normal 1.0-3.5 [facility] Comment on above: Performed By: #### C BCA, CMP #### [facility] ([id number]) [address] [place] [address] 24363 Lymphocytes/100 WBC (Bld) 13.3 % Normal [facility] Comment on above: Performed By: #### C BCA, CMP #### [facility] ([id number]) [address] [place] [address] 62250 MCH (RBC) [Entitic mass] 30.8 pg Normal 27-34 [facility] Comment on above: Performed By: #### C JENN, CMP #### [facility] ([id number]) [address] [place] [address] 99123 MCHC (RBC) [Mass/Vol] 34.0 g/dL Normal 32-36 [facility] Comment on above: Performed By: #### C JENN, CMP #### [facility] ([id number]) [address] [place] [address] 77336 MCV (RBC) [Entitic vol] 91 fL Normal 80-100 [facility] Comment on above: Performed By: #### C BCA, CMP #### [facility] ([id number]) [address] [place] [address] 82963 Monocytes (Bld) [#/Vol] 0.5 10*3/uL Normal 0-0.9 [facility] Comment on above: Performed By: #### C BCA, CMP #### [facility] ([id number]) [address] [place] [address] 86483 Monocytes/100 WBC (Bld) 5.9 % Normal [facility] Comment on above: Performed By: #### C BCA, CMP #### [facility] ([id number]) [address] [place] [address] 75858 Neutrophils/100 WBC (Bld) 78.9 % Normal [facility] Comment on above: Performed By: #### C BCA, CMP #### [facility] ([id number]) [address] [place] [address] 26059 Platelet mean volume (Bld) [Entitic vol] 7.8 fL Normal 7-12 [facility] Comment on above: Performed By: #### C BCA, CMP #### [facility] ([id number]) [address] [place] [address] 96590 Platelets (Bld) [#/Vol] 244 10*3/uL Normal 150-450 [facility] Comment on above: Performed By: #### C JENN, CMP #### [facility] ([id number]) [address] [place] [address] 45432 RBC COUNT 4.24 X10E12/L Normal 4.10-5.70 [facility] Comment on above: Performed By: #### C JENN, CMP #### [facility] ([id number]) [address] [place] [address] 01801 WBC (Bld) [#/Vol] 9.2 10*3/uL Normal 4.0-11.0 [facility] Comment on above: Performed By: #### C BCA, CMP #### [facility] ([id number]) [address] [place] [address] 68021 COMPREHENSIVE METABOLIC PANE Khoi 06-17-2024 Albumin [Mass/Vol] 3.7 g/dL Normal 3.2-5.3 [facility] Comment on above: Performed By: #### C BCA, CMP #### [facility] ([id number]) [address] [place] [address] 04092 ALP [Catalytic activity/Vol] 73 U/L Normal 39-130 [facility] Comment on above: Performed By: #### C BCA, CMP #### [facility] ([id number]) [address] [place] [address] 56927 ALT [Catalytic activity/Vol] 19 U/L Normal 0-40 [facility] Comment on above: Performed By: #### C BCA, CMP #### [facility] ([id number]) [address] [place] [address] [place] [address] Anion gap [Moles/Vol] 6 mmol/L Normal 5-15 [facility] Comment on above: Performed By: #### C BCA, CMP #### [facility] ([id number]) [address] [place] [address] 44433 AST [Catalytic activity/Vol] 23 U/L Normal 0-41 [facility] Comment on above: Performed By: #### C BCA, CMP #### [facility] ([id number]) [address] [place] [address] 76928 Bilirubin [Mass/Vol] 0.6 mg/dL Normal 0.3-1.2 [facility] Comment on above: Performed By: #### C BCA, CMP #### [facility] ([id number]) [address] [place] [address] 19490 Calcium [Mass/Vol] 8.3 mg/dL Low 8.5-10.5 [facility] Comment on above: Performed By: #### C BCA, CMP #### [facility] ([id number]) [address] [place] [address] 10446 Chloride [Moles/Vol] 106 mmol/L Normal 98-109 [facility] Comment on above: Performed By: #### C BCA, CMP #### [facility] ([id number]) [address] [place] [address] 34200 CO2 [Moles/Vol] 25 mmol/L Normal 22-32 [facility] Comment on above: Performed By: #### C BCA, CMP #### [facility] ([id number]) [address] [place] [address] 90165 Creatinine [Mass/Vol] 1.20 mg/dL Normal 0.70-1.20 [facility] Comment on above: Result Comment: METH OD TRACEABLE TO IDMS STANDARD Performed By: #### C BCA, CMP #### [facility] ([id number]) [address] [place] [address] 86557 GFR/1.73 sq M.predicted among non-blacks MDRD (S/P/Bld) [Vol rate/Area] 64 mL/min/{1.73_m2} Normal >59 [facility] Comment on above: Result Comment: Reported eGFR is based on the CKD-EPI 2020 equation that does not use a race coefficient. Performed By: #### C BCA, CMP #### [facility] ([id number]) [address] [place] [address] 48060 Glucose [Mass/Vol] 119 mg/dL High 65-99 [facility] Comment on above: Performed By: #### C BCA, CMP #### [facility] ([id number]) [address] [place] [address] 99742 Potassium [Moles/Vol] 4.2 mmol/L Normal 3.5-5.0 [facility] Comment on above: Performed By: #### C BCA, CMP #### [facility] ([id number]) [address] [place] [address] 58857 Protein [Mass/Vol] 6.3 g/dL Normal 6.0-8.0 [facility] Comment on above: Performed By: #### C BCA, CMP #### [facility] ([id number]) [address] [place] [address] 66612 Sodium [Moles/Vol] 137 mmol/L Normal 134-146 [facility] Comment on above: Performed By: #### C BCA, CMP #### [facility] ([id number]) [address] [place] [address] Urea nitrogen [Mass/Vol] 28 mg/dL High 5-27 [facility] Comment on above: Performed By: #### C BCA, CMP #### [facility] ([id number]) [address] [place] [address] SARS/FLU A+B/RSV by NAAT/Mol ecularon 06-17-2024 SARS/FLU A+B/RSV by NAAT/Molecular FLU A PCR Negative (qualifier value) FLU B PCR Negative (qualifier value) RSV by PCR Negative (qualifier value) SARS CoV 2 Not detected (qualifier value) NOTE The Xpert Xpress SARS-CoV-2/Flu/RSV Plus test is a rapid, multiplexed real-time RT-PCR test intended for the simultaneous qualitative detection and differentiation of SARS-CoV-2, influenza A, influenza B and respiratory syncytial virus (RSV) viral RNA from individuals suspected of respiratory viral infection consistent with COVID-19 by their healthcare provider. This test has not been validated in asymptomatic patients. The Xpert Xpress SARS-CoV-2 test is intended for use by qualified and trained operators who are performing tests using either [employer] DX or [employer]el[employer] Infinity systems and is limited to laboratories that meet the CLIA requirements to perform high and moderate complexity tests. The Xpert Xpress SARS-CoV-2/Flu/RSV Plus is only for use under the Food and Drug Administration's Emergency Use Authorization. Results are for the simultaneous detection and differentiation of SARS-CoV-2, influenza A, influenza B and RSV nucleic acids in clinical specimens. SARS-CoV-2, influenza A, influenza B and RSV RNA identified by this test are generally detectable in upper respiratory samples during the acute phase of infection. Positive results are indicative of the presence of the identified virus, but do not rule out bacterial infection or co-infection with other pathogens not detected by this test. Clinical correlation with patient history and other diagnostic information is necessary to determine patient infection status. The agent detected may not be the definite cause of disease. Negative results do not preclude SARS-CoV-2, influenza A, influenza B and RSV infection and should not be used as the sole basis for treatment or other patient management decisions. Negative results must be combined with clinical observations, patient history and epidemiological information. An Invalid result may occur with specimen-associated inhibition unable to be resolved with specimen repeat. Fact Sheet for Healthcare Providers: https://www.fda.gov/media/ 449874/download Fact Sheet for Patients: https://www.fda.gov/media/ 162620/download Normal [facility] Comment on above: Performed By: #### C OVFLR #### [facility] ([id number]) [address] [place] [address], [place] [address] CBC AND AUTO DIFFon 05-16-20 24 ABSOLUTE BASOPHIL 0.0 X10E9/L Normal 0.0-0.2 [facility] Comment on above: Performed By: #### C BCA, 2857-1, THYR, CMP, HA1C, 21464-4 #### [facility] ([id number]) [address], [address] [place] [address] ABSOLUTE NEUTROPHIL 3.9 X10E9/L Normal 1.5-6.6 [facility] Comment on above: Performed By: #### Chris BCA, 2857-1, THYR, CMP, HA1C, 62404-3 #### [facility] ([id number]) [address], [address] [place] [address] Basophils/100 WBC (Bld) 0.4 % Normal [facility] Comment on above: Performed By: #### C BCA, 2857-1, THYR, CMP, HA1C, 11045-6 #### [facility] ([id number]) [address], [address] [place] [address] Eosinophils (Bld) [#/Vol] 0.1 10*3/uL Normal 0.0-0.4 [facility] Comment on above: Performed By: #### C BCA, 2857-1, THYR, CMP, HA1C, 53934-9 #### [facility] ([id number]) [address] [address] [place] [address] Eosinophils/100 WBC (Bld) 2.2 % Normal [facility] Comment on above: Performed By: #### C BCA, 2857-1, THYR, CMP, HA1C, 01025-4 #### [facility] ([id number]) [address] [address] [place] [address] Erythrocyte distribution width (RBC) [Ratio] 12.3 % Normal 11.5-15.0 [facility] Comment on above: Performed By: #### C BCA, 2857-1, THYR, CMP, HA1C, 46056-4 #### [facility] ([id number]) [address] [address] [place] [address] Hematocrit (Bld) [Volume fraction] 42.9 % Normal 39-49 [facility] Comment on above: Performed By: #### C BCA, 2857-1, THYR, CMP, HA1C, 70096-1 #### [facility] ([id number]) [address] [address] [place] [address] Hemoglobin (Bld) [Mass/Vol] 14.2 g/dL Normal 13.0-17.0 [facility] Comment on above: Performed By: #### C BCA, 2857-1, THYR, CMP, HA1C, 62312-2 #### [facility] ([id number]) [address] [address] [place] [address] Lymphocytes (Bld) [#/Vol] 1.8 10*3/uL Normal 1.0-3.5 [facility] Comment on above: Performed By: #### C BCA, 2857-1, THYR, CMP, HA1C, 77065-1 #### [facility] ([id number]) [address] [address] [place] [address] Lymphocytes/100 WBC (Bld) 27.3 % Normal [facility] Comment on above: Performed By: #### C BCA, 2857-1, THYR, CMP, HA1C, 94288-8 #### [facility] ([id number]) [address] [address] [place] [address] MCH (RBC) [Entitic mass] 30.7 pg Normal 27-34 [facility] Comment on above: Performed By: #### Chris BCA, 2857-1, THYR, CMP, HA1C, 71732-2 #### [facility] ([id number]) [address], [facility] [address] [place] [address] MCHC (RBC) [Mass/Vol] 33.2 g/dL Normal 32-36 [facility] Comment on above: Performed By: #### Chris BCA, 2857-1, THYR, CMP, HA1C, 04446-7 #### [facility] ([id number]) [address], [facility] [address] [place] [address] MCV (RBC) [Entitic vol] 93 fL Normal 80-100 [facility] Comment on above: Performed By: #### Chris BCA, 2857-1, THYR, CMP, HA1C, 49337-5 #### [facility] ([id number]) [address] [address] [place] [address] Monocytes (Bld) [#/Vol] 0.7 10*3/uL Normal 0-0.9 [facility] Comment on above: Performed By: #### C BCA, 2857-1, THYR, CMP, HA1C, 80680-1 #### [facility] ([id number]) [address] [address] [place] [address] Monocytes/100 WBC (Bld) 10.3 % Normal [facility] Comment on above: Performed By: #### Chris BCA, 2857-1, THYR, CMP, HA1C, 89948-1 #### [facility] ([id number]) [address], [address] [place] [address] Neutrophils/100 WBC (Bld) 59.8 % Normal [facility] Comment on above: Performed By: #### C BCA, 2857-1, THYR, CMP, HA1C, 67586-0 #### [facility] ([id number]) [address], [address] [place] [address] Platelet mean volume (Bld) [Entitic vol] 8.3 fL Normal 7-12 [facility] Comment on above: Performed By: #### C BCA, 2857-1, THYR, CMP, HA1C, 28933-8 #### [facility] ([id number]) [address], [facility] [address] [place] [address] Platelets (Bld) [#/Vol] 239 10*3/uL Normal 150-450 [facility] Comment on above: Performed By: #### C BCA, 2857-1, THYR, CMP, HA1C, 60594-8 #### [facility] ([id number]) [address], [facility] [address] [place] [address] RBC COUNT 4.64 X10E12/L Normal 4.10-5.70 [facility] Comment on above: Performed By: #### C BCA, 2857-1, THYR, CMP, HA1C, 77096-0 #### [facility] ([id number]) [address] [address] [place] [address] WBC (Bld) [#/Vol] 6.5 10*3/uL Normal 4.0-11.0 [facility] Comment on above: Performed By: #### C BCA, 2857-1, THYR, CMP, HA1C, 48822-4 #### [facility] ([id number]) [address], [address] [place] [address] COMPREHENSIVE METABOLIC PANE Khoi 05-16-2024 Albumin [Mass/Vol] 4.2 g/dL Normal 3.2-5.3 [facility] Comment on above: Performed By: #### C BCA, 2857-1, THYR, CMP, HA1C, 91718-6 #### [facility] ([id number]) [address], [address] [place] [address] ALP [Catalytic activity/Vol] 79 U/L Normal 39-130 [facility] Comment on above: Performed By: #### C BCA, 2857-1, THYR, CMP, HA1C, 87866-1 #### [facility] ([id number]) [address], [address] [place] [address] ALT [Catalytic activity/Vol] 18 U/L Normal 0-40 [facility] Comment on above: Performed By: #### C BCA, 2857-1, THYR, CMP, HA1C, 61724-8 #### [facility] ([id number]) [address], [address] [place] [address] Anion gap [Moles/Vol] 9 mmol/L Normal 5-15 [facility] Comment on above: Performed By: #### C BCA, 2857-1, THYR, CMP, HA1C, 61649-3 #### [facility] ([id number]) [address], [address] [place] [address] AST [Catalytic activity/Vol] 23 U/L Normal 0-41 [facility] Comment on above: Performed By: #### C BCA, 2857-1, THYR, CMP, HA1C, 54627-9 #### [facility] ([id number]) [address], [address] [place] [address] Bilirubin [Mass/Vol] 0.8 mg/dL Normal 0.3-1.2 [facility] Comment on above: Performed By: #### C BCA, 2857-1, THYR, CMP, HA1C, 91428-1 #### [facility] ([id number]) [address], [address] [place] [address] Calcium [Mass/Vol] 9.2 mg/dL Normal 8.5-10.5 [facility] Comment on above: Performed By: #### C BCA, 2857-1, THYR, CMP, HA1C, 73344-2 #### [facility] ([id number]) [address] [address] [place] [address] Chloride [Moles/Vol] 104 mmol/L Normal 98-109 [facility] Comment on above: Performed By: #### C BCA, 2857-1, THYR, CMP, HA1C, 95807-8 #### [facility] ([id number]) [address] [address] [place] [address] CO2 [Moles/Vol] 27 mmol/L Normal 22-32 [facility] Comment on above: Performed By: #### C BCA, 2857-1, THYR, CMP, HA1C, 25031-7 #### [facility] ([id number]) [address] [address] [place] [address] Creatinine [Mass/Vol] 1.01 mg/dL Normal 0.60-1.30 [facility] Comment on above: Result Comment: METH OD TRACEABLE TO IDMS STANDARD Performed By: #### C BCA, 2857-1, THYR, CMP, HA1C, 45402-6 #### [facility] ([id number]) [address] [address] [place] [address] GFR/1.73 sq M.predicted among non-blacks MDRD (S/P/Bld) [Vol rate/Area] 79 mL/min/{1.73_m2} Normal >59 [facility] Comment on above: Result Comment: Reported eGFR is based on the CKD-EPI 2020 equation that does not use a race coefficient. Performed By: #### C BCA, 2857-1, THYR, CMP, HA1C, 20236-9 #### [facility] ([id number]) [address], [address] [place] [address] Glucose [Mass/Vol] 98 mg/dL Normal 65-99 [facility] Comment on above: Performed By: #### C BCA, 2857-1, THYR, CMP, HA1C, 51591-8 #### [facility] ([id number]) [address], [address] [place] [address] Potassium [Moles/Vol] 4.3 mmol/L Normal 3.5-5.0 [facility] Comment on above: Performed By: #### C BCA, 2857-1, THYR, CMP, HA1C, 81576-3 #### [facility] ([id number]) [address], [address] [place] [address] Protein [Mass/Vol] 6.7 g/dL Normal 6.0-8.0 [facility] Comment on above: Performed By: #### C BCA, 2857-1, THYR, CMP, HA1C, 72739-4 #### [facility] ([id number]) [address], [address] [place] [address] Sodium [Moles/Vol] 140 mmol/L Normal 134-146 [facility] Comment on above: Performed By: #### C BCA, 2857-1, THYR, CMP, HA1C, 13951-3 #### [facility] ([id number]) [address], [address] [place] [address] Urea nitrogen [Mass/Vol] 22 mg/dL Normal 5-27 [facility] Comment on above: Performed By: #### C BCA, 2857-1, THYR, CMP, HA1C, 69894-1 #### [facility] ([id number]) [address], [address] [place] [address] HGB A1C (GLYCO-HGB)on 2023 Glucose [Mass/Vol] 117 mg/dL Normal [facility] Comment on above: Performed By: #### C BCA, 2857-1, THYR, CMP, HA1C, 29577-5 #### [facility] ([id number]) [address] [address] [place] [address] HbA1c (Bld) [Mass fraction] 5.7 % High 4.4-5.6 [facility] Comment on above: Result Comment: NOTE ADA Guidelines Result HgbA1c Normal : less than 5.7 % Prediabetes : 5.7 % to 6.4 % Diabetes : > 6.4 % Use with caution in patients with abnormal hemoglobin variants as the half-life of red blood cells and in vivo glycation rates are affected. Performed By: #### C JENN, 2857-1, THYR, CMP, HA1C, 61001-6 #### [facility] ([id number]) [address] [address] Prostate specific Ag [Mass/V ol]on 05-16-2024 PSA SCREEN 0.36 ng/mL Normal 0.00-4.00 [facility] Comment on above: Result Comment: The method used for this test is Juan Maikel DXI chemiluminescent immunoassay. Values obtained by different assay methods cannot be used interchangeably. Performed By: #### C BCA, 2857-1, THYR, CMP, HA1C, 40893-2 #### [facility] ([id number]) [address] [address] [place] [address] THYROID PROFILEon 05-16-2024 Free T4 [Mass/Vol] 0.90 ng/dL Normal 0.61-1.60 [facility] Comment on above: Performed By: #### C BCA, 2857-1, THYR, CMP, HA1C, 92839-7 #### [facility] ([id number]) [address] [address] TSH 2.15 uIU/mL Normal 0.49-4.67 [facility] Comment on above: Performed By: #### C BCA, 2857-1, THYR, CMP, HA1C, 19032-7 #### [facility] ([id number]) [address] [facility], [address] [place] [address] Vitamin D+Metabolites [Mass/ Vol]on 05-16-2024 VITAMIN D 25 HYD TOT 49.9 ng/mL Normal 30-100 [facility] Comment on above: Result Comment: Vitamin D status 25 [place] Vitamin D Deficiency <20 ng/mL Insufficiency 20-29 ng/mL Sufficiency 30-100 ng/mL Toxicity >100 ng/mL NOTE: A pediatric reference range has not been established by the concession manager of this kit. The [place] [employer] recommends a Vitamin D level of = or >20ng/mL in infants and children. Performed By: #### C BCA, 2857-1, THYR, CMP, HA1C, 69125-0 #### [facility] ([id number]) [address] [place] [address], [address] [place] [address] Covid-19 PCR (CVDTB)on 07-02 SARS-CoV-2 (COVID-19) RNA LADI+probe Ql (Unsp spec) Not detected Normal NOT DETECTED [facility] Comment on above: Result Comment: This test is not yet approved or cleared by the [place] FDA. When there are no FDA-approved or cleared tests available, and other criteria are met, FDA can make tests available under an emergency access mechanism called an Emergency Use Authorization (EUA). The EUA for this test is supported by the [employer] and [employer]'s (HHS's) declaration [...] consistent with SARS-CoV-2. Performed By: #### C [facility] #### [facility] [address] [place] [address] Dr. 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 Sylwia Velazquez and Dr. Montanez. Thisconsultation was shared with the referral source via the [facility] medical record.The patients understanding of the [...] intervention for the low back and left U3vfhvoppy. Finally will ask him to see Jo [...] concerns, they should feel free to contact myoffice.?02/12/18 Dr. Montanez noted - IMPRESSION: (M54.10) Radicular [...] thinking of having this done closer to [place]. He is otherwisescheduled for CPRP in 03/2018.02/05/18 [...] on [employer]. Friend is working some from [facility].REVIEW OF SYSTEMS:PAIN ASSESSMENT: See HPI.GENERAL: Denies fever, [...] or urgency, kidney disease, and burning withurination.MUSCULOSKELE DAEV: see HPISKIN: Denies rash or itching.PSYCHOLOGICAL: + [...] and off and [facility] as an adult[facility] [...] reared 1st of 4 by both parents [place]. Nurture was poor. Mother would never stop [...] He has not had a relationship sincethe . 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 He was providedwith brochure and number to the admission coordinator.Substance use interview is indicated. Chemical education program is indicated.Patient is aware of the following policies and guidelines [facility]:1. no illicit substance [...] policies/guidelines.Goals for treatment include pain reduction, functional congregational, moodnormalization and improved coping.Prognosis is fair.90 minutes total visit with preponderance of time spent on counseling,medication management, education and review. All patients questions regardingabove conditions and coordination of care were addressed.Jo Campbell CNPReferring Provider: SYLWIA VELAZQUEZ [[id number]]Allergies As of Date: 03/06/2018 Noted Allergy ReactionADHESIVE [...] to improve.Follow-up and Disposition History RecordedEncounter Number: [id number] Status:Closed by JO CAMPBELL CNP on 03/06/18 Normal [facility] PROGRESSon 03-06-2018 PROGRESS HNO ID: [id number] thor: Jo (Raul) PattersonService: (none)Author Type: Nurse PractitionerType: Progress NotesFiled: 03/06/2018 2:36 PMNote Text:THE [facility] Pain Rehabilitation EvaluationJune 2017Eh Flores [facility] number: [id number] 67 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 Sylwia Velazquez and Dr. Montanez. Thisconsultation was shared with the referral source via the [facility] medical record.The patients understanding of the [...] thinking of having this done closer to [place].He is otherwise scheduled for CPRP in 03/2018.02/05/18 [...] abuseDevelopmental History: The patient was reared 1st by both parents [place], [place]. Nurture was poor. Mother would never [...] had a relationship since the 70's. 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 He wasprovided with brochure and number to the admission coordinator.Substance use interview is indicated. Chemical education program isindicated.Patient is aware of the following policies and guidelines [facility]:1. no illicit substance [...] policies/guidelines.Goals for treatment include pain reduction, functional congregational, moodnormalization and improved coping.Prognosis is fair.90 minutes total visit with preponderance of time spent on counseling,medication management, education and review. 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 Healthcare Applications Analyst: NoPassive conservative therapy lasting 6 weeks [...] for left arm pain (Rx FMD in [place])uses THC - eases pain but afterwards he feels he has concentration issues brain fog also:- neg Cancer ( other than Hx basal cell)- ETOH - scotch nightly- THC smoking qd- no Hx of DM- Hx of CVAPLAN:Above findings and options discussed..He can have a TFESI @ LEFT L 5-S1 on diagnostic / therapeutic basis.He is thinking of having this done closer to [place].He is otherwise scheduled for CPRP in 03/2018.We can see him prn.Alejandro Montanez, MDReferring Provider: SYLWIA VELAZQUEZ [[id number]]Allergies As of Date: 02/12/2018 Noted Allergy ReactionIntolerance [...] INVALID FOR*Follow-up and Disposition History RecordedEncounter Number: [id number] Status:Closed by ALEJANDRO MONTANEZ MD on 02/14/18 [facility] PROGRESSon 02-12-2018 PROGRESS HNO ID: [id number] thor: Alejandro Makervice: (none)Author Type: PhysicianType: Progress [...] elbow and radiates upward and downward arm.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 Healthcare Applications Analyst: NoPassive conservative therapy lasting 6 weeks [...] for left arm pain (Rx FMD in [place])uses THC - eases pain but afterwards he feels he has concentration issues brain fog also:- neg Cancer ( other than Hx basal cell)- ETOH - scotch nightly- THC smoking qd- no Hx of DM- Hx of CVAPLAN:Above findings and options discussed..He can have a TFESI @ LEFT L 5-S1 on diagnostic / therapeutic basis.He is thinking of having this done closer to [place].He is otherwise scheduled for CPRP in 03/2018.We can see him prn.Alejandro Montanez MD [facility] CNOVon 02-05-2018 CNOV Office Visit (SPNSMN) RENE FLORES ([id number]) 1950 MDate Time Provider Department02/05/18 3:20 PM SYLWIA VELAZQUEZ SPNSMN During your visit today, we recorded the following information about you: Pulse Respiration Blood pressure Weight 56/minute 18/minute 142/66 97.1 kg Height 1.727 Sylwia Quick 02/05/2018 4:07 PM SignedSPINE SURGERY ESTABLISHEDDATE [...] back pain.1. Follow up: Not requiredEdson Sheppard [facility] Medicine FellowPGY-5SIGNATURE: Sylwia Velazquez MD PATIENT NAME: Eh FloresDATE: February [...] read. WIll pursue with xrays andmedical spine /7 pain, non-restorative sleep, MUSC, fatigue - CPSWill have seen by Jo Campbell.I will see on an as needed basis. No indication for surgery in my opinionCounseled extensivelyShould Mr. Flores or referring or consulting physicians have any questionsor concerns, they should feel free to contact my office.Mr. Flores has been instructed to followup as documentedSylwia Velazquez, [facility]: PMDDr HerringReferring Provider: KASEY LEIGH) [[id number]]Allergies As of Date: 02/05/2018 Noted Allergy ReactionIntolerance To Toprol And Celebre*06/19/2003Date Reviewed: 02/05/2018Reviewed by: Edson Sheppard (Ritesh) - Fully AssessedReason for Visit: Established Patient [175]Primary Visit Diagnosis:Other idiopathic scoliosis, lumbar region [M41.26] Other Visit Diagnosis:Cervical spondylosis without myelopathy [M47.812]Order(s):CONSULT TO SPINE CENTER [[id number]] Order #: [id number]: 1 XR SCOLIOSIS PA STAND/LAT 2V [[id number]] Order #: [id number] FUTURE XR LUMBAR LIMITED 2V FLEX/EXT [[id number]] Order #: [id number] FUTURE CONSULT TO CHRONIC PAIN REHABILITATION (NON-PAIN ANESTHESIA) [[id number]] Order #: [id number]: 1Prescriptions as of 02/05/2018 Sig: OXYCODONE-ACETAMINOPHEN 10 [...] List As Of Date: 02/05/2018(None) Status:Closed by SYLWIA VELAZQUEZ MD on 02/05/18 Normal [facility] [place] PROGRESSon 02-05-2018 PROGRESS HNO ID: [id number] thor: Sylwia Velazquez CService: (none)Author Type: PhysicianType: Progress NotesFiled: [...] of backpain.1. Follow up: Not requiredEdson Sheppard [facility] Medicine FellowPGY-5SIGNATURE: Sylwia Velazquez MD PATIENT NAME: Eh FloresDATE: February [...] read. WIll pursue with xraysand medical spine hjanmijtkrl34/7 pain, non-restorative sleep, MUSC, fatigue - CPSWill have seen by Jo Campbell.I will see on an as needed basis. No indication for surgery in my opinionCounseled extensivelyShould Mr. Flores or referring or consulting physicians have anyquestions or concerns, they should feel free to contact my office.Mr. Flores has been instructed to followup as documentedSylwia Velazquez, [facility]: PMDDr Russo Normal [facility] XR LUMBAR 2V FLEX/EXTon XR LUMBAR 2V [...] abnormal motion flexion or extension.IMPRESSION:Multi level degenerative changes.Bedspread Cutter Hand: АННА Transcribe Date/Time: Feb 05 2018 5:13PDictated by : Regan BOOTH examination was interpreted and the report reviewed and electronically signed by: BETH MULLEN MD on Feb 05 2018 5:15PM [id number] Normal [facility] XR SCOLIOSIS 2V PA STAND/LAT on 02-05-2018 [...] maintained.IMPRESSION:Mode rate to severe scoliosis and degenerative changes.Bedspread Cutter Hand: [facility] Transcribe Date/Time: Feb 05 2018 5:10PDictated by : Regan BOOTH examination was interpreted and the report reviewed and electronically signed by: BETH MULLEN MD on Feb 05 2018 5:12PM [id number] Normal [facility] PROGRESSon 01-22-2018 PROGRESS HNO ID: [id number] thor: Kasey Barragan) Breanna: (none)Author Type: Physician AssistantType: Progress NotesFiled: [...] for this patient.PAST MEDICAL HISTORYDiagnosis Date- A-fib ([facility])- Asthma- Other specified cardiac dysrhythmias(427.89)- Stroke ([facility])PAST SURGICAL HISTORYProcedure Laterality Date- ABLATION cardiac [...] ) Wt 97.1 kg (214lb) BMI 32.54 kg/s4ESYNIIX APPEARANCE: Well nourished, well developed, and no [...] 21, 2018 : 10:47 PM PAGER: Ping [facility] CNOVon 01-21-2018 CNOV Office Visit (SPNSMN) DAMIRRENE PEREZ Keshav ([id number]) 1950 [facility] Provider Department01/21/18 11:00 AM KASEY LEIGH [...] 8ANDquot;) Wt 97.1 kg (214lb) BMI 32.54 kg/k6FCNYCFA APPEARANCE: Well nourished, well developed, and no [...] arm pain [M79.602]Order(s):XR CERV OTHER 4V AP/LAT/FLX/EXT [[id number]] Order #: [id number] FUTURE EMG(NEURO/NI) [[id number]] Order #: [id number]: 1 FUTURE CONSULT TO PHYSICAL THERAPY [9032] Order #: [id number]: 1Prescriptions as of 01/21/2018 Sig: OXYCODONE-ACETAMINOPHEN 10 [...] Date: 01/21/2018(None)Follow-up and Disposition History RecordedEncounter Number: [id number] Status:Closed by KASEY LEIGH on 01/21/18 Normal [facility] PROGRESSon 01-21-2018 PROGRESS HNO ID: [id number] thor: Lindsey Vo (Rt) Tangela QureshiService: RadiologyAuthor Type: TechnicianType: Progress NotesFiled: 01/21/2018 1:18 PMNote Text: Radiology Service Progress NotePATIENT NAME: Eh FloresMRN: [id number] OF SERVICE: January 21, 2018TIME: 1:18 PMPATIENT IDENTITY VERIFICATION COMPLETED USING TWO (2) METHODS: Patientconfirmed name verbally and Date of .PATIENT GENDER DATA: MalePATIENT RELEVANT IMPLANT DATA REVIEWED: Not ApplicableRADIOLOGY DEPARTMENT: General X-ray: Exam(s) Completed: Spine X-Ray(s):Cervical AP / LAT / FLEX-EXTPERIPHERAL IV DATA: Not applicableSIGNED BY: Jessica Biswas 2017 1:18 PM [facility] XR CERVICAL 4V AP/LAT/FLX/EX Ton 01-21-2018 XR [...] 21 2018 4:15PDictated by : EH MICHELLE MDThitseha examination was interpreted and the report reviewed and electronically signed by: EH MICHELLE MD on Jan 21 2018 4:17PM [id number] Normal [facility] CNCOon 01-10-2018 CNCO Letter TextDear Shimon Flores:How to activate your [facility] Nt[employer]ty Account 1. Visit the Ntirety Signup page at [email or web address] 2. Identify yourself using your one-time use activation code: [email or web address]: 02/09/2018 1:35 PMThis activation code was e-mailed to [email or web address] 3. Follow the on-screen prompts to choose your own secure username andpasswordThe following information will be necessary to access your account for thefirst time:Information needed for sign-up:Your custom activation code used one-time only for the initial accountset-up.Your date of birthThe last 4 digits of your social security numberWhat to do next:Fill in the requested information on the Identify Yourself Form [email or web address] , click Next.Create your login and password, choose a Ntirety ID and password that will beeasy for you to use, but impossible for anyone else to guess.Pick a security question that will assist you in the event you forget yourpassword the next time you log-on.If you have difficulty activating your account, please call our [employer] at [phone] or toll free at .We hope you enjoy using Nt[employer]ty!Kindest Regards,[facility] Ntirety Team Normal [facility] MR-MR CERVICAL SPINE WO CONT IMPORTon 01-03-2018 MR-MR CERVICAL SPINE WO CONT IMPORT Images were obtained outside of [facility] [id number] Normal [facility] MR-MR LUMBAR SPINE WO CONT I MPORTon 01-03-2018 MR-MR LUMBAR SPINE WO CONT IMPORT Images were obtained outside of [facility] [id number] Normal [facility] Vital Signs Date Time Vital Sign Value Performing Clinician Faci lity 10-03-2024 12:52-0500 Body height 172.7 cm Britney Price MD Work Phone: [facility] 10-03-2024 12:52-0500 Body mass index (BMI) [Ratio] 31.99 kg/m2 Britney Price MD Work Phone: [facility] 10-03-2024 12:52-0500 Body weight 95.44 kg Britney Price MD Work Phone: [facility] 10-03-2024 12:52-0500 Diastolic blood pressure 104 mm[Hg] [facility] 10-03-2024 12:52-0500 Heart rate 62 /min [facility] Price [facility] 10-03-2024 12:52-0500 SaO2% (BldA) [Mass fraction] 98 % Britney Price MD Work Phone: [facility] 10-03-2024 12:52-0500 Systolic blood pressure 152 mm[Hg] Brit[facility] Price [facility] 08-18-2024 14:22-0500 Body mass index (BMI) [Ratio] 31.17 kg/m2 Jaqui Flynn APRN-TRAUMA THERAPIST [facility] 08-18-2024 14:22-0500 Body weight 92.99 kg Jaqui Flynn APRN-TRAUMA THERAPIST Work Phone: [facility] 08-18-2024 14:22-0500 Diastolic blood pressure 60 mm[Hg] Jaqui Bradensandrinechter CLAIM TECHNICIAN-TRAUMA THERAPIST Work Phone: [facility] 08-18-2024 14:22-0500 Heart rate 60 /min Jaqui Schlachter CLAIM TECHNICIAN-TRAUMA THERAPIST Work Phone: [facility] 08-18-2024 14:22-0500 Respiratory rate 16 /min Jaqui Schlachter CLAIM TECHNICIAN-TRAUMA THERAPIST Work Phone: [facility] 08-18-2024 14:22-0500 SaO2% (BldA) [Mass fraction] 97 % Jaqui Schlachter CLAIM TECHNICIAN-TRAUMA THERAPIST Work Phone: [facility] 08-18-2024 14:22-0500 Systolic blood pressure 130 mm[Hg] Jaqui Schlachter CLAIM TECHNICIAN-TRAUMA THERAPIST Work Phone: [facility] 11-02-2023 11:02-0500 Body mass index (BMI) [Ratio] 31.32 kg/m2 Jaqui Bradenlachter CLAIM TECHNICIAN-TRAUMA THERAPIST Work Phone: [facility] 11-02-2023 11:02-0500 Body weight 93.44 kg Jaqui Schlachter CLAIM TECHNICIAN-TRAUMA THERAPIST Work Phone: [facility] 11-02-2023 11:02-0500 Diastolic blood pressure 60 mm[Hg] Jaqui Manniechter CLAIM TECHNICIAN-TRAUMA THERAPIST Work Phone: [facility] 11-02-2023 11:02-0500 Heart rate 78 /min Jaqui Schlachter CLAIM TECHNICIAN-TRAUMA THERAPIST Work Phone: [facility] 11-02-2023 11:02-0500 Respiratory rate 18 /min Jaqui Schlachter CLAIM TECHNICIAN-TRAUMA THERAPIST Work Phone: [facility] 11-02-2023 11:02-0500 SaO2% (BldA) [Mass fraction] 97 % Jaqui Schsandrinechter CLAIM TECHNICIAN-TRAUMA THERAPIST Work Phone: [facility] 11-02-2023 11:02-0500 Systolic blood pressure 112 mm[Hg] Jaqui Flynn CLAIM TECHNICIAN-TRAUMA THERAPIST Work Phone: [facility] Encounters Encounter Date Encounter Type Care Provider Facility Start: 11-04-2024 End: 11-04-2024 Refill Jaqui Flynn CLAIM TECHNICIAN-TRAUMA THERAPIST Work Phone: [facility] Start: 10-23-2024 End: 10-23-2024 Telephone encounter Sofya Mahan RN [facility] Start: 10-22-2024 End: 10-22-2024 ambulatory [place] [facility] Start: 10-03-2024 End: 10-03-2024 ambulatory [place] Start: 10-03-2024 End: 10-03-2024 Telephone encounter Dorota Heaton RN [facility] Start: 10-03-2024 End: 10-03-2024 Office outpatient visit 25 minutes Britney Price MD Work Phone: [facility] Comment on above: Elevated blood press ure reading without diagnosis of hypertension (Primary Dx); PVCs (premature ventricular contractions); Abnormal nuclear stress test; History of syncope Start: 10-03-2024 End: 10-03-2024 [facility] [place] [facility] Start: 10-02-2024 End: 10-02-2024 Telephone encounter Cheri Quintero CMA [facility] Start: 08-22-2024 End: 08-22-2024 ambulatory [place] Start: 08-18-2024 End: 08-18-2024 ambulatory [facility] Start: 08-18-2024 End: 08-18-2024 Office outpatient visit 25 minutes Jaqui Flynn CLAIM TECHNICIAN-TRAUMA THERAPIST Work Phone: [facility] Comment on above: Syncope, unspecified syncope type (Primary Dx); Bradycardia Start: 06-17-2024 End: 06-18-2024 Emergency department patient visit [place] Start: 06-03-2024 ambulatory CHARLIE STEINBERG [facility] Start: 05-16-2024 End: 05-16-2024 ambulatory [place] Start: 05-07-2024 End: 05-07-2024 ambulatory [facility] Start: 05-07-2024 Encounter for genera l adult medical examination without abnormal findings [facility] Start: 04-29-2024 End: 06-01-2024 ambulatory [place] Start: 01-21-2024 End: 01-21-2024 ambulatory DAVID SAXENA Not Available Start: 12-17-2023 End: 12-18-2023 ambulatory Pedro Arevalo MD Facility: [facility] Start: 11-02-2023 End: 11-02-2023 ambulatory [facility] Start: 11-02-2023 End: 11-02-2023 Office outpatient visit 15 minutes [facility] CLAIM TECHNICIAN-TRAUMA THERAPIST Work Phone: [facility] Comment on above: Seizure-like activit y (CMS-HCC) (Primary Dx); Syncope, unspecified syncope type; Cervical disc disease; Radiculopathy, lumbosacral region Start: 01-09-2023 End: 01-10-2023 ambulatory NARENDRANATH LAKSHMIPATHY . Facility:[facility] Start: 11-30-2022 End: 12-01-2022 ambulatory NARENDRANATH LAKSHMIPATHY . Facility:[facility] Start: 08-31-2022 End: 09-01-2022 ambulatory SDI SCHULER . Facility:[facility] Start: 08-08-2022 End: 08-08-[address] KOFI PASCAL . Facility:[facility] Start: 08-04-[address] ALAINA Figueredo ity:[facility] Start: 08-01-2022 End: 08-01-[address] KOFI PASCAL . Facility:[facility] Start: 07-30-2022 Encounter for preprocedural cardiovascular examination DR KOFI PASCAL . [facility] Start: 07-30-2022 Encounter for preprocedural laboratory examination DR KOFI PASCAL . [facility] Start: 07-28-2022 End: 07-29-[address] [...] Start: 03-06-2018 End: 03-08-2018 Ambulatory JO CAMPBELL [facility] Start: 02-12-2018 End: 02-15-2018 Ambulatory ALEJANDRO MONTANEZ [facility] Start: 02-05-2018 End: 02-05-2018 Ambulatory SYLWIA VELAZQUEZ [facility] Start: 02-05-2018 End: 02-06-2018 Ambulatory SYLWIA VELAZQUEZ [facility] Start: 01-21-2018 End: 01-22-2018 Ambulatory KASEY BARRAGAN) LU [facility] Procedures Date Procedure Procedure Detail Performing Clinician Start: 10-03-2024 Follow-up visit Follow-up BRITNEY PRICE Start: 05-07-2024 Adult depression screening assessment Jaqui Flynn CLAIM TECHNICIAN-TRAUMA THERAPIST Work Phone: Start: 11-02-2023 Follow-up visit Follow-up JAQUI FLYNN Start: 06-01-2023 Adult depression screening assessment Jaqui Flynn CLAIM TECHNICIAN-TRAUMA THERAPIST Work Phone: Start: 09-13-2020 Colonoscopy Jaqui delarosa CLAIM TECHNICIAN-TRAUMA THERAPIST Work Phone: Plan of Treatment Date Care Activity Detail Author Start: 10-08-2031 DTaP,Tdap and Td Vaccines (2 - Td or Tdap) DTaP,Tdap and Td Vaccines (2 - Td or Tdap) [facility] Start: 10-03-2025 Adult BMI Screening Adult BMI Screening [facility] Start: 10-03-2025 Tobacco Screening Tobacco Screening [facility] Start: 09-13-2025 Screening for malignant neoplasm of colon Colonoscopy [facility] Start: 08-18-2025 Adult BMI Screening Adult BMI Screening [facility] Start: 08-18-2025 Tobacco Screening Tobacco Screening [facility] Start: 05-08-2025 End: 05-08-2025 Patient encounter procedure 05/08/2025 11:00 AM EDT [facility] [address] [place] [address] Jaqui Flynn APRN-CNP [address] [place], [place] [id number] [facility] Start: 05-07-2025 Adult BMI Follow Up Plan Adult BMI Follow Up Plan [facility] Start: 05-07-2025 Depression Screening Depression Screening [facility] Start: 05-07-2025 Fall Risk Screening Fall Risk Screening [facility] Start: 05-07-2025 Medicare Annual Wellness Visit Medicare Annual Wellness Visit [facility] Start: 01-01-2025 End: 01-01-2025 Patient encounter procedure 01/01/2025 8:15 AM EDT Office Visit [facility] [address] [place] [id number] Martin Hoffman MD [address] [place] [address] [facility] Start: 12-26-2024 End: 10-23-2025 Comprehensive metabolic 2000 panel - Serum or Plasma Comprehensive metabolic panel Lab Routine Abnormal EKG Abnormal nuclear stress test Elevated blood pressure reading without diagnosis of hypertension Expected: 12/26/2024 (Approximate), Expires: 10/23/2025 [facility] Work Phone: Comment on above: Expected: 12/26/2024 (Approximate), Expi res: 10/23/2025 Start: 12-26-2024 End: 10-23-2025 Lipid 1996 panel - Serum or Plasma Lipid profile Lab Routine Abnormal EKG Abnormal nuclear stress test Elevated blood pressure reading without diagnosis of hypertension Expected: 12/26/2024 (Approximate), Expires: 10/23/2025 [facility] Comment on above: Expected: 12/26/2024 (Approximate), Expi res: 10/23/2025 Start: 11-02-2024 Adult BMI Screening Adult BMI Screening [facility] Start: 10-22-2024 End: 10-22-2024 Patient encounter procedure 10/22/2024 2:30 PM EST Appointment [facility] [address] [place] [address] [facility] [address] Start: 10-03-2024 End: 10-03-2025 CTA Heart and Coronary arteries WO and W contrast IV CT angiogram coronary arteries with or without scoring Imaging Routine Abnormal nuclear stress test Expected: 10/03/2024, Expires: 10/03/2025 [facility] Work Phone: Comment on above: Expected: 10/03/2024, Expires: Start: 10-03-2024 End: 10-03-2024 Patient encounter procedure 10/03/2024 1:00 PM EST Office Visit [facility] [address] [place] [address] Britney Price MD [address] [place] [address] [facility] Start: 09-19-2024 Tobacco Screening Tobacco Screening [facility] Start: 08-22-2024 End: 08-22-2024 Patient encounter procedure 08/22/2024 9:00 AM EST Appointment [facility] [address] [place] [id number] [facility] Start: 08-18-2024 End: 08-18-2025 CBC W Auto Differential panel - Blood CBC auto differential Lab Routine Syncope, unspecified syncope type Expected: 08/18/2024, Expires: 08/18/2025 [facility] Comment on above: Expected: 08/18/2024, Expires: Start: 08-18-2024 End: 08-18-2025 Event monitor Event monitor Cardiac Services Routine Syncope, unspecified syncope type Bradycardia Expected: 08/18/2024, Expires: 08/18/2025 [facility] Comment on above: Expected: 08/18/2024, Expires: Start: 07-25-2024 Adult BMI Follow Up Plan Adult BMI Follow Up Plan [facility] Start: 06-01-2024 COVID-19 Vaccine ( season) COVID-19 Vaccine ( season) [facility] Start: 06-01-2024 Depression Screening Depression Screening [facility] Start: 06-01-2024 Fall Risk Screening Fall Risk Screening [facility] Start: 06-01-2024 Influenza vaccination Influenza Vaccine [facility] Start: 05-07-2024 End: 05-07-2024 Patient encounter procedure 05/07/2024 11:00 AM EDT [facility] [address] [place] [id number] Jaqui Flynn, CLAIM TECHNICIAN-TRAUMA THERAPIST [address] [place] [address] [facility] Start: 05-04-2024 Medicare Annual Wellness Visit Medicare Annual Wellness Visit [facility] Start: 06-01-2023 COVID-19 Vaccine ( season) COVID-19 Vaccine () [facility] Start: 06-01-2023 Influenza vaccination Influenza Vaccine [facility] Start: 03-28-2013 Administration of varicella zoster vaccine Zoster (Shingles) Vaccine (2 of 3) [facility] End: 08-18-2025 Comprehensive metabolic 2000 panel - Serum or Plasma Comprehensive metabolic panel Lab Routine Syncope, unspecified syncope type 1 Occurrences starting 08/18/2024 until 08/18/2025 [facility] Comment on above: 1 Occurrences starting 08/18/2024 until 08/18/2025 End: 08-18-2025 ECG 12 lead ECG 12 lead ECG Routine Syncope, unspecified syncope type Bradycardia 1 Occurrences starting 08/18/2024 until 08/18/2025 [facility] Comment on above: 1 Occurrences starting 08/18/2024 until 08/18/2025 Immunizations Immunization Date Immunization Notes Care Provider [facility] 10-08-2021 tetanus toxoid, reduced diphtheria toxoid, and acellular pertussis vaccine, adsorbed Jaqui Schlachter CLAIM TECHNICIAN-TRAUMA THERAPIST Work Phone: [facility] Work Phone: 12-30-2020 COVID-19, mRNA, LNP- S, PF, 30mcg/0.3mL Dose Jaqui Schlachter CLAIM TECHNICIAN-TRAUMA THERAPIST Work Phone: [facility] 07-28-2020 Influenza, injectabl e, Madin Khushboo Canine Kidney, preservative free, quadrivalent Jaqui Schlachter CLAIM TECHNICIAN-TRAUMA THERAPIST Work Phone: [facility] 07-28-2020 influenza virus vaccine, unspecified formulation Jaqui Schlachter CLAIM TECHNICIAN-TRAUMA THERAPIST Work Phone: [facility] 04-23-2017 pneumococcal conjuga te vaccine, 13 valent Jaqui Schlachter CLAIM TECHNICIAN-TRAUMA THERAPIST Work Phone: [facility] 01-31-2013 zoster vaccine, live Jaqui Flynn CLAIM TECHNICIAN-TRAUMA THERAPIST [facility] Phone: [facility] 01-31-2013 zoster vaccine, unspecified formulation Jaqui Flynn CLAIM TECHNICIAN-TRAUMA THERAPIST [facility] Phone[facility] Payers Date Payer Category Payer Unknown 2020 Medicare ANTHEM MEDICARE ANTHEM MEDICARE ADVANTAGE [id number] 2020-Present [phone] [address] [place] [address] [id number] 2020 Medicare HMO ANTHEM MEDICARE [id number] 1959 Unknown [id number] 1950 Unknown [id number] 2.16.840.1.939242.3.579.2.593 1950 Unknown [id number] 2.16.840.1.423719.3.579.2.593 1950 Unknown [id number] 2.16.840.1.247102.3.579.2.593 1950 Unknown [id number] 2.16.840.1.305589.3.579.2.593 1950 Unknown [id number] 2.16.840.1.141149.3.579.2.593 1950 Unknown [id number] 2.16.840.1.306357.3.579.2.593 1950 Unknown [id number] 2.16.840.1.842045.3.579.2.593 1950 Unknown [id number] 2.16.840.1.966719.3.579.2.593 1950 Unknown [id number] 2.16.840.1.486843.3.579.2.593 1950 Unknown [id number] 2.16.840.1.367282.3.579.2.593 1950 Unknown [id number] 2.16.840.1.161927.3.579.2.593 1950 Unknown [id number] 2.16.840.1.103568.3.579.2.593 1950 Unknown [id number] 2.16.840.1.854114.3.579.2.593 1950 Unknown [id number] 2.16.840.1.578237.3.579.2.593 1950 Unknown [id number] 2.16.840.1.566920.3.579.2.196 1950 Unknown [id number] 2.16.840.1.539701.3.579.2.125 9 1950 Unknown [id number] 2.16.840.1.735711.3.579.2.128 6 1950 Unknown [id number] 2.16.840.1.254668.3.579.2.128 6 1950 Unknown [id number] 2.16.840.1.629016.3.579.2.128 6 1950 Unknown [id number] 2.16.840.1.907978.3.579.2.128 6 1950 Unknown [id number] 2.16.840.1.658422.3.579.2.128 6 1950 Unknown [id number] 2.16.840.1.126514.3.579.2.128 6 1950 Unknown [id number] 2.16.840.1.864380.3.579.2.128 6 1950 Unknown [id number] 2.16.840.1.794934.3.579.2.128 6 1950 Unknown [id number] 2.16.840.1.241552.3.579.2.128 6 1950 Unknown [id number] 2.16.840.1.846447.3.579.2.128 6 1950 Unknown [id number] 2.16.840.1.692863.3.579.2.128 6 1950 Unknown [id number] 2.16.840.1.240355.3.579.2.128 6 Social History Date Type Detail Facility Start: 07-18-2022 Tobacco smoking stat [facility] Never smoked tobacco [facility] Start: 07-18-2022 Tobacco use and exposure Smokeless tobacco non-user [facility] Start: 09-19-2023 End: 10-03-2024 Alcohol intake Current drinker of alcohol (finding) [facility] Start: 11-11-2020 End: 09-19-2023 Alcohol intake [facility] Start: 11-11-2020 End: 09-19-2023 Tobacco use panel [facility] Adolescent depressio n screening assessment 0 [facility] Start: 1950 Sex Assigned At Not on file [facility] Start: 05-06-2015 Sex Male (finding) [facility] Clinical Notes 02-23-2022 to 10-23-2024 Telephone Encounter - Sofya Mahan RN - 10/23/2024 8:31 AM ESTTelephone Encounter - Sofya Mahan RN - 10/23/2024 8:31 AM ESTAddendum Note - Sofya Mahan RN - 10/23/2024 8:31 AM EST Note Date & Type Note Facility 10-23-2024 Miscellaneous Notes Per LLD response after CTA cors reviewed.- ASCVD needs medical treatment. Aspirin 81 mg daily. Amlodipine 5 mg daily. Rosuvastatin 40 mg daily with lipid and cmp in 3 months. Results and LLD recommendations discussed w/ pt. Already taking ASA 81 mg. Will not start any statin. Once you get on that stuff your body gets used to it and you never get off . Would like to research amlodipine prior to starting. Pt will return call. Pt returned call. Doesn't want to start any new meds at this time. Feels he can improve things with diet and exercise. Will have labs drawn in 3 m. Also added an appt in 3 months after labs and other changes made. Addended by: IWONA MAHAN on: 10/23/2024 08:49 AM Modules accepted: Orders documented in this encounter [facility] 10-23-2024 Note Addended by: IWONA HERNDON on: 10/23/2024 08:49 AM Modules accepted: Orders [facility] 10-23-2024 Telephone encounter Note Per LLD response after CTA cors reviewed.- ASCVD needs medical treatment. Aspirin 81 mg daily. Amlodipine 5 mg daily. Rosuvastatin 40 mg daily with lipid and cmp in 3 months. Results and LLD recommendations discussed w/ pt. Already taking ASA 81 mg. Will not start any statin. Once you get on that stuff your body gets used to it and you never get off . Would like to research amlodipine prior to starting. Pt will return call. [facility] 10-23-2024 Telephone encounter Note Pt returned call. Doesn't want to start any new meds at this time. Feels he can improve things with diet and exercise. Will have labs drawn in 3 m. Also added an appt in 3 months after labs and other changes made. [facility] 10-03-2024 Miscellaneous Notes Pt scheduled for CTA of cors on 10/22/24 at [facility]. Instructions given no Beta carmen ordered per LLD. slm documented in this encounter [facility] 10-03-2024 Telephone encounter Note Pt scheduled for CTA of cors on 10/22/24 at [facility]. Instructions given no Beta carmen ordered per LLD. slm [facility] 10-03-2024 History of Presen t illness Narrative Eh Flores Date of visit: 10/03/2024 Date of : 1950 Age: 73 y.o. 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 18 g 5 aspirin 81 mg Take 1 tablet (81 mg total) by mouth in the morning. cholecalciferol, vitamin D3, 2,000 units capsule Take 1 capsule (2,000 Units total) by mouth in the morning. cyanocobalamin (vitamin B-12) 50 mcg tablet Take 1 tablet (50 mcg total) by mouth in the morning. magnesium oxide/magnesium (ZW-XMCV-DNRMMPX ORAL) Magnesium (oxide/AA chelate) takes 1 tablet daily at night potassium gluconate 2.5 mEq tablet Take by mouth daily. pramipexole (MIRAPEX) 0.75 MG tablet Take 1 tablet (0.75 mg total) by mouth in the morning for 180 days. 90 tablet 1 tiZANidine (ZANAFLEX) 4 mg tablet Take 1 tablet (4 mg total) by mouth every 6 (six) hours as needed. No current facility-administered medications for this visit. Chief Complaint Patient presents with Follow-up OV F/U 1 YR NO TESTS L/S RKA, PUNEET DONE @ [facility], SCHED W/PT History of Present Illness I had the opportunity to meet this 73-year-old today. He was last in the office 08/2023 He had an episode in July of 2023 loss of consciousness with convulsions. This occurred again several months ago after the patient had use THC and terazosin. He is not able to give more specific information as to when it occurred He has a history of 08/2023 low risk myocardial perfusion study with small defect in the inferoseptal wall It was recommended that he obtain a CTA of the coronaries. He did not Since that time he has had another episode of syncope with convulsions. This occurred after THC and terazosin use. He was in his recliner and per his sister who was present showed convulsive behavior. He has been seen by Neurology and told that he does not have seizures. He denies chest pain. He does have intermittent bilateral upper extremity pain. He is unclear if it was related to activity. He has some shortness of breath. He denies palpitations or edema He did have an event monitor done which showed bradycardia without significant arrhythmias He is retired from [employer]. 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 He is unaccompanied today CV TESTING HISTORY: ECHO: Echo complete W/O contrast Result Date: 09/14/2023 Left Ventricle: There is borderline increased wall thickness/hypertrophy. Systolic function is normal with an ejection fraction of 60-65%. No obvious regional wall motion abnormalities. Grade II diastolic dysfunction (pseudonormal) is present. Tricuspid Valve: The right ventricular systolic pressure normal. RVSP calculated at 29 mmHg. RVSP is based on RA pressure of 3 mmHg. STRESS: Nuc stress Lexiscan Result Date: 09/17/2023 Stress Function Comments: Left ventricular function post-stress is normal. Stress ejection fraction is 74%. Perfusion Comments: Left ventricular perfusion is probably abnormal. Based on the perfusion study data, risk of cardiovascular events is low risk. HOLTER: Holter monitor 24-48 hour Result Date: 07/31/2023 Indication: Syncope Findings: 48 hour Holter monitor dated 07/25/2023. Predominant rhythm is normal sinus, average rate 59 beats per minute range 41 to 93. Low burden of supraventricular ectopy totaling 0.46%. Low burden ventricular ectopy 0.18%. No evidence of atrial fibrillation or flutter, significant pauses, or heart block. No patient triggered events. Interpretation: No significant arrhythmias on this Holter monitor, unable to correlate symptoms as patient did not report any. CARDIAC CATH: No results found. CAROTID: No results found. CXR: No results found. Lipid Profile: No data recorded No data recorded No data recorded EKG: Sinus rhythm with incomplete right bundle-branch block and left anterior fascicular block Past Medical History: Diagnosis Date A-fib ([facility]) Arrhythmia SVT Asthma Depression Neck pain Radiculopathy, lumbosacral region RLS (restless legs syndrome) Ruptured disc, cervical Severe obstructive sleep apnea SVT (supraventricular tachycardia) ([facility]) Syncope Tremor Past Surgical History: Procedure Laterality Date CARDIAC ELECTROPHYSIOLOGY STUDY AND ABLATION CARPAL TUNNEL RELEASE COLONOSCOPY N/A 09/13/2020 Performed by Sudarshan Sweet DO at [facility] HERNIA REPAIR REPAIR KNEE LIGAMENT TONSILLECTOMY VARICOSE VEIN SURGERY Right WRIST GANGLION EXCISION Left Family History Problem Relation Age of Onset Pneumonia Mother Dementia Father Cancer Sister Endometrial cancer Sister Social History Socioeconomic History Marital status: Single Spouse name: Not on file Number of children: Not on file Years of education: Not on file Highest education level: Not on file Occupational History Not on file Tobacco Use Smoking status: Never Smokeless tobacco: Never Vaping Use Vaping status: Never Used Substance and Sexual Activity Alcohol use: Yes Alcohol/week: 1.0 standard drink of alcohol Types: 1 Shots of liquor per week Drug use: Yes Types: Marijuana, Medical Marijuana Comment: daily Sexual activity: Defer Other Topics Concern Caffeine Use No Social History Narrative Not on file Social Drivers of Health Financial Resource Strain: Not on file Food Insecurity: No Food Insecurity (10/03/2024) Hunger Screening Food Insecurity - Worry: Never True Food Insecurity - Inability: Never True Transportation Needs: Not on file Physical Activity: Not on file Stress: Not on file Social Connections: Not on file Interpersonal Safety: Not on file Housing Instability: Not on file Review of Systems Review of Systems Constitutional: Negative. HENT: Positive for hearing loss. Eyes: Negative. Cardiovascular: Negative. Vascular: Negative. Respiratory: Negative. Endocrine: Negative. Hematologic/Lymphatic: Bruises/bleeds easily. Skin: Negative. Musculoskeletal: Positive for back pain and joint swelling. Gastrointestinal: Negative. Genitourinary: Negative. Neurological: Positive for loss of balance and numbness. Psychiatric/Behavioral: Negative. Allergic/Immunologic: Positive for environmental allergies. CARDIOVASCULAR: Please review HPI. Physical Examination General appearance: Alert, oriented and cooperative. In no acute distress. Skin: Warm and dry to touch. Respiratory: Clear to auscultation bilaterally, no use of accessory muscles. Cardiovascular: RRR with normal S1 and S2 with no murmurs. No lower extremity edema VITAL SIGNS: BP (!) 152/104 (BP Site: Left Arm, BP Postition: Sitting) Pulse 62 Ht 172.7 cm (5' 8 ) Wt 95.4 kg (210 lb 6.4 oz) SpO2 98% BMI 31.99 kg/m No orders of the defined types were placed in this encounter. There are no discontinued medications. IMPRESSIONS/PLAN 1. Elevated blood pressure reading without diagnosis of hypertension 2. PVCs (premature ventricular contractions) 3. Abnormal nuclear stress test - CT angiogram coronary arteries with or without scoring; Future - Creatinine includes GFR, serum; Future 4. History of syncope 1. Elevated blood pressure without diagnosis of hypertension 2. Normal left ventricular systolic function on echocardiogram 08/2023 3. Low risk myocardial perfusion study with small reversible inferoseptal defect 08/2023 4. History of syncope/seizures 07/2023 5. History of radiofrequency ablation of unknown rhythm in 2009 6. History of sinus bradycardia I have recommended that he obtain the CTA of the coronaries as recommended previously If he continues to have episodes than a an implantable loop recorder may be indicated. His ECG at baseline is abnormal I have advised him not to use THC with terazosin as he may have blood pressure drops that cause the syncope with convulsive behavior Discussed at length with patient who is considering how he would like to proceed TODAYS ORDERS Orders Placed This Encounter Procedures CT angiogram coronary arteries with or without scoring Creatinine includes GFR, serum FOLLOW UP No follow-ups on file. PCP: SANDRINE Hernandez Referring Physician: SANDRINE Hernandez [id number] [place] [address] documented in this encounter [facility] 10-02-2024 Miscellaneous Notes Called patient to remind them to bring their most current copy of their medication list with them to their appt. Patient verbalizes understanding. documented in this encounter [facility] 10-02-2024 Telephone encounter Note Called patient to remind them to bring their most current copy of their medication list with them to their appt. Patient verbalizes understanding. [facility] 08-18-2024 History of Presen t illness Narrative Images from the original note were not included. [address] [place] [id number] SUBJECTIVE: Patient ID: Eh Flores is a 73 y.o. male. Patient presents to the office with complaints of near syncope that happened over the weekend. He was with family and did take a hit of marijuana (has been smoking for 54 years), he later felt like he was going to pass out and put his head down on table. They checked his heart rate with pulse ox and it was 36, took about 30 min-60min for it to get back to 60's. He did increase his Zanaflex last month as well. He did see cardiology and they wanted a CTA but he declined at the time. Will order an event monitor and get him back to cardiology. Did ask him to decrease Zanaflex. The following portions of the patient's history [...] difficulty urinating, frequency, hematuria and urgency. Musculoskeletal: Negative for arthralgias, gait problem, joint swelling and neck pain. Skin: Negative for pallor and rash. Neurological: Negative for dizziness, weakness, light-headedness and numbness. Psychiatric/Behavioral: Negative for sleep disturbance. The patient is not nervous/anxious. PHYSICAL EXAMINATION: Vitals: 08/18/24 1422 BP: 130/60 Pulse: 60 Resp: 16 SpO2: 97% Weight: 93 kg (205 lb) Physical Exam Constitutional: Appearance: He is [...] normal. ASSESSMENT/PLAN: Christiano was seen today for loss of consciousness. Diagnoses and all orders for this visit: Syncope, unspecified syncope type Follow-up: Event monitor EKG Cbc,cmp Will call with results He is going to follow back up with cardiology Try and decrease zanaflex Keep routine appointment SANDRINE Hernandez 08/18/24 1657 documented in this encounter [facility] [employer] 11-02-2023 History of Presen t illness Narrative Images from the original note were not included. [address] [place] [id number] SUBJECTIVE: Patient ID: Eh Flores is a [...] all orders for this visit: Seizure-like activity ([facility]) Syncope, unspecified syncope type Cervical disc disease Radiculopathy, lumbosacral region Follow-up: He is thinking about doing cupping on neck Declines any issues today. Follow up for routine wellness or as needed Patient noted to have elevated BMI and the following intervention(s) were applied: encouragement to exercise. SANDRINE Hernandez 11/02/23 1112 documented in this encounter [facility] 01-09-2023 Note CONSULTATION CONSULTATION DATE: 01/09/2023 TO: [...] our patients to inform us about any [id number] medications or herbal remedies/nutritional supplements/alternative remedies. 2. [...] options with their primary care provider. [facility] 11-30-2022 Note CONSULTATION CONSULTATION DATE: 11/30/2022 [...] this plan and all questions answered. [facility] 08-31-2022 Note CONSULTATION CONSULTATION DATE: 08/31/2022 [...] three months' time unless otherwise indicated. [facility] 08-31-2022 Note CONSULTATION PROCEDURE DATE: 08/31/2022 [...] be followed up in the clinic. [facility] 07-13-2022 Note CONSULTATION CONSULTATION DATE: 07/13/2022 [...] followed up in the clinic thereafter. [facility] 05-25-2022 Note CONSULTATION CONSULTATION DATE: 05/25/2022 [...] agrees to this plan of care. [facility] 05-02-2022 Note CONSULTATION CONSULTATION DATE: 05/02/2022 ADDENDUM TO PREOPERATIVE DIAGNOSIS: The patient also has lumbar spondylosis. [facility] 04-13-2022 Note CONSULTATION CONSULTATION DATE: 04/13/2022 [...] will follow-up in the clinic post procedure. [facility] Signed and Approved by: SID SCHULER . 04/21/2022 14:14:00 [facility] 02-23-2022 Note CONSULTATION CONSULTATION DATE: 02/23/2022 [...] post procedure and agrees to move forward. [facility] Signed and Approved by: SID SCHULER . 03/02/2022 16:01:00 [facility] Evaluation note Diagnosis Seizure-like activity ([facility])- Primary Syncope, unspecified syncope type Cervical disc disease Radiculopathy, lumbosacral region Thoracic or lumbosacral neuritis or radiculitis, unspecified [facility] encounter [facility] Diagnosis Syncope, unspecified syncope type- Primary Bradycardia Other specified cardiac dysrhythmias documented [facility]* Diagnosis Elevated blood pressure reading without diagnosis of hypertension- Primary PVCs (premature ventricular contractions) Other premature beats Abnormal nuclear stress test History of syncope documented [facility]* Diagnosis Abnormal EKG- Primary Nonspecific abnormal electrocardiogram (ECG) (EKG) Abnormal nuclear stress test Elevated blood pressure reading without diagnosis of hypertension documented [facility] this encounter [facility]* Attachments The following attachments cannot be sent through Care Everywhere. * Cervical Myelopathy ([place]) [facility]T SystemInstructionsNot on file documented in [facility]Fire[facility] THE MELT SystemInstructionsNot on file documented in [facility]ProDec[facility] THE MELT SystemInstructionsNot on file documented in this encounterProSelect [facility] SystemInstructionsNot on file documented in this encounterC[facility] SystemInstructionsNot on file documented in this encounterProSelect [facility] SystemInstructionsNot on file documented in this encounterC[facility] Summary Purpose Family History No [...] section and content) DATE CREATED AUTHOR 03/19/2018 [facility] DATE CREATED AUTHOR AUTHOR'S ORGANIZ ATION 01/10/2023 [facility] DATE CREATED AUTHOR AUTHOR'S ORGANIZ ATION 12/22/2023 [facility] DATE CREATED AUTHOR AUTHOR'S ORGANIZ ATION 01/21/2024 [facility] EPIC DATE CREATED AUTHOR AUTHOR'S ORGANIZ ATION 08/20/2024 [facility] DATE CREATED AUTHOR AUTHOR'S ORGANIZ ATION 10/11/2024 [facility] DATE CREATED AUTHOR AUTHOR'S ORGANIZ ATION 10/24/2024 [facility] Reason for Visit (unrecogniz ed section and content) Reason Comments Follow-up Reason Comments Loss of Consciousness Reason Comments Follow-up OV F/U 1 YR NO TESTS L/S RKA, HM DONE @ [facility], SCHED W/PT Reason Comments Med Refill Care Teams (unrecognized sec tion and content) Recreational Director Relationship Specialty Start Date End Date Jaqui Flynn APRN-CNP [address] [place] [address] PCP - General Family Medicine 07/24/23 Recreational Director Relationship Specialty Start Date End Date Jaqui Flynn APRN-CNP [address] [place] [address] PCP - General Family Medicine 06/17/24 Recreational Director Relationship Specialty Start Date End Date Jaqui Flynn APRN-TRAUMA THERAPIST [address] [place] [address] PCP - [facility] 06/17/24 Recreational Director Relationship Specialty Start Date End Date Jaqui Flynn APRN-TRAUMA THERAPIST [address] [place] [address] PCP - [facility] 06/17/24 Recreational Director Relationship Specialty Start Date End Date Jaqui Flynn APRN-TRAUMA THERAPIST [address] [place] [address] PCP - [facility] 06/17/24 Recreational Director Relationship Specialty Start Date End Date Jaqui Flynn APRN-TRAUMA THERAPIST [address] [place] [address] PCP - [facility] 06/17/24 Recreational Director Relationship Specialty Start Date End Date Jaqui Flynn APRN-TRAUMA THERAPIST [address] [place] [address] PCP - [facility] 06/17/24 FOR RECORDS PERTAINING TO PATIENTS WHO ARE [...] BE BASED ON THE PRIMARY CLINICAL RECORDS. [facility]. provides no warranty or guarantee of the accuracy or completeness of information in this document.
--- NOTE | 2024-11-05 13:22 | P.CN_ITS ---
Consult Note: HPI Data of Consult Patient: known to practice within the last 3 years Requesting Physician: Kristina Baltazar NP Primary Care Provider: ALAINA ARREOLA Consult Narrative Reason for consult: f/u Narrative: Eh Aguilar a 73 year old male presents for evaluation of chronic low back and neck pain. Today pain 1/10 in neck and upper back, increases to 8/10 at its worst. Patient continue to have sharp aching pain, no radiculopathy. Pain increased in the evenings and with sleep. Patient continues to utilize marijuana, CBD, and THC gummies, tizanidine with mild-moderate benefit. has since discontinued acupuncture without increased pain. reports overall improvement since last visit. cc:: CC: Kristina Baltazar NP Review of Systems ROS Status of ROS 10 or more systems reviewed and unremark able except as noted in history and below Musculoskeletal Reports: extremity pain PFSH PFSH Medical History (Updated 08/06/24 @ 12:23 by Kristina Baltazar NP) Hiatal hernia ?K44.9 - Diaphragmatic hernia without obstruction or gangrene (ICD-10) Low back pain ?M54.50 - Low back pain, unspecified (ICD-10) Asthma ?J45.909 - Unspecified asthma, uncomplicated (ICD-10) Sleep apnea ?G47.30 - Sleep apnea, unspecified (ICD-10) Irregular heartbeat ?I49.9 - Cardiac arrhythmia, unspecified (ICD-10) Surgical History H/O carpal tunnel repair ?Z98.890 - Other specified postprocedural states (ICD-10) History of left knee surgery ?Z98.890 - Other specified postprocedural states (ICD-10) H/O cardiac radiofrequency ablation ?Z98.890 - Other specified postprocedural states (ICD-10) H/O vein stripping ?Z98.890 - Other specified postprocedural states (ICD-10) Hx of tonsillectomy ?Z90.89 - Acquired absence of other organs (ICD-10) Meds Home Medications and Allergies Home Medications ?Medication ?Instructions ?Recorded ?Confirmed ?Type cholecalciferol (vitamin D3) 10 10 mcg PO DAILY 06/21/23 03/04/24 History mcg (400 unit) capsule (Vitamin D3) magnesium glycinate mg PO 06/21/23 History melatonin 10 mg capsule 10 mg PO DAILY 06/21/23 03/04/24 History pramipexole 0.25 mg tablet 0.25 mg PO DAILY 06/21/23 03/04/24 History (Mirapex) tizanidine 4 mg capsule 4 mg PO DAILY 11/28/23 03/04/24 History aspirin 81 mg capsule 81 mg PO DAILY 01/15/24 03/04/24 History potassium 75 mg tablet mg PO 01/15/24 History tizanidine 4 mg tablet See Rx Instructions .Route 08/26/24 Rx .COMPLEX PRN muscle spasticity #60 tabs tizanidine 4 mg tablet 8 mg (2 x 4 mg) PO .qhs PRN muscle 11/05/24 Rx spasticity #180 tabs Allergies Allergy/AdvReac Type Severity Reaction Status Date / Time celecoxib (From Celebrex) Allergy Unknown Verified 03/04/24 08:08 adhesive AdvReac Verified 03/04/24 08:08 metoprolol (From Toprol XL) AdvReac Verified 03/04/24 08:08 Exam Constitutional Documenting provider has reviewed patient's vital signs: yes Common normals: no apparent distress, oriented x3, healthy appearing, alert and well nourished General appearance: cooperative HENMT Common normals: normocephalic, hearing grossly normal bilaterally and moist oral mucous membranes Head and scalp: normocephalic Eye Common normals: PERRL Pupil: PERRL Neck & C-Spine Common normals: full ROM General: normal visual inspection Cervical spine: pain with cervical ROM, paracervical muscle tenderness and paracervical muscle spasm Other: negative spurlings negative facet loading no pain over cervical facets on exam Chest Common normals: inspection of chest normal Respiratory Common normals: normal respiratory effort, no retractions and no use of accessory muscles Back & Pelvis Lumbar spine/lower back: ROM limited, pain with ROM and straight leg raise negative bilaterally Sacroiliac joints: SI joints normal Extremity Common normals: normal to inspection and full ROM Other: right trapezius myofascial pain noted Neuro Common normals: oriented x3, CN's II-XII intact bilaterally, moves all extremities, no focal motor deficits, no sensory deficits noted and deep tendon reflexes 2+ bilaterally Sensorium/orientation: alert Motor exam: strength 5/5 throughout and no movement abnormalities noted Psych Common normals: mental status grossly normal, thought process normal, cooperative, affect normal, speech normal and activity/motor behavior normal Speech: normal speech Thought process: normal thought process Results Additional Findings Additional findings: If on a controlled substance or opioids, I have checked an [place]AR[place] report on this patient and there are no aberrancies noted in the prescribing history.??If on a controlled substance or opioid a drug screen was completed and reviewed within the last year, and if there has not been a drug screen completed we ordered one today to monitor higher risk, state monitored pain medication use. As part of providing excellent, safe, comprehensive care, the following was completed at our patient's visit: 1. A medication reconciliation and review to ensure accurate knowledge of current/active medications, including asking our patients to inform us about any [id number] medications or herbal remedies/nutritional supplements/alternative remedies. 2. A review to specifically ensure our patients have had annual screening for screening for depression, screening for tobacco use, and screening for unhealthy alcohol use. For concerning screenings had a discussion with the patient, provided patient education, and recommended follow-up with primary care provider when appropriate. If patient noted with a risk of falling, they received education on strength, gait, and balance training to prevent future risk of falling. Portions of this note may have been carried over from the previous visit and updated as appropriate. Please note this office utilizes paper charting in addition to the electronic medical record. A list of current medications, vitals, and PMH is available there as the clinical staff outside of myself do not have access to [employer] charting during the clinic day operations. As part of providing quality comprehensive care the current medications, vitals, and PMH were reviewed in the paper chart. Assessment and Plan Assessment and Plan (1) Myofascial pain: (2) Cervical spondylosis: Plan continue tizanidine 4-8mg HS PRN pain/spasms f/u 6 months, sooner if needed
== END 2024-11-05 12:51 | disposition home or self-care (01) ==
LOC: PM 12:50
PROVIDERS: PCP Family Medicine; Visit Provider Nurse Practitioner
DX: M79.18 Myalgia, other site (principal); M47.812 Spondylosis without myelopathy or radiculopathy, cervical region
CPT/HCPCS: G0463

== ENCOUNTER 2025-05-06 12:49 | Outpatient (OUT) | payer MEDICARE, SELFPAY ==
--- NOTE | 2025-05-06 13:51 | PM.CN ---
Consult Note: HPI Data of Consult Patient: known to practice within the last 3 years Requesting Physician: Kristina Baltazar NP Primary Care Provider: ALAINA ARREOLA Consult Narrative Reason for consult: f/u Narrative: Eh Aguilar a 74 year old male presents for evaluation of chronic low back and neck pain. Today pain 0/10 in neck and upper back, increases to 8/10 at its worst. noting increased numbness to bilateral hands, feet, and legs since last visit. utilizing medical THC and tizanidine 8mg hs prn with benefit without side effects. denies fall or injury since last visit. cc:: CC: Kristina Baltazar NP Review of Systems ROS Status of ROS 10 or more systems reviewed and unremarkable except as noted in history and below Musculoskeletal Reports: extremity pain PFSH PFSH Medical History (Updated 05/06/25 @ 13:53 by Kristina Baltazar NP) Hiatal hernia ?K44.9 - Diaphragmatic hernia without obstruction or gangrene (ICD-10) Low back pain ?M54.50 - Low back pain, unspecified (ICD-10) Asthma ?J45.909 - Unspecified asthma, uncomplicated (ICD-10) Sleep apnea ?G47.30 - Sleep apnea, unspecified (ICD-10) Irregular heartbeat ?I49.9 - Cardiac arrhythmia, unspecified (ICD-10) Surgical History H/O carpal tunnel repair ?Z98.890 - Other specified postprocedural states (ICD-10) History of left knee surgery ?Z98.890 - Other specified postprocedural states (ICD-10) H/O cardiac radiofrequency ablation ?Z98.890 - Other specified postprocedural states (ICD-10) H/O vein stripping ?Z98.890 - Other specified postprocedural states (ICD-10) Hx of tonsillectomy ?Z90.89 - Acquired absence of other organs (ICD-10) Meds Home Medications and Allergies Home Medications ?Medication ?Instructions ?Recorded ?Confirmed ?Type cholecalciferol (vitamin D3) 10 10 mcg PO DAILY 06/21/23 03/04/24 History mcg (400 unit) capsule (Vitamin D3) magnesium glycinate mg PO 06/21/23 History melatonin 10 mg capsule 10 mg PO DAILY 06/21/23 03/04/24 History pramipexole 0.25 mg tablet 0.25 mg PO DAILY 06/21/23 03/04/24 History (Mirapex) tizanidine 4 mg capsule 4 mg PO DAILY 11/28/23 03/04/24 History aspirin 81 mg capsule 81 mg PO DAILY 01/15/24 03/04/24 History potassium 75 mg tablet mg PO 01/15/24 History tizanidine 4 mg tablet See Rx Instructions .Route 08/26/24 Rx .COMPLEX PRN muscle spasticity #60 tabs tizanidine 4 mg tablet 8 mg (2 x 4 mg) PO .qhs PRN muscle 11/05/24 Rx spasticity #180 tabs Allergies Allergy/AdvReac Type Severity Reaction Status Date / Time celecoxib (From Celebrex) Allergy Unknown Verified 03/04/24 08:08 adhesive AdvReac Verified 03/04/24 08:08 metoprolol (From Toprol XL) AdvReac Verified 03/04/24 08:08 Exam Constitutional Documenting provider has reviewed patient's vital signs: yes Common normals: no apparent distress, oriented x3, healthy appearing, alert and well nourished General appearance: cooperative HENMT Common normals: normocephalic, hearing grossly normal bilaterally and moist oral mucous membranes Head and scalp: normocephalic Eye Common normals: PERRL Pupil: PERRL Neck & C-Spine Common normals: full ROM General: normal visual inspection Cervical spine: pain with cervical ROM Other: negative spurlings negative facet loading no pain over cervical facets on exam strength 5/5 in BUE sensation intact BUE Chest Common normals: inspection of chest normal Respiratory Common normals: normal respiratory effort, no retractions and no use of accessory muscles Back & Pelvis Lumbar spine/lower back: ROM limited, pain with ROM, lumbar spinal tenderness Lumbar spinal tenderness location: L2 and L3 and straight leg raise negative bilaterally Sacroiliac joints: SI joints normal Extremity Common normals: normal to inspection and full ROM Other: right trapezius myofascial pain noted Neuro Common normals: oriented x3, CN's II-XII intact bilaterally, moves all extremities, no focal motor deficits, no sensory deficits noted and deep tendon reflexes 2+ bilaterally Sensorium/orientation: alert Motor exam: strength 5/5 throughout and no movement abnormalities noted Psych Common normals: mental status grossly normal, thought process normal, cooperative, affect normal, speech normal and activity/motor behavior normal Speech: normal speech Thought process: normal thought process Results Additional Findings Additional findings: If on a controlled substance or opioids, I have checked an [place]AR[place] report on this patient and there are no aberrancies noted in the prescribing history.??If on a controlled substance or opioid a drug screen was completed and reviewed within the last year, and if there has not been a drug screen completed we ordered one today to monitor higher risk, state monitored pain medication use. As part of providing excellent, safe, comprehensive care, the following was completed at our patient's visit: 1. A medication reconciliation and review to ensure accurate knowledge of current/active medications, including asking our patients to inform us about any [id number] medications or herbal remedies/nutritional supplements/alternative remedies. 2. A review to specifically ensure our patients have had annual screening for screening for depression, screening for tobacco use, and screening for unhealthy alcohol use. For concerning screenings had a discussion with the patient, provided patient education, and recommended follow-up with primary care provider when appropriate. If patient noted with a risk of falling, they received education on strength, gait, and balance training to prevent future risk of falling. Portions of this note may have been carried over from the previous visit and updated as appropriate. Please note this office utilizes paper charting in addition to the electronic medical record. A list of current medications, vitals, and PMH is available there as the clinical staff outside of myself do not have access to [employer] charting during the clinic day operations. As part of providing quality comprehensive care the current medications, vitals, and PMH were reviewed in the paper chart. Assessment and Plan Assessment and Plan (1) Cervical spondylosis: (2) Degenerative disc disease, cervical: (3) Cervical radiculopathy: (4) Myofascial pain: Plan declining cervical mri without contrast, pain well controlled at this time continue current medications, pt would like PCP to take over tizanidine 8mg hs prn as he is concerned with future insurance coverage/changes f/u 6 months, sooner if needed
== END 2025-05-06 12:50 | disposition home or self-care (01) ==
LOC: PM 12:49
PROVIDERS: PCP Family Medicine; Visit Provider Nurse Practitioner
DX: M47.812 Spondylosis without myelopathy or radiculopathy, cervical region (principal); M50.30 Other cervical disc degeneration, unspecified cervical region; M54.12 Radiculopathy, cervical region; M79.18 Myalgia, other site
CPT/HCPCS: G0463